=== PATIENT | female | born 1935 | race Caucasian/White ===

== ENCOUNTER 2016-05-25 13:56 | Emergency (ER) | payer OTHER, MEDICARE ==
[~2016-05-25 13:56] MED LIST: ALBUTEROL0.09 MG/A1 INH; ASPIRIN CHILDRE81 MG PO; ASPIRIN325 M2 PO; ATENOLOL25 M1 PO; AUGMENTIN 875 M1 TAB PO; CIPROFLOXACIN500 MG PO; CITALOPRAM20 MG PO; FERROUS SULFAT325 M3 PO; FLAG500 PO; HUMALOG100 U/ML; HUMALOG100 UNIT/2; HUMULIN N100 UNIT/2 SC; HUMULIN-N1000 U/10 SC; KEFLEX500 M1 PO; KEFLEX500 MG PO; LASIX40 MG PO; LEADER MELATONIN5 MG PO; LEVOTHYROXIN0.137 MG PO; LISINOPRIL10 MG PO; MACROBID100 MG PO; METFORMIN HYD1000 MG PO; METFORMIN1000 MG PO; MYRBETRIQ50 M1 PO; NOVOLIN-N1000 UNITS SC; NOVOLOG100 U/ML SC; ONDANSETRON ODT4 MG PO; PEPCID20 MG PO; PROTONIX 40MG T40 MG PO; REGLAN10 MG PO; TYLENOL PM EXTR1 TAB PO; VICODIN 5-3001 EACH PO; VITAMIN D250000 UNIT PO; ZETIA10 M1 PO
--- NOTE | 2016-05-25 16:12 | ED MVC/FALL/TRAUMA COMPLAINT ---
History of Present Illness General Chief Complaint: Low Back Pain/Injury Stated Complaint: S/P FALL, R SIDE LOWER BACK PAIN Source: patient, old records Exam Limitations: no limitations Allergies Coded Allergies: Sulfa (Sulfonamide Antibiotics) (HIVES 08/05/15) adhesive tape (UNKNOWN 08/05/15) morphine (UNKNOWN 08/05/15) Reconcile Medications ACETAMINOPHEN/DIPHENHYDRAMINE (Tylenol Pm Ex-Strength Caplet) 500 MG-25 MG TABLET 2 TAB PO QPM PRN SLEEP (Reported) Aspirin (Aspirin*) 325 MG TABLET 2 TAB PO DAILY HEART HEALTH (Reported) Atenolol 25 MG TABLET 1 TAB PO DAILY BP (Reported) Bimatoprost (Lumigan) 0.01 % DROPS 1 GTT OPH QPM BOTH EYES (Reported) Citalopram Hydrobromide (Citalopram HBr) 20 MG TABLET 1 TAB PO DAILY DEPRESSION (Reported) Ergocalciferol (Vitamin D2) (Vitamin D2) 50,000 UNIT CAPSULE 1 CAP PO Q10D SUPPLEMENT (Reported) Ezetimibe (Zetia) 10 MG TABLET 1 TAB PO DAILY CHOLESTEROL (Reported) Ferrous Sulfate 325 MG (65 MG IRON) TABLET 1 TAB PO TID SUPPLEMENT (Reported) Furosemide (Lasix) 40 MG TABLET 1 TAB PO BID FLUID (Reported) Hydromorphone HCl (Dilaudid) 2 MG TABLET 1 TAB PO Q6H PRN pain Insulin Lispro (Humalog) (Unknown Strength) VIAL (Unknown Dose) SEE SLIDING SCALE DIABETES (Reported) Insulin NPH Human Isophane (Humulin N Kwikpen) 100 UNIT/ML (3 ML) INSULN.PEN 30 U SC BID DIABETES (Reported) Levothyroxine Sodium 0.137 MG TAB 1 TAB PO DAILY AC THYROID (Reported) Melatonin 5 MG TABLET 2 TAB PO QPM SLEEP AID (Reported) METFORMIN HCL (Metformin) 1,000 MG TAB 1 TAB PO BID DM (Reported) Mirabegron (Myrbetriq) 50 MG TAB.ER.24H 1 TAB PO DAILY BLADDER (Reported) Pantoprazole Sodium (Protonix) 40 MG TAB 1 TAB PO DAILY GERD (Reported) Triage Note: C/O FALLING 2 DAYS AGO, SEEN AT THE [facility]ALKIN. C/O RIGHT FLANK/BACK PAIN WHERE SHE LANDED - GETTING WORSE . PT TOOK IBUPROPHEN PRIOR TO ARRIVAL. Triage Nurses Notes Reviewed? yes HPI: Patient is a 81 year old female presents complaining of severe right low back pain s/p fall 2 days ago. Patient slipped and fell 2 days ago onto her right low back. Pain is a sharp, burning, spasming sensation, worsens at times with movements. Took 400mg of ibuprofen today with no improvement. Went to an urgent care clinic yesterday, and had x-rays that were unremarkable. Denies head injury, loss of consciousness, neck pain, headache, incontinence, pain radiating down the legs, numbness. (KUSH MICHAUD) Vital Signs & Intake/Output Vital Signs & Intake/Output Vital Signs Date Time Temp Pulse Resp B/P Pulse O2 O2 Flow FiO2 Ox Delivery Rate 05/25 2010 97.4 74 18 134/60 94 Room Air Room Air 05/25 1506 97 Room Air 05/25 1407 97.2 63 18 145/54 97 Room Air ED Intake and Output 05/26 0000 05/25 1200 Intake Total Output Total Balance Patient 211 lb Weight Past History Travel History Traveled to [place] past 21 day No Medical History Any Pertinent Medical History? see below for history Neurological: CVA EENT: macular degeneration Cardiovascular: CAD, PACEMAKER Respiratory: NONE Gastrointestinal: diverticulitis, gastric ulcers colonoscopy in 2009 showed a small tubular adenoma and diverticulosis. She has had 2 upper endoscopies last in 2011 which showed mild gastritis and was negative for H. 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 Other Medical Hx: Peripheral vascular disease, hyperlipidemia, coronary artery disease, hypothyroidism, sick sinus syndrome, sleep apnea, CVA, GI bleed, hypertension, diabetic retinopathy, diabetic neuropathy, osteomyelitis, spherocytosis, chronic anemia, depression, History of MRSA: Yes Surgical History Surgical History: knee replacement (BILATERAL), PACEMAKER CARDIAC STENT SPLENECTOMY, CHOLECYSTECTOMY, LEFT CAROTID ENDARTERECTOMY, KNEE REPLACEMENT, PACEMAKER Psychosocial History Who do you live with Friend Services at Home None What is your primary language Citizen Of [place] Tobacco Use: Never used ETOH Use: denies use Illicit Drug Use: denies illicit drug use Family History Family History, If Any: FATHER FH: diabetes mellitus Relation not specified for: FH: pancreatic cancer Hx Contributory? No (KUSH MICHAUD) Review of Systems Review of Systems Constitutional: Reports: no symptoms. Eyes: Reports: no symptoms. Ears, Nose, Throat, Mouth: Reports: no symptoms. Respiratory: Denies: cough, short of breath. Cardiovascular: Denies: chest pain. Gastrointestinal/Abdominal: Denies: abdominal pain, nausea, vomiting. Genitourinary: Reports: no symptoms. Musculoskeletal: Reports: see HPI. Skin: Reports: no symptoms. Neurological/Psychological: Denies: headache, numbness, paresthesia. (KUSH MICHAUD) Physical Exam Physical Exam General Appearance: well developed/nourished, alert, awake Head: atraumatic, normal appearance Eyes: Bilateral: normal appearance, PERRL, EOMI. Ears, Nose, Throat, Mouth: hearing grossly normal, moist mucous membrane Neck: normal inspection, supple, full range of motion, no midline tenderness, NO PARASPINAL TENDERNESS Respiratory: normal breath sounds, chest non-tender, no respiratory distress, lungs clear Cardiovascular: regular rate/rhythm Peripheral Pulses: 2+ dorsalis pedis (R), 2+ dorsalis pedis (L) Gastrointestinal: normal bowel sounds, soft, non-tender Back: TENDERNESS RIGHT INFERIOR RIBS. hEMATOMA RIGHT LUMBAR PARASPINAL. 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 No Severe Sepsis Present: No Septic Shock Present: No (KUSH MICHAUD) Progress Differential Diagnosis: aoritic dissection, abd injury, C/T/L spine injury, ext injury, pelvis injury, pnemothorax, spinal cord injury Diagnostic Imaging: Viewed by Me: CT Scan. Discussed w/RAD: CT Scan. Radiology Impression: [facility] 81 PATIENT ACCOUNT NO: [id number] : 37 LOCATION: [facility] ORDERING PHYSICIAN: KUSH MOORE SERVICE DATE: 05/25/16 EXAM TYPE: CAT - CT 3D RECON REQ POST PROC; CT ABD & PELVIS W/O IV CONTRAS EXAMINATION: CT ABD PELVIS W/O IV CONTRAS, CT 3D RECON REQ POST PROC CLINICAL INFORMATION: Trauma. Severe back pain. Bruising right low back. Consider retroperitoneal bleed. COMPARISON: CT of the abdomen and pelvis done 02/11/[address] the lumbar sacral spine on 05/05/2016. TECHNIQUE: CT of the abdomen and pelvis with coronal and sagittal reformats obtained at the acquisition workstation. Targeted reformats of the lumbosacral spine also in the coronal, axial, and sagittal planes. FINDINGS: Director Loan view demonstrates cardiomegaly and portions of a dual- lead pacemaker. There is a focal area of scarring contained within the lingula of the left upper lobe. There is no hemothorax. Calcification of the mitral annulus is seen. The liver is normal in size showing no acute injury. Pneumobilia is due to a prior papillotomy. The gallbladder is not present. The pancreas is normal. The spleen has been surgically removed. The adrenal glands are normal. Abundant renal sinus fat is seen in both kidneys which are normal in shape. Neither kidney shows evidence of hydronephrosis or stone formation. The bladder is unremarkable. The small and large intestine are normal. The appendix is normal. There is no evidence of free fluid or free air. Numerous calcific plaques are seen throughout the thoracic and abdominal aorta. Calcifications are also present at the origins of the major vessels. There is no sign of intra- abdominal hematoma formation. Osseous structures: There are nondisplaced fractures involving the transverse processes on the right at L1 and L2. An old nondisplaced fracture involves the right transverse processes of L4. Progressive degenerative disc disease is seen at the levels of L2-S1. Vertebral height is preserved. Facet arthropathy is localized to the lumbosacral junction. The patient has been previously diagnosed with spinal stenosis in the lumbar region. Addition, there is slightly displaced fractures involving the posterolateral aspects of the right 9th, 10th, and 11th ribs. IMPRESSION: 1. Fractures of the right transverse processes at L1 and L2. 2. Minimally displaced fractures involving the posterolateral aspects of the 9th, 10th, and 11th ribs. 3. No pneumothorax or hemothorax. 4. No retroperitoneal hematoma formation. DICTATED BY: ANTONIO WILSON MD DATE/TIME DICTATED:05/25/161745 LINE SERVICE SUPERVISOR: ZEE DATE/TIME TRANSCRIBED:05/25/161745 CONFIDENTIAL, DO NOT COPY WITHOUT APPROPRIATE AUTHORIZATION. <Electronically signed in Other Vendor System> SIGNED BY: ANTONIO WILSON MD 05/25/16 134, PATIENT: [facility] PRESENT AGE: 81 PATIENT ACCOUNT NO: [id number] : 37 LOCATION: [facility] ORDERING PHYSICIAN: KUSH MOORE SERVICE DATE: 05/25/16 EXAM TYPE: CAT - CT CHEST WO IV CONTRAST EXAMINATION : CT CHEST WITHOUT CONTRAST CLINICAL INFORMATION: Rib fractures incurred today. COMPARISON: CT of the abdomen done earlier this evening. TECHNIQUE: Multidetector volumetric CT imaging of the chest was done. Axial MIP volume rendering provided. Sagittal and coronal reformatted images were obtained. DLP: 469 mGy-cm. FINDINGS: DYE CAN OPERATOR: Director Loan view demonstrates fibrotic opacities in both lower lobes. The heart is enlarged. The right pectoral pacemaker is in the appropriate position. LUNGS: The exam confirms peripheral fibrosis involving the lower lobes. The remainder of the lung arevalo is clear showing no evidence of lung contusion. MEDIASTINUM: The heart is enlarged. There is mitral valvular calcification. Benign mediastinal nodes are present. PLEURA: There is no pleural effusion. No pleural mass or thickening. AXILLA: No lymphadenopathy. UPPER ABDOMEN: Unremarkable. OSSEOUS STRUCTURES: Vertebral height is preserved. There is no subluxation. The upper rib cage on the right is intact. IMPRESSION: Early pulmonary fibrosis of the lower lobes. No evidence of lung contusion or atelectasis. No additional rib fractures. DICTATED BY: ANTONIO WILSON MD DATE /TIME DICTATED:05/25/161933 LINE SERVICE SUPERVISOR:ZEE DATE/TIME TRANSCRIBED: 05/25/161933 CONFIDENTIAL, DO NOT COPY WITHOUT APPROPRIATE AUTHORIZATION. < Electronically signed in Other Vendor System> SIGNED BY: ANTONIO WILSON MD 05/25/161944 (KUSH MICHAUD) Plan of Care: Orders Procedure Date/time Status FingerStick- Glucose 05/[address] abdomen and pelvis and lumbar spine discussed with the patient and her significant other. CT chest ordered to rule out further rib fractures or lung injury. Discussed with and seen by Dr. Felipe. 2010: Patient ambulated well with walker without respiratory distress. Post- ambulation patient's oxygen saturation 94%. Injuries occurred approximately 48 hours ago given patient's respiratory condition and time from injury patient does not appear to require transfer to a trauma center. Patient wants to go home, appears okay for discharge. Patient provided with an incentive spirometer. Instructed to return immediately if any difficulty breathing or worsening of symptoms. (KUSH MICHAUD) Departure Departure Time of Disposition: 2008 Disposition: HOME OR SELF CARE Condition: Stable Clinical Impression Primary Impression: Ribs, multiple fractures Qualifiers: Encounter type: initial encounter Fracture type: closed Laterality: right Qualified Code: S22.41XA - Multiple fractures of ribs, right side, initial encounter for closed fracture Secondary Impressions: Lumbar transverse process fracture Qualifiers: Encounter type: initial encounter Fracture type: closed Qualified Code: S32.008A - Other fracture of unspecified lumbar vertebra, initial encounter for closed fracture Referrals: SONALI TRUJILLO APRN (PCP/Family) Additional Instructions: Follow-up with your primary care provider tomorrow or early next week for further evaluation. Call Sunday for appointment. Use the incentive spirometer 10-15 times each hour. Return to the emergency department immediately if fevers, pain uncontrollable, difficulty breathing, numbness, weakness or worsening of symptoms. Departure Forms: Customer Survey General Discharge Information Prescriptions: Current Visit Scripts Hydromorphone HCl (Dilaudid) 1 TAB PO Q6H PRN pain #20 TAB (KUSH MICHAUD) PA/REFINING ENGINEER Co-Sign Statement Statement: ED Attending supervision documentation- [X] I saw and evaluated the patient. I have also reviewed all the pertinent lab results and diagnostic results. I agree with the findings and the plan of care as documented in the PA's/REFINING ENGINEER's documentation. [] I have reviewed the ED Record and agree with the PA's/REFINING ENGINEER's documentation. [] Additions or exceptions (if any) to the PAs/REFINING ENGINEER's note and plan are summarized below: [] (ALCIDES BOURGEOIS,AJN Saenz)
--- NOTE | 2016-05-25 18:14 | CT SCAN REPORT ---
EXAMINATION: CT ABD PELVIS W/O IV CONTRAS, CT 3D RECON REQ POST PROC CLINICAL INFORMATION: Trauma. Severe back pain. Bruising right low back. Consider retroperitoneal bleed. COMPARISON: CT of the abdomen and pelvis done 02/11/[address] the lumbar sacral spine on 05/05/2016. TECHNIQUE: CT of the abdomen and pelvis with coronal and sagittal reformats obtained at the acquisition workstation. Targeted reformats of the lumbosacral spine also in the coronal, axial, and sagittal planes. FINDINGS: Sales Ledger Administrator view demonstrates cardiomegaly and portions of a dual-lead pacemaker. There is a focal area of scarring contained within the lingula of the left upper lobe. There is no hemothorax. Calcification of the mitral annulus is seen. The liver is normal in size showing no acute injury. Pneumobilia is due to a prior papillotomy. The gallbladder is not present. The pancreas is normal. The spleen has been surgically removed. The adrenal glands are normal. Abundant renal sinus fat is seen in both kidneys which are normal in shape. Neither kidney shows evidence of hydronephrosis or stone formation. The bladder is unremarkable. The small and large intestine are normal. The appendix is normal. There is no evidence of free fluid or free air. Numerous calcific plaques are seen throughout the thoracic and abdominal aorta. Calcifications are also present at the origins of the major vessels. There is no sign of intra-abdominal hematoma formation. Osseous structures: There are nondisplaced fractures involving the transverse processes on the right at L1 and L2. An old nondisplaced fracture involves the right transverse processes of L4. Progressive degenerative disc disease is seen at the levels of L2-S1. Vertebral height is preserved. Facet arthropathy is localized to the lumbosacral junction. The patient has been previously diagnosed with spinal stenosis in the lumbar region. Addition, there is slightly displaced fractures involving the posterolateral aspects of the right 9th, 10th, and 11th ribs. IMPRESSION: 1. Fractures of the right transverse processes at L1 and L2. 2. Minimally displaced fractures involving the posterolateral aspects of the 9th, 10th, and 11th ribs. 3. No pneumothorax or hemothorax. 4. No retroperitoneal hematoma formation.
[2016-05-25] MEDS ORDERED: LUMIGAN2.5 ML OPH (19:18)
--- NOTE | 2016-05-25 19:45 | CT SCAN REPORT ---
EXAMINATION: CT CHEST WITHOUT CONTRAST CLINICAL INFORMATION: Rib fractures incurred today. COMPARISON: CT of the abdomen done earlier this evening. TECHNIQUE: Multidetector volumetric CT imaging of the chest was done. Axial MIP volume rendering provided. Sagittal and coronal reformatted images were obtained. DLP: 469 mGy-cm. FINDINGS: ICING AND GLAZE MAKER: Director Of Sales view demonstrates fibrotic opacities in both lower lobes. The heart is enlarged. The right pectoral pacemaker is in the appropriate position. LUNGS: The exam confirms peripheral fibrosis involving the lower lobes. The remainder of the lung arevalo is clear showing no evidence of lung contusion. MEDIASTINUM: The heart is enlarged. There is mitral valvular calcification. Benign mediastinal nodes are present. PLEURA: There is no pleural effusion. No pleural mass or thickening. AXILLA: No lymphadenopathy. UPPER ABDOMEN: Unremarkable. OSSEOUS STRUCTURES: Vertebral height is preserved. There is no subluxation. The upper rib cage on the right is intact. IMPRESSION: Early pulmonary fibrosis of the lower lobes. No evidence of lung contusion or atelectasis. No additional rib fractures.
[2016-05-25 20:11] VITALS: BP 134/60
[2016-05-25] MEDS ORDERED: DILAUDID2 M1 PO (20:11)
== END 2016-05-25 20:24 ==
LOC: ERH 13:56
DX: S22.41XA Multiple fractures of ribs, right side, initial encounter for closed fracture (principal); S32.019A Unspecified fracture of first lumbar vertebra, initial encounter for closed fracture; S32.029A Unspecified fracture of second lumbar vertebra, initial encounter for closed fracture; W19.XXXA Unspecified fall, initial encounter
CPT/HCPCS: 74176; 96372

== ENCOUNTER 2016-11-27 09:59 | Observation (INO) | payer OTHER, MEDICARE ==
[~2016-11-27] VITALS: Ht 160 cm; Wt 99.8 kg
[~2016-11-27 09:59] MED LIST changes: +CITALOPRAM HBR20 MG PO; -CITALOPRAM20 MG PO; +DILAUDID2 M1 PO; +LASIX40 M1 PO; -LASIX40 MG PO; -LEVOTHYROXIN0.137 MG PO; +LEVOTHYROXINE137 MCG PO; +LUMIGAN2.5 ML OPH; +METFORMIN HCL1000 M1 PO; -METFORMIN1000 MG PO; -PROTONIX 40MG T40 MG PO; +PROTONIX40 M3 PO; +TYLENOL PM EX-1 EACH PO; -TYLENOL PM EXTR1 TAB PO
--- NOTE | 2016-11-27 10:06 | NUR ---
PT TO ED WITH C/O "WOKE UP AROUND 3AM WITH CHILLS, HAD DIARRHEA LAST WEEK, THEN WOKE UP AROUND 4AM SOAKING WET, GOT UP AND CHECKED SUGAR 102, AND ATE PEANUT BUTTER" "SUGAR NOW 151".
--- NOTE | 2016-11-27 10:16 | NUR ---
PT ROOM # 22 VIA WHEELCHAIR, CHANGED TO HOSP GOWN FOR EVAL. AT BEDSIDE.
--- NOTE | 2016-11-27 10:31 | NUR ---
PT C/O OF ABDOMINAL PAIN AND NAUSEA, PT STATES PAIN STARTED IN THE MIDDLE OF THE NIGHT. PT ALSO C/O OF CHILLS OVERNIGHT.
--- NOTE | 2016-11-27 10:43 | NUR ---
EKG DONE AND SHOWN TO DR. MCGRATH
[2016-11-27 10:44] LABS: ABSOLUTE BASOPHIL COUNT 0.1 /CUMM (0.0-0.2); ABSOLUTE EOSINOPHIL COUNT 0.2 /CUMM (0.0-0.7); ABSOLUTE GRANULOCYTE CT 6.7 /CUMM (1.4-6.5); ABSOLUTE LYMPH COUNT 3.6 /CUMM (1.2-3.4); ABSOLUTE MONOCYTE COUNT 1.4 /CUMM (0.10-0.60); BASOPHIL % 0.5 % (0.0-2.0); EOSINOPHIL % 1.3 % (0-5); GRANULOCYTE % 56.1 % (42.2-75.2); HEMATOCRIT 34.5 % (37-47); MEAN CORPUSCULAR HGB 30.2 PG (27.0-31.0); MEAN CORPUSCULAR HGB CONC 34.4 G/DL (33.0-37.0); MEAN PLATELET VOLUME 7.9 FL (7.4-10.4); PLATELET COUNT 394 /CUMM (130-400); RBC DISTRIBUTION WIDTH 14.7 % (11.5-14.5); RED BLOOD CELL CT 3.92 /CUMM (4.20-5.40)
--- NOTE | 2016-11-27 10:49 | ED AMS/SEIZURE/WEAK/DIZZY ---
History of Present Illness General Chief Complaint: General Adult Stated Complaint: CHILLS AND FEVER Source: patient, old records Exam Limitations: no limitations Vital Signs & Intake/Output Vital Signs & Intake/Output Vital Signs Date Time Temp Pulse Resp B/P B/P Pulse O2 O2 Flow FiO2 Mean Ox Delivery Rate 11/27 1516 96.7 95 20 157/67 94 Room Air 11/27 1251 96.0 90 20 178/68 98 Room Air 11/27 1005 98.0 64 20 168/67 96 Room Air Room Air Allergies Coded Allergies: Sulfa (Sulfonamide Antibiotics) (HIVES 08/05/15) adhesive tape (UNKNOWN 08/05/15) morphine (UNKNOWN 08/05/15) Reconcile Medications Acetaminophen/Diphenhydramine (Tylenol Pm Ex-Strength Caplet) 500 MG-25 MG TABLET 2 TAB PO QPM PRN SLEEP (Reported) Aspirin (Aspirin*) 325 MG TABLET 2 TAB PO DAILY HEART HEALTH (Reported) Atenolol 25 MG TABLET 1 TAB PO DAILY BP (Reported) Bimatoprost (Lumigan) 0.01 % DROPS 1 GTT OPH QPM BOTH EYES (Reported) Citalopram Hydrobromide (Citalopram HBr) 20 MG TABLET 1 TAB PO DAILY DEPRESSION (Reported) Ergocalciferol (Vitamin D2) (Vitamin D2) 50,000 UNIT CAPSULE 1 CAP PO Q10D SUPPLEMENT (Reported) Ezetimibe (Zetia) 10 MG TABLET 1 TAB PO DAILY CHOLESTEROL (Reported) Ferrous Sulfate 325 MG (65 MG IRON) TABLET 1 TAB PO BID SUPPLEMENT (Reported) Gabapentin 100 MG CAPSULE 1 CAP PO TID NEUROPATHY (Reported) Insulin Lispro (Humalog) (Unknown Strength) VIAL (Unknown Dose) SEE SLIDING SCALE DIABETES (Reported) Insulin NPH Human Isophane (Humulin N Kwikpen) 100 UNIT/ML (3 ML) INSULN.PEN 30 U SC BID DIABETES (Reported) Levothyroxine Sodium 137 MCG TABLET 1 TAB PO DAILY AC THYROID (Reported) Metformin HCl 1,000 MG TABLET 1 TAB PO BID DM (Reported) Pantoprazole Sodium (Protonix) 40 MG TABLET.DR 1 TAB PO DAILY ACID REFLUX ( Reported) Torsemide 20 MG TABLET 1 TAB PO DAILY WATER RETENTION (Reported) Triage Note: PT TO ED WITH C/O "WOKE UP AROUND 3AM WITH CHILLS, HAD DIARRHEA LAST WEEK, THEN WOKE UP AROUND 4AM SOAKING WET, GOT UP AND CHECKED SUGAR 102, AND ATE PEANUT BUTTER" "SUGAR NOW 151". Triage Nurses Notes Reviewed? yes HPI: 81-year-old female with history of coronary artery disease diabetes presents for evaluation complaining of generalized malaise and weakness chills since last night. She states that she got up in the middle of the night in a cold sweat, she states that she thought her sugar was low so she had a glass of milk and peanut butter and checked her sugar afterwards and was 102. She states since then she's been nauseous. She denies chest pain palpitations dizziness lightheadedness. No sick contacts. She was in her normal state of health yesterday. She states last week she had 4 days of watery green diarrhea no black or bloody stools her bowel movements have been normal since. No recent antibiotic use. No modifying factors or associated symptoms otherwise (QUENTIN REA) Past History Travel History Traveled to [place] past 21 day No Medical History Any Pertinent Medical History? see below for history Neurological: CVA EENT: macular degeneration Cardiovascular: CAD, PACEMAKER Respiratory: NONE Gastrointestinal: diverticulitis, gastric ulcers colonoscopy in 2009 showed a small tubular adenoma and diverticulosis. She has had 2 upper endoscopies last in 2011 which showed mild gastritis and was negative for H. 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: NONE Other Medical Hx: Peripheral vascular disease, hyperlipidemia, coronary artery disease, hypothyroidism, sick sinus syndrome, sleep apnea, CVA, GI bleed, hypertension, diabetic retinopathy, diabetic neuropathy, osteomyelitis, spherocytosis, chronic anemia, depression, History of MRSA: Yes Surgical History Surgical History: knee replacement (BILATERAL), PACEMAKER CARDIAC STENT SPLENECTOMY, CHOLECYSTECTOMY, LEFT CAROTID ENDARTERECTOMY, KNEE REPLACEMENT, PACEMAKER Psychosocial History Who do you live with Friend Services at Home None What is your primary language Yakut Tobacco Use: Quit >30 days ago ETOH Use: denies use Illicit Drug Use: denies illicit drug use Family History Family History, If Any: FATHER FH: diabetes mellitus Relation not specified for: FH: pancreatic cancer Hx Contributory? No (QUENITN REA) Review of Systems Review of Systems Constitutional: Reports: see HPI. All Other Systems: Reviewed and Negative Comments Review of systems: See HPI, All other systems negative. Constitutional, no chills no fever, no malaise HEENT: No visual changes no sore throat no congestion, no ear pain Cardiovascular: No chest pain , no palpitation , no orthopnea Skin: no rashes, no change in skin Respiratory: No dyspnea no cough no sputum GI: nausea no vomiting, no diarrhea, : No dysuria No hematuria, no frequency, no discharge Muscle skeletal: No joint pain, no joint swelling, no back pain, no neck pain, Neurologic: No numbness no confusion, no headache Psych: No stress no depression,. Heme/endocrine: No bruising no bleeding Immunology: No lymphadenopathy (QUENTIN REA) Physical Exam Physical Exam General Appearance: well developed/nourished, alert Comments: Well-developed well-nourished person in no acute distress HEENT: Normal EENT exam; PERRL, EOMI,. HEAD is atraumatic. moist mucous membranes. Neck: Supple, no lymphadenopathy, normal range of motion Back: Nontender, no CVA tenderness. Full range of motion Cardiovascular: Regular rate and rhythms no murmurs rubs Respiratory: Chest nontender.There were no bony deformities, no asymmetry. No respiratory distress. Patient speaking in full complete sentences. Breath sounds clear to auscultation bilaterally: NO W/R/R Abdomen: Soft, periumbilical tenderness nondistended, no appreciable organomegaly. Normal bowel sounds. No rebound/guarding, No appreciable enlargement of the abdominal aorta, No ascites. Extremity: No edema, full range of motion of extremities, normal and equal pulses bilaterally, 5 out of 5 strength noted to bilateral upper and lower extremities Neuro: Alert oriented x3, motor sensory normal, cranial nerves II through XII grossly intact. There were no obvious focal neurologic abnormalities. Skin: No appreciable rash on exposed skin, skin is warm and dry. Psych: Mood and affect is normal, memory and judgment is normal. Core Measures ACS in differential dx? No CVA/TIA Diagnosis: No Severe Sepsis Present: No Septic Shock Present: No (QUENTIN REA) Progress Differential Diagnosis: dehydration, GI bleed, hypoglycemia, pneumonia, UTI/ pyelo, ischemic COLITIS DIVERTICULITIS, dehydration Diagnostic Imaging: Viewed by Me: CT Scan. Discussed w/RAD: CT Scan. Radiology Impression: [facility] PRES[facility] AGE: 81 PATIENT ACCOUNT NO: [id number] : 37 LOCATION: ER ORDERING PHYSICIAN: QUENTIN MOORE SERVICE DATE: 11/27/16 EXAM TYPE: CAT - CT ABD & PELVIS W IV CONTRAST EXAMINATION: CT ABDOMEN AND PELVIS WITH CONTRAST CLINICAL INFORMATION: Periumbilical pain. Diarrhea and chills. COMPARISON: 05/25 TECHNIQUE: Multidetector volumetric imaging was performed of the abdomen and pelvis before and after the IV administration of 93 mL of Optiray 320 intravenous contrast. Sagittal and coronal reformatted images were obtained on the technologist's workstation. DLP: 1075 mGy-cm FINDINGS: LUNG BASES: Bibasilar subsegmental atelectasis. Coronary artery calcifications. Partial visualization of pacer hardware. LIVER, GALLBLADDER, AND BILIARY TREE: The liver is normal in size, shape, and attenuation. No focal hepatic lesion or biliary ductal dilatation is present. There is pneumobilia, with gas extending into the left lobe of the liver. This is similar to previous. Gas is also seen in the common bile duct. The common bile duct is unchanged in caliber. Status post cholecystectomy. PANCREAS: Unremarkable. SPLEEN: Absent. ADRENAL GLANDS: Unremarkable. KIDNEYS AND URETERS: The kidneys are normal in size, shape, and attenuation. No hydronephrosis, hydroureter, or calculi seen. No perinephric stranding. BLADDER: Unremarkable. GASTROINTESTINAL TRACT: The stomach and small bowel are unremarkable. No dilated loops of bowel or evidence of obstruction. Normal appendix. There is no colonic wall thickening or inflammatory change. Mild colonic stool burden. No free air or free fluid. ABDOMINAL WALL: No significant hernia is appreciated. LYMPH NODES: Multiple mildly prominent retroperitoneal lymph nodes are unchanged. VASCULAR: Moderate atherosclerotic calcifications. PELVIC VISCERA: Multiple calcifications associated with the uterus suggestive of small fibroids. No adnexal mass. OSSEOUS STRUCTURES: No acute or suspicious osseous abnormality. Multilevel degenerative changes of the spine. Degenerative changes at the hips. Multiple nonunited transverse process fractures at the lumbar spine and right posterior lateral rib fractures. IMPRESSION: No acute finding of the abdomen or pelvis. No acute inflammatory changes. Chronic findings as above. DICTATED BY: MIKAYLA BOURGEOIS,NADIYA DATE/TIME DICTATED:11/27/161149 SENIOR ANALYST DEVELOPER:ZEE DATE/TIME TRANSCRIBED:0 CONFIDENTIAL, DO NOT COPY WITHOUT APPROPRIATE AUTHORIZATION. < Electronically signed in Other Vendor System> SIGNED BY: NADIYA DEGROOT MD 11/27/16 1202, PATIENT: SWAPNA BAKER PRESENT AGE: 81 PATIENT ACCOUNT NO: [id number] : 37 LOCATION: [facility] ORDERING PHYSICIAN: QUENTIN MOORE SERVICE DATE: 11/27/16-151 EXAM TYPE: RAD - XRY- PORTABLE CHEST XRAY EXAMINATION: CHEST 1 VIEW CLINICAL INFORMATION: Fever, pain. COMPARISON: 05/25/2016. TECHNIQUE: An AP view of the chest is provided. FINDINGS : The cardiac silhouette is enlarged, but stable. Pacer leads are in unchanged position. There is moderate vascular congestion. There are no consolidations. There are neither pleural effusions nor pneumothoraces. The osseous structures are stable. IMPRESSION: Stable cardiomegaly with moderate vascular congestion. DICTATED BY: MIRA BAKER MD DATE/TIME DICTATED:11/27/161525 SENIOR ANALYST DEVELOPER:ZEE DATE/TIME TRANSCRIBED:11/27/161525 CONFIDENTIAL, DO NOT COPY WITHOUT APPROPRIATE AUTHORIZATION. <Electronically signed in Other Vendor System> SIGNED BY: MIRA BAKER MD 11/27/16 1531 Initial ED EKG: PACED RHYTHM 60, NO ACUTE st SEGMENT CHANGES NORMAL AXIS Prior EKG: unchanged (06/29) (CARLOS MOORE,QUENTIN) Plan of Care: Orders Procedure Date/time Status Regular Diet 11/27 D Active Pathway - chart 11/27 1612 Active Pathway - chart 11/[address] in observation 11/27 1609 Active House Staff 11/27 1609 Active Patient Data 11/27 1609 Active Code Status 11/27 1609 Active Patient Data 11/27 1533 Active BLOOD CULTURE 11/27 1509 Active LACTIC ACID 11/27 1330 Complete CULTURE,URINE 11/27 1057 Active URINALYSIS 11/27 1057 Complete Add-on Test (ER Only) 11/27 1048 Active TROPONIN LEVEL 11/27 1036 Complete LIPASE 11/27 1036 Complete LACTIC ACID 11/27 1036 Complete AMYLASE 11/27 1036 Complete EKG 11/27 1031 Active Intake & Output 11/27 1027 Active COMPREHENSIVE METABOLIC PANEL 11/27 1027 Complete CBC WITHOUT DIFFERENTIAL 11/27 1027 Complete VTE Mechanical Prophylaxis 11/27 UNK Active Hemoccult 11/27 UNK Active Current Medications Sig/[place] Start time Last Medication Dose Stop Time Status Admin Aspirin 650 MG DAILY 11/28 1000 UNVr (Aspirin) Atenolol 25 MG DAILY 11/28 1000 UNVr (Tenormin) Citalopram 20 MG DAILY 11/28 1000 UNVr Hydrobromide (Celexa) Ezetimibe 10 MG DAILY 11/28 1000 UNVr (Zetia) Torsemide 20 MG DAILY 11/28 1000 UNVr (Demadex 20 MG) Insulin Aspart 0 TIDAC 11/28 08 UNVr (NovoLOG) Levothyroxine Sodium 0.137 MG DAILY AC 11/28 07 UNVr (Synthroid) Omeprazole 40 MG DAILY AC 11/28 07 UNVr (Prilosec) Insulin Detemir 20 UNITS BID 11/27 2200 UNVr (Levemir) Non-Formulary 0 SEE ADMIN CRITERIA 11/27 1700 UNVr Medication (NON FORMULARY) Gabapentin 100 MG TID 11/27 1655 UNVr (Neurontin) Acetaminophen 650 MG Q6P PRN 11/27 1615 AC (Tylenol) Acetaminophen 1,000 MG Q6P PRN 11/27 1615 AC (Ofirmev) Hydromorphone HCl 0.5 MG Q4P PRN 11/27 1615 AC (Dilaudid) Enoxaparin Sodium 40 MG DAILY 11/27 1609 AC (Lovenox) Laboratory Tests 11/27/16 1330: Urinalysis LIGHT H, Urine Color STRAW, Urine Clarity CLEAR, Urine pH 7.0, Ur Specific Bryce 1.010, Urine Protein NEG, Urine Ketones NEG, Urine Nitrite POS H, Urine Bilirubin NEG, Urine Urobilinogen 0.2, Ur Leukocyte Esterase NEG, Ur Microscopic SEDIMENT EXAMINED, Urine RBC RARE, Urine WBC RARE, Ur Epithelial Cells RARE, Urine Bacteria MANY H, Urine Hemoglobin NEG, Urine Glucose NEG 11/27/16 1322: Lactic Acid 2.7 H 11/27/16 1036: Anion Gap 13, Estimated GFR 48 L, BUN/Creatinine Ratio 18.2, Glucose 188 H, Lactic Acid 2.2 H, Calcium 8.9, Total Bilirubin 0.4, AST 21, ALT 30, Alkaline Phosphatase 68, Troponin I < 0.01, Total Protein 7.0, Albumin 3.9, Globulin 3.1, Albumin/Globulin Ratio 1.3, Amylase < 30 L, Lipase 45, CBC w Diff MAN DIFF ORDERED, RBC 3.92 L, MCV 88.0, MCH 30.2, RDW 14.7 H, MPV 7.9, Gran % 56.1, Lymphocytes % 30.2, Monocytes % 11.9 H, Eosinophils % 1.3, Basophils % 0.5, Absolute Granulocytes 6.7 H, Absolute Lymphocytes 3.6 H, Absolute Monocytes 1.4 H, Absolute Eosinophils 0.2, Absolute Basophils 0.1, Platelet Estimate VERIFIED BY SMEAR, Poikilocytosis 1+, Anisocytosis 1+, [place] Cells 1+, PUBS MCHC 34.4 Microbiology 11/27 1535 BLOOD: Blood Culture - RECD 11/27 1520 BLOOD: Blood Culture - RECD 11/27 1330 URINE ROUT: Urine Culture - RECD Labs ordered old records reviewed patient denies any pain at this time medically with IV fluids O for a CAT scan ordered. Case discussed Dr. Felipe agrees the plan. On repeat evaluation patient is resting in no apparent distress she's had no episodes of diarrhea here in the department. Discussed with her and her at length all of her results pending urine. Resting comfortably requesting something to eat patient seen and evaluated by Dr. Felipe agrees with plan on repeat evaluation pt reprots to persistent abd pain, given increasing lactic acid leveldespite fluids concern for developing process -infection,ischemia present. pain is not out of proportion to exam findings, dr felipe evaluate the pt and agrees with findings, pt did not take her metformin this am. call placed to hospitalists d/w dr webb agrees with plan Further fluids held at this time secondary to x-ray findings on her congestion (QUENTIN REA) Departure Departure Time of Disposition: 1530 Disposition: STILL A PATIENT Condition: Stable Clinical Impression Primary Impression: Lactic acidosis Secondary Impressions: Abdominal pain Referrals: GRACIE BOURGEOIS PhD,ZO Samaniego (PCP/Family) Departure Forms: Customer Survey General Discharge Information Observation Note Spoke With: RONA WEBB MD Physician Advisor Notified: DONTAE BOURGEOIS,ZO Huang Place Patient In: Non-ED OBS Care Area Rationale for Observation: My rational for observation is as follows trend labs and cultures IV fluids premature discharge would BE medically harmful (CARLOS MOORE,QUENTIN) PA/GOPHERMAN Co-Sign Statement Statement: ED Attending supervision documentation- [X] I saw and evaluated the patient. I have also reviewed all the pertinent lab results and diagnostic results. I agree with the findings and the plan of care as documented in the PA's/GOPHERMAN's documentation. [] I have reviewed the ED Record and agree with the PA's/GOPHERMAN's documentation. [] Additions or exceptions (if any) to the PAs/GOPHERMAN's note and plan are summarized below: [] (ALCIDES BOURGEOIS,JAN Saenz)
--- NOTE | 2016-11-27 10:51 | NUR ---
22G IV INSERTED TO RIGHT HAND
--- NOTE | 2016-11-27 10:51 | NUR ---
OSCAR GONZALEZ AT BEDSIDE. LABS DRAWN AND SENT.
--- NOTE | 2016-11-27 11:10 | NUR ---
CRITICAL TEST RESULTS [id number] SWAPNA BAKER 81 F TESTS AND RESULTS: LACTIC ACID 2.2 Results received and read back by: BRUNILDA VANG Results received date and time: 11/27/16 1111 The following provider was notified of the results, and read the results back: OSCAR GONZALEZ Notified date and time: 11/27/16 at 1111
--- NOTE | 2016-11-27 11:21 | NUR ---
ASSUMED CARE OF PT. PT LAYING ON STRETCHER. IV FLUIDS STARTED AND ZOFRAN IV GIVEN. PT REPOPRTS FEELING BETTER.
--- NOTE | 2016-11-27 11:24 | NUR ---
PT TO CT
--- NOTE | 2016-11-27 12:00 | NUR ---
PT RETURNED FROM CT
--- NOTE | 2016-11-27 12:02 | CT SCAN REPORT ---
EXAMINATION: CT ABDOMEN AND PELVIS WITH CONTRAST CLINICAL INFORMATION: Periumbilical pain. Diarrhea and chills. COMPARISON: 05/25/2016 TECHNIQUE: Multidetector volumetric imaging was performed of the abdomen and pelvis before and after the IV administration of 93 mL of Optiray 320 intravenous contrast. Sagittal and coronal reformatted images were obtained on the technologist's workstation. DLP: 1075 mGy-cm FINDINGS: LUNG BASES: Bibasilar subsegmental atelectasis. Coronary artery calcifications. Partial visualization of pacer hardware. LIVER, GALLBLADDER, AND BILIARY TREE: The liver is normal in size, shape, and attenuation. No focal hepatic lesion or biliary ductal dilatation is present. There is pneumobilia, with gas extending into the left lobe of the liver. This is similar to previous. Gas is also seen in the common bile duct. The common bile duct is unchanged in caliber. Status post cholecystectomy. PANCREAS: Unremarkable. SPLEEN: Absent. ADRENAL GLANDS: Unremarkable. KIDNEYS AND URETERS: The kidneys are normal in size, shape, and attenuation. No hydronephrosis, hydroureter, or calculi seen. No perinephric stranding. BLADDER: Unremarkable. GASTROINTESTINAL TRACT: The stomach and small bowel are unremarkable. No dilated loops of bowel or evidence of obstruction. Normal appendix. There is no colonic wall thickening or inflammatory change. Mild colonic stool burden. No free air or free fluid. ABDOMINAL WALL: No significant hernia is appreciated. LYMPH NODES: Multiple mildly prominent retroperitoneal lymph nodes are unchanged. VASCULAR: Moderate atherosclerotic calcifications. PELVIC VISCERA: Multiple calcifications associated with the uterus suggestive of small fibroids. No adnexal mass. OSSEOUS STRUCTURES: No acute or suspicious osseous abnormality. Multilevel degenerative changes of the spine. Degenerative changes at the hips. Multiple nonunited transverse process fractures at the lumbar spine and right posterior lateral rib fractures. IMPRESSION: No acute finding of the abdomen or pelvis. No acute inflammatory changes. Chronic findings as above.
--- NOTE | 2016-11-27 12:10 | NUR ---
TRAY ORDERED FOR PT
--- NOTE | 2016-11-27 12:21 | NUR ---
PT AND EATING LUNCH
[2016-11-27] MEDS ORDERED: GABAPENTIN100 M2 PO (12:57)
[2016-11-27] MEDS ORDERED: TORSEMIDE20 M1 PO (12:57)
--- NOTE | 2016-11-27 13:24 | NUR ---
MEZA TOP SENT
--- NOTE | 2016-11-27 14:20 | NUR ---
CRITICAL TEST RESULTS [id number] SWAPNA BAKER 81 F TESTS AND RESULTS: LACTIC ACID 2.7 Results received and read back by: JENNIFER BUITRAGO Results received date and time: 11/27/16 1420 The following provider was notified of the results, and read the results back: OSCAR GONZALEZ Notified date and time: 11/27/16 at 1410
--- NOTE | 2016-11-27 15:19 | NUR ---
BEDSIDE CHEST XRAY
--- NOTE | 2016-11-27 15:31 | RADIOLOGY REPORT ---
EXAMINATION: CHEST 1 VIEW CLINICAL INFORMATION: Fever, pain. COMPARISON: 05/25/2016. TECHNIQUE: An AP view of the chest is provided. FINDINGS: The cardiac silhouette is enlarged, but stable. Pacer leads are in unchanged position. There is moderate vascular congestion. There are no consolidations. There are neither pleural effusions nor pneumothoraces. The osseous structures are stable. IMPRESSION: Stable cardiomegaly with moderate vascular congestion.
--- NOTE | 2016-11-27 16:51 | History & Physical ---
KAREN MELENDEZ 11/27/16 6075: General Information and HPI MD Statement: I have seen and personally examined SWAPNA HICKMAN and documented this H&P. The patient is a 81 year old F who presented with a patient stated chief complaint of [abdominal pain and diarrhea]. Source of Information: patient, family, old records Exam Limitations: no limitations History of Present Illness: Mrs Hickman is a 81-year-old lady with a PMH of CAD, sick sinus syndrome s/p permanent pacemaker, pulmonary hypertension w/ RVSP 50 mmHg, LVH (echocardiogram October 2011 with LVEF 45-50%), diverticulosis (colonoscopy in 2014), diabetes, hypothyroidism, sideroblastic anemia, history of splenectomy, previous partial ray resection to the left presents with complaints of nonbloody diarrhea and abdominal pain. She reports feeling more lethargic over the past 1 week, decrease in appetite and generalized fatigue. A few days ago she started experiencing abdominal discomfort more than normal localized around her right upper quadrant/epigastric region, nonradiating with an increased frequency of diarrhea especially after meals, 5-7 episodes per day. Last night she woke up sweating prompting her to follow-up the ED. She reports a long-standing history of intermittent episodes of nausea with supportive management. 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 ROS: Patient endorses possible sick contacts at her living facility. The only change in her medication is discontinuation of Lasix and starting on torsemide. She denies any fevers, chills, dizziness, chest pain, palpitations, rashes, recent travel or changes in diet. Allergies/Medications Allergies: Coded Allergies: Sulfa (Sulfonamide Antibiotics) (HIVES 08/05/15) adhesive tape (UNKNOWN 08/05/15) morphine (UNKNOWN 08/05/15) Home Med list Acetaminophen/Diphenhydramine (Tylenol Pm Ex-Strength Caplet) 500 MG-25 MG TABLET 2 TAB PO QPM PRN SLEEP (Reported) Aspirin (Aspirin*) 325 MG TABLET 2 TAB PO DAILY HEART HEALTH (Reported) Atenolol 25 MG TABLET 1 TAB PO DAILY BP (Reported) Bimatoprost (Lumigan) 0.01 % DROPS 1 GTT OPH QPM BOTH EYES (Reported) Citalopram Hydrobromide (Citalopram HBr) 20 MG TABLET 1 TAB PO DAILY DEPRESSION (Reported) Ergocalciferol (Vitamin D2) (Vitamin D2) 50,000 UNIT CAPSULE 1 CAP PO Q10D SUPPLEMENT (Reported) Ezetimibe (Zetia) 10 MG TABLET 1 TAB PO DAILY CHOLESTEROL (Reported) Ferrous Sulfate 325 MG (65 MG IRON) TABLET 1 TAB PO BID SUPPLEMENT (Reported) Gabapentin 100 MG CAPSULE 1 CAP PO TID NEUROPATHY (Reported) Insulin Lispro (Humalog) (Unknown Strength) VIAL (Unknown Dose) SEE SLIDING SCALE DIABETES (Reported) Insulin NPH Human Isophane (Humulin N Kwikpen) 100 UNIT/ML (3 ML) INSULN.PEN 30 U SC BID DIABETES (Reported) Levothyroxine Sodium 137 MCG TABLET 1 TAB PO DAILY AC THYROID (Reported) Metformin HCl 1,000 MG TABLET 1 TAB PO BID DM (Reported) Pantoprazole Sodium (Protonix) 40 MG TABLET.DR 1 TAB PO DAILY ACID REFLUX ( Reported) Torsemide 20 MG TABLET 1 TAB PO DAILY WATER RETENTION (Reported) Past History Travel History Traveled to [place] past 21 day No Medical History Neurological: CVA EENT: macular degeneration Cardiovascular: CAD, PACEMAKER Respiratory: NONE Gastrointestinal: diverticulitis, gastric ulcers colonoscopy in 2009 showed a small tubular adenoma and diverticulosis. She has had 2 upper endoscopies last in 2011 which showed mild gastritis and was negative for H. 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 Other Medical Hx: Peripheral vascular disease, hyperlipidemia, coronary artery disease, hypothyroidism, sick sinus syndrome, sleep apnea, CVA, GI bleed, hypertension, diabetic retinopathy, diabetic neuropathy, osteomyelitis, spherocytosis, chronic anemia, depression, History of MRSA: Yes Surgical History Surgical History: knee replacement (BILATERAL), PACEMAKER CARDIAC STENT SPLENECTOMY, CHOLECYSTECTOMY, LEFT CAROTID ENDARTERECTOMY, KNEE REPLACEMENT, PACEMAKER Past Family/Social History Family History Relations & Conditions if any FATHER FH: diabetes mellitus Relation not specified for: FH: pancreatic cancer Psychosocial History Services at Home: None ETOH Use: denies use Illicit Drug Use: denies illicit drug use Functional Ability ADLs Independent: dressing, eating, toileting, bathing. Ambulation: independent IADLs Independent: shopping, housework, finances, food prep, telephone, transportation , medication admin. Review of Systems Review of Systems Constitutional: Reports: see HPI. EENTM: Reports: no symptoms. Cardiovascular: Reports: see HPI. Respiratory: Reports: no symptoms. GI: Reports: see HPI. Genitourinary: Reports: no symptoms. Musculoskeletal: Reports: see HPI. Skin: Reports: no symptoms. Exam & Diagnostic Data Last 24 Hrs of Vital Signs/I&O Vital Signs Date Time Temp Pulse Resp B/P B/P Pulse O2 O2 Flow FiO2 Mean Ox Delivery Rate 11/27 1516 96.7 95 20 157/67 94 Room Air 11/27 1251 96.0 90 20 178/68 98 Room Air 11/27 1005 98.0 64 20 168/67 96 Room Air Room Air Intake & Output 11/27 1600 11/27 0800 11/27 0000 Intake Total 2200 Output Total Balance 2200 Intake, IV 2000 Intake, Oral 200 Patient 220 lb Weight Weight Reported by Patient Measurement Method Physical Exam General Appearance Alert, Cooperative, No Acute Distress Skin No Breakdown Skin Temp/Moisture Exam: Warm/Dry Sepsis Skin Exam (color): Normal for Ethnicity HEENT Mucous Membr. moist/pink Cardiovascular Regular Rate, Normal S1, Normal S2 Lungs Normal Air Movement, diminished breath sounds in the basilar regions Abdomen Soft, hyperactive bowel sounds. Mild tenderness elicited on palpation of epigastric region and right upper quadrant. Neurological Normal Speech, Normal Tone Extremities Normal Pulses, 2+ pitting edema bilateral lower extremities tracing upwards towards the knees Vascular Pulses Symmetrical Last 24 Hrs of Labs/Erik: Laboratory Tests 11/27/16 1330: Urinalysis LIGHT H, Urine Color STRAW, Urine Clarity CLEAR, Urine pH 7.0, Ur Specific Valliant 1.010, Urine Protein NEG, Urine Ketones NEG, Urine Nitrite POS H, Urine Bilirubin NEG, Urine Urobilinogen 0.2, Ur Leukocyte Esterase NEG, Ur Microscopic SEDIMENT EXAMINED, Urine RBC RARE, Urine WBC RARE, Ur Epithelial Cells RARE, Urine Bacteria MANY H, Urine Hemoglobin NEG, Urine Glucose NEG 11/27/16 1322: Lactic Acid 2.7 H 11/27/16 1036: Anion Gap 13, Estimated GFR 48 L, BUN/Creatinine Ratio 18.2, Glucose 188 H, Lactic Acid 2.2 H, Calcium 8.9, Total Bilirubin 0.4, AST 21, ALT 30, Alkaline Phosphatase 68, Troponin I < 0.01, Total Protein 7.0, Albumin 3.9, Globulin 3.1, Albumin/Globulin Ratio 1.3, Amylase < 30 L, Lipase 45, CBC w Diff MAN DIFF ORDERED, RBC 3.92 L, MCV 88.0, MCH 30.2, RDW 14.7 H, MPV 7.9, Gran % 56.1, Lymphocytes % 30.2, Monocytes % 11.9 H, Eosinophils % 1.3, Basophils % 0.5, Absolute Granulocytes 6.7 H, Absolute Lymphocytes 3.6 H, Absolute Monocytes 1.4 H, Absolute Eosinophils 0.2, Absolute Basophils 0.1, Platelet Estimate VERIFIED BY SMEAR, Poikilocytosis 1+, Anisocytosis 1+, Twan Cells 1+, PUBS MCHC 34.4 Microbiology 11/27 1724 STOOL: Clostridium difficile Toxin A & B - ORD 11/27 1535 BLOOD: Blood Culture - RECD 11/27 1520 BLOOD: Blood Culture - RECD 11/27 1330 URINE ROUT: Urine Culture - RECD Diagnostic Data EKG Results Failure to sense and/or capture. Sinus or ectopic atrial rhythm and first- degree block and left bundle branch block. SD interval 244. QTC 504 CXR Results Stable cardiomegaly with moderate vascular congestion. Other Results The abdomen pelvis with IV contrast: LUNG BASES: Bibasilar subsegmental atelectasis. Coronary artery calcifications. Partial visualization of pacer hardware. LIVER, GALLBLADDER, AND BILIARY TREE: The liver is normal in size, shape, and attenuation. No focal hepatic lesion or biliary ductal dilatation is present. There is pneumobilia, with gas extending into the left lobe of the liver. This is similar to previous. Gas is also seen in the common bile duct. The common bile duct is unchanged in caliber. Status post cholecystectomy. GASTROINTESTINAL TRACT: The stomach and small bowel are unremarkable. No dilated loops of bowel or evidence of obstruction. Normal appendix. There is no colonic wall thickening or inflammatory change. Mild colonic stool burden. No free air or free fluid. ABDOMINAL WALL: No significant hernia is appreciated. LYMPH NODES: Multiple mildly prominent retroperitoneal lymph nodes are unchanged. VASCULAR: Moderate atherosclerotic calcifications. PELVIC VISCERA: Multiple calcifications associated with the uterus suggestive of small fibroids. No adnexal mass. OSSEOUS STRUCTURES: No acute or suspicious osseous abnormality. Multilevel degenerative changes of the spine. Degenerative changes at the hips. Multiple nonunited transverse process fractures at the lumbar spine and right posterior lateral rib fractures. Assessment/Plan Assessment: 81-year-old lady with a PMH of CAD, sick sinus syndrome s/p permanent pacemaker, pulmonary hypertension w/ RVSP 50 mmHg, LVH (echocardiogram October 2011 with LVEF 45-50%), diverticulosis (colonoscopy in 2014), diabetes, hypothyroidism, sideroblastic anemia, history of splenectomy, previous partial ray resection to the left presents with a one-week duration of generalized fatigue, decreased an NG which was followed by 5 episodes of nonbloody diarrhea every day, epigastric abdominal pain and one episode of night sweats the day prior to admission. VS of admission: BP 168/67, HR 64, RR 20, SPO2 96% on RA, T 98.0 Pertinent labs on admission: WBC 12.0, H&H 11.9/34.5, platelets 394K, sodium 139 , potassium 4.2, chloride 100, bicarbonate 27, BUN/CR 20/1.1, glucose 188 Lactic acid: 2.2, 2.7 Lipase: 45 Problem list: 1. Abdominal pain, nausea, diarrhea 2. Lactic acidosis 3. SIRS criteria: HR> 90 bpm, RR 20, WBC 12.0 4. Pneumobilia with gas extending into the liver lobe on CAT scan 5. Coronary disease 6. 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 Diabetes 8. Hypothyroidism Plan: * Admit to general medicine floor for management of dyspepsia: DDX includes viral gastroenteritis, * Pneumobilia on CAT scan: Etiology could include an incompetent sphincter of oddi, biliary enteric fistula due to gallstones/surgical anastomosis, emphysematous cholecystitis and acute cholangitis. Will obtain GI consult for further recommendations. LFTs and bilirubin are within normal limits and patient is afebrile at this time * Fluid hydration with NS @ 75 mL an hour, trend lactic acid * TFTs as of August 2016 WNL * Patient has a history of CAD/PVD and reports being on aspirin 325 mg 2 tabs daily. Will obtain stool guaiac to assess for upper GI bleed as a possibility that high-dose aspirin can be associated with ulcer formation. In addition, dyspepsia can be a side effect form high-dose aspirin. Will discuss utility of continued 325 mg 2 times daily versus decreasing to 1 tab daily * We'll follow up with radiology for second read on CAT scan in the setting of unremarkable report but continued elevation in lactic acid. We'll discuss utility of repeat CT with by mouth contrast as this may better delineate any fistulous tracts that may be present * Patient home dose of insulin is NPH human isophane 30 units SC BID. In the context of decreased oral intake, we'll start her on Levemir 20 units SC BID, a low-dose sliding scale and endocrinology consult for morning * Diabetic diet * Lovenox 40 mg subcutaneous DVT prophylaxis * DNR/DNI As Ranked By This Provider Problem List: 1. Abdominal pain 2. Lactic acidosis 3. SIRS (systemic inflammatory response syndrome) Core Measures/Miscellaneous Acute Coronary Syndrome ACS Diagnosis: No Cerebrovascular Accident CVA/TIA Diagnosis: No Congestive Heart Failure CHF Diagnosis: No VTE (View Protocol) VTE Risk Factors: Age > 40 [facility] d/t: No contraindications No VTE Pharm Prophylaxis d/t: No contraindications VTE Diagnosis: No VTE Type: NONE VTE Confirmed by (Test): NONE Sepsis (View Protocol) Severe Sepsis Present: No Septic Shock Septic Shock Present: No Miscellaneous Documentation Attending Case Discussed With: RONA JOSHUA MD Primary Care Physician: GRACIE BOURGEOIS PhD,ZO Samaniego Patient sees these Specialists Dr Nieto Level of Patient Care: General Medicine Resident Review Statement Resident Statement: examined this patient, discussed with consultant internship, agreed with consultant internship, discussed with family, reviewed EMR data (avail), discussed with nursing , reviewed images RONA JOSHUA MD 11/27/161950: Attending MD Review Statement Attending Statement Attending MD Statement: examined this patient, discuss w/resident/PA/ROOMING HOUSE KEEPER, agreed w/resident/PA/ROOMING HOUSE KEEPER, reviewed EMR data (avail) Attending Assessment/Plan: 81F PMH CAD, sick sinus syndrome s/p permanent pacemaker, pulmonary hypertension w/ RSVP 50 mmHg, LVH (echocardiogram October 2011 with LVEF 45-50%), diverticulosis (colonoscopy in 2014), diabetes, hypothyroidism, sideroblastic anemia, history of splenectomy with 1 week of lethargy, several days of profuse watery diarrhea with fatigue and generalized weakness. Lactate 2.0 on admission, increased to 2.7 following 1L NS. Labs otherwise unremarkable, vitals stable. Patient is in good spirits and appears well. Plan - Observation in general medicine to monitor lactate and diarrhea - IV hydration - Trend lactate - Off antibiotics for now - If lactate continues to increase obtain CTA abdomen/pelvis to evaluate for mesenteric ischemia - Continue home medications, hold anti-hypertensives - Consider surgery consult if no improvement - DVT PPx
--- NOTE | 2016-11-27 18:45 | NUR ---
PT ALERT, AMBULATES TO BR WITH STEADY GAIT. NO ACUTE DISTRESS NOTED, FAMILY AT BEDSIDE.
--- NOTE | 2016-11-27 19:01 | NUR ---
PT TO 187 BED 1
--- NOTE | 2016-11-27 20:08 | NUR ---
REPORT CALLED AND TRANSPORT BOOKED. PT INFORMED.
[2016-11-28 04:59] LABS: ABSOLUTE BASOPHIL COUNT 0.1 /CUMM (0.0-0.2); ABSOLUTE EOSINOPHIL COUNT 0.4 /CUMM (0.0-0.7); ABSOLUTE GRANULOCYTE CT 5.7 /CUMM (1.4-6.5); ABSOLUTE MONOCYTE COUNT 1.3 /CUMM (0.10-0.60); BASOPHIL % 0.5 % (0.0-2.0); EOSINOPHIL % 3.3 % (0-5); GRANULOCYTE % 49.9 % (42.2-75.2); HEMATOCRIT 33.7 % (37-47); MEAN CORPUSCULAR HGB 30.4 PG (27.0-31.0); MEAN CORPUSCULAR HGB CONC 34.5 G/DL (33.0-37.0); MEAN CORPUSCULAR VOLUME 88.2 FL (81.0-99.0); MEAN PLATELET VOLUME 8.6 FL (7.4-10.4); PLATELET COUNT 352 /CUMM (130-400); RBC DISTRIBUTION WIDTH 14.8 % (11.5-14.5); RED BLOOD CELL CT 3.83 /CUMM (4.20-5.40); WHITE BLOOD CELL COUNT 11.3 /CUMM (4.8-10.8)
--- NOTE | 2016-11-28 06:30 | PN- Student ---
Assessment/Plan Assessment: 81 yo female with a PMH of CAD, sick sinus syndrome s/p permanent pacemaker, pulmonary hypertension, LVH, diverticulosis, diabetes, hypothyroidism, sideroblastic anemia, history of splenectomy, presenting with one week of generalized fatigue and decreased and po intake. She then developed 5 episodes of nonbloody diarrhea every day for the past few days. Symptoms include epigastric abd. pain and one episode of night sweats the day prior to admission. VS of admission: BP 168/67, HR 64, RR 20, SPO2 96% on RA, T 98.0 Pertinent labs on admission: WBC 12.0, H&H 11.9/34.5, platelets 394K, sodium 139 , potassium 4.2, chloride 100, bicarbonate 27, BUN/CR 20/1.1, glucose 188 Lactic acid: 2.2, 2.7 Lipase: 45 Plan: Problem list: 1. Abdominal pain, nausea, diarrhea: DDx. include dyspepsia, viral or bacterial gastroenteritis 2. Lactic acidosis 3. SIRS criteria: HR> 90 bpm, RR 20, WBC 12.0 -Patient has a history of CAD/PVD and reports being on aspirin 325 mg 2 tabs daily. -stool guaiac to assess for upper GI bleed due to high-dose aspirin -We'll follow up with radiology for second read on CAT scan in the setting of unremarkable report but continued elevation in lactic acid. -Fluid hydration with NS @ 75 mL an hour, trend lactic acid 4. Pneumobilia with gas extending into the liver lobe on CAT scan -Pneumobilia on CAT scan: Etiology could include an incompetent sphincter of oddi, biliary enteric fistula due to gallstones/surgical anastomosis, emphysematous cholecystitis and acute cholangitis. Will obtain GI consult for further recommendations. LFTs and bilirubin are within normal limits and patient is afebrile at this time. 7. Chronic health conditions: Diabetes, CAD, transverse process fractures of the lumbar spine and right posterior lateral ribs, hypothyroidism. -Patient home dose of insulin is NPH human isophane 30 units SC BID. In the context of decreased oral intake, we'll start her on Levemir 20 units SC BID, a low-dose sliding scale and endocrinology consult for morning -Diabetic diet 8. DVT prophylaxis: Lovenox 40 mg subcutaneous DVT prophylaxis 9. DNR/DNI context of decreased oral intake, we'll start her on Levemir 20 units SC BID, a low-dose sliding scale and endocrinology consult for morning * Diabetic diet * Lovenox 40 mg subcutaneous DVT prophylaxis * DNR/DNI
[2016-11-28 07:17] VITALS: BP 158/68
--- NOTE | 2016-11-28 08:23 | Cons- Endocrinology ---
General Information and HPI Consulting Request Date of Consult: 11/28/16 Requested By: Medical team Reason for Consult: management of DM type 2 Source of Information: patient, old records Exam Limitations: no limitations History of Present Illness: 81 y/o female with a complicated past medical history significant for DM type 2, hypothyroidism, CAD s/p pacer placement, hypothyroidism, spherocytosis s/p splenectomy, was admitted for feeling weak and having diarrhea since Sunday night. Her po intake has been poor. She was on NPH 30 units twice a day, Humalog coverage before meals and Metformin 1000 mg twice a day at home. In ER , blood work showed that the peak of lactic acid level was 2.7. Patient is now in tele. Diarrhea has resolved and she would like to eat breakfast. She received Levemir 20 units last night. FSG this morning was 108. Allergies/Medications Allergies: Coded Allergies: Sulfa (Sulfonamide Antibiotics) (HIVES 08/05/15) adhesive tape (UNKNOWN 08/05/15) morphine (UNKNOWN 08/05/15) Home Med List: Acetaminophen/Diphenhydramine (Tylenol Pm Ex-Strength Caplet) 500 MG-25 MG TABLET 2 TAB PO QPM PRN SLEEP (Reported) Aspirin (Aspirin*) 325 MG TABLET 2 TAB PO DAILY HEART HEALTH (Reported) Atenolol 25 MG TABLET 1 TAB PO DAILY BP (Reported) Bimatoprost (Lumigan) 0.01 % DROPS 1 GTT OPH QPM BOTH EYES (Reported) Citalopram Hydrobromide (Citalopram HBr) 20 MG TABLET 1 TAB PO DAILY DEPRESSION (Reported) Ergocalciferol (Vitamin D2) (Vitamin D2) 50,000 UNIT CAPSULE 1 CAP PO Q10D SUPPLEMENT (Reported) Ezetimibe (Zetia) 10 MG TABLET 1 TAB PO DAILY CHOLESTEROL (Reported) Ferrous Sulfate 325 MG (65 MG IRON) TABLET 1 TAB PO BID SUPPLEMENT (Reported) Gabapentin 100 MG CAPSULE 1 CAP PO TID NEUROPATHY (Reported) Insulin Lispro (Humalog) (Unknown Strength) VIAL (Unknown Dose) SEE SLIDING SCALE DIABETES (Reported) Insulin NPH Human Isophane (Humulin N Kwikpen) 100 UNIT/ML (3 ML) INSULN.PEN 30 U SC BID DIABETES (Reported) Levothyroxine Sodium 137 MCG TABLET 1 TAB PO DAILY AC THYROID (Reported) Metformin HCl 1,000 MG TABLET 1 TAB PO BID DM (Reported) Pantoprazole Sodium (Protonix) 40 MG TABLET.DR 1 TAB PO DAILY ACID REFLUX ( Reported) Torsemide 20 MG TABLET 1 TAB PO DAILY WATER RETENTION (Reported) Review of Systems Review of Systems Constitutional: Reports: see HPI. Cardiovascular: Denies: chest pain. Respiratory: Denies: short of breath. GI: Reports: diarrhea, nausea. Genitourinary: Denies: dysuria. Hematologic/Endocrine: Denies: polyuria, polydipsia. Past History Travel History Traveled to [place] past 21 day No Medical History Neurological: CVA EENT: macular degeneration Cardiovascular: CAD, PACEMAKER Respiratory: NONE Gastrointestinal: diverticulitis, gastric ulcers colonoscopy in 2009 showed a small tubular adenoma and diverticulosis. She has had 2 upper endoscopies last in 2011 which showed mild gastritis and was negative for H. 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 Other Medical Hx: Peripheral vascular disease, hyperlipidemia, coronary artery disease, hypothyroidism, sick sinus syndrome, sleep apnea, CVA, GI bleed, hypertension, diabetic retinopathy, diabetic neuropathy, osteomyelitis, spherocytosis, chronic anemia, depression, Surgical History Surgical History: knee replacement (BILATERAL), PACEMAKER CARDIAC STENT SPLENECTOMY, CHOLECYSTECTOMY, LEFT CAROTID ENDARTERECTOMY, KNEE REPLACEMENT, PACEMAKER Family History Relations & Conditions If Any: FATHER FH: diabetes mellitus Relation not specified for: FH: pancreatic cancer Psychosocial History Services at Home: None Smoking Status: Unknown If Ever Smoked ETOH Use: denies use Illicit Drug Use: denies illicit drug use Functional Ability ADLs Independent: dressing, eating, toileting, bathing. Ambulation: independent IADLs Independent: shopping, housework, finances, food prep, telephone, transportation , medication admin. Exam & Diagnostic Data Last 24 Hrs of Vital Signs/I&O Vital Signs Date Time Temp Pulse Resp B/P B/P Pulse O2 O2 Flow FiO2 Mean Ox Delivery Rate 11/28 0717 98.2 73 20 158/68 92 Room Air 11/27 1516 96.7 95 20 157/67 94 Room Air 11/27 1251 96.0 90 20 178/68 98 Room Air 11/27 1005 98.0 64 20 168/67 96 Room Air Room Air Intake & Output 11/28 1600 11/28 0800 11/28 0000 Intake Total Output Total 350 Balance -350 Output, Urine 350 Patient 220 lb Weight Physical Exam General Appearance: no apparent distress Neck: normal inspection Respiratory: lungs clear Cardiovascular: regular rate/rhythm Extremities: swelling, chronic skin changes Labs/Erik Results: Laboratory Tests 11/28 11/28 11/28 0430 0430 0130 Chemistry Sodium (137 - 145 mmol/L) 140 Potassium (3.5 - 5.1 mmol/L) 4.1 Chloride (98 - 107 mmol/L) 105 Carbon Dioxide (22 - 30 mmol/L) 25 Anion Gap (5 - 16) 11 BUN (7 - 17 mg/dL) 14 Creatinine (0.5 - 1.0 mg/dL) 0.9 Estimated GFR (>60 ml/min) > 60 BUN/Creatinine Ratio (7 - 25 %) 15.6 Lactic Acid (0.7 - 2.1 mmol/L) 1.4 1.4 Hematology CBC w Diff NO MAN DIFF REQ WBC (4.8 - 10.8 /CUMM) 11.3 H RBC (4.20 - 5.40 /CUMM) 3.83 L Hgb (12.0 - 16.0 G/DL) 11.6 L Hct (37 - 47 %) 33.7 L MCV (81.0 - 99.0 FL) 88.2 MCH (27.0 - 31.0 PG) 30.4 RDW (11.5 - 14.5 %) 14.8 H Plt Count (130 - 400 /CUMM) 352 MPV (7.4 - 10.4 FL) 8.6 Gran % (42.2 - 75.2 %) 49.9 Lymphocytes % (20.5 - 51.1 %) 35.2 Monocytes % (1.7 - 9.3 %) 11.1 H Eosinophils % (0 - 5 %) 3.3 Basophils % (0.0 - 2.0 %) 0.5 Absolute Granulocytes (1.4 - 6.5 /CUMM) 5.7 Absolute Lymphocytes (1.2 - 3.4 /CUMM) 4.0 H Absolute Monocytes (0.10 - 0.60 /CUMM) 1.3 H Absolute Eosinophils (0.0 - 0.7 /CUMM) 0.4 Absolute Basophils (0.0 - 0.2 /CUMM) 0.1 PUBS MCHC (33.0 - 37.0 G/DL) 34.5 11/27 11/27 1330 1322 Chemistry Lactic Acid (0.7 - 2.1 mmol/L) 2.7 H Urines Urinalysis LIGHT H Urine Color (YEL,AMB,STR) STRAW Urine Clarity (CLEAR) CLEAR Urine pH (5.0 - 8.0) 7.0 Ur Specific [place] (1.001 - 1.035) 1.010 Urine Protein (NEG,<30 MG/DL) NEG Urine Ketones (NEG) NEG Urine Nitrite (NEG) POS H Urine Bilirubin (NEG) NEG Urine Urobilinogen (0.1 - 1.0 EU/dl) 0.2 Ur Leukocyte Esterase (NEG) NEG Ur Microscopic SEDIMENT EXAMINED Urine RBC (0 - 5 /HPF) RARE Urine WBC (0 - 2 /HPF) RARE Ur Epithelial Cells (NONE,FEW) RARE Urine Bacteria (NEG/NONE) MANY H Urine Hemoglobin (NEG) NEG Urine Glucose (N MG/DL) NEG 11/27 1036 Chemistry Sodium (137 - 145 mmol/L) 139 Potassium (3.5 - 5.1 mmol/L) 4.2 Chloride (98 - 107 mmol/L) 100 Carbon Dioxide (22 - 30 mmol/L) 27 Anion Gap (5 - 16) 13 BUN (7 - 17 mg/dL) 20 H Creatinine (0.5 - 1.0 mg/dL) 1.1 H Estimated GFR (>60 ml/min) 48 L BUN/Creatinine Ratio (7 - 25 %) 18.2 Glucose (65 - 99 mg/dL) 188 H Lactic Acid (0.7 - 2.1 mmol/L) 2.2 H Calcium (8.4 - 10.2 mg/dL) 8.9 Total Bilirubin (0.2 - 1.3 mg/dL) 0.4 AST (14 - 36 U/L) 21 ALT (9 - 52 U/L) 30 Alkaline Phosphatase (<127 U/L) 68 Troponin I (< 0.11 ng/ml) < 0.01 Total Protein (6.3 - 8.2 g/dL) 7.0 Albumin (3.5 - 5.0 g/dL) 3.9 Globulin (1.9 - 4.2 gm/dL) 3.1 Albumin/Globulin Ratio (1.1 - 2.2 %) 1.3 Amylase (30 - 110 U/L) < 30 L Lipase (23 - 300 U/L) 45 Hematology CBC w Diff MAN DIFF ORDERED WBC (4.8 - 10.8 /CUMM) 12.0 H RBC (4.20 - 5.40 /CUMM) 3.92 L Hgb (12.0 - 16.0 G/DL) 11.9 L Hct (37 - 47 %) 34.5 L MCV (81.0 - 99.0 FL) 88.0 MCH (27.0 - 31.0 PG) 30.2 RDW (11.5 - 14.5 %) 14.7 H Plt Count (130 - 400 /CUMM) 394 MPV (7.4 - 10.4 FL) 7.9 Gran % (42.2 - 75.2 %) 56.1 Lymphocytes % (20.5 - 51.1 %) 30.2 Monocytes % (1.7 - 9.3 %) 11.9 H Eosinophils % (0 - 5 %) 1.3 Basophils % (0.0 - 2.0 %) 0.5 Absolute Granulocytes (1.4 - 6.5 /CUMM) 6.7 H Absolute Lymphocytes (1.2 - 3.4 /CUMM) 3.6 H Absolute Monocytes (0.10 - 0.60 /CUMM) 1.4 H Absolute Eosinophils (0.0 - 0.7 /CUMM) 0.2 Absolute Basophils (0.0 - 0.2 /CUMM) 0.1 Platelet Estimate (ADEQUATE) VERIFIED BY SMEAR Poikilocytosis 1+ Anisocytosis 1+ Twan Cells 1+ PUBS MCHC (33.0 - 37.0 G/DL) 34.4 Assessment/Plan Assessment/Plan 81 y/o female with a complicated past medical history significant for DM type 2, hypothyroidism, CAD s/p pacer placement, hypothyroidism, spherocytosis s/p splenectomy, was admitted for feeling weak and having diarrhea since Sunday night. Her lactic acid level was 2.7 in ER which has improved since she has been in the hospital. Her diarrhea has resolved. 1. agree with discontiue of metformin; 2. adjust Levemir to 15 units twice a day; 3. adjust Novolog coverage before meals and add another Novolog coverage at bedtime-- detail see the inpatient DM orders; 4. monitor FSGs; 6. continue Levothyroxine 137 mcg daily; 7. monitor her TFT. will follow. Inpatient Diabetes Orders Before Each Meal: Bolus Insulin: Novolog < 80 mg/dl: no coverage 80-100 mg/dl: 4 units 101-120 mg/dl: 4 units 121-150 mg/dl: 4 units 151-200 mg/dl: 6 units 201-250 mg/dl: 8 units 251-300 mg/dl: 10 units 301-350 mg/dl: 12 units 351-400 mg/dl: 14 units > 400 mg/dl: 16 units Bedtime: Bolus Insulin: Novolog < 80 mg/dl: no coverage 80-100 mg/dl: no coverage 101-120 mg/dl: no coverage 121-150 mg/dl: no coverage 151-200 mg/dl: no coverage 201-250 mg/dl: 2 units 251-300 mg/dl: 3 units 301-350 mg/dl: 4 units 351-400 mg/dl: 6 units > 400 mg/dl: 8 units Consult Acknowledgment - Thank you for your consult request.
--- NOTE | 2016-11-28 14:03 | PN-Observation ---
KEVIN BOURGEOIS,[facility] 11/28/16 1324: Assessment/Plan Assessment: 81 yrs old female with history of coronary artery disease, sick sinus syndrome, extension S/P permanent pacemaker, pulmonary hypertension was RVSP 50 mmHg, LVH (echocardiogram October 2011 with LVEF 45-50%), diverticulosis (colonoscopy in 2014 ), diabetes, hypothyroidism, sideroblastic anemia, history of splenectomy, previous partial ray resection to the left presents with a one-week duration of generalized fatigue, decreased an NG which was followed by 5 episodes of nonbloody diarrhea every day, epigastric abdominal pain and one episode of night sweats the day prior to admission. VS of admission: BP 168/67, HR 64, RR 20, SPO2 96% on RA, T 98.0 Pertinent labs on admission: WBC 12.0, H&H 11.9/34.5, platelets 394K, sodium 139 , potassium 4.2, chloride 100, bicarbonate 27, BUN/CR 20/1.1, glucose 188 Lactic acid: 2.2, 2.7 Lipase: 45 #Abdominal pain, nausea, diarrhea: -SIRS criteria on admission heart rate more than 90, BMP, RR 20, WBC 12 -the patient today only report mild epigastric tenderness -Differential diagnosis includes viral gastroenteritis. -continue to monitor vitals, Is and Os # Pneumobilia: -CT scan showing pneumobilia etiology could include an incompetent sphincter OF Oddi, or billiary colic fistula due to gallstones/surgical anastomosis , emphysematous cholecystitis or acute cholangitis. -We'll follow up with radiology for second read on CAT scan in the setting of unremarkable report but continued elevation in lactic acid. We'll discuss utility of repeat CT with by mouth contrast as this may better delineate any fistulous tracts that may be present -GI consult -LFT and bilirubin are within normal limits, patient is a afibrile. #Lactic acidosis: Most likely due to diarrhea and dehydration Trending down Fluid hydration at NS 75 mg an hour and trend lactic acid DC metformin #Coronary disease: -Patient has a history of CAD/PVD -she has no evidence of myocardial ischemia or decompensated congestive heart failure at this time although, last stress test, and according to a prior evaluation by another costume mistress this patient should have a cardiac catheterization. will obtain old records from the patient's prior heart doctor. Obtain an echocardiogram. We will arrange for [employer] to interogate her pacemaker. reports being on aspirin 325 mg 2 tabs daily. Will obtain stool guaiac to assess for upper GI bleed as a possibility that high-dose aspirin can be associated with ulcer formation. In addition, dyspepsia can be a side effect form high-dose aspirin. Will discuss utility of continued 325 mg 2 times daily versus decreasing to 1 tab daily #Diabetes. Adjust levemir to 15 units twice a day as per Dr. mercado. Adjust novolog before meals and add another novolog coverage at bedtime Monitor FSGS. #Hypothyroidism Continue levothyroxine 137 g daily. #Multiple non united transverse process : fractures of the lumbar spine and right posterior lateral ribs Problem List: 1. Hypothyroidism 2. SIRS (systemic inflammatory response syndrome) 3. Abdominal pain 4. Lactic acidosis 5. Lumbar transverse process fracture 6. Pneumobilia 7. Diabetes DVT/Prophylaxis: pharmacological Subjective Follow-up For: abdomianl pain nausea lactic acidosis pneumobilia Complaints: abdominal pain and nausea Tele-Events Since Last Visit: GM Review of Systems Constitutional: Reports: malaise, weakness. Denies: see HPI. Objective Last 24 Hrs of Vital Signs/I&O Vital Signs Date Time Temp Pulse Resp B/P B/P Pulse O2 O2 Flow FiO2 Mean Ox Delivery Rate 11/28 0943 98.2 73 20 158/68 11/28 0717 98.2 73 20 158/68 92 Room Air 11/27 1516 96.7 95 20 157/67 94 Room Air Intake & Output 11/28 1600 11/28 0800 11/28 0000 Intake Total 100 Output Total 350 Balance 100 -350 Intake, Oral 100 Output, Urine 350 Patient 220 lb Weight Physical Exam General Appearance: Alert, Oriented X3, Cooperative, No Acute Distress, sad and tearful Skin: No Rashes, No Breakdown, No Significant Lesion Skin Temp/Moisture Exam: Warm/Dry HEENT: Atraumatic, PERRLA, EOMI, Mucous Membr. moist/pink Neck: Supple Cardiovascular: Regular Rate, Normal S1, Normal S2, No Murmurs Lungs: Normal Air Movement, diminished air sounds on both lower lung bases Abdomen: Normal Bowel Sounds, Soft, mild epigastric tenderness Neurological: Normal Speech, Strength at 5/5 X4 Ext, Normal Tone Extremities: bilateral 2+ pitting edema JOSIANE BOURGEOIS,[facility] 11/28/16 1847: Observation Note Observation Note _ I have personally examined SWAPNA BAKER. her disposition is uncertain at this time. Before a determination can be made, she requires continued observation for the following reasons, lactic acidosis resolved, diarrhea improved, metformin discontinued, started new insulin regimen with uncontrolled DM, will likely discharge tomorrow morning after monitoring for symptoms and glucose levels. Addendum Addendum 81F PMH CAD, sick sinus syndrome s/p permanent pacemaker, pulmonary hypertension w/ RSVP 50 mmHg, LVH (echocardiogram October 2011 with LVEF 45-50%), diverticulosis (colonoscopy in 2014), diabetes, hypothyroidism, sideroblastic anemia, history of splenectomy with 1 week of lethargy, several days of profuse watery diarrhea with fatigue and generalized weakness. Lactate 2.0 on admission, increased to 2.7 following 1L NS. Labs otherwise unremarkable, vitals stable. Lactate resolved. Diarrhea improving. Glucose levels remained uncontrolled. Plan -Continue observation - IV hydration - Off antibiotics for now - Continue home medications, hold anti-hypertensives - Consider surgery consult if no improvement - DVT PPx - Follow endocrine recommendations - Anticipated discharge tomorrow
--- NOTE | 2016-11-28 14:18 | Cons- Cardiology ---
General Information and HPI Consulting Request Date of Consult: 11/28/16 Requested By: RONA JOSHUA MD History of Present Illness: Latoya is a 81 year old female with a history of hypertension, diabetes mellitus, FABIAN, sick sinus syndrome and permanent pacemaker. She also carries a history of rheumatic fever and spherocytosis. Over the course of the past few days this patient has noted weakness, fatigue and multiple episodes of watery diarrhea associated with abdominal cramping and nausea. She also noted chills and diaphoresis which she felt had resulted in dehydration. She did check her blood glucose which was in the normal range. Otherwise this patient is normally active. She denies any chest pain, pressure, tightness, lightheadedness or palpitations. At baseline, the patient does have shortness of breath with mild exertion accompanied by equivocal orthopnea. It should be noted that this patient has had a prior stress test which showed some anterior wall ischemia versus breast tissue attenuation artifact. This patient has not followed up with me in years but has seen another public works commissioner who, according to the patient, had recommended a cardiac catheterization. To review the patient's past history: In October of 2007, in response to chest pressure radiating to her neck with nausea accompanied by an elevated troponin of 11.89, it was decided to pursue cardiac catheterization. This procedure showed a normal left main. The LAD harbored a 75% mid-stenosis, after the takeoff of a large second diagonal branch. There were luminal irregularities more distally in the LAD, which were non flow-limiting. The left circumflex was diminutive but patent. The right coronary artery was dominant and patent and supplied a large posterolateral marginal branch. Left ventriculography showed an overall EF of 30% with inferior wall hypokinesis. In consideration of the above, I placed a 3.5 x 12 mm stent to the LAD. Due to persistent chest pain a CT with contrast, showed a subcentimeter, non-pathologically, enlarged mediastinal lymph node with very small pericardial effusion, mildly thickened pericardium measuring 3 mm. There was no evidence of aneurysm or dissection. Subsequent echocardiogram showed normal left ventricular size and thickness with an EF of 50%, pulmonary hypertension, mild left atrial dilatation, aortic sclerosis without stenosis and no evidence of pericardial effusion. It should be recalled that this patient has spherocytosis, which was previously followed by Dr. Juan Piedra, who recommended cytometry with peripheral blood and rheumatologic workup.The patient has had some PVD with discomfort in her feet, which was previously followed by and Josh, and she has some issues with macular degeneration of the right eye for which she sees Dr. Benavides. It should be recalled that due to a worn-out feeling on an office visit from years back, we increased the patient's AV delay in the pacemaker to 300 milliseconds so that the patient would pace a bit more on her own. Due to this, mode switching needed to be turned off. Prior to that, she had been pacing 85% of the time. The patient has, in the past, had high rate events that were suggestive a nonsustained ventricular tachycardia. The patient has also had brief episodes of atrial fibrillation in the past, the longest being 59 beats in length. The patient now has her pacer checked by another public works commissioner and it is not clear what her device is set on or how it is operating. Finally, in response to a worn-out feeling and shortness of breath, as well as some equivocal exertional chest discomfort, this patient was risk stratified with a Adenosine stress test several years ago. I am not sure if [facility] had any more recent studies but this old study showed rare PVCs with no significant ST-T changes. She did have some nonspecific Adenosine-induced chest pressure. In terms of nuclear imaging, I found a large region of poor radiotracer uptake in the posterior and posterolateral wall as well as the inferior and inferolateral wall of the left ventricle. In addition, there were some minor areas of mildly decreased radiotracer uptake in the anterior wall of the left ventricle. This anterior region did improve on resting images, consistent with myocardial ischemia. Her overall EF was concerning, and that was very low at 25%, and there was inferior wall akinesis and apical dyskinesis. This low EF on nuclear imaging is somewhat discordant with that found on her echocardiogram, which showed an EF of 50%. The echo did show some hypokinesis of the distal septum and the apex, moderate left ventricular hypertrophy, and a mild to moderately dilated left atrium which puts her at some risk of atrial fibrillation. In terms of cardiac valves, there was evidence of mild mitral and moderate tricuspid regurgitation. There is a borderline aortic gradient of 9 mmHg and trace aortic insufficiency. Pulmonary pressures were mildly elevated at 45 mmHg. Allergies/Medications Allergies: Coded Allergies: Sulfa (Sulfonamide Antibiotics) (HIVES 08/05/15) adhesive tape (UNKNOWN 08/05/15) morphine (UNKNOWN 08/05/15) Home Med List: Acetaminophen/Diphenhydramine (Tylenol Pm Ex-Strength Caplet) 500 MG-25 MG TABLET 2 TAB PO QPM PRN SLEEP (Reported) Aspirin (Aspirin*) 325 MG TABLET 2 TAB PO DAILY HEART HEALTH (Reported) Atenolol 25 MG TABLET 1 TAB PO DAILY BP (Reported) Bimatoprost (Lumigan) 0.01 % DROPS 1 GTT OPH QPM BOTH EYES (Reported) Citalopram Hydrobromide (Citalopram HBr) 20 MG TABLET 1 TAB PO DAILY DEPRESSION (Reported) Ergocalciferol (Vitamin D2) (Vitamin D2) 50,000 UNIT CAPSULE 1 CAP PO Q10D SUPPLEMENT (Reported) Ezetimibe (Zetia) 10 MG TABLET 1 TAB PO DAILY CHOLESTEROL (Reported) Ferrous Sulfate 325 MG (65 MG IRON) TABLET 1 TAB PO BID SUPPLEMENT (Reported) Gabapentin 100 MG CAPSULE 1 CAP PO TID NEUROPATHY (Reported) Insulin Lispro (Humalog) (Unknown Strength) VIAL (Unknown Dose) SEE SLIDING SCALE DIABETES (Reported) Insulin NPH Human Isophane (Humulin N Kwikpen) 100 UNIT/ML (3 ML) INSULN.PEN 30 U SC BID DIABETES (Reported) Levothyroxine Sodium 137 MCG TABLET 1 TAB PO DAILY AC THYROID (Reported) Metformin HCl 1,000 MG TABLET 1 TAB PO BID DM (Reported) Pantoprazole Sodium (Protonix) 40 MG TABLET.DR 1 TAB PO DAILY ACID REFLUX ( Reported) Torsemide 20 MG TABLET 1 TAB PO DAILY WATER RETENTION (Reported) Review of Systems Review of Systems: A twelve point review of systems is unremarkable. Past History Travel History Traveled to [place] past 21 day No Medical History Neurological: CVA EENT: macular degeneration Cardiovascular: CAD, PACEMAKER Respiratory: NONE Gastrointestinal: diverticulitis, gastric ulcers colonoscopy in 2009 showed a small tubular adenoma and diverticulosis. She has had 2 upper endoscopies last in 2011 which showed mild gastritis and was negative for H. 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 Surgical History Surgical History: knee replacement (BILATERAL), PACEMAKER CARDIAC STENT SPLENECTOMY, CHOLECYSTECTOMY, LEFT CAROTID ENDARTERECTOMY, KNEE REPLACEMENT, PACEMAKER Family History Relations & Conditions If Any: FATHER FH: diabetes mellitus Relation not specified for: FH: pancreatic cancer Psychosocial History Services at Home: None Smoking Status: Unknown If Ever Smoked ETOH Use: denies use Illicit Drug Use: denies illicit drug use Functional Ability ADLs Independent: dressing, eating, toileting, bathing. Ambulation: independent IADLs Independent: shopping, housework, finances, food prep, telephone, transportation , medication admin. Exam & Diagnostic Data Vital Signs and I&O Vital Signs Date Time Temp Pulse Resp B/P B/P Pulse O2 O2 Flow FiO2 Mean Ox Delivery Rate 11/28 0943 98.2 73 20 158/68 11/28 0717 98.2 73 20 158/68 92 Room Air 11/27 1516 96.7 95 20 157/67 94 Room Air Intake & Output 11/28 1600 11/28 0800 11/28 0000 11/27 1600 11/27 0800 11/27 0000 Intake Total 100 3400 Output Total 350 Balance 100 -350 3400 Intake, IV 3000 Intake, Oral 100 400 Output, Urine 350 Patient 220 lb 220 lb Weight Weight Reported by Patient Measurement Method Physical Exam: General: WD/obese female in NAD; alert and oriented x 3 HEENT: NC/AT, PERRL, EOMI Neck: no JVD, no carotid bruit Heart: RRR Lungs: clear bilaterally Abdomen: soft, obese, NT, +ve bowel sounds Extremities: no edema Assessment/Plan Assessment/Plan * Latoya has no evidence of myocardial ischemia or decompensated congestive heart failure at this time although, by my last stress test, and according to a prior evaluation by another public works commissioner this patient should have a cardiac catheterization. Please obtain old records from the patient's prior heart doctor. * Obtain an echocardiogram. * We will arrange for [employer] to interogate her pacemaker. * I suspect that this patient was a bit dehydrated upon admission. Agree with stopping her Metformin. Consult Acknowledgment - Thank you for your consult request.
[2016-11-28 14:37] VITALS: BP 142/62
--- NOTE | 2016-11-28 19:23 | Cons- Gastroenterology ---
General Information and HPI Consulting Request Date of Consult: 11/28/16 Requested By: RONA JOSHUA MD Reason for Consult: Called by the hospitalist service to assess abdominal pain, mild nausea, & non- bloody diarrhea, all of which have essentailly resolved. Source of Information: patient, old records Exam Limitations: no limitations History of Present Illness: 81 y/o female, CAD, sick sinus syndrome, PPM, pulmonary hypertension, FABIAN, diverticulosis, diabetes (with neuropathy, retinopathy), history of osteomyelitis, depression, rheumatic fever, post spinal meningitis, post polio, macular degeneration, hypothyroid, sideroblastic anemia (mutiple transfusions), history of splenectomy/CCKY/papillotomy, B/L TKR, PVD post L CEA, TIA, Vit D deficiency, partial resection of left toes, lumbar steroid injections, past history of diverticulitis, past history of PUD by 12/19/07: [facility] (01/27/08: serum Ab H. pylori- negative; subsequent 02/11/08: EGD- healed gastric ulcer), who presented to the [place] ER 2016, arriving at 9:59 a.m., who awoke at 3 AM with chills, but no fever. She had intermittent diarrhea one week prior, which had mostly improved, non-bloody in nature, up to TID. Her sugars at home were relatively stable the a.m. of admission. She tried Imodium at home with partial relief. She had vague mild mid-abdominal pain. localized & unrelated to eating, although her loose stools seemed somewhat osmotic in nature. She had mild nausea, but no vomiting. There was no hematemesis, BRBPR, or melena. She denied any NSAIDs, rule out food, recent travel, or recent antibiotics. There was no obstipation, constipation, or tenesmus. There was no weight loss, change in appetite, or early satiety. She denied any dysuria, frequency, or symptoms of URI. The patient is on chronic Prilosec. 10/27/09: normal IgA 381, tTG Ab- negative. I had remotely seen the patient for GI. Some of her chronic symptoms of bloating were felt to be from diabetic autonomic neuropathy and perhaps bacterial overgrowth. She has a remote history of small tubular adenoma. Previous 12/06/09: random biopsies of terminal ileum, colon, & rectum- negative for microscopic and/or collagenous colitis. 12/06/09: Random duodenal biopsies unremarkable with normal villi. Gastric biopsies with mild gastritis, H. pylori negative. Minimal GERD on biopsies then, without Justin's esophagus. The patient has most recently been followed by Dr. Sunil Pollard for GI. 11/30/14: Colonoscopy/EGD per Dr. Sunil Pollard- pandiverticulosis coli, left side greater than right, small sessile right colon polyp resected (no tissue); submucosal prominence in the gastric body and antrum , without biopsies (apparently w/u as outpatient by him). There is no family history of colon cancer or IBD. She tolerated solids po on 11/28/16. Her lactate normalized with a persistently normal HCO3. She denied any CP or SOB. Upon arrival, BP 168/67, P 64, R 20, T 98, O2 sat RA 96%. She was given IV Zofran & IV NS in the ER, but refused Lovenox. Labs on admission 11/27/16: relatively stable with borderline leukocytosis 12K, stable mild anemia H/H 11.9/ 34.5, PLT 394, glu 188, mild renal insufficiency BUN/Cr 20/1.1, GFR 48 (which improved), normal HCO3, & elevated lactate 2.2-> 2.7-> 1.4-> 1.4 (Her Metformin was held by the medical housestaff for the latter ). Apparently, the ER was concerned about her lactate, and admitted her. *No colitis was seen on CT, just chronic pneumobilia. She had normal LFTs, normal lipase, & negative troponin. U/A- without pyuria, many bacteria, postitve nitirite. 11/28/16: *C. difficile- negative. 11/27/16: EKG- Failure to sense and/or capture. Sinus or ectopic atrial rhythm and first- degree block and left bundle branch block. SC interval 244. QTC 504 11/27/16: CT abd pelvis with IV contrast- No acute finding of the abdomen or pelvis. No acute inflammatory changes. Chronic findings as above, with bibasilar atelectasis, ASHD, PPM, chronic pneumobilia, no dilated ducts, post CCKY, post splenectomy, normal appendix, normal stomach, small bowel & colon, no bowel obstruction, no free air, no ascites, normal kidneys, small fibroids, multilevel DJD, old right posterior lateral rib fractures and lumbar fracture. 11/27/16: CXR- Stable cardiomegaly with moderate vascular congestion. PPM. No infiltrate or effusion. Allergies/Medications Allergies: Coded Allergies: Sulfa (Sulfonamide Antibiotics) (HIVES 08/05/15) adhesive tape (UNKNOWN 08/05/15) morphine (UNKNOWN 08/05/15) Home Med List: Acetaminophen/Diphenhydramine (Tylenol Pm Ex-Strength Caplet) 500 MG-25 MG TABLET 2 TAB PO QPM PRN SLEEP (Reported) Aspirin (Aspirin*) 325 MG TABLET 2 TAB PO DAILY HEART HEALTH (Reported) Atenolol 25 MG TABLET 1 TAB PO DAILY BP (Reported) Bimatoprost (Lumigan) 0.01 % DROPS 1 GTT OPH QPM BOTH EYES (Reported) Citalopram Hydrobromide (Citalopram HBr) 20 MG TABLET 1 TAB PO DAILY DEPRESSION (Reported) Ergocalciferol (Vitamin D2) (Vitamin D2) 50,000 UNIT CAPSULE 1 CAP PO Q10D SUPPLEMENT (Reported) Ezetimibe (Zetia) 10 MG TABLET 1 TAB PO DAILY CHOLESTEROL (Reported) Ferrous Sulfate 325 MG (65 MG IRON) TABLET 1 TAB PO BID SUPPLEMENT (Reported) Gabapentin 100 MG CAPSULE 1 CAP PO TID NEUROPATHY (Reported) Insulin Lispro (Humalog) (Unknown Strength) VIAL (Unknown Dose) SEE SLIDING SCALE DIABETES (Reported) Insulin NPH Human Isophane (Humulin N Kwikpen) 100 UNIT/ML (3 ML) INSULN.PEN 30 U SC BID DIABETES (Reported) Levothyroxine Sodium 137 MCG TABLET 1 TAB PO DAILY AC THYROID (Reported) Metformin HCl 1,000 MG TABLET 1 TAB PO BID DM (Reported) Pantoprazole Sodium (Protonix) 40 MG TABLET.DR 1 TAB PO DAILY ACID REFLUX ( Reported) Torsemide 20 MG TABLET 1 TAB PO DAILY WATER RETENTION (Reported) Current Medications: Current Medications Sig/[place] Start time Last Medication Dose Route Stop Time Status Admin Acetaminophen 650 MG Q6P PRN 11/27 1615 AC PO Acetaminophen 1,000 MG Q6P PRN 11/27 1615 AC IV Aspirin 650 MG DAILY 11/28 1000 AC 11/28 PO 0943 Atenolol 25 MG DAILY 11/28 1000 AC 11/28 PO 0943 Citalopram 20 MG DAILY 11/28 1000 AC 11/28 Hydrobromide PO 0943 Enoxaparin Sodium 40 MG DAILY 11/27 1609 AC SC Ezetimibe 10 MG DAILY 11/28 1000 AC 11/28 PO 0943 Gabapentin 100 MG TID 11/27 1655 AC 11/28 PO 1519 Hydromorphone HCl 0.5 MG Q4P PRN 11/27 1615 AC IV Insulin Aspart 0 TIDAC/HS 11/28 1200 AC 11/28 SC 1724 Insulin Aspart 0 TIDAC 11/28 0800 DC SC Insulin Detemir 15 UNITS BID 11/28 1000 AC 11/28 SC 0944 Insulin Detemir 20 UNITS BID 11/27 2200 DC 11/27 SC 2235 Latanoprost 1 GTT AT BEDTIME 11/27 2200 AC 11/27 OPH 2200 Levothyroxine Sodium 0.137 MG DAILY AC 11/28 0700 AC 11/28 PO 0612 Melatonin 5 MG AT BEDTIME 11/28 2200 DC PO Melatonin 5 MG AT BEDTIME 11/28 0145 AC 11/28 PO 0145 Omeprazole 40 MG DAILY AC 11/28 0700 AC 11/28 PO 0611 Sodium Chloride 1,000 ML Q10H 11/27 1800 DC 11/27 IV 11/28 0359 1844 Torsemide 20 MG DAILY 11/28 1000 AC 11/28 PO 0943 Past History Travel History Traveled to [place] past 21 day No Medical History Blood Transfusion Hx: Yes Neurological: TIA, neuropathy EENT: macular degeneration Cardiovascular: CAD, PVD (L CEA), PACEMAKER Respiratory: NONE Gastrointestinal: diverticulitis, peptic ulcer disease, gastric ulcers colonoscopy in 2009 showed a small tubular adenoma and diverticulosis. She has had 2 upper endoscopies last in 2011 which showed mild gastritis and was negative for H. 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 Surgical History Surgical History: cholecystectomy, knee replacement (BILATERAL), PACEMAKER CARDIAC STENT SPLENECTOMY, CHOLECYSTECTOMY, LEFT CAROTID ENDARTERECTOMY, B/L KNEE REPLACEMENT, PACEMAKER Family History Relations & Conditions If Any: FATHER FH: diabetes mellitus Relation not specified for: FH: pancreatic cancer Psychosocial History Where Do You Live? Home Who Do You Live With? self Services at Home: None Primary Language: Urdu Smoking Status: Former Smoker ETOH Use: denies use Illicit Drug Use: denies illicit drug use Living Will? no Power of Metallurgical Tester/HCP? no Other Social History: . 1 dtr- 62, lung Ca (smoker- 2016). 2 sons- [employer], in [place]. Lives alone. Has boyfriend. 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 Ex-20-pk-yr cigarette smoker, D/C 1976. No EtOH or illicit drugs. Functional Ability ADLs Independent: dressing, eating, toileting, bathing. Ambulation: cane IADLs Independent: shopping, housework, finances, food prep, telephone, transportation , medication admin. 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 Denies: diaphoresis, fever, weakness, unexplained weight loss. EENTM: Reports: blurred vision (mac degen). Denies: double vision, visual changes, eye pain, eye drainage, eye tearing, icterus, ear discharge, ear pain, ear redness, hearing changes, nasal congestion, epistaxis, nasal pain, throat pain, throat swelling, mouth pain, tooth pain. Cardiovascular: Denies: chest pain, edema, orthopena, palpitations, peripheral edema, syncope. Respiratory: Denies: cough, hemoptysis, orthopnea, short of breath, sputum production, stridor, wheezing. GI: Reports: abdominal pain (resolved), diarrhea (mostly gone), nausea (resolved). Denies: bloating, constipation, distention, bowel incontinence, melena, bloody stool, changes in stool, vomiting, steatorrhea. Genitourinary: Denies: discharge, dysuria, frequency, hematuria, hesitation, nocturia, pain, urgency. Musculoskeletal: Reports: back pain, joint pain (DJD). Denies: gout, joint swelling, muscle pain , muscle stiffness, neck pain. Skin: Denies: cysts, change in skin color, change in hair/nails, dryness, erythema, jaundice, lesions, lymphangitis, lumps, moles, rash. Neurological/Psychological: Reports: depressed, emotional problems, paresthesia (hx neuropathy). Denies: anxiety, ataxia, cognitive dysfunction, confusion, dementia, headache, numbness, pre-existing deficit, petit mal seizures, tingling, tremors, tonic-clonic seizures, unable to move lower ext, unable to move upper ext, weakness. Hematologic/Endocrine: Reports: other (sideroblastic anemia). Denies: bruising, bleeding, polyuria, polydipsia. Immunologic/Allergic: Denies: splenectomy, HIV/AIDS, lymphadenopathy. All Other Systems: Reviewed and Negative Exam & Diagnostic Data Vital Signs and I&O Vital Signs Date Time Temp Pulse Resp B/P B/P Pulse O2 O2 Flow FiO2 Mean Ox Delivery Rate 11/28 1437 97.3 72 18 142/62 94 Room Air 11/28 0943 98.2 73 20 158/68 11/28 0717 98.2 73 20 158/68 92 Room Air Intake & Output 11/28 1600 11/28 0400 11/27 1600 11/27 0400 11/26 1600 11/26 0400 Intake Total 600 3400 Output Total 200 350 Balance 400 -350 3400 Intake, IV 3000 Intake, Oral 600 400 Number 2 Bowel Movements Output, Urine 200 350 Patient 220 lb 220 lb Weight Weight Reported by Patient Measurement Method Physical Exam: Well-developed, well-nourished, elderly female, in no apparent distress. Sclera anicteric. Conjunctiva pink. Oropharynx clear. No oral thrush. No aphthous ulcers. Moist mucus membranes. There is no adenopathy, thyromegaly, JVD, or HJR. Carotids 1+ B/L, post L CEA, with faint left carotid bruit. No peripheral stigmata of inflammatory bowel disease or chronic liver disease on exam. No spiders on the anterior chest wall. Breats & pelvic: API. No CVA tenderness. Lungs: clear to A&P, except for a few scant bibasilar crackles. No wheezing, rales, or rhonchi. Heart exam: regular rate rhythm, S1 and S2, with I/ systolic murmur. PPM. Abdominal exam: normal bowel sounds, soft, obese, belly, nontender, without guarding or rebound. Old RUQ scar, post CCKY. Questionable small reducible ventral hernia (difficult to asses in view of body habitus, but none seen on CT), otherwise without mass. No organomegaly. No fluid shift. No pulsatile mass. No epigastric bruit. Digital rectal exam: refused by patient. Extremities: without cyanosis or clubbing. 1+ pitting edema LE B/L, with brawny induration & erythema, but no definite cellulitis. Partial resection of left toes. No palpable cords. DJD. B/L TKR. Distal pulses 1+ bilaterally. DTRs 1+ bilaterally. Alert and oriented x 3. No tremor or asterixis. Motor 4/5 B/L. A detailed exam for peripheral neuropathy was deferred, but is present by history. Results Pertinent Lab Results: Laboratory Tests 11/28 11/28 11/28 0430 0430 0130 Chemistry Sodium (137 - 145 mmol/L) 140 Potassium (3.5 - 5.1 mmol/L) 4.1 Chloride (98 - 107 mmol/L) 105 Carbon Dioxide (22 - 30 mmol/L) 25 Anion Gap (5 - 16) 11 BUN (7 - 17 mg/dL) 14 Creatinine (0.5 - 1.0 mg/dL) 0.9 Estimated GFR (>60 ml/min) > 60 BUN/Creatinine Ratio (7 - 25 %) 15.6 Lactic Acid (0.7 - 2.1 mmol/L) 1.4 1.4 Hematology CBC w Diff NO MAN DIFF REQ WBC (4.8 - 10.8 /CUMM) 11.3 H RBC (4.20 - 5.40 /CUMM) 3.83 L Hgb (12.0 - 16.0 G/DL) 11.6 L Hct (37 - 47 %) 33.7 L MCV (81.0 - 99.0 FL) 88.2 MCH (27.0 - 31.0 PG) 30.4 RDW (11.5 - 14.5 %) 14.8 H Plt Count (130 - 400 /CUMM) 352 MPV (7.4 - 10.4 FL) 8.6 Gran % (42.2 - 75.2 %) 49.9 Lymphocytes % (20.5 - 51.1 %) 35.2 Monocytes % (1.7 - 9.3 %) 11.1 H Eosinophils % (0 - 5 %) 3.3 Basophils % (0.0 - 2.0 %) 0.5 Absolute Granulocytes (1.4 - 6.5 /CUMM) 5.7 Absolute Lymphocytes (1.2 - 3.4 /CUMM) 4.0 H Absolute Monocytes (0.10 - 0.60 /CUMM) 1.3 H Absolute Eosinophils (0.0 - 0.7 /CUMM) 0.4 Absolute Basophils (0.0 - 0.2 /CUMM) 0.1 PUBS MCHC (33.0 - 37.0 G/DL) 34.5 11/27 11/27 1330 1322 Chemistry Lactic Acid (0.7 - 2.1 mmol/L) 2.7 H Urines Urinalysis LIGHT H Urine Color (YEL,AMB,STR) STRAW Urine Clarity (CLEAR) CLEAR Urine pH (5.0 - 8.0) 7.0 Ur Specific [place] (1.001 - 1.035) 1.010 Urine Protein (NEG,<30 MG/DL) NEG Urine Ketones (NEG) NEG Urine Nitrite (NEG) POS H Urine Bilirubin (NEG) NEG Urine Urobilinogen (0.1 - 1.0 EU/dl) 0.2 Ur Leukocyte Esterase (NEG) NEG Ur Microscopic SEDIMENT EXAMINED Urine RBC (0 - 5 /HPF) RARE Urine WBC (0 - 2 /HPF) RARE Ur Epithelial Cells (NONE,FEW) RARE Urine Bacteria (NEG/NONE) MANY H Urine Hemoglobin (NEG) NEG Urine Glucose (N MG/DL) NEG 11/27 1036 Chemistry Sodium (137 - 145 mmol/L) 139 Potassium (3.5 - 5.1 mmol/L) 4.2 Chloride (98 - 107 mmol/L) 100 Carbon Dioxide (22 - 30 mmol/L) 27 Anion Gap (5 - 16) 13 BUN (7 - 17 mg/dL) 20 H Creatinine (0.5 - 1.0 mg/dL) 1.1 H Estimated GFR (>60 ml/min) 48 L BUN/Creatinine Ratio (7 - 25 %) 18.2 Glucose (65 - 99 mg/dL) 188 H Lactic Acid (0.7 - 2.1 mmol/L) 2.2 H Calcium (8.4 - 10.2 mg/dL) 8.9 Total Bilirubin (0.2 - 1.3 mg/dL) 0.4 AST (14 - 36 U/L) 21 ALT (9 - 52 U/L) 30 Alkaline Phosphatase (<127 U/L) 68 Troponin I (< 0.11 ng/ml) < 0.01 Total Protein (6.3 - 8.2 g/dL) 7.0 Albumin (3.5 - 5.0 g/dL) 3.9 Globulin (1.9 - 4.2 gm/dL) 3.1 Albumin/Globulin Ratio (1.1 - 2.2 %) 1.3 Amylase (30 - 110 U/L) < 30 L Lipase (23 - 300 U/L) 45 Hematology CBC w Diff MAN DIFF ORDERED WBC (4.8 - 10.8 /CUMM) 12.0 H RBC (4.20 - 5.40 /CUMM) 3.92 L Hgb (12.0 - 16.0 G/DL) 11.9 L Hct (37 - 47 %) 34.5 L MCV (81.0 - 99.0 FL) 88.0 MCH (27.0 - 31.0 PG) 30.2 RDW (11.5 - 14.5 %) 14.7 H Plt Count (130 - 400 /CUMM) 394 MPV (7.4 - 10.4 FL) 7.9 Gran % (42.2 - 75.2 %) 56.1 Lymphocytes % (20.5 - 51.1 %) 30.2 Monocytes % (1.7 - 9.3 %) 11.9 H Eosinophils % (0 - 5 %) 1.3 Basophils % (0.0 - 2.0 %) 0.5 Absolute Granulocytes (1.4 - 6.5 /CUMM) 6.7 H Absolute Lymphocytes (1.2 - 3.4 /CUMM) 3.6 H Absolute Monocytes (0.10 - 0.60 /CUMM) 1.4 H Absolute Eosinophils (0.0 - 0.7 /CUMM) 0.2 Absolute Basophils (0.0 - 0.2 /CUMM) 0.1 Platelet Estimate (ADEQUATE) VERIFIED BY SMEAR Poikilocytosis 1+ Anisocytosis 1+ Twan Cells 1+ PUBS MCHC (33.0 - 37.0 G/DL) 34.4 Imaging/Other Studies: 11/27/16: EKG- Failure to sense and/or capture. Sinus or ectopic atrial rhythm and first- degree block and left bundle branch block. SC interval 244. QTC 504 11/27/16: CT abd pelvis with IV contrast- No acute finding of the abdomen or pelvis. No acute inflammatory changes. Chronic findings as above, with bibasilar atelectasis, ASHD, PPM, chronic pneumobilia, no dilated ducts, post CCKY, post splenectomy, normal appendix, normal stomach, small bowel & colon, no bowel obstruction, no free air, no ascites, normal kidneys, small fibroids, multilevel DJD, old right posterior lateral rib fractures and lumbar fracture. 11/27/16: CXR- Stable cardiomegaly with moderate vascular congestion. PPM. No infiltrate or effusion. Assessment/Plan Assessment/Recommendations: 81 y/o female, CAD, sick sinus syndrome, PPM, pulmonary hypertension, FABIAN, diverticulosis, diabetes (with neuropathy, retinopathy), history of osteomyelitis, depression, rheumatic fever, post spinal meningitis, post polio, macular degeneration, hypothyroid, sideroblastic anemia (mutiple transfusions), history of splenectomy/CCKY/papillotomy, B/L TKR, PVD post L CEA, TIA, Vit D deficiency, partial resection of left toes, lumbar steroid injections, past history of diverticulitis, past history of PUD by 12/19/07: [facility] (01/27/08: serum Ab H. pylori- negative; subsequent 02/11/08: EGD- healed gastric ulcer), who presented to the [place] ER 2016, arriving at 9:59 a.m., who awoke at 3 AM with chills, but no fever. She had intermittent diarrhea one week prior, which had mostly improved, non-bloody in nature, up to TID. Her sugars at home were relatively stable the a.m. of admission. She tried Imodium at home with partial relief. She had vague mild mid-abdominal pain. localized & unrelated to eating, although her loose stools seemed somewhat osmotic in nature. She had mild nausea, but no vomiting. There was no hematemesis, BRBPR, or melena. She denied any NSAIDs, rule out food, recent travel, or recent antibiotics. There was no obstipation, constipation, or tenesmus. There was no weight loss, change in appetite, or early satiety. She denied any dysuria, frequency, or symptoms of URI. The patient is on chronic Prilosec. 10/27/09: normal IgA 381, tTG Ab- negative. I had remotely seen the patient for GI. Some of her chronic symptoms of bloating were felt to be from diabetic autonomic neuropathy and perhaps bacterial overgrowth. She has a remote history of small tubular adenoma. Previous 12/06/09: random biopsies of terminal ileum, colon, & rectum- negative for microscopic and/or collagenous colitis. 12/06/09: Random duodenal biopsies unremarkable with normal villi. Gastric biopsies with mild gastritis, H. pylori negative. Minimal GERD on biopsies then, without Justin's esophagus. The patient has most recently been followed by Dr. Sunil Pollard for GI. 11/30/14: Colonoscopy/EGD per Dr. Sunil Pollard- pandiverticulosis coli, left side greater than right, small sessile right colon polyp resected (no tissue); submucosal prominence in the gastric body and antrum , without biopsies (apparently w/u as outpatient by him). There is no family history of colon cancer or IBD. She tolerated solids po on 11/28/16. Her lactate normalized with a persistently normal HCO3. She denied any CP or SOB. Upon arrival, BP 168/67, P 64, R 20, T 98, O2 sat RA 96%. She was given IV Zofran & IV NS in the ER, but refused Lovenox. Labs on admission 11/27/16: relatively stable with borderline leukocytosis 12K, stable mild anemia H/H 11.9/ 34.5, PLT 394, glu 188, mild renal insufficiency BUN/Cr 20/1.1, GFR 48 (which improved), normal HCO3, & elevated lactate 2.2-> 2.7-> 1.4-> 1.4 (Her Metformin was held by the medical housestaff for the latter ). Apparently, the ER was concerned about her lactate, and admitted her. *No colitis was seen on CT, just chronic pneumobilia. She had normal LFTs, normal lipase, & negative troponin. U/A- without pyuria, many bacteria, postitve nitirite. 11/28/16: *C. difficile- negative. 11/27/16: EKG- Failure to sense and/or capture. Sinus or ectopic atrial rhythm and first- degree block and left bundle branch block. SC interval 244. QTC 504 11/27/16: CT abd pelvis with IV contrast- No acute finding of the abdomen or pelvis. No acute inflammatory changes. Chronic findings as above, with bibasilar atelectasis, ASHD, PPM, chronic pneumobilia, no dilated ducts, post CCKY, post splenectomy, normal appendix, normal stomach, small bowel & colon, no bowel obstruction, no free air, no ascites, normal kidneys, small fibroids, multilevel DJD, old right posterior lateral rib fractures and lumbar fracture. 11/27/16: CXR- Stable cardiomegaly with moderate vascular congestion. PPM. No infiltrate or effusion. *Most likely, the patient had a self-limited gastroenteritis, superimposed on her chronic diabetic autonomic neuropathy, affecting her gut. Her elevated lactate had resolved. Her HCO3 remained normal. Her GFR normalized. She probably had pre-renal azotemia. Her Metformin was held by the medical team, in view of the above. Her diarrhea and vague abdominal pain have resolved.There was no acute process on CT & certainly no colitis. Her pneumobilia is chronic & related to previous sphincterotomy. Her LFTs & lipase are normal. 11/28/16: C. difficile - negative. She is afebrile, without antibiotics (with which I agree). She tolerated solids & is off IVF. She had a nontender abdomen. Her extensive past GI workup is as above. *SUGGEST: Continue to feed patient as tolerated. Will defer to the medical team regarding potential resumption of Metformin. May use Imodium as needed. If diarrhea recurs , would check stool C&S, Shiga toxin, & consider C. difficle PCR, lactoferrin, as well as fecal elastase (doubt pancreatic insufficiency). Would also consider Questran Light 4g po TID, 1/2 hour before meals, if diarrhea recurs, and/or Clonidine, for possible component of DM diarrhea. Based on current exam, can defer CTA abdomen for now (rule out mesenteric ischemia; GFR now normal). DVT prophylaxis. Consider outpatient triple H2 breath testing to exclude SIBO, fructose intolerance, and/or lactose intolerance. *Further inpatient GI follow- up as needed. I anticipate the patient being discharged tomorrow, 11/29/16. She can folow-up with Dr. Sunil Pollard for outpatient GI care. The above was discussed with Dr. Joshua earlier this p.m. on 11/28/16, & with the patient. Problem List: 1. Diarrhea 2. Dehydration 3. Gastroenteritis 4. Lactic acidosis 5. Abdominal pain 6. Diabetic autonomic neuropathy 7. History of adenomatous polyp of colon 8. Diverticulosis of colon 9. S/P SPLENECTOMY 10. Pneumobilia 11. PERIPHERAL VASCULAR DISEASE Copies To: JOSIANE BOURGEOIS,RONA; ADIS BOURGEOIS,GAUTAM Gaytan; CHELSEA BOURGEOIS,TATYANA; GRACIE BOURGEOIS PhD,ZO Samaniego Consult Acknowledgment - Thank you for your consult request.
[2016-11-28 22:00] VITALS: BP 124/78
[2016-11-29 07:05] VITALS: BP 140/58
--- NOTE | 2016-11-29 07:57 | Patient Discharge Instructions ---
Discharge Instructions General Discharge Information You were seen/treated for: Nausea vomiting diarrhea Lactic acidosis Special Instructions: 1.Please f/u with your PCP within 1 week of discharge. 2. Please complete the total dose of antibiotics. 3. Please f/u with carbonation equipment tender within 1 week ogf discharge. 4. Please f/u with electronic warfare linguist within 2 week s of discharge. Diet Recommended Diet: Diabetic Activity Full Activity/No Limits: Yes (as tolerated) Acute Coronary Syndrome Inclusion Criteria At DC or during hospital stay patient has or had the following: ACS DIAGNOSIS No Discharge Core Measures Meds if any: Prescribed or Continued at Discharge Meds if any: NOT Prescribed or Continued at Discharge Congestive Heart Failure Inclusion Criteria At DC or during hospital stay patient has or had the following: CHF DIAGNOSIS No Discharge Core Measures Meds if any: Prescribed or Continued at Discharge Meds if any: NOT Prescribed or Continued at Discharge Cerebrovascular accident Inclusion Criteria At DC or during hospital stay patient has or had the following: CVA/TIA Diagnosis No Discharge Core Measures Meds if any: Prescribed or Continued at Discharge Meds if any: NOT Prescribed or Continued at Discharge Venous thromboembolism Inclusion Criteria VTE Diagnosis No VTE Type NONE VTE Confirmed by (Test) NONE Discharge Core Measures - Per Current guidelines, there needs to be overlap - treatment for the first 5 days of Warfarin therapy. - If discharged on Warfarin prior to 5 days of - overlap therapy, the patient will need to be - assessed for post discharge needs including - *Post discharge parental anticoagulation - *Warfarin and/or parental anticoagulation education - *Follow up date to check INR post discharge At least 5 days overlap therapy as Inpatient No Meds if any: Prescribed or Continued at Discharge Note: Overlap Therapy is Warfarin and Anticoagulant Meds if any: NOT Prescribed or Continued at Discharge
[2016-11-29 08:10] LABS: ABSOLUTE BASOPHIL COUNT 0.1 /CUMM (0.0-0.2); ABSOLUTE EOSINOPHIL COUNT 0.3 /CUMM (0.0-0.7); ABSOLUTE GRANULOCYTE CT 9.4 /CUMM (1.4-6.5); ABSOLUTE LYMPH COUNT 4.1 /CUMM (1.2-3.4); ABSOLUTE MONOCYTE COUNT 1.5 /CUMM (0.10-0.60); BASOPHIL % 0.5 % (0.0-2.0); EOSINOPHIL % 2.1 % (0-5); HEMATOCRIT 34.2 % (37-47); MEAN CORPUSCULAR HGB 30.2 PG (27.0-31.0); MEAN CORPUSCULAR HGB CONC 34.2 G/DL (33.0-37.0); MEAN CORPUSCULAR VOLUME 88.4 FL (81.0-99.0); MEAN PLATELET VOLUME 9.2 FL (7.4-10.4); RBC DISTRIBUTION WIDTH 14.7 % (11.5-14.5); RED BLOOD CELL CT 3.87 /CUMM (4.20-5.40); WHITE BLOOD CELL COUNT 15.4 /CUMM (4.8-10.8)
--- NOTE | 2016-11-29 08:36 | PN- Diabetes ---
Assessment/Plan Assessment: 81 y/o female with a complicated past medical history significant for DM type 2, hypothyroidism, CAD s/p pacer placement, hypothyroidism, spherocytosis s/p splenectomy, was admitted for feeling weak and having diarrhea since Sunday night. Her lactic acid level was 2.7 in ER which has improved since she has been in the hospital. Her diarrhea has resolved. She was put on Levemir 15 units twice a day, Novolog coverage before meals and Novolog coverage at bedtime. Her FSGs were 156, 193 and 156. Urine culture is positive for Gram negative rods. She still feels slightly SOB this morning. Plan: 1. increase Levemir to 18 units twice a day; 2. continue the current Novolog coverage before meals and Novolog coverage at bedtime; 3. continue monitoring her FSGs. 4. if she is medically stable for discharge, the discharge plan for DM will be the previous insulin regimen prior to admission--- Humulin NPH and Humalog before meals. However, the dosage will be adjusted based on her meal intake. I have discussed it with patient. Metformin will be held at this point. 5. f/u in office after discharge. Subjective Subjective: She still feels SOB this morning. Objective Last 24 Hrs of Vital Signs/I&O Vital Signs Date Time Temp Pulse Resp B/P B/P Pulse O2 O2 Flow FiO2 Mean Ox Delivery Rate 11/29 0705 98.9 59 20 140/58 94 Room Air 11/29 0000 Room Air 11/28 2200 98.1 64 24 124/78 96 Room Air 11/28 1437 97.3 72 18 142/62 94 Room Air 11/28 0943 98.2 73 20 158/68 Intake & Output 11/29 1600 11/29 0800 11/29 0000 Intake Total 300 650 Output Total 550 Balance 300 100 Intake, IV 0 0 Intake, Oral 300 650 Number 0 2 Bowel Movements Output, Urine 550 Findings Pertinent Lab/Erik Results: Laboratory Tests 11/29 0615 Hematology CBC w Diff Pending WBC Pending RBC Pending Hgb Pending Hct Pending MCV Pending MCH Pending RDW Pending Plt Count Pending MPV Pending PUBS MCHC Pending
[2016-11-29 09:15] LABS: GRANULOCYTE % 61.1 % (42.2-75.2); PLATELET COUNT 320 /CUMM (130-400)
[2016-11-29] MEDS ORDERED: MYRBETRIQ50 M1 PO (11:06)
[2016-11-29] MEDS ORDERED: LASIX40 M1 PO (11:06)
[2016-11-29] MEDS ORDERED: DILAUDID2 M1 PO (11:06)
--- NOTE | 2016-11-29 11:10 | Discharge Summary ---
Visit Information Visit Dates Admission Date: 11/27/16 Discharge Date: 11/29/2016 Hospital Course Course Attending Physician: RONA JOSHUA MD Primary Care Physician: GRACIE BOURGEOIS PhD,ZO Samaniego Hospital Course: 81 yrs old female with history of coronary artery disease, sick sinus syndrome, extension S/P permanent pacemaker, pulmonary hypertension was RVSP 50 mmHg, LVH (echocardiogram October 2011 with LVEF 45-50%), diverticulosis (colonoscopy in 2014 ), diabetes, hypothyroidism, sideroblastic anemia, history of splenectomy, previous partial ray resection to the left presents with a one-week duration of generalized fatigue, decreased an NG which was followed by 5 episodes of nonbloody diarrhea every day, epigastric abdominal pain and one episode of night sweats the day prior to admission. VS of admission: BP 168/67, HR 64, RR 20, SPO2 96% on RA, T 98.0 Pertinent labs on admission: WBC 12.0, H&H 11.9/34.5, platelets 394K, sodium 139 , potassium 4.2, chloride 100, bicarbonate 27, BUN/CR 20/1.1, glucose 188 Lactic acid: 2.2, 2.7 Lipase: 45 Pertinent Imaging: -CT abdomen: There was pneumobilia, with gas extending into the left lobe of the liver. This was similar to previous. Gas was also seen in the common bile duct. The common bile duct was unchanged in caliber. Status post cholecystectomy(Chronic findings).No acute finding of the abdomen or pelvis. No acute inflammatory changes. -ECHO ON 11/29/16: Mild left ventricular dilatation.Moderate concentric left ventricular hypertrophy. Mildly reduced global left ventricular systolic function. Mildly abnormal left ventricular ejection fraction estimated at 45- 50%. False chordae in the left ventricle (normal variant). "pseudonormal" filling pattern of the left ventricle for age (stage 2 diastolic dysfunction). Mild right ventricular dilatation. #Abdominal pain, nausea, diarrhea: The patient had SIRS criteria on admission of increased heart rate, increased RR , increased WBC count. She also complained of mild epigastric tenderness.Differential diagnosis included viral gastroenteritis.vitals, Is and Os were monitored. The patient reported improvement of her abdominal pain nausea and diarrhea during her hospital stay. # UTI Her urine culture grew Ecoli, Blood culture was negative. The patient was started on ceftriaxone for 1 day, then the patient was discharged on Augmentin tabs PO and was advised to follow up with her PCP. # Pneumobilia: -CT scan showed pneumobilia possible etiology included an incompetent sphincter OF Oddi, or billiary colic fistula due to gallstones/surgical anastomosis , emphysematous cholecystitis or acute cholangitis.GIT were on board, they recommended follow-up in outpatient clinic. #Lactic acidosis: Most likely was due to diarrhea and dehydration. Improved on fluid hydration. Her metformin was discontinued. #Coronary disease -Patient had a history of CAD/PVD.During this admission she had no evidence of myocardial ischemia or decompensated congestive heart failure. According to her last stress test and according to a prior evaluation by another nursing care partner this patient should have a cardiac catheterization.Her pacemaker was working fine according to [employer] interogation. Echo showed #Diabetes The patient had a history of Diabetes. Metformin was stopped due to lactic acidosis . She was kept on diabtic diet, Levemir and Novolog scale. She was advised to follow up with Dr. Lloyd in outpatient clinic. #Hypothyroidism The patient had a history of hypothyroidism. She was kept on Levothyroxine 137 g daily #Multiple non united transverse process : The patient had a history of fractures of the lumbar spine and right posterior lateral ribs. Diet: consistent carbohydrate CODE STATUS: DNR/intubate+ DVT/Prophylaxis: pharmacological Allergies: Coded Allergies: Sulfa (Sulfonamide Antibiotics) (HIVES 08/05/15) adhesive tape (UNKNOWN 08/05/15) morphine (UNKNOWN 08/05/15) Disposition Summary Disposition Principal Diagnosis: -UTI - Lactic acidosis -Gastroentritis Additional Diagnosis: -pneumobilia -CAD -Diabetes - Hypothyroidism - Discharge Disposition: home or self care Discharge Instructions General Discharge Information Code Status: Do Not Resucitate/Intubat Patient's Diet: Diabetic diet Patient's Activity: As tolerated Follow-Up Instructions/Appts: 1.Please f/u with your PCP within 1 week of discharge. 2. Please complete the total dose of antibiotics. 3. Please f/u with tobacco conditioner within 1 week ogf discharge. 4. Please f/u with nursing care partner within 2 week s of discharge. Medications at Discharge Discharge Medications: Stop taking the following medications: Atenolol (Atenolol) 25 MG TABLET ORAL DAILY Metformin HCl (Metformin HCl) 1,000 MG TABLET ORAL TWICE DAILY Continue taking these medications: Levothyroxine Sodium (Levothyroxine Sodium) 137 MCG TABLET 1 Tablet ORAL DAILY BEFORE BREAKFAST Comments: Last Taken: 11/29/16 Time: 6:30 AM Citalopram Hydrobromide (Citalopram HBr) 20 MG TABLET 1 Tablet ORAL DAILY Comments: Last Taken: 11/29/16 Time: 9:20 AM Acetaminophen/Diphenhydramine (Tylenol Pm Ex-Strength Caplet) 500 MG-25 MG TABLET 2 Tablet ORAL Every night as needed for SLEEP Comments: NOT GIVEN IN HOSPITAL Aspirin (Aspirin*) 325 MG TABLET 2 Tablet ORAL DAILY Comments: Last Taken: 11/29/16 Time: 9:20 AM Ergocalciferol (Vitamin D2) (Vitamin D2) 50,000 UNIT CAPSULE 1 Capsule ORAL Q10D Comments: NOT GIVEN IN HOSPITAL Pantoprazole Sodium (Protonix) 40 MG TABLET.DR 1 Tablet ORAL DAILY Comments: PRILOSEC GIVEN Last Taken: 11/29/16 Time: 6:30 AM Ferrous Sulfate (Ferrous Sulfate) 325 MG (65 MG IRON) TABLET 1 Tablet ORAL TWICE DAILY Comments: NOT GIVEN IN HOSPITAL Ezetimibe (Zetia) 10 MG TABLET 1 Tablet ORAL DAILY Qty = 90 Comments: Last Taken: 11/29/16 Time: 9:20 AM Insulin Lispro (Humalog) (Unknown Strength) VIAL Unknown Dose SEE SLIDING SCALE Comments: NOVOLOG GIVEN SUBSTITUTE Insulin NPH Human Isophane (Humulin N Kwikpen) 100 UNIT/ML (3 ML) INSULN.PEN 30 Units Inject into fatty tissue TWICE DAILY Qty = 15 Comments: NOT GIVEN IN HOSPITAL Bimatoprost (Lumigan) 0.01 % DROPS 1 Drop In the eye Every night Qty = 75 Comments: NOT GIVEN IN HOSPITAL Torsemide (Torsemide) 20 MG TABLET 1 Tablet ORAL DAILY Qty = 60 Comments: Last Taken: 11/29/16 Time: 9:20 AM Gabapentin (Gabapentin) 100 MG CAPSULE 1 Capsule ORAL THREE TIMES DAILY Qty = 180 Comments: Last Taken: 11/29/16 Time: 3:30 PM Hydromorphone HCl (Dilaudid) 2 MG TABLET 1 Tablet ORAL Q6H as needed for pain Qty = 20 Comments: NOT GIVEN IN HOSPITAL This prescription has been renewed Furosemide (Lasix) 40 MG TABLET 1 Tablet ORAL TWICE DAILY Qty = 60 Comments: NOT GIVEN IN HOSPITAL This prescription has been renewed Mirabegron (Myrbetriq) 50 MG TAB.ER.24H 1 Tablet ORAL DAILY Qty = 30 Comments: NOT GIVEN IN HOSPITAL This prescription has been renewed Start taking the following new medications: Amoxicillin/Potassium Clav (Augmentin 875-125 Tablet) 875 MG-125 MG TABLET 1 Tablet ORAL TWICE DAILY Qty = 12 No Refills Instructions: please take one tab PO twice daily Comments: NOT GIVEN IN HOSPITAL IV MEDS GIVEN Atenolol (Atenolol) 25 MG TABLET 1.5 Tablet ORAL DAILY Qty = 30 No Refills Instructions: TAKE 1 AND 1/2 TABLETS DAILY Comments: Last Taken: 11/29/16 Time: 9:20 AM Copies To: GRACIE BOURGEOIS PhD,ZO Santos MD Review Statement Documenting Attending: RONA JOSHUA MD
[2016-11-29] MEDS ORDERED: AUGMENTIN 875-1 EACH PO (11:35)
--- NOTE | 2016-11-29 11:38 | PN-Observation ---
KEVIN BOURGEOIS,COLE 11/29/16 1110: Assessment/Plan Assessment: 81 yrs old female with history of coronary artery disease, sick sinus syndrome, extension S/P permanent pacemaker, pulmonary hypertension was RVSP 50 mmHg, LVH (echocardiogram October 2011 with LVEF 45-50%), diverticulosis (colonoscopy in 2014 ), diabetes, hypothyroidism, sideroblastic anemia, history of splenectomy, previous partial ray resection to the left presents with a one-week duration of generalized fatigue, decreased an NG which was followed by 5 episodes of nonbloody diarrhea every day, epigastric abdominal pain and one episode of night sweats the day prior to admission. VS of admission: BP 168/67, HR 64, RR 20, SPO2 96% on RA, T 98.0 Pertinent labs on admission: WBC 12.0, H&H 11.9/34.5, platelets 394K, sodium 139 , potassium 4.2, chloride 100, bicarbonate 27, BUN/CR 20/1.1, glucose 188 Lactic acid: 2.2, 2.7 Lipase: 45 #Abdominal pain, nausea, diarrhea: -SIRS criteria on admission heart rate more than 90, BMP, RR 20, WBC 12 -the patient today only report mild epigastric tenderness -Differential diagnosis includes viral gastroenteritis. -continue to monitor vitals, Is and Os # UTI: -Urine culture showed Ecoli > 100,000, Blood culture is pending -The patient was started on ceftriaxone -ID on board # Pneumobilia: -CT scan showing pneumobilia etiology could include an incompetent sphincter OF Oddi, or billiary colic fistula due to gallstones/surgical anastomosis , emphysematous cholecystitis or acute cholangitis. -We'll follow up with radiology for second read on CAT scan in the setting of unremarkable report but continued elevation in lactic acid. We'll discuss utility of repeat CT with by mouth contrast as this may better delineate any fistulous tracts that may be present -GI consult -LFT and bilirubin are within normal limits, patient is a afibrile. #Lactic acidosis: Most likely due to diarrhea and dehydration Trending down Fluid hydration at NS 75 mg an hour and trend lactic acid DC metformin #Coronary disease: -Patient has a history of CAD/PVD -she has no evidence of myocardial ischemia or decompensated congestive heart failure at this time although, last stress test, and according to a prior evaluation by another music engraver this patient should have a cardiac catheterization. will obtain old records from the patient's prior heart doctor. Obtain an echocardiogram. We will arrange for [employer] to interogate her pacemaker. reports being on aspirin 325 mg 2 tabs daily. Will obtain stool guaiac to assess for upper GI bleed as a possibility that high-dose aspirin can be associated with ulcer formation. In addition, dyspepsia can be a side effect form high-dose aspirin. Will discuss utility of continued 325 mg 2 times daily versus decreasing to 1 tab daily #Diabetes. Adjust levemir to 18 units twice a day as per Dr. mercado. continue novolog before meals and add another novolog coverage at bedtime Monitor FSGS. #Hypothyroidism Continue levothyroxine 137 g daily. #Multiple non united transverse process : fractures of the lumbar spine and right posterior lateral ribs patient is stable for discharge today, will be advised to follow up with her PCP and Gastroentrologist on outpatient basis. Problem List: 1. Pneumobilia 2. Diabetes 3. Diarrhea 4. Gastroenteritis 5. SIRS (systemic inflammatory response syndrome) 6. Lactic acidosis 7. Abdominal pain 8. UTI (urinary tract infection) DVT/Prophylaxis: pharmacological Subjective Follow-up For: abdomianl pain nausea lactic acidosis pneumobilia Complaints: abdominal pain , nausea Tele-Events Since Last Visit: GM Subjective: i have personally examined the patient at bedside, she was sitting in no acute distress, looked sad and depressed. Review of Systems Constitutional: Denies: see HPI. Cardiovascular: Denies: no symptoms. Respiratory: Denies: no symptoms. Gastrointestinal: Reports: abdominal pain, nausea. Objective Last 24 Hrs of Vital Signs/I&O Vital Signs Date Time Temp Pulse Resp B/P B/P Pulse O2 O2 Flow FiO2 Mean Ox Delivery Rate 11/29 0921 77 164/68 11/29 0705 98.9 59 20 140/58 94 Room Air 11/29 0000 Room Air 11/28 2200 98.1 64 24 124/78 96 Room Air 11/28 1437 97.3 72 18 142/62 94 Room Air Intake & Output 11/29 1600 11/29 0800 11/29 0000 Intake Total 300 650 Output Total 550 Balance 300 100 Intake, IV 0 0 Intake, Oral 300 650 Number 0 2 Bowel Movements Output, Urine 550 Physical Exam General Appearance: Alert, Oriented X3, Cooperative, No Acute Distress Skin: No Rashes, No Breakdown, No Significant Lesion Skin Temp/Moisture Exam: Warm/Dry HEENT: Atraumatic, PERRLA, EOMI, Mucous Membr. moist/pink Neck: Supple, No JVD Cardiovascular: Regular Rate, Normal S1, Normal S2, No Murmurs Lungs: Clear to Auscultation, Normal Air Movement Abdomen: Normal Bowel Sounds, Soft, mild epigastric tenderness Extremities: bilateral 2+ edema Current Medications: Current Medications Sig/[place] Start time Last Medication Dose Route Stop Time Status Admin Acetaminophen 650 MG Q6P PRN 11/27 161 AC PO Acetaminophen 1,000 MG Q6P PRN 11/27 1615 AC IV Aspirin 650 MG DAILY 11/28 1000 AC 11/29 PO 0918 Atenolol 25 MG DAILY 11/28 1000 AC 11/29 PO 0921 Ceftriaxone Sodium 1,000 MG DAILY 11/29 1047 AC IV Citalopram 20 MG DAILY 11/28 1000 AC 11/29 Hydrobromide PO 0918 Enoxaparin Sodium 40 MG DAILY 11/27 1609 AC SC Ezetimibe 10 MG DAILY 11/28 1000 AC 11/29 PO 0919 Gabapentin 100 MG TID 11/27 1655 AC 11/29 PO 0917 Hydromorphone HCl 0.5 MG Q4P PRN 11/27 1615 AC IV Insulin Aspart 0 TIDAC/HS 11/28 1200 AC 11/29 SC 0755 Insulin Detemir 18 UNITS BID 11/29 1000 AC 11/29 SC 0923 Insulin Detemir 15 UNITS BID 11/28 1000 DC 11/28 SC 2106 Latanoprost 1 GTT AT BEDTIME 11/27 2200 AC 11/28 OPH 2106 Levothyroxine Sodium 0.137 MG DAILY AC 11/28 0700 AC 11/29 PO 0621 Melatonin 5 MG AT BEDTIME 11/28 0145 AC 11/28 PO 2105 Omeprazole 40 MG DAILY AC 11/28 0700 AC 11/29 PO 0621 Torsemide 20 MG DAILY 11/28 1000 AC 11/29 PO 0922 Last 24 Hrs of Labs/Mics: Laboratory Tests 11/29/16614: CBC w Diff NO MAN DIFF REQ, RBC 3.87 L, MCV 88.4, MCH 30.2, RDW 14.7 H, MPV 9.2, Gran % 61.1, Lymphocytes % 26.6, Monocytes % 9.7 H, Eosinophils % 2.1, Basophils % 0.5, Absolute Granulocytes 9.4 H, Absolute Lymphocytes 4.1 H, Absolute Monocytes 1.5 H, Absolute Eosinophils 0.3, Absolute Basophils 0.1, PUBS MCHC 34.2 JOSIANE BOURGEOIS,CHUYITAANIYA 11/29/16 1327: Observation Note Observation Note _ I have personally examined SWAPNA BAKER. her disposition is uncertain at this time. Before a determination can be made, she requires continued observation for the following reasons, to be discharged today following pacemaker interrogation. Addendum Addendum 81F PMH CAD, sick sinus syndrome s/p permanent pacemaker, pulmonary hypertension w/ RSVP 50 mmHg, LVH (echocardiogram October 2011 with LVEF 45-50%), diverticulosis (colonoscopy in 2014), diabetes, hypothyroidism, sideroblastic anemia, history of splenectomy with 1 week of lethargy, several days of profuse watery diarrhea with fatigue and generalized weakness. Lactate 2.0 on admission, increased to 2.7 following 1L NS. Labs otherwise unremarkable, vitals stable. Lactate resolved. Diarrhea improving. Glucose levels remained uncontrolled. Plan - Discontinue IV fluids - Off antibiotics - Continue home medications - DVT PPx - Follow endocrine recommendations - Can be discharged following echocardiogram review. Will speak to cardiology regarding pacemaker interrogation prior to discharge.
[2016-11-29 14:22] VITALS: BP 164/80
--- NOTE | 2016-11-29 18:21 | ECHOCARDIOGRAM REPORT ---
OLIVIASWAPNA Age: 81 : 1935 Gender: F Exam Date: 11/28/2016 19:14 Exam Location: 1 [address] Ht (in): 63 Wt (lb): 220 BSA: 2.16 BP: 142 / 62 Ordering Physician: COLE BROWN MD Referring Physician: Gómez Ponce MD, PhD Technologist: Yahaira Osorio [facility] Room Number: 187 Indications: CHEST PAIN Rhythm: Other; pacemaker Technical Quality: Fair FINDINGS Left Ventricle Mild left ventricular dilatation. Moderate concentric left ventricular hypertrophy. Mildly reduced global left ventricular systolic function. Mildly abnormal left ventricular ejection fraction estimated at 45-50%. False chordae in the left ventricle (normal variant). "pseudonormal" filling pattern of the left ventricle for age (stage 2 diastolic dysfunction). Right Ventricle Mild right ventricular dilatation. Catheter/pacemaker wire in the right ventricular cavity. Right Atrium Normal right atrial size. Catheter/pacemaker wire in the right atrial cavity. Left Atrium Mild to moderate left atrial dilatation. Mitral Valve Moderate mitral annular calcification. Mitral valve mildly thickened. Mild mitral regurgitation. Aortic Valve Trileaflet aortic valve. Diffuse mild thickening of the aortic valve cusps with mildly reduced excursion. No hemodynamically significant aortic stenosis. No aortic regurgitation. Tricuspid Valve Structurally normal tricuspid valve. Trace to mild tricuspid regurgitation. Moderate pulmonary hypertension. Right ventricular systolic pressure estimated to be elevated at 53 mmHg. Pulmonic Valve Pulmonic valve not well visualized, grossly normal. No pulmonic regurgitation. Pericardium No pericardial effusion. Great Vessels Normal size aortic root. Mildly dilated inferior vena cava. CONCLUSIONS Mild left ventricular dilatation. Moderate concentric left ventricular hypertrophy. Mildly reduced global left ventricular systolic function. Mildly abnormal left ventricular ejection fraction estimated at 45- 50%. False chordae in the left ventricle (normal variant). "pseudonormal" filling pattern of the left ventricle for age (stage 2 diastolic dysfunction). Mild right ventricular dilatation. Normal right atrial size. Catheter/pacemaker wire in the right heart. Mild to moderate left atrial dilatation. Mild mitral regurgitation. Trace to mild tricuspid regurgitation. Moderate pulmonary hypertension. Mildly dilated inferior vena cava. Mich Rosario M.D. (Electronically Signed) Final Date: 29 November 2016 18:21 MEASUREMENTS (Male / Female) Normal Values 2D ECHO LV Diastolic Diameter PLAX 5.6 cm 4.2 - 5.9 / 3.9 - 5.3 cm LV Systolic Diameter PLAX 4.2 cm 2.1 - 4.0 cm LV Fractional Shortening PLAX 25.0 % 25 - 46 % LV Ejection Fraction 2D Teich 48.9 % IVS Diastolic Thickness 1.6 cm LVPW Diastolic Thickness 1.5 cm LV Relative Wall Thickness 0.6 RV Internal Dim ED PLAX 3.6 cm 1.9 - 3.8 cm LVOT Diameter 2.2 cm Aortic Root Diameter 2.6 cm LA Systolic Diameter LX 5.0 cm 3.0 - 4.0 / 2.7 - 3.8 cm LA Volume 65.0 cm 18 - 58 / 22 - 52 cm Ascending Aorta Diameter 3.2 cm DOPPLER AV Peak Velocity 182.0 cm/s AV Peak Gradient 13.2 mmHg AV Mean Velocity 126.0 cm/s AV Mean Gradient 7.0 mmHg AV Velocity Time Integral 47.2 cm LVOT Peak Velocity 94.0 cm/s LVOT Peak Gradient 3.5 mmHg LVOT Mean Velocity 68.5 cm/s LVOT Mean Gradient 2.0 mmHg LVOT Velocity Time Integral 27.2 cm LVOT Stroke Volume 103.4 cm AV Area Cont Eq vti 2.2 cm AV Area Cont Eq pk 2.0 cm MV Peak Velocity 150.0 cm/s MV Peak Gradient 9.0 mmHg MV Mean Velocity 81.1 cm/s MV Mean Gradient 3.0 mmHg Mitral E Point Velocity 134.0 cm/s Mitral A Point Velocity 109.0 cm/s Mitral E to A Ratio 1.2 MV PHT Velocity 152.0 cm/s MV Deceleration Bollinger 527.0 cm/s MV Pressure Half Time 86.5 ms MV Area PHT 2.5 cm MV Deceleration Time 145.0 ms TR Peak Velocity 326.0 cm/s TR Peak Gradient 42.5 mmHg Right Atrial Pressure 10.0 mmHg Pulmonary Artery Systolic Pressu 52.5 mmHg Right Ventricular Systolic Press 52.5 mmHg PV Peak Velocity 114.0 cm/s PV Peak Gradient 5.2 mmHg PV Mean Velocity 71.5 cm/s PV Mean Gradient 2.0 mmHg PV Velocity Time Integral 26.5 cm LV E' Lateral Velocity 5.3 cm/s Mitral E to LV E' Lateral Ratio 25.3 LV E' Septal Velocity 4.3 cm/s Mitral E to LV E' Septal Ratio 31.4
[2016-11-29] MEDS ORDERED: ATENOLOL25 M1 PO (19:11)
--- NOTE | 2016-11-29 19:13 | Patient Discharge Instructions ---
Discharge Instructions General Discharge Information You were seen/treated for: Nausea vomiting diarrhea Lactic acidosis Special Instructions: 1.Please f/u with your PCP within 1 week of discharge. 2. Please complete the total dose of antibiotics. 3. Please f/u with office runner within 1 week ogf discharge. 4. Please f/u with sports analyst within 2 week s of discharge. 5. Take 1.5 tablets of your Atenolol each day Diet Recommended Diet: Diabetic Activity Full Activity/No Limits: Yes (as tolerated) Acute Coronary Syndrome Inclusion Criteria At DC or during hospital stay patient has or had the following: ACS DIAGNOSIS No Discharge Core Measures Meds if any: Prescribed or Continued at Discharge Meds if any: NOT Prescribed or Continued at Discharge Congestive Heart Failure Inclusion Criteria At DC or during hospital stay patient has or had the following: CHF DIAGNOSIS No Discharge Core Measures Meds if any: Prescribed or Continued at Discharge Meds if any: NOT Prescribed or Continued at Discharge Cerebrovascular accident Inclusion Criteria At DC or during hospital stay patient has or had the following: CVA/TIA Diagnosis No Discharge Core Measures Meds if any: Prescribed or Continued at Discharge Meds if any: NOT Prescribed or Continued at Discharge Venous thromboembolism Inclusion Criteria VTE Diagnosis No VTE Type NONE VTE Confirmed by (Test) NONE Discharge Core Measures - Per Current guidelines, there needs to be overlap - treatment for the first 5 days of Warfarin therapy. - If discharged on Warfarin prior to 5 days of - overlap therapy, the patient will need to be - assessed for post discharge needs including - *Post discharge parental anticoagulation - *Warfarin and/or parental anticoagulation education - *Follow up date to check INR post discharge At least 5 days overlap therapy as Inpatient No Meds if any: Prescribed or Continued at Discharge Note: Overlap Therapy is Warfarin and Anticoagulant Meds if any: NOT Prescribed or Continued at Discharge
--- NOTE | 2016-11-29 19:28 | PN- Cardiology ---
Subjective Subjective: Feels improved overall. Systolic blood pressure running on the high side according to nursing. Objective Vital Signs and I&Os Vital Signs Date Time Temp Pulse Resp B/P B/P Pulse O2 O2 Flow FiO2 Mean Ox Delivery Rate 11/29 1422 98.5 64 22 164/80 95 Room Air 11/29 0921 77 164/68 11/29 0705 98.9 59 20 140/58 94 Room Air 11/29 0000 Room Air 11/28 2200 98.1 64 24 124/78 96 Room Air Intake & Output 11/29 1600 11/29 0800 11/29 0000 11/28 1600 11/28 0800 11/28 0000 Intake Total 600 300 650 500 100 Output Total 550 200 350 Balance 600 300 100 300 100 -350 Intake, IV 0 0 Intake, Oral 600 300 650 500 100 Number 0 2 2 Bowel Movements Output, Urine 550 200 350 Patient 220 lb Weight Physical Exam: Well-developed, overweight elderly female in no acute distress. Vital signs: See above. Lungs: Decreased breath sounds bilaterally. Heart: S1, S2 with grade 1-2/6 systolic ejection type murmur best heard near the base. No gallop or rub. PMI fifth ICS at [facility]. Abdomen: Soft, nontender, positive bowel sounds. Extremities: No edema. Current Medications: Current Medications Sig/[place] Start time Last Medication Dose Route Stop Time Status Admin Acetaminophen 650 MG Q6P PRN 11/27 1615 AC PO Acetaminophen 1,000 MG Q6P PRN 11/27 1615 AC IV Aspirin 650 MG DAILY 11/28 1000 AC 11/29 PO 0918 Atenolol 25 MG DAILY 11/28 1000 AC 11/29 PO 0921 Ceftriaxone Sodium 1,000 MG DAILY 11/29 1047 AC 11/29 IV 1229 Citalopram 20 MG DAILY 11/28 1000 AC 11/29 Hydrobromide PO 0918 Enoxaparin Sodium 40 MG DAILY 11/27 1609 AC SC Ezetimibe 10 MG DAILY 11/28 1000 AC 11/29 PO 0919 Gabapentin 100 MG TID 11/27 1655 AC 11/29 PO 1526 Hydromorphone HCl 0.5 MG Q4P PRN 11/27 1615 AC IV Insulin Aspart 0 TIDAC/HS 11/28 1200 AC 11/29 SC 1717 Insulin Detemir 18 UNITS BID 11/29 1000 AC 11/29 SC 0923 Insulin Detemir 15 UNITS BID 11/28 1000 DC 11/28 SC 210 Latanoprost 1 GTT AT BEDTIME 11/27 2200 AC 11/28 OPH 210 Levothyroxine Sodium 0.137 MG DAILY AC 11/28 07 AC 11/29 PO 0621 Melatonin 5 MG AT BEDTIME 11/28 0145 AC 11/28 PO 210 Omeprazole 40 MG DAILY AC 11/28 07 AC 11/29 PO 0621 Torsemide 20 MG DAILY 11/28 1000 AC 11/29 PO 0922 Results Last 48 Hrs of Labs/Mics: Laboratory Tests 11/29/16 0615: CBC w Diff NO MAN DIFF REQ, RBC 3.87 L, MCV 88.4, MCH 30.2, RDW 14.7 H, MPV 9.2, Gran % 61.1, Lymphocytes % 26.6, Monocytes % 9.7 H, Eosinophils % 2.1, Basophils % 0.5, Absolute Granulocytes 9.4 H, Absolute Lymphocytes 4.1 H, Absolute Monocytes 1.5 H, Absolute Eosinophils 0.3, Absolute Basophils 0.1, PUBS MCHC 34.2 11/28/16 0430: Lactic Acid 1.4 11/28/16 0430: Anion Gap 11, Estimated GFR > 60, BUN/Creatinine Ratio 15.6, CBC w Diff NO MAN DIFF REQ, RBC 3.83 L, MCV 88.2, MCH 30.4, RDW 14.8 H, MPV 8.6, Gran % 49.9, Lymphocytes % 35.2, Monocytes % 11.1 H, Eosinophils % 3.3, Basophils % 0.5, Absolute Granulocytes 5.7, Absolute Lymphocytes 4.0 H, Absolute Monocytes 1.3 H, Absolute Eosinophils 0.4, Absolute Basophils 0.1, PUBS MCHC 34.5 11/28/16 0130: Lactic Acid 1.4 Microbiology 11/28 1032 STOOL: Clostridium difficile Toxin A & B - COMP Recent Imaging Studies: Echocardiogram (11/28/2016): Mild left ventricular dilatation, moderate concentric LVH, mildly reduced global LV systolic function, mildly abnormal LVEF~45-50%, mild RV dilatation, normal RA size, pacemaker wire and right heart, [id number] LA dilatation, age- related valvular changes, no pericardial effusion, normal size aortic root, and a mildly dilated IVC. The Doppler portion of the study revealed mild mitral & trace to mild tricuspid regurgitation, no hemodynamically significant aortic stenosis, moderate pulmonary hypertension, & stage II diastolic dysfunction. Assessment/Plan Assessment/Plan [id number] w/ hx HTN, HLD, DM, FABIAN, hypothyroidism, spherocytosis s/p splenectomy, RHD, SSS, s/p ppm, & CAD (s/p NSTEMI 10/2007 w/ PCI/stenting of LAD ) who presented with a several day complaint of abdominal cramping, recurrent diarrhea, nausea, weakness, fatigue, chills, diaphoresis without any definite etiology found, although viral gastroenteritis suspected, who was also found to have an Escherichia coli UTI that was treated and who is now feeling improved. The echocardiogram, fortunately, revealed similar left ventricular systolic function to her prior study performed 10/31/2011. According to nursing, her systolic blood pressure has been running on the high side and as such would recommend increasing her atenolol from 25 mg daily to 37.5 mg daily and having close outpatient follow-up with her attending can doffer, Dr. Ponce. Continue telemetry? No (Ready for discharge.)
== END 2016-11-29 20:00 ==
LOC: ERH 09:59 → 1NO 16:09 → ERHI 16:09 → ENRESERV 18:53 → ENTRNSPT 20:08 → EDTRNSPTSTS 20:14 → 1NO 20:42 → CMPTRNSPT 20:50 → ENPENDDIS 11-29 12:18 → EDPENDDISTM 11-29 15:22 → 1NO 11-29 20:00
PROVIDERS: Emergency Medicine; Internal Medicine; Student in an Organized Health Care Education/Training Program; ADMIT Internal Medicine
DX: N39.0 Urinary tract infection, site not specified (principal); E87.2 Acidosis; K52.9 Noninfective gastroenteritis and colitis, unspecified; I25.10 Atherosclerotic heart disease of native coronary artery without angina pectoris; I49.5 Sick sinus syndrome; Z95.0 Presence of cardiac pacemaker; I27.2 Other secondary pulmonary hypertension; E11.319 Type 2 diabetes mellitus with unspecified diabetic retinopathy without macular edema; Z79.4 Long term (current) use of insulin; E11.40 Type 2 diabetes mellitus with diabetic neuropathy, unspecified; E03.9 Hypothyroidism, unspecified; D64.3 Other sideroblastic anemias; H35.30 Unspecified macular degeneration; E66.9 Obesity, unspecified; I73.9 Peripheral vascular disease, unspecified; I10 Essential (primary) hypertension; G47.33 Obstructive sleep apnea (adult) (pediatric)
CPT/HCPCS: 2000; 36415; 74177; 81001; 82436; 87040; 87086; 93005; 93010; 93306; 96374; 96375; 97116-GP; 97161-GP; G0378; G8978-GP; G8979-GP; G8980-GP; J0696; J1650; J1815; J2405; J3490

== ENCOUNTER 2017-05-23 04:16 | Observation (INO) | payer OTHER, MEDICARE ==
[~2017-05-23] VITALS: Ht 160 cm; Wt 97.5 kg
[~2017-05-23 04:16] MED LIST changes: +AUGMENTIN 875-1 EACH PO; +CIPRO500 M1 PO; +CITALOPRAM HBR40 MG PO; +GABAPENTIN100 M2 PO; -HUMALOG100 UNIT/2; +HUMALOG100 UNIT/2 SC; +METOPROLOL SUCC25 M1 PO; +TORSEMIDE20 M1 PO; +VANCO 1 GR1 GM/250 M IV
--- NOTE | 2017-05-23 04:27 | ED CARDIAC/CP/PALPITATIONS ---
History of Present Illness General Chief Complaint: Chest Pain Stated Complaint: PT C/O CP Source: patient Exam Limitations: no limitations Vital Signs & Intake/Output Vital Signs & Intake/Output Vital Signs Date Time Temp Pulse Resp B/P B/P Pulse O2 O2 Flow FiO2 Mean Ox Delivery Rate 05/23 0546 98.7 66 20 141/63 90 Room Air 05/23 0438 99.2 83 18 119/67 94 Room Air Allergies Coded Allergies: Sulfa (Sulfonamide Antibiotics) (HIVES 08/05/15) adhesive tape (RASH PER PT - PAPER TAPE ONLY 01/10/17) morphine (PER PT EYES ROLL BACK IN HEAD, TOTALLY OUT OF IT 01/10/17) Reconcile Medications Acetaminophen/Diphenhydramine (Tylenol Pm Ex-Strength Caplet) 500 MG-25 MG TABLET 2 TAB PO QPM PRN SLEEP (Reported) Aspirin (Aspirin*) 325 MG TABLET 2 TAB PO DAILY HEART HEALTH (Reported) Bimatoprost (Lumigan) 0.01 % DROPS 1 GTT OPH QPM BOTH EYES (Reported) Ciprofloxacin HCl (Cipro) 500 MG TABLET 500 MG PO BID INFECTION Citalopram Hydrobromide (Citalopram HBr) 40 MG TABLET 1 TAB PO DAILY MENTAL HEALTH (Reported) Ergocalciferol (Vitamin D2) (Vitamin D2) 50,000 UNIT CAPSULE 1 CAP PO Q10D SUPPLEMENT (Reported) Ezetimibe (Zetia) 10 MG TABLET 1 TAB PO DAILY CHOLESTEROL (Reported) Ferrous Sulfate 325 MG (65 MG IRON) TABLET 1 TAB PO BID SUPPLEMENT (Reported) Gabapentin 100 MG CAPSULE 1 CAP PO TID NEUROPATHY (Reported) Insulin Lispro (Humalog) 100 UNIT/ML VIAL 0 SC SEE SLIDING SCALE DIABETES ( Reported) Bolus Insulin: Novolog < 80 mg/dl: no coverage 80-100 mg/dl: 8 units 101-120 mg/dl: 8 units 121-150 mg/dl: 8 units 151-200 mg/dl: 10 units 201-250 mg/dl: 12 units 251-300 mg/dl: 14 units 301-350 mg/dl: 15 units 351-400 mg/dl: 16 units > 400 mg/dl: 18 units Insulin NPH Human Isophane (Humulin N Kwikpen) 100 UNIT/ML (3 ML) INSULN.PEN 30 U SC BID DIABETES (Reported) Levothyroxine Sodium 137 MCG TABLET 1 TAB PO DAILY AC THYROID (Reported) Metoprolol Succinate 25 MG TAB 1 TAB PO DAILY HEART/BP (Reported) Mirabegron (Myrbetriq) 50 MG TAB.ER.24H 1 TAB PO DAILY BLADDER Pantoprazole Sodium (Protonix) 40 MG TABLET.DR 1 TAB PO DAILY ACID REFLUX ( Reported) Vancomycin/0.9 % Sod Chloride (Vanco 1 Gram/250 Ml-0.9% NaCl) 1 GRAM/250 ML PLAST..BAG 1,000 MG IV DAILY INFECTION Triage Note: PER PT PAIN TO RT NECK, AND SHOULDER SINCE 010 UNABLE TO TURN OR LIFT SHOULDER PAIN 02/20 NO SOB NO DIAPHORESIS NO NAUSEA Triage Nurses Notes Reviewed? yes Onset: Abrupt Duration: hour(s): Timing: recent history Quality/Severity: moderate Location: right shoulder pain since 11pm yesterday Radiation: no radiation Activities at Onset: none Prior Chest Pain/Card Workup: cardiac cath Aspirin Today: no aspirin today HPI: 82 yo woman h/o cad, s/p stents many years ago, presents with right shoulder, right sided chest wall pain off and on since 11pm yesterday. She notes the pain is worse with movement, "but it is also real deep too." Not associated with diaphoresis or shortness of breath. She notes that the pain was likely a 7-8 / 10 Past History Travel History Traveled to [place] past 21 day Yes Medical History Any Pertinent Medical History? see below for history Neurological: CVA, meningitis, peripheral neuropathy, polio EENT: diabetic retinopathy, macular degeneration Cardiovascular: AFIB (paroxysmal), CAD, hypertension, hyperlipidemia, PVD (L CEA ), PACEMAKER rheumatic fever Respiratory: obstructive sleep apnea, pneumonia Gastrointestinal: diverticulitis, peptic ulcer disease, upper GI bleed, gastritis Renal: intermittent renal insuff Musculoskeletal: chronic back pain, degen joint disease, osteoarthritis, CHIPPED ELBOWS BILATERAL Psychiatric: anxiety, depression Endocrine: diabetes, hypothyroidism, obesity, vitamin D deficiency Blood Disorders: SPHEROCYTOSIS Cancer(s): NONE 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 History of MRSA: Yes History of VRE: No History of CDIFF: No Surgical History Surgical History: cholecystectomy, , hernia repair-inguinal, knee replacement (BILATERAL), PACEMAKER CARDIAC STENT SPLENECTOMY, CHOLECYSTECTOMY, LEFT CAROTID ENDARTERECTOMY, B/L KNEE REPLACEMENT, PACEMAKER left carotid endarterectomy status post right second and left third and fifth toe amputations Psychosocial History Who do you live with Patient/Self Services at Home None What is your primary language Angolan Tobacco Use: Never used Family History Family History, If Any: FATHER FH: diabetes mellitus Relation not specified for: FH: pancreatic cancer Hx Contributory? No Review of Systems Review of Systems Constitutional: Reports: no symptoms. EENTM: Reports: no symptoms. Respiratory: Reports: no symptoms. Cardiovascular: Reports: no symptoms. GI: Reports: no symptoms. Genitourinary: Reports: no symptoms. Musculoskeletal: Reports: no symptoms. Skin: Reports: no symptoms. Neurological/Psychological: Reports: no symptoms. Hematologic/Endocrine: Reports: no symptoms. Immunologic/Allergic: Reports: no symptoms. All Other Systems: Reviewed and Negative Physical Exam Physical Exam General Appearance: well developed/nourished, mild distress Head: atraumatic, normal appearance Eyes: Bilateral: normal appearance, PERRL, EOMI, pale conjunctivae. Ears, Nose, Throat: normal ENT inspection Neck: normal inspection, supple, right trapezius tenderness to palpation and muscle spasm Respiratory: normal breath sounds, no respiratory distress, quiet respiration, right lateral rib cage tenderness to palpation. Cardiovascular: regular rate/rhythm Gastrointestinal: normal bowel sounds, soft, non-tender Back: normal inspection, normal range of motion Extremities: normal inspection, normal capillary refill, normal range of motion, no edema Neurologic/Psych: no motor/sensory deficits, awake, alert, oriented x 3 Skin: intact, normal color, warm/dry Core Measures ACS in differential dx? No CVA/TIA Diagnosis No Sepsis Present: No Sepsis Focused Exam Completed? No Progress Differential Diagnosis: AMI, aortic dissection, pulmonary embolism, PVCs/PACs Plan of Care: Orders Procedure Date/time Status Nothing by Mouth 05/23 B Active Saline Lock 05/[address] in observation 05/23 625 Active Misc Message 05/23 625 Active ED Holding Orders 05/23 625 Active Vital Signs 05/23 625 Active Code Status 05/23 625 Active D-DIMER 05/23 434 Complete TROPONIN LEVEL 05/23 418 Complete PARTIAL THROMBOPLASTIN TIME 05/23 418 Complete PROTHROMBIN TIME 05/23 418 Complete LIPASE 05/23 418 Complete HEPATIC FUNCTION PANEL 05/23 418 Complete CBC WITHOUT DIFFERENTIAL 05/23 418 Complete BASIC METABOLIC PANEL 05/23 418 Complete AMYLASE 05/23 418 Complete EKG 05/23 416 Active Laboratory Tests 05/23/17 0435: Anion Gap 18 H, Estimated GFR 48 L, BUN/Creatinine Ratio 20.9, Glucose 196 H, Calcium 9.3, Total Bilirubin 0.5, Direct Bilirubin 0.3, AST 23, ALT 27, Alkaline Phosphatase 86, Troponin I 0.03, Total Protein 7.7, Albumin 3.9, Amylase 44, Lipase 79, PT 12.2, INR 1.16, APTT 30, D-Dimer High Sensitivty 680 H, CBC w Diff MAN DIFF ORDERED, RBC 4.21, MCV 84.7, MCH 28.9, RDW 15.9 H, MPV 8.8, Gran % 64.0, Lymphocytes % 22.5, Monocytes % 11.8 H, Eosinophils % 1.2, Basophils % 0.5, Absolute Granulocytes 11.9 H, Segmented Neutrophils 56, Absolute Lymphocytes 4.2 H, Lymphocytes 27, Monocytes 11 H, Absolute Monocytes 2.2 H, Eosinophils 4, Absolute Eosinophils 0.2, Basophils 1, Absolute Basophils 0.1, Metamyelocytes 1, Platelet Estimate ADEQUATE, Poikilocytosis 1+, Anisocytosis 1+ , Stomatocytes FEW, Malone Cells 1+, PUBS MCHC 34.1 05/23/17 0426: D-Dimer High Sensitivty Cancelled Diagnostic Imaging: Viewed by Me: Radiology Read, CT Scan. Discussed w/RAD: Radiology Read, CT Scan. Radiology Impression: ct angio... no PE PATIENT: OLIVIASWAPNA PRESENT AGE: 82 PATIENT ACCOUNT NO: [id number] : 37 LOCATION: [facility] ORDERING PHYSICIAN: Mark Healy MD SERVICE DATE: 05/23/17 EXAM TYPE: CAT - CTA CHEST-PULMONARY EMBOLISM EXAMINATION: CT ANGIOGRAM OF THE CHEST WITH AND WITHOUT CONTRAST (CT PULMONARY ANGIOGRAM FOR PE) CLINICAL INFORMATION: Chest pain and positive d-dimer. COMPARISON: Radiograph from earlier today. Chest CT 05/25/2016. TECHNIQUE: Prior to contrast administration, noncontrast localization images were obtained. Subsequently, multidetector volumetric imaging was performed from the thoracic inlet to below the diaphragms following the administration of 78 mL Optiray 350 intravenous contrast. No contrast reaction reported. Sagittal, coronal, and MIP oblique sagittal reformatted images were obtained on the CT workstation, uploaded to PACS, and reviewed. Total exam dose-length product 515 mGy-cm. FINDINGS: QUALITY OF STUDY/ CONTRAST BOLUS: Satisfactory PULMONARY ARTERIES: No central or segmental pulmonary emboli. THORACIC AORTA: No aneurysm or dissection. Atherosclerotic calcifications present. LUNG: The central airways are patent. Subsegmental atelectasis at the lung bases. Mild peripheral reticulation of the lower lobes with no honeycombing. This is similar to prior. No dense consolidation. PLEURA: No pleural effusion or pneumothorax. MEDIASTINUM: Mildly enlarged heart size. Coronary artery calcifications present. No pericardial effusion. No hilar or mediastinal lymphadenopathy. Right chest wall pacer in place. No evidence of septal bowing or right heart strain. CHEST WALL/AXILLA: No axillary or internal mammary lymphadenopathy. OSSEOUS STRUCTURES: No acute or suspicious osseous abnormality. Multilevel degenerative changes of the spine. UPPER ABDOMEN: Pneumobilia noted. This is unchanged. No reflux of contrast into the hepatic veins to suggest elevated right heart pressures. IMPRESSION: No pulmonary embolism or other acute intrathoracic abnormality. Minimal fibrotic changes of the lower lobes. VTE: negative DICTATED BY: Dorys BOURGEOIS,Jarrell DATE/TIME DICTATED:05/23/17630 STRONG NITRIC OPERATOR:ZEE DATE/TIME TRANSCRIBED:630 CONFIDENTIAL, DO NOT COPY WITHOUT APPROPRIATE AUTHORIZATION. < Electronically signed in Other Vendor System> SIGNED BY: Dorys BOURGEOIS, Jarrell 05/23/17 0638 CXR Impression: no acute abnormality, no infiltrates, normal size heart, normal mediastinum, [facility] PRES[facility] AGE: 82 PATIENT ACCOUNT NO: [id number] : 37 LOCATION: [facility] ORDERING PHYSICIAN: Mark Healy MD SERVICE DATE: 05/23/179 EXAM TYPE: RAD - XRY- PORTABLE CHEST XRAY EXAMINATION: XR PORTABLE CHEST CLINICAL INFORMATION: Chest pain COMPARISON: 01/19/2017 TECHNIQUE: Portable frontal view of the chest was obtained. FINDINGS: Right chest wall dual-lead pacer is unchanged. Cardiac leads overlie the chest. The lungs are well expanded. There is no focal consolidation, edema, or effusion. No pneumothorax. The cardiomediastinal silhouette is within normal limits. No acute osseous abnormality. IMPRESSION: No acute pulmonary findings. DICTATED BY: Jarrell Saul MD DATE/TIME DICTATED:05/23/17514 STRONG NITRIC OPERATOR:ZEE DATE/TIME TRANSCRIBED:05/23/17514 CONFIDENTIAL, DO NOT COPY WITHOUT APPROPRIATE AUTHORIZATION. <Electronically signed in Other Vendor System> SIGNED BY: Dorys BOURGEOIS,Jarrell 05/23/1719 Initial ED EKG: paced, no acute changes Departure Departure Disposition: STILL A PATIENT Condition: Stable Clinical Impression Primary Impression: Chest pain as manifestation of blood transfusion reaction Referrals: Pearl Horan APRN (PCP/Family) Departure Forms: Customer Survey General Discharge Information Comments 05/23/17, 6:30am... discussed with dr. matias... pt with cad, s/p stent years ago, merits rule out, serial trops/ekgs... pt feels better after supportive medications. Observation Note Spoke With: Augustine BOURGEOIS,Carito Iqbal Physician Advisor Notified: JAN MCCLURE DO Place Patient In: Non-ED OBS Care Area Rationale for Observation: My rational for observation is as follows . pt with chest pain, reproducible, but with known CAD, s/p stents in distant past... pt merits serial trops/ekg. discussed with dr. matias as well. Pt feeling better after supportive medications. Critical Care Note Critical Care Note Critical Care Time: non-applicable
[2017-05-23 04:47] LABS: ABSOLUTE BASOPHIL COUNT 0.1 /CUMM (0.0-0.2); ABSOLUTE EOSINOPHIL COUNT 0.2 /CUMM (0.0-0.7); ABSOLUTE GRANULOCYTE CT 11.9 /CUMM (1.4-6.5); ABSOLUTE LYMPH COUNT 4.2 /CUMM (1.2-3.4); ABSOLUTE MONOCYTE COUNT 2.2 /CUMM (0.10-0.60); BASOPHIL % 0.5 % (0.0-2.0); EOSINOPHIL % 1.2 % (0-5); HEMATOCRIT 35.7 % (37-47); MEAN CORPUSCULAR HGB 28.9 PG (27.0-31.0); MEAN CORPUSCULAR HGB CONC 34.1 G/DL (33.0-37.0); MEAN CORPUSCULAR VOLUME 84.7 FL (81.0-99.0); MEAN PLATELET VOLUME 8.8 FL (7.4-10.4); PLATELET COUNT 386 /CUMM (130-400); RBC DISTRIBUTION WIDTH 15.9 % (11.5-14.5); RED BLOOD CELL CT 4.21 /CUMM (4.20-5.40); WHITE BLOOD CELL COUNT 18.6 /CUMM (4.8-10.8)
[2017-05-23 04:56] LABS: PT 12.2 SEC (9.4-12.5); PTT 30 SEC (25-37)
--- NOTE | 2017-05-23 05:19 | RADIOLOGY REPORT ---
EXAMINATION: XR PORTABLE CHEST CLINICAL INFORMATION: Chest pain COMPARISON: 01/19/2017 TECHNIQUE: Portable frontal view of the chest was obtained. FINDINGS: Right chest wall dual-lead pacer is unchanged. Cardiac leads overlie the chest. The lungs are well expanded. There is no focal consolidation, edema, or effusion. No pneumothorax. The cardiomediastinal silhouette is within normal limits. No acute osseous abnormality. IMPRESSION: No acute pulmonary findings.
--- NOTE | 2017-05-23 06:38 | CT SCAN REPORT ---
EXAMINATION: CT ANGIOGRAM OF THE CHEST WITH AND WITHOUT CONTRAST (CT PULMONARY ANGIOGRAM FOR PE) CLINICAL INFORMATION: Chest pain and positive d-dimer. COMPARISON: Radiograph from earlier today. Chest CT 05/25/2016. TECHNIQUE: Prior to contrast administration, noncontrast localization images were obtained. Subsequently, multidetector volumetric imaging was performed from the thoracic inlet to below the diaphragms following the administration of 78 mL Optiray 350 intravenous contrast. No contrast reaction reported. Sagittal, coronal, and MIP oblique sagittal reformatted images were obtained on the CT workstation, uploaded to PACS, and reviewed. Total exam dose-length product 515 mGy-cm. FINDINGS: QUALITY OF STUDY/CONTRAST BOLUS: Satisfactory PULMONARY ARTERIES: No central or segmental pulmonary emboli. THORACIC AORTA: No aneurysm or dissection. Atherosclerotic calcifications present. LUNG: The central airways are patent. Subsegmental atelectasis at the lung bases. Mild peripheral reticulation of the lower lobes with no honeycombing. This is similar to prior. No dense consolidation. PLEURA: No pleural effusion or pneumothorax. MEDIASTINUM: Mildly enlarged heart size. Coronary artery calcifications present. No pericardial effusion. No hilar or mediastinal lymphadenopathy. Right chest wall pacer in place. No evidence of septal bowing or right heart strain. CHEST WALL/AXILLA: No axillary or internal mammary lymphadenopathy. OSSEOUS STRUCTURES: No acute or suspicious osseous abnormality. Multilevel degenerative changes of the spine. UPPER ABDOMEN: Pneumobilia noted. This is unchanged. No reflux of contrast into the hepatic veins to suggest elevated right heart pressures. IMPRESSION: No pulmonary embolism or other acute intrathoracic abnormality. Minimal fibrotic changes of the lower lobes. VTE: negative
--- NOTE | 2017-05-23 09:56 | History & Physical ---
See Addendum Raffy BOURGEOIS,Rashel 05/23/17 0956: General Information and HPI MD Statement: I have seen and personally examined SWAPNA BAKER and documented this H&P. The patient is a 82 year old F who presented with a patient stated chief complaint of [atypical chest pain]. Source of Information: patient, family, old records Exam Limitations: no limitations History of Present Illness: This is an 82-year-old female past medical history significant for CVA, diabetes , atrial fibrillation, CAD status post stent, hypertension, hyperlipidemia, PVD, OA, sick sinus syndrome that is post pacemaker, hypothyroidism, splenectomy, left CEA, multiple toe amputations who comes in for chief complaint of right shoulder and left neck pain. Patient states that around 1 AM in the morning, before she went to sleep she felt some generalized malaise, "just didn't feel good." She then experienced 10 out of 10 pain in her right arm and the left side of her neck. As time passed pain continued to worsen and spread to her shoulder. About 2 days ago she had a similar episode where she experienced bilateral jaw pain along with headache. She was concerned that the pain was not remitting last night and came to ED. in ED, she received Tylenol and she states that majority of her pain is resolved. About 5 years ago patient had an episode of chest pain and jaw pressure and noted to have troponin up to 11. She denies any headache, change in vision, dizziness, syncope, shortness of breath, chest pain other than described above, abdominal pain, nausea, vomiting, hematuria, or hematochezia. Denies current drinking, smoking or IVDA. Is a previous smoker. Allergies/Medications Allergies: Coded Allergies: Sulfa (Sulfonamide Antibiotics) (HIVES 08/05/15) adhesive tape (RASH PER PT - PAPER TAPE ONLY 01/10/17) morphine (PER PT EYES ROLL BACK IN HEAD, TOTALLY OUT OF IT 01/10/17) Home Med list Acetaminophen/Diphenhydramine (Tylenol Pm Ex-Strength Caplet) 500 MG-25 MG TABLET 2 TAB PO QPM PRN SLEEP (Reported) Aspirin (Aspirin*) 325 MG TABLET 2 TAB PO DAILY HEART HEALTH (Reported) Bimatoprost (Lumigan) 0.01 % DROPS 1 GTT OPH QPM BOTH EYES (Reported) Citalopram Hydrobromide (Citalopram HBr) 40 MG TABLET 1 TAB PO DAILY MENTAL HEALTH (Reported) Ergocalciferol (Vitamin D2) (Vitamin D2) 50,000 UNIT CAPSULE 1 CAP PO Q10D SUPPLEMENT (Reported) Ezetimibe (Zetia) 10 MG TABLET 1 TAB PO DAILY CHOLESTEROL (Reported) Ferrous Sulfate 325 MG (65 MG IRON) TABLET 1 TAB PO BID SUPPLEMENT (Reported) Gabapentin 100 MG CAPSULE 1 CAP PO TID NEUROPATHY (Reported) Insulin Lispro (Humalog) 100 UNIT/ML VIAL 0 SC SEE SLIDING SCALE DIABETES ( Reported) Bolus Insulin: Novolog < 80 mg/dl: no coverage 80-100 mg/dl: 8 units 101-120 mg/dl: 8 units 121-150 mg/dl: 8 units 151-200 mg/dl: 10 units 201-250 mg/dl: 12 units 251-300 mg/dl: 14 units 301-350 mg/dl: 15 units 351-400 mg/dl: 16 units > 400 mg/dl: 18 units Insulin NPH Human Isophane (Humulin N Kwikpen) 100 UNIT/ML (3 ML) INSULN.PEN 30 U SC BID DIABETES (Reported) Levothyroxine Sodium 137 MCG TABLET 1 TAB PO DAILY AC THYROID (Reported) Metoprolol Succinate 25 MG TAB 1 TAB PO DAILY HEART/BP (Reported) Oxybutynin Chloride 5 MG TABLET 1 TAB PO BID BLADDER HYPERACTIVITY (Reported) Pantoprazole Sodium (Protonix) 40 MG TABLET.DR 1 TAB PO DAILY ACID REFLUX ( Reported) Compliance With Home Meds: GOOD Past History Travel History Traveled to [place] past 21 day Yes Medical History Neurological: CVA, meningitis, peripheral neuropathy, polio EENT: diabetic retinopathy, macular degeneration Cardiovascular: AFIB (paroxysmal), CAD, hypertension, hyperlipidemia, PVD (L CEA ), PACEMAKER rheumatic fever Respiratory: obstructive sleep apnea, pneumonia Gastrointestinal: diverticulitis, peptic ulcer disease, upper GI bleed, gastritis Renal: intermittent renal insuff Musculoskeletal: chronic back pain, degen joint disease, osteoarthritis, CHIPPED ELBOWS BILATERAL Psychiatric: anxiety, depression Endocrine: diabetes, hypothyroidism, obesity, vitamin D deficiency Blood Disorders: SPHEROCYTOSIS Cancer(s): NONE 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 self Services at Home: None Primary Language: [place] Living Will? no Power of Occupational Safety And Health Manager/HCP? no Functional Ability ADLs Independent: dressing, eating, toileting, bathing. Ambulation: cane IADLs Independent: shopping, housework, finances, food prep, telephone, transportation , medication admin. Review of Systems Review of Systems Constitutional: Reports: see HPI. Exam & Diagnostic Data Last 24 Hrs of Vital Signs/I&O Vital Signs Date Time Temp Pulse Resp B/P B/P Pulse O2 O2 Flow FiO2 Mean Ox Delivery Rate 05/23 1420 Nasal 2.0L Cannula 05/23 1206 98.0 60 20 131/62 98 Nasal 2.0L Cannula 05/23 1035 98.5 62 18 160/68 97 Nasal 2.0L Cannula 05/23 0700 97.1 82 18 126/58 93 Nasal 2.0L Cannula 05/23 0546 98.7 66 20 141/63 90 Room Air 05/23 0438 99.2 83 18 119/67 94 Room Air Intake & Output 05/23 1600 05/23 0800 05/23 0000 Intake Total 0 Output Total 200 Balance -200 Intake, Oral 0 Output, Urine 200 Patient 97.522 kg 97.522 kg Weight Weight Reported by Patient Measurement Method Physical Exam General Appearance Alert, Oriented X3, Cooperative, No Acute Distress Skin Bilat LE is erythematous and both equally warm to touch. HEENT Atraumatic, PERRLA, EOMI, Mucous Membr. moist/pink Neck Supple Cardiovascular Regular Rate, Normal S1, Normal S2, No Murmurs Lungs Clear to Auscultation, Normal Air Movement Abdomen Soft, No Tenderness Extremities bilat LE with erythem and warmth in quan and below. Pt states it is at baseline. both legs equally warm to touch. no tenderness. no open sores. RLE had 3 toes, others amputated. site clean without drainage. LLE w/ amputated great toe. second toe with some eschar and skin changes. no weeping, erythema, flucutance or drainage. Last 24 Hrs of Labs/Erik: Laboratory Tests 05/23/17 1050: Troponin I 0.02 05/23/17 0435: Anion Gap 18 H, Estimated GFR 48 L, BUN/Creatinine Ratio 20.9, Glucose 196 H, Calcium 9.3, Total Bilirubin 0.5, Direct Bilirubin 0.3, AST 23, ALT 27, Alkaline Phosphatase 86, Troponin I 0.03, Total Protein 7.7, Albumin 3.9, Amylase 44, Lipase 79, PT 12.2, INR 1.16, APTT 30, D-Dimer High Sensitivty 680 H, CBC w Diff MAN DIFF ORDERED, RBC 4.21, MCV 84.7, MCH 28.9, RDW 15.9 H, MPV 8.8, Gran % 64.0, Lymphocytes % 22.5, Monocytes % 11.8 H, Eosinophils % 1.2, Basophils % 0.5, Absolute Granulocytes 11.9 H, Segmented Neutrophils 56, Absolute Lymphocytes 4.2 H, Lymphocytes 27, Monocytes 11 H, Absolute Monocytes 2.2 H, Eosinophils 4, Absolute Eosinophils 0.2, Basophils 1, Absolute Basophils 0.1, Metamyelocytes 1, Platelet Estimate ADEQUATE, Poikilocytosis 1+, Anisocytosis 1+ , Stomatocytes FEW, Twan Cells 1+, PUBS MCHC 34.1 05/23/17 0426: D-Dimer High Sensitivty Cancelled Microbiology 05/23 1018 URINE ROUT: Urine Culture - COLB 05/23 1018 LOWER RESP: Respiratory Culture - COLB 05/23 1018 LOWER RESP: Gram Stain - COLB 05/23 1018 BLOOD: Blood Culture - COLB 05/23 1018 BLOOD: Blood Culture - COLB Assessment/Plan Assessment: This is an 82-year-old female past medical history significant for CVA, diabetes , atrial fibrillation, CAD status post stent, hypertension, hyperlipidemia, PVD, OA, sick sinus syndrome that is post pacemaker, hypothyroidism, splenectomy, left CEA, multiple toe amputations who comes in for chief complaint of atypical chest pain. NELI score 4 with 19.9% 14 day risk of recurrent OR or urgent revascualrization. Atypical chest pain: * EKG/trop now and at 1600 * Appreciate cardiology consult * ASA given Anion gap: Pt has no evidence of acidosis, but elevated gap of 18. ddx of AG: DKA, starvation, renal failure. Will check for ketones. But given that rest of BEP WNL suspect that will self-resolve after hydration. BUN elevated at 23 and Cr 1.1, which seems to be around her baseline suggesting against renal failure. * repeat bep tomorrow * IVF * UA Leukocytosis: WBC 18.6. She has hx of persistent leukocytosis but not as high as 18.6. She is afebrile, no obivous source of infection. She has known osteo but her LE seems to be healing well. She has bilat quan erythema but it seems like its her baseline. * monitor off abx * esr lab add on * monitor CBC * Brito culture DM: * RISS * FS * heart healthy diet HTN/HLD * Cont home metoprolol * Con't home ezetimibe Hypothyroid: * Cont' synthroid As Ranked By This Provider Problem List: 1. Osteomyelitis 2. 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 She reports being recently diagnosed with degenerative joint disease of the lumbar spine. She received epidural injections with no improvement. She presented to the emergency room with complaints of right shoulder and left neck pain. Symptoms began suddenly this morning. She denies having similar symptoms in the past. Denies any chest pain. Denies palpitations. She arrived to the emergency room afebrile hemodynamically stable. EKG showed no ischemic changes on first set of cardiac enzymes were negative. Due to her extensive medical history it was decided more prudent to monitor the patient on the telemetry service for the next 24-48 hours. On examination she has reproducible pain in the right shoulder and the left neck. Pain is aggravated by motion. She has surgical scar from left carotid endarterectomy. Heart sounds are regular. Lungs are clear to auscultation bilaterally. Abdomen soft and nontender. She has 1+ pedal edema bilaterally. Recommendations: -Her pain is very atypical for cardiac etiology. Second set of troponin is already negative. Monitor overnight on the telemetry service and discuss further with the cardiology team. -Recommend CT scan of the neck to evaluate for spinal stenosis. It is noted that she has extensive multilevel degenerative disc disease and lumbar spinal stenosis on prior imaging. -Pain control with Tylenol. May utilize tramadol for breakthrough pain. -She has a pacemaker in place for sick sinus syndrome. She is reported to have had a very brief episode of atrial fibrillation in the past and is not on anticoagulation. -The significance of her elevated anion gap is unknown at present particularly with the lack of an acidosis on her labs. Hydrate gently and repeat serum chemistry in a.m. -She appears to have a chronically elevated white cell count. No clinical evidence of infection at present. We will continue to monitor.
[2017-05-23] MEDS ORDERED: OXYBUTYNIN CHLOR5 M2 PO (10:09)
--- NOTE | 2017-05-23 16:54 | PN- Student ---
Jj Charles 05/23/17 1644: Subjective Subjective: CC: Chest Pain HPI: 82yo F with past medical history of uncontrolled diabetes, CVA, AFib, hyperlipidemia, osteoarthritis, spherocytosis, multiple toe amputations and macular degeneration presents with acute chest, neck and shoulder pain. Pt was sitting at home at 2300 on 05/22/17 when she started feeling sharp, stabbing pain over her entire back, neck, chest and shoulders. She took aspirin and Tylenol at home to no effect. Moving made the pain worse and she spent 5 hours sitting in a chair until she was able to wake a friend to bring her to the hospital. The pain was 9/10 in severity but was not getting worse. On arrival to the ED she was given more aspirin and Tylenol and says that the pain abated except for her left posterior neck and R back inferior to the R scapula. Earlier in the day on 05/22 she had an episode of abdominal cramping and diarrhea one time. She denied fatigue, sweating, shortness of breath at rest, palpitations, nausea, vomiting, dysuria or pain on urination, dark or bloody bowel movements. Social History: past smoker, denies alcohol or illicit drug use, not sexually active. Lives alone and performs ADLs independently. Objective Objective: Vital Signs Date Time Temp Pulse Resp B/P B/P Pulse O2 O2 Flow FiO2 Mean Ox Delivery Rate 05/23 1420 Nasal 2.0L Cannula 05/23 1206 98.0 60 20 131/62 98 Nasal 2.0L Cannula 05/23 1035 98.5 62 18 160/68 97 Nasal 2.0L Cannula 05/23 0700 97.1 82 18 126/58 93 Nasal 2.0L Cannula 05/23 0546 98.7 66 20 141/63 90 Room Air 05/23 0438 99.2 83 18 119/67 94 Room Air Intake & Output 05/23 1600 05/23 0800 05/23 0000 Intake Total 0 Output Total 200 Balance -200 Intake, Oral 0 Output, Urine 200 Patient 215 lb 215 lb Weight Weight Reported by Patient Measurement Method Physical Exam: General: Alert and Oriented x3, conversant, well appearing female HEENT: Normocephalic, atraumatic. Pupils equal and round. Posterior neck stiff and slightly tender to palpation on the L side. Pain with active ROM, especially when leaning down. Cannot turn head fully to the left. Pulmonary: lung arevalo clear to auscultation Cardiovascular: irregular rate, no murmur Abdomen: soft, nontender Extremities: RLE healed amputation site. R shoulder pain, especially inferior to the scapula, with ROM. Full ROM for both shoulders. Results Results: Laboratory Tests 05/23/17 1645: Troponin I Pending 05/23/17 1050: Troponin I 0.02 05/23/17 0435: Anion Gap 18 H, Estimated GFR 48 L, BUN/Creatinine Ratio 20.9, Glucose 196 H, Calcium 9.3, Total Bilirubin 0.5, Direct Bilirubin 0.3, AST 23, ALT 27, Alkaline Phosphatase 86, Troponin I 0.03, Total Protein 7.7, Albumin 3.9, Amylase 44, Lipase 79, PT 12.2, INR 1.16, APTT 30, D-Dimer High Sensitivty 680 H, CBC w Diff MAN DIFF ORDERED, RBC 4.21, MCV 84.7, MCH 28.9, RDW 15.9 H, MPV 8.8, Gran % 64.0, Lymphocytes % 22.5, Monocytes % 11.8 H, Eosinophils % 1.2, Basophils % 0.5, Absolute Granulocytes 11.9 H, Segmented Neutrophils 56, Absolute Lymphocytes 4.2 H, Lymphocytes 27, Monocytes 11 H, Absolute Monocytes 2.2 H, Eosinophils 4, Absolute Eosinophils 0.2, Basophils 1, Absolute Basophils 0.1, Metamyelocytes 1, Platelet Estimate ADEQUATE, Poikilocytosis 1+, Anisocytosis 1+ , Stomatocytes FEW, Laurel Cells 1+, PUBS MCHC 34.1 05/23/17 0426: D-Dimer High Sensitivty Cancelled Microbiology 05/23 1700 BLOOD: Blood Culture - RECD 05/23 1645 BLOOD: Blood Culture - RECD 05/23 1018 URINE ROUT: Urine Culture - COLB 05/23 1018 LOWER RESP: Respiratory Culture - COLB 05/23 1018 LOWER RESP: Gram Stain - COLB Imaging CXR:No acute pulmonary findings. CTA Chest:No pulmonary embolism or other acute intrathoracic abnormality. Minimal fibrotic changes of the lower lobes. Assessment/Plan Assessment: 82 yo F with extensive past medical history including DM, Afib and CVA presents with acute onset back, shoulder and neck pain that has resolved except for the L posterior neck and R shoulder. Troponin I: .02 WBC: 18.6 Imaging showed no acute pathology on CTA chest or CXR. Neck and Shoulder Pain Pain most likely musculoskeletal given location, reproducibility on exam and tenderness to palpation along with negative troponin I. * Pain control with aspirin and Tylenol * Ambulate when possible * Monitor overnight on telemetry and discuss with cardiology * CT neck for osteoarthritic/other pathology Leukocytosis Persistent leukocytosis on past visits but not usually as high as 18.6 * Monitor for symptoms of infection * Monitor temperatures DM * Sliding scale insulin * Diabetic diet Other chronic conditions * Continue home medications
--- NOTE | 2017-05-23 19:34 | CT SCAN REPORT ---
EXAMINATION: CT CERVICAL SPINE WITHOUT CONTRAST CLINICAL INFORMATION: Spinal stenosis. COMPARISON: None TECHNIQUE: CT of the cervical spine was performed without intravenous contrast. Multiplanar reformats were rendered and reviewed DLP: 350 mGy-cm FINDINGS: The cervical vertebral bodies maintain normal heights and alignment. No fracture is seen. The craniovertebral junction is intact. There are degenerative changes at the atlantodental articulation. No gross abnormality is seen within the spinal canal within the limits of CT. Multilevel degenerative changes are present with endplate spurring, uncovertebral hypertrophy, facet arthropathy, and ligamentum flavum thickening/calcification. No significant disc height loss is seen. There is no moderate or severe osseous encroachment on the spinal canal. There is multilevel neural foraminal stenosis which appears moderate on the left at C4-C5 and milder at additional levels. There are chronic changes within the posterior aspect of the right sphenoid sinus with dehiscence of the right carotid impression and demineralization of the right posterior sphenoid sinus wall but this appears similar compared to head CT from 06/29/2015. There are atheromatous changes in the bilateral carotid arteries. There are atheromatous changes in the aortic arch and great vessel origins. Nonenlarged mediastinal lymph nodes are seen. No mass or consolidation is present at the lung apices. There is a partially visualized right chest wall pacemaker. IMPRESSION: 1. No cervical spine fracture or malalignment. 2. Multilevel degenerative spondylotic changes throughout the cervical spine without significant osseous encroachment on the spinal canal. Multilevel neural foraminal stenosis is present but is predominantly mild except on the left at C4-C5 were approximately moderate neural foraminal stenosis is present.
--- NOTE | 2017-05-23 21:10 | Cons- Cardiology ---
General Information and HPI Consulting Request Date of Consult: 05/23/17 Requested By: Symone Marte MD History of Present Illness: Latoya is an 82 year old female with a history of hypertension, diabetes mellitus , FABIAN, sick sinus syndrome and permanent pacemaker. She also carries a history of rheumatic fever and spherocytosis. Latoya presented to the ER for evaluation of a severe deep discomfort in the location of her right shoulder and due to discomfort in her left neck. She denies any precordial chest discomfort, shortness of breath beyond her baseline, lightheadedness or palpitations. She also has noted bilateral leg swelling that for which she was placed on antibiotic therapy. Her WBC count remains elevated. The patient has a known foot ulcer which is only slowly healing. At baseline, the patient does have shortness of breath with mild exertion accompanied by equivocal orthopnea. It should be noted that this patient has had a prior stress test which showed some anterior wall ischemia versus breast tissue attenuation artifact. To review the patient's past history: In October of 2007, in response to chest pressure radiating to her neck with nausea accompanied by an elevated troponin of 11.89, it was decided to pursue cardiac catheterization. This procedure showed a normal left main. The LAD harbored a 75% mid-stenosis, after the takeoff of a large second diagonal branch. There were luminal irregularities more distally in the LAD, which were non flow-limiting. The left circumflex was diminutive but patent. The right coronary artery was dominant and patent and supplied a large posterolateral marginal branch. Left ventriculography showed an overall EF of 30% with inferior wall hypokinesis. In consideration of the above, I placed a 3.5 x 12 mm stent to the LAD. Due to persistent chest pain a CT with contrast, showed a subcentimeter, non-pathologically, enlarged mediastinal lymph node with very small pericardial effusion, mildly thickened pericardium measuring 3 mm. There was no evidence of aneurysm or dissection. Subsequent echocardiogram showed normal left ventricular size and thickness with an EF of 50%, pulmonary hypertension, mild left atrial dilatation, aortic sclerosis without stenosis and no evidence of pericardial effusion. It should be recalled that this patient has spherocytosis, which was previously followed by Dr. Juan Piedra, who recommended cytometry with peripheral blood and rheumatologic workup.The patient has had some PVD with discomfort in her feet, which was previously followed by and Josh, and she has some issues with macular degeneration of the right eye for which she sees Dr. Benavides. It should be recalled that due to a worn-out feeling on an office visit from years back, we increased the patient's AV delay in the pacemaker to 300 milliseconds so that the patient would pace a bit more on her own. Due to this, mode switching needed to be turned off. Prior to that, she had been pacing 85% of the time. The patient has, in the past, had high rate events that were suggestive a nonsustained ventricular tachycardia. The patient has also had brief episodes of atrial fibrillation in the past, the longest being 59 beats in length. The patient now has her pacer checked by another campground attendant and it is not clear what her device is set on or how it is operating. Finally, in response to a worn-out feeling and shortness of breath, as well as some equivocal exertional chest discomfort, this patient was risk stratified with a Adenosine stress test several years ago. I am not sure if [facility] had any more recent studies but this old study showed rare PVCs with no significant ST-T changes. She did have some nonspecific Adenosine-induced chest pressure. In terms of nuclear imaging, I found a large region of poor radiotracer uptake in the posterior and posterolateral wall as well as the inferior and inferolateral wall of the left ventricle. In addition, there were some minor areas of mildly decreased radiotracer uptake in the anterior wall of the left ventricle. This anterior region did improve on resting images, consistent with myocardial ischemia. Her overall EF was concerning, and that was very low at 25%, and there was inferior wall akinesis and apical dyskinesis. This low EF on nuclear imaging is somewhat discordant with that found on her echocardiogram, which showed an EF of 50%. The echo did show some hypokinesis of the distal septum and the apex, moderate left ventricular hypertrophy, and a mild to moderately dilated left atrium which puts her at some risk of atrial fibrillation. In terms of cardiac valves, there was evidence of mild mitral and moderate tricuspid regurgitation. There is a borderline aortic gradient of 9 mmHg and trace aortic insufficiency. Pulmonary pressures were mildly elevated at 45 mmHg. Allergies/Medications Allergies: Coded Allergies: Sulfa (Sulfonamide Antibiotics) (HIVES 08/05/15) adhesive tape (RASH PER PT - PAPER TAPE ONLY 01/10/17) morphine (PER PT EYES ROLL BACK IN HEAD, TOTALLY OUT OF IT 01/10/17) Home Med List: Acetaminophen/Diphenhydramine (Tylenol Pm Ex-Strength Caplet) 500 MG-25 MG TABLET 2 TAB PO QPM PRN SLEEP (Reported) Aspirin (Aspirin*) 325 MG TABLET 2 TAB PO DAILY HEART HEALTH (Reported) Bimatoprost (Lumigan) 0.01 % DROPS 1 GTT OPH QPM BOTH EYES (Reported) Citalopram Hydrobromide (Citalopram HBr) 40 MG TABLET 1 TAB PO DAILY MENTAL HEALTH (Reported) Ergocalciferol (Vitamin D2) (Vitamin D2) 50,000 UNIT CAPSULE 1 CAP PO Q10D SUPPLEMENT (Reported) Ezetimibe (Zetia) 10 MG TABLET 1 TAB PO DAILY CHOLESTEROL (Reported) Ferrous Sulfate 325 MG (65 MG IRON) TABLET 1 TAB PO BID SUPPLEMENT (Reported) Gabapentin 100 MG CAPSULE 1 CAP PO TID NEUROPATHY (Reported) Insulin Lispro (Humalog) 100 UNIT/ML VIAL 0 SC SEE SLIDING SCALE DIABETES ( Reported) Bolus Insulin: Novolog < 80 mg/dl: no coverage 80-100 mg/dl: 8 units 101-120 mg/dl: 8 units 121-150 mg/dl: 8 units 151-200 mg/dl: 10 units 201-250 mg/dl: 12 units 251-300 mg/dl: 14 units 301-350 mg/dl: 15 units 351-400 mg/dl: 16 units > 400 mg/dl: 18 units Insulin NPH Human Isophane (Humulin N Kwikpen) 100 UNIT/ML (3 ML) INSULN.PEN 30 U SC BID DIABETES (Reported) Levothyroxine Sodium 137 MCG TABLET 1 TAB PO DAILY AC THYROID (Reported) Metoprolol Succinate 25 MG TAB 1 TAB PO DAILY HEART/BP (Reported) Oxybutynin Chloride 5 MG TABLET 1 TAB PO BID BLADDER HYPERACTIVITY (Reported) Pantoprazole Sodium (Protonix) 40 MG TABLET.DR 1 TAB PO DAILY ACID REFLUX ( Reported) Past History Travel History Traveled to [place] past 21 day Yes Medical History Blood Transfusion Hx: Yes Type of Reaction: SPHEROCYTOSIS Neurological: CVA, meningitis, peripheral neuropathy, polio EENT: diabetic retinopathy, macular degeneration Cardiovascular: AFIB (paroxysmal), CAD, hypertension, hyperlipidemia, PVD (L CEA ), PACEMAKER rheumatic fever Respiratory: obstructive sleep apnea, pneumonia Gastrointestinal: diverticulitis, peptic ulcer disease, upper GI bleed, gastritis Renal: intermittent renal insuff Musculoskeletal: chronic back pain, degen joint disease, osteoarthritis, CHIPPED ELBOWS BILATERAL Psychiatric: anxiety, depression Endocrine: diabetes, hypothyroidism, obesity, vitamin D deficiency Blood Disorders: SPHEROCYTOSIS Cancer(s): NONE STACKER/Reproductive: C-SECTIONS Surgical History Surgical History: cholecystectomy, , hernia repair-inguinal, knee replacement (BILATERAL), PACEMAKER CARDIAC STENT SPLENECTOMY, CHOLECYSTECTOMY, LEFT CAROTID ENDARTERECTOMY, B/L KNEE REPLACEMENT, PACEMAKER left carotid endarterectomy status post right second and left third and fifth toe amputations Family History Relations & Conditions If Any: FATHER FH: diabetes mellitus Relation not specified for: FH: pancreatic cancer Psychosocial History Who Do You Live With? self Services at Home: None Primary Language: Sami Smoking Status: Former Smoker Living Will? 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 no Functional Ability ADLs Independent: dressing, eating, toileting, bathing. Ambulation: cane IADLs Independent: shopping, housework, finances, food prep, telephone, transportation , medication admin. Exam & Diagnostic Data Vital Signs and I&O Vital Signs Date Time Temp Pulse Resp B/P B/P Pulse O2 O2 Flow FiO2 Mean Ox Delivery Rate 05/23 1420 Nasal 2.0L Cannula 05/23 1206 98.0 60 20 131/62 98 Nasal 2.0L Cannula 05/23 1035 98.5 62 18 160/68 97 Nasal 2.0L Cannula 05/23 0700 97.1 82 18 126/58 93 Nasal 2.0L Cannula 05/23 0546 98.7 66 20 141/63 90 Room Air 05/23 0438 99.2 83 18 119/67 94 Room Air Intake & Output 05/23 1600 05/23 0800 05/23 0000 05/22 1600 05/22 0800 05/22 0000 Intake Total 0 Output Total 200 Balance -200 Intake, Oral 0 Output, Urine 200 Patient 215 lb 215 lb Weight Weight Reported by Patient Measurement Method Physical Exam: General: WD/obese female in NAD; alert and oriented x 3 HEENT: NC/AT, PERRL, EOMI Neck: no JVD, no carotid bruit Heart: RRR Lungs: clear bilaterally Abdomen: soft, obese, NT, +ve bowel sounds Extremities: 2+ leg edema right greater than left Assessment/Plan Assessment/Plan * This patient does not have symptoms suggestive of myocardial ischemia and does not have evidence of decompensated congestive heart failure. In addition, her cardiac enzymes are normal. He symptoms are most consistent with a musculoskeletal pain. * This patient does have an increased WBC count. Consider a LE cellulitis. Consult Acknowledgment - Thank you for your consult request.
[2017-05-23 23:43] VITALS: BP 148/70
[2017-05-24 07:00] VITALS: BP 136/64
--- NOTE | 2017-05-24 07:49 | PN- Housestaff ---
Padmini BOURGEOIS,Sandra 05/24/17 0748: Subjective Follow-up For: Follow-up neck pain Complaints: neck pain Tele-Events Since Last Visit: Sinus bradycardia, heart rate between 60-74, 4 beats of V. tach, Couple of PVCs Subjective: Patient seen and examined at the bedside. She was still complaining of neck pain but milder in nature. Review of Systems Constitutional: Reports: no symptoms. Musculoskeletal: Reports: neck pain. Objective Last 24 Hrs of Vital Signs/I&O Vital Signs Date Time Temp Pulse Resp B/P B/P Pulse O2 O2 Flow FiO2 Mean Ox Delivery Rate 05/24 0855 61 136/64 05/24 0700 98.1 61 20 136/64 95 05/23 2343 97.9 62 18 148/70 98 Room Air 05/23 2329 Room Air Intake & Output 05/24 1600 05/24 0800 05/24 0000 Intake Total 450 480 240 Output Total 350 Balance 100 480 240 Intake, IV 0 Intake, Oral 450 480 240 Number 0 Bowel Movements Output, Urine 350 Physical Exam General Appearance: Alert, Oriented X3, Cooperative, No Acute Distress Cardiovascular: Normal S1, Normal S2 Lungs: Clear to Auscultation, Normal Air Movement Abdomen: Soft, No Tenderness Extremities: mild pedal edema Vascular: Normal Pulses, Pulses Symmetrical Current Medications: Current Medications Sig/[place] Start time Last Medication Dose Route Stop Time Status Admin Acetaminophen 650 MG Q6P PRN 05/23 1000 DCD PO Citalopram 40 MG DAILY 05/23 1007 DCD 05/24 Hydrobromide PO 0855 Enoxaparin Sodium 40 MG DAILY 05/23 1000 DCD 05/24 SC 0855 Ezetimibe 10 MG DAILY 05/23 1007 DCD 05/24 PO 0855 Gabapentin 100 MG TID 05/23 1008 DCD 05/24 PO 0855 Ibuprofen 600 MG Q6P PRN 05/23 1000 DCD 05/24 PO 0855 Insulin Aspart 6 UNITS ONCE ONE 05/235 DC 05/23 SC 05/23 221 2305 Insulin Aspart 0 TIDAC 05/23 1200 DCD 05/24 SC 1231 Levothyroxine Sodium 0.137 MG DAILY AC 05/23 1008 DCD 05/24 PO 0503 Metoprolol Succinate 25 MG DAILY 05/23 1008 DCD 05/24 PO 0855 Omeprazole 40 MG DAILY AC 05/23 1009 DCD 05/24 PO 0503 Ondansetron HCl 4 MG Q6P PRN 05/23 1000 DCD IV Oxybutynin Chloride 5 MG BID 05/23 1009 DCD 05/24 PO 0855 Sodium Chloride 1,000 ML Q13H 05/23 1030 DC 05/23 IV 05/23 2329 1114 Last 24 Hrs of Lab/Erik Results Last 24 Hrs of Labs/Mics: Laboratory Tests 05/24/17 1230: Urine Color YEL, Urine Clarity CLEAR, Urine pH 6.0, Ur Specific Bonneau 1.020, Urine Protein TRACE H, Urine Ketones NEG, Urine Nitrite NEG, Urine Bilirubin NEG, Urine Urobilinogen 0.2, Ur Leukocyte Esterase NEG, Ur Microscopic SEDIMENT EXAMINED, Urine RBC RARE, Ur Epithelial Cells RARE, Urine Hemoglobin NEG, Urine Glucose 100 H 05/24/17 0710: Anion Gap 12, Estimated GFR 53 L, BUN/Creatinine Ratio 22.0, CBC w Diff NO MAN DIFF REQ, RBC 4.31, MCV 84.3, MCH 28.6, RDW 16.3 H, MPV 8.9, Gran % 56.6, Lymphocytes % 27.1, Monocytes % 13.5 H, Eosinophils % 2.3, Basophils % 0.5, Absolute Granulocytes 7.6 H, Absolute Lymphocytes 3.6 H, Absolute Monocytes 1.8 H, Absolute Eosinophils 0.3, Absolute Basophils 0.1, PUBS MCHC 33.9 05/23/17 1645: Troponin I 0.02 Microbiology 05/24 0955 NASOPHARYN: Influenza Virus A & B Rapid Smear - COMP 05/23 1700 BLOOD: Blood Culture - RES 05/23 1645 BLOOD: Blood Culture - RES Assessment/Plan Assessment: Patient is 82-year-old female with significant past medical history of CVA, diabetes, identification, coronary artery disease status post stent, hypertension, hyperlipidemia, peripheral vascular disease, osteoarthritis, sick sinus syndrome status post pacemaker, hypothyroidism, splenectomy, left CVA, multiple amputation consult with the chief complaints of right shoulder and neck pain. On evaluation -temperature 97.9, pulse 62, respiratory rate 18, blood pressure 148/70, SPO2 98% on room air. Blood workup showed Slight leukocytosis 18.6, hemoglobin 12.1, chest x-ray did not show any acute cardiopulmonary abnormality. CT angiogram did not show any evidence of pulmonary embolism or other acute intrathoracic abnormality. Minimal fibrotic changes in the lower lobe. CT scan of the cervical spine did not show any evidence of spine fracture but there was moderate spinal stenosis at C4 to C5. All blood cultures and urine cultures were negative. Flu test was negative. Repeated blood workup showing improvement in the leukocytosis. She was also feeling much better after pain medication. We discharge her with addition of pain medication including ibuprofen and muscle relaxant, cyclobenzaprine to her home medication. We advised her to avoid driving while on muscle relaxant. We advised her to follow-up with her PCP for further management of neck pain. Problem List: 1. Neck pain Pain Ratin Pain Location: right side of neck Pain Goal: Remain pain free Pain Plan: avoid opioids Tomorrow's Labs & Rationales: n/a DVT/Prophylaxis: mechanical, pharmacological Estuardo BOURGEOIS,Symone 05/24/17 1221: Attending MD Review Statement Attending Statement Attending MD Statement: examined this patient, discuss w/resident/PA/CONVENTIONS RESERVATIONIST, agreed w/resident/PA/CONVENTIONS RESERVATIONIST, reviewed EMR data (avail), discussed with nursing, discussed with case mgmt, amended to note Attending Assessment/Plan: Patient seen and examined. Remains extremely pleasant not in any acute distress. No issues overnight. Denies chest pain. Denies palpitations. No events on telemetry monitoring. Continues to report neck discomfort. Cervical CT shows no cervical spine fracture or malalignment. Multilevel degenerative spondylotic changes throughout the cervical spine without significant osseous encroachment on the spinal canal. Multilevel neural foraminal stenosis is present but is predominantly mild except on the left at C4-C5 were approximately moderate neural foraminal stenosis is present. Recommendations: -Pain appears to be musculoskeletal in etiology. Provide pain control with ibuprofen as needed as well as short course of muscle relaxant therapy. She has been advised to follow-up with her orthopedic service as an outpatient. -Leukocytosis has improved overnight without antibiotic therapy. Does not appear to be of infectious etiology. -She is medically stable to be discharged today.
[2017-05-24 08:09] LABS: ABSOLUTE BASOPHIL COUNT 0.1 /CUMM (0.0-0.2); ABSOLUTE EOSINOPHIL COUNT 0.3 /CUMM (0.0-0.7); ABSOLUTE GRANULOCYTE CT 7.6 /CUMM (1.4-6.5); ABSOLUTE LYMPH COUNT 3.6 /CUMM (1.2-3.4); ABSOLUTE MONOCYTE COUNT 1.8 /CUMM (0.10-0.60); BASOPHIL % 0.5 % (0.0-2.0); EOSINOPHIL % 2.3 % (0-5); HEMATOCRIT 36.3 % (37-47); MEAN CORPUSCULAR HGB 28.6 PG (27.0-31.0); MEAN CORPUSCULAR HGB CONC 33.9 G/DL (33.0-37.0); MEAN CORPUSCULAR VOLUME 84.3 FL (81.0-99.0); MEAN PLATELET VOLUME 8.9 FL (7.4-10.4); RBC DISTRIBUTION WIDTH 16.3 % (11.5-14.5); RED BLOOD CELL CT 4.31 /CUMM (4.20-5.40); WHITE BLOOD CELL COUNT 13.4 /CUMM (4.8-10.8)
[2017-05-24 08:55] VITALS: BP 136/64
[2017-05-24 09:07] LABS: GRANULOCYTE % 56.6 % (42.2-75.2); PLATELET COUNT 395 /CUMM (130-400)
--- NOTE | 2017-05-24 09:41 | Patient Discharge Instructions ---
Discharge Instructions General Discharge Information You were seen/treated for: Neck pain,On the left side of the neck and we found to have cervical spine stenosis. We advised to take pain medication as needed. Special Instructions: Please take an appointment from the PCP for further management of neck pain. We are prescribing you pain medication including muscle relaxant. Advise you to not to drive for next couple of days till you are on muscle relaxant. Diet Recommended Diet: Heart Healthy Activity Full Activity/No Limits: No (as tolerated) Acute Coronary Syndrome Inclusion Criteria At DC or during hospital stay patient has or had the following: ACS DIAGNOSIS No Discharge Core Measures Meds if any: Prescribed or Continued at Discharge Meds if any: NOT Prescribed or Continued at Discharge Congestive Heart Failure Inclusion Criteria At DC or during hospital stay patient has or had the following: CHF DIAGNOSIS No Discharge Core Measures Meds if any: Prescribed or Continued at Discharge Meds if any: NOT Prescribed or Continued at Discharge Cerebrovascular accident Inclusion Criteria At DC or during hospital stay patient has or had the following: CVA/TIA Diagnosis No Discharge Core Measures Meds if any: Prescribed or Continued at Discharge Meds if any: NOT Prescribed or Continued at Discharge Venous thromboembolism Inclusion Criteria VTE Diagnosis No VTE Type NONE VTE Confirmed by (Test) NONE Discharge Core Measures - Per Current guidelines, there needs to be overlap - treatment for the first 5 days of Warfarin therapy. - If discharged on Warfarin prior to 5 days of - overlap therapy, the patient will need to be - assessed for post discharge needs including - *Post discharge parental anticoagulation - *Warfarin and/or parental anticoagulation education - *Follow up date to check INR post discharge At least 5 days overlap therapy as Inpatient No Meds if any: Prescribed or Continued at Discharge Note: Overlap Therapy is Warfarin and Anticoagulant Meds if any: NOT Prescribed or Continued at Discharge
[2017-05-24] MEDS ORDERED: CYCLOBENZAPRINE10 M1 PO (09:48)
[2017-05-24] MEDS ORDERED: IBUPROFEN800 M1 PO (09:48)
== END 2017-05-24 14:06 ==
LOC: ERH 04:16 → ERHI 06:26 → 1NO 06:26 → ENRESERV 13:13 → ENTRNSPT 13:44 → EDTRNSPTSTS 13:47 → EDTRNSPT 13:47 → 1NO 14:00 → CMPTRNSPT 14:27 → 1NO 14:30 → ENPENDDIS 05-24 09:41 → ENTRNSPT 05-24 13:47 → EDTRNSPTSTS 05-24 14:01 → 1NO 05-24 14:06 → CMPTRNSPT 05-24 14:15
PROVIDERS: Pediatrics; Student in an Organized Health Care Education/Training Program
DX: R07.89 Other chest pain (principal); Z86.73 Personal history of transient ischemic attack (TIA), and cerebral infarction without residual deficits; E11.42 Type 2 diabetes mellitus with diabetic polyneuropathy; Z79.4 Long term (current) use of insulin; Z86.12 Personal history of poliomyelitis; F41.9 Anxiety disorder, unspecified; F32.9 Major depressive disorder, single episode, unspecified; I48.0 Paroxysmal atrial fibrillation; I25.10 Atherosclerotic heart disease of native coronary artery without angina pectoris; Z95.5 Presence of coronary angioplasty implant and graft; D72.829 Elevated white blood cell count, unspecified; I10 Essential (primary) hypertension; E78.5 Hyperlipidemia, unspecified; E11.51 Type 2 diabetes mellitus with diabetic peripheral angiopathy without gangrene; M19.90 Unspecified osteoarthritis, unspecified site; E55.9 Vitamin D deficiency, unspecified; E66.9 Obesity, unspecified; D58.0 Hereditary spherocytosis; G47.33 Obstructive sleep apnea (adult) (pediatric); Z95.0 Presence of cardiac pacemaker; E03.9 Hypothyroidism, unspecified; Z79.82 Long term (current) use of aspirin; E11.319 Type 2 diabetes mellitus with unspecified diabetic retinopathy without macular edema
CPT/HCPCS: 6020; 36415; 71045; 81001; 82436; 87040; 87070; 87086; 87804; 87804-59; 93005; 93010; 96372; G0378; J1650; J2405

== ENCOUNTER 2017-07-02 09:51 | Inpatient (IN) | payer OTHER, MEDICARE ==
[~2017-07-02] VITALS: Ht 160 cm; Wt 99.8 kg
[~2017-07-02 09:51] MED LIST changes: +CYCLOBENZAPRINE10 M1 PO; +IBUPROFEN800 M1 PO; +OXYBUTYNIN CHLOR5 M2 PO
[2017-07-02 13:45] VITALS: BP 130/65
--- NOTE | 2017-07-02 17:01 | History & Physical Pre-Op ---
General Information and HPI History of Present Illness: Marysol an 82-year-old female with an extensive past medical history now admitted for a new onset osteomyelitis of her left foot. The patient has been followed as an outpatient for. Debridements of chronic ulcerations and calluses , which in this case progressed to an underlying osteomyelitis. The patient has a history of multiple foot debridements including those requiring amputations for underlying ostium myelitis. The patient denies any systemic signs of infection. The patient denies nausea vomiting fever chills. Allergies/Medications Allergies: Coded Allergies: Sulfa (Sulfonamide Antibiotics) (HIVES 08/05/15) adhesive tape (RASH PER PT - PAPER TAPE ONLY 01/10/17) morphine (PER PT EYES ROLL BACK IN HEAD, TOTALLY OUT OF IT 01/10/17) Home Med list Acetaminophen/Diphenhydramine (Tylenol Pm Ex-Strength Caplet) 500 MG-25 MG TABLET 2 TAB PO QPM PRN SLEEP (Reported) Aspirin (Aspirin*) 325 MG TABLET 2 TAB PO DAILY HEART HEALTH (Reported) Bimatoprost (Lumigan) 0.01 % DROPS 1 GTT OPH QPM BOTH EYES (Reported) Citalopram Hydrobromide (Citalopram HBr) 40 MG TABLET 1 TAB PO DAILY MENTAL HEALTH (Reported) Cyclobenzaprine HCl 10 MG TABLET 1 TAB PO QPM neck pain Ergocalciferol (Vitamin D2) (Vitamin D2) 50,000 UNIT CAPSULE 1 CAP PO Q10D SUPPLEMENT (Reported) Ezetimibe (Zetia) 10 MG TABLET 1 TAB PO DAILY CHOLESTEROL (Reported) Ferrous Sulfate 325 MG (65 MG IRON) TABLET 1 TAB PO BID SUPPLEMENT (Reported) Gabapentin 100 MG CAPSULE 1 CAP PO TID NEUROPATHY (Reported) Ibuprofen 800 MG TABLET 1 TAB PO TIDPRN PRN Neck pain Insulin Lispro (Humalog) 100 UNIT/ML VIAL 0 SC SEE SLIDING SCALE DIABETES ( Reported) Bolus Insulin: Novolog < 80 mg/dl: no coverage 80-100 mg/dl: 8 units 101-120 mg/dl: 8 units 121-150 mg/dl: 8 units 151-200 mg/dl: 10 units 201-250 mg/dl: 12 units 251-300 mg/dl: 14 units 301-350 mg/dl: 15 units 351-400 mg/dl: 16 units > 400 mg/dl: 18 units Insulin NPH Human Isophane (Humulin N Kwikpen) 100 UNIT/ML (3 ML) INSULN.PEN 30 U SC BID DIABETES (Reported) Levothyroxine Sodium 137 MCG TABLET 1 TAB PO DAILY AC THYROID (Reported) Metoprolol Succinate 25 MG TAB 1 TAB PO DAILY HEART/BP (Reported) Oxybutynin Chloride 5 MG TABLET 1 TAB PO BID BLADDER HYPERACTIVITY (Reported) Pantoprazole Sodium (Protonix) 40 MG TABLET.DR 1 TAB PO DAILY ACID REFLUX ( Reported) Past History Medical History Blood Transfusion Hx: Yes Type of Reaction: Other (see notes), SPHEROCYTOSIS Neurological: CVA, meningitis, peripheral neuropathy, polio EENT: diabetic retinopathy, macular degeneration Cardiovascular: AFIB (paroxysmal), CAD, hypertension, hyperlipidemia, PVD (L CEA ), PACEMAKER rheumatic fever MURMUR Respiratory: pneumonia Gastrointestinal: diverticulitis, peptic ulcer disease, upper GI bleed, gastritis Hepatic: NONE Renal: intermittent renal insuff Musculoskeletal: chronic back pain, degen joint disease, osteoarthritis, CHIPPED ELBOWS BILATERAL Psychiatric: anxiety, depression Endocrine: diabetes, hypothyroidism, obesity, vitamin D deficiency Blood Disorders: SPHEROCYTOSIS Cancer(s): NONE 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-SECTIONS History of MRSA: Yes History of VRE: No History of CDIFF: No Isolation History: Contact Influenza Vaccine: 03/14/17 Surgical History Pertinent Surgical History: cholecystectomy, , hernia repair-inguinal, knee replacement (BILATERAL), PACEMAKER CARDIAC STENT SPLENECTOMY, CHOLECYSTECTOMY, LEFT CAROTID ENDARTERECTOMY, B/L KNEE REPLACEMENT, PACEMAKER left carotid endarterectomy status post right second and left third and fifth toe amputations Past Family/Social History Family History Relations & Conditions if any FATHER FH: diabetes mellitus Relation not specified for: FH: pancreatic cancer Psychosocial History Where Do You Live? Home Who Do You Live With? self Services at Home None Primary Language: Thai Smoking Status: Former Smoker Living Will? 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 no Functional Ability ADLs Independent: dressing, eating, toileting, bathing. Ambulation: cane IADLs Independent: shopping, housework, finances, food prep, telephone, transportation , medication admin. Review of Systems Review of Systems: Unremarkable except for that noted to present illness. Exam & Diagnostic Data Last 24 Hrs of Vital Signs/I&O Vital Signs Date Time Temp Pulse Resp B/P B/P Pulse O2 O2 Flow FiO2 Mean Ox Delivery Rate 07/02 1345 99.1 70 18 130/65 97 Room Air 07/02 1329 Room Air Intake & Output 07/02 1600 07/02 0800 07/02 0000 Intake Total 50 Output Total 200 Balance -150 Intake, Oral 50 Number 0 Bowel Movements Output, Urine 200 Patient 220 lb Weight Weight Reported by Patient Measurement Method Physical Exam: A 2 cm x 2 cm Henley grade 3 ulceration to the distal tip of the left great toe. There is slough overlying a mixed granular fibrotic wound bed. Partially 3-4 cm of erythema is noted to be extending from about the periphery of the lesion. Moderate amount of serous drainage identified. No crepitus or fluctuance identified. X-ray findings demonstrate erosive changes at the distal tip of the great toe consistent with an underlying osteomyelitis. Assessment/Plan Assessment/Plan: Left foot osteomyelitis. A lengthy discussion reviewing both surgical and conservative options with the patient at bedside and the patient elected forward surgery and admission for IV antibiotics despite the risks. As Ranked By This Provider Problem List: 1. Other acute osteomyelitis, left ankle and foot Attending MD Review Statement Attending Statement Attending MD Statement: examined this patient
--- NOTE | 2017-07-02 17:30 | Cons- Medical ---
Wilda BOURGEOIS,Sebastian 07/02/17 1730: General Information and HPI Consulting Request Date of Consult: 07/02/17 Requested By: Reza Rocha DPM Reason for Consult: MEDICAL MANAGEMENT Source of Information: patient Exam Limitations: no limitations History of Present Illness: 82-year-old female with past medical history of type 2 diabetes, hypertension, heart failure with preserved ejection fraction 45-50%, CAD status post PCI in October 2007 of LAD, sick sinus syndrome status post pacemaker placement, pulmonary hypertension with RVSP of 53 mmHg, PAD, hypothyroidism, hereditory spherocytosis status post splenectomy, multiple toe amputations, macular degeneration, history of MRSA osteomyelitis in 2011, and the last admission in [place] from 01/10/2017 to 01/22/2017 for right foot osteomyelitis, was following up with Reza Rocha DPM as an outpatient basis, when she underwent podiatry procedure/nail clipping, and in the next follow-up, was found to have an abscess, after which she was referred to [facility] for further evaluation, possible debridement. IV antibiotics on hold currently pending OR cultures. Of note, she denied any fever, chills, redness or swelling of the foot. Allergies/Medications Allergies: Coded Allergies: Sulfa (Sulfonamide Antibiotics) (HIVES 08/05/15) adhesive tape (RASH PER PT - PAPER TAPE ONLY 01/10/17) morphine (PER PT EYES ROLL BACK IN HEAD, TOTALLY OUT OF IT 01/10/17) Current Medications: Current Medications Sig/Wayne Start time Last Medication Dose Route Stop Time Status Admin Citalopram 40 MG DAILY 07/03 1000 AC Hydrobromide PO Cyclobenzaprine HCl 10 MG AT BEDTIME 07/02 2200 AC PO Dextrose/Sodium 1,000 ML Q13H 07/03 0800 DC Chloride IV Dextrose/Sodium 1,000 ML Q13H 07/03 0000 AC Chloride IV Ezetimibe 10 MG DAILY 07/03 1000 AC PO Gabapentin 100 MG TID 07/02 1600 AC 07/02 PO 1601 Heparin Sodium 5,000 UNIT Q8 07/02 2200 AC (Porcine) SC Insulin Aspart See Dose TIDAC 07/02 1700 AC 07/02 Insts (1) SC 07/02 2355 1728 Insulin Detemir 20 UNITS BID 07/02 2200 AC SC Insulin Human NPH 30 UNITS Q12 02/19 2200 CAN SC 07/02 2354 Insulin Human Regular 0 Q6 07/02 2359 AC SC Levothyroxine Sodium 0.137 MG DAILY AC 07/03 0700 AC PO Melatonin 5 MG AT BEDTIME 07/02 2199 AC PO Metoprolol Succinate 25 MG DAILY 07/03 1000 AC PO Omeprazole 40 MG DAILY AC 07/03 0700 AC PO Oxybutynin Chloride 5 MG BID 07/02 2199 AC PO Dose Instructions: (1)Insulin Aspart: sliding scale Review of Systems Review of Systems Constitutional: Denies: chills, diaphoresis, fever, malaise, weakness, unexplained weight loss. EENTM: Reports: no symptoms. Cardiovascular: Reports: no symptoms. Respiratory: Reports: no symptoms. GI: Reports: no symptoms. Genitourinary: Reports: no symptoms. Musculoskeletal: Reports: no symptoms. Skin: Reports: see HPI. Neurological/Psychological: Reports: no symptoms. Hematologic/Endocrine: Reports: no symptoms. All Other Systems: Reviewed and Negative Past History Travel History Traveled to [place] past 21 day No Medical History Blood Transfusion Hx: Yes Type of Reaction: Other (see notes), SPHEROCYTOSIS Neurological: CVA, meningitis, peripheral neuropathy, polio EENT: diabetic retinopathy, macular degeneration Cardiovascular: AFIB (paroxysmal), CAD, hypertension, hyperlipidemia, PVD (L CEA ), PACEMAKER rheumatic fever MURMUR Respiratory: pneumonia Gastrointestinal: diverticulitis, peptic ulcer disease, upper GI bleed, gastritis Hepatic: NONE Renal: intermittent renal insuff Musculoskeletal: chronic back pain, degen joint disease, osteoarthritis, CHIPPED ELBOWS BILATERAL Psychiatric: anxiety, depression Endocrine: diabetes, hypothyroidism, obesity, vitamin D deficiency Blood Disorders: SPHEROCYTOSIS Cancer(s): NONE VIDEO GAME TESTER/Reproductive: C-SECTIONS Surgical History Surgical History: cholecystectomy, , hernia repair-inguinal, knee replacement (BILATERAL), PACEMAKER CARDIAC STENT SPLENECTOMY, CHOLECYSTECTOMY, LEFT CAROTID ENDARTERECTOMY, B/L KNEE REPLACEMENT, PACEMAKER left carotid endarterectomy status post right second and left third and fifth toe amputations , multiple podiatry procedures Family History Relations & Conditions If Any: FATHER FH: diabetes mellitus Relation not specified for: FH: pancreatic cancer Psychosocial History Where Do You Live? Home Who Do You Live With? self Services at Home: None Primary Language: Comoran Smoking Status: Former Smoker Living Will? no Power of Stripper Cutter Machine/HCP? no Functional Ability ADLs Independent: dressing, eating, toileting, bathing. Ambulation: cane IADLs Independent: shopping, housework, finances, food prep, telephone, transportation , medication admin. Employment History Employment: Retired Exam & Diagnostic Data Last 24 Hrs of Vital Signs/I&O Vital Signs Date Time Temp Pulse Resp B/P B/P Pulse O2 O2 Flow FiO2 Mean Ox Delivery Rate 07/02 1345 99.1 70 18 130/65 97 Room Air 07/02 1329 Room Air Intake & Output 07/02 1600 07/02 0800 07/02 0000 Intake Total 50 Output Total 200 Balance -150 Intake, Oral 50 Number 0 Bowel Movements Output, Urine 200 Patient 99.79 kg Weight Weight Reported by Patient Measurement Method Physical Exam General Appearance: no apparent distress, alert, awake, comfortable, obese Head: atraumatic, normal appearance Eyes: Bilateral: normal appearance, PERRL, EOMI. Ears, Nose, Throat: normal pharynx, normal ENT inspection, hearing grossly normal Neck: normal inspection, supple, full range of motion, JVD Respiratory: normal breath sounds, chest non-tender, no respiratory distress Cardiovascular: regular rate/rhythm Peripheral Pulses: 4+ radial (R), 4+ radial (L), 3+ tibialis posterior (R), 3+ tibialis posterior ( L) Gastrointestinal: normal bowel sounds, soft, non-tender Back: normal inspection, normal range of motion Extremities: b/l toe amputation, 2 cm x 2 cm grade 3 ulcer of the distal tip of left great toe, serous discharge present. No crepitus or fluctuance. Neurologic/Psych: no motor/sensory deficits, awake, alert, oriented x 3, normal mood/affect Cranial Nerves: normal hearing, normal speech, PERRL Skin: as noted in extremities exam Lymphatic: no anterior cervical marques Last 24 Hrs of Labs/Erik: Laboratory Tests 07/02/172039: Sodium Pending, Potassium Pending, Chloride Pending, Carbon Dioxide Pending, Anion Gap Pending, BUN Pending, Creatinine Pending, BUN/Creatinine Ratio Pending , Magnesium Pending, Troponin I Pending, PT Pending, INR Pending, APTT Pending, CBC w Diff Pending, WBC Pending, RBC Pending, Hgb Pending, Hct Pending, MCV Pending, MCH Pending, MCHC Pending, RDW Pending, Plt Count Pending, MPV Pending Diagnostic Data EKG Results Sinus rhythm, no change from last time. Assessment/Plan Assessment/Plan 82-year-old female with past medical history of type 2 diabetes, hypertension, heart failure with preserved ejection fraction 45-50%, CAD status post PCI in October 2007 of LAD, sick sinus syndrome status post pacemaker placement, pulmonary hypertension with RVSP of 53 mmHg, PAD, hypothyroidism, hereditory spherocytosis status post splenectomy, multiple toe amputations, macular degeneration, history of MRSA osteomyelitis in 2011, and the last admission in [place] from 01/10/2017 to 01/22/2017 for right foot osteomyelitis, is here for a nonhealing wound over her left foot. After speaking to the patient and Dr. Rocha, I understand that the plan is to have surgical debridement of the wound tomorrow in the OR and keep her off antibiotics until then. #Important: Patient does not have recent blood work, troponin, and thus would order 1 set right now. I checked the EKG by the bedside which did not show any new changes compared to the old one and also patient does not appear to have any active cardiac issues or in any respiratory failure. #Osteomyelitis of left foot: To my understanding, she is off antibiotics right now, and undergoing procedure tomorrow with podiatry service, and aspirin has been on hold since past 2 weeks, and she is being kept nothing by mouth from midnight for the procedure tomorrow. Would recommend calling ID consultation in the morning to guide proper antibiotics postprocedure. #Holding aspirin prior to the procedure. Of note the patient reported not taking aspirin since past 2 weeks, without any apparent reason. # Diabetes mellitus Since she is diabetic, she needs to be on IV fluids with D5 half-normal saline until she goes for the procedure, covered with 20 units of Levemir twice a day and Novolin R insulin on a nothing by mouth scale. Would recommend endocrinology consultation as well as her HbA1c has increased from 6.9-9.1. #Hypertension Would continue metoprolol succinate 25 mg daily. #Hypothyroidism Would continue 137 g of levothyroxine daily. #GERD Would continue pantoprazole sodium 40 mg daily or omeprazole as a substitute. #Bladder hyperactivity Would continue oxybutynin 5 mg oral twice a day. #Diabetic neuropathy Would continue gabapentin 300 mg 3 times a day, per her revised dosage. #Vitamin D deficiency Would continue 2000 units of vitamin D orally daily. #Mental health Would continue citalopram 40 mg by mouth daily. Diet: NPO from [place] for procedure tomorrow DVT ppx: ALPS only Code status: Full code Consult Acknowledgment - Thank you for your consult request. Mustapha BOURGEOIS, [facility] 07/02/172023: General Information and HPI Allergies/Medications Home Med List: Acetaminophen/Diphenhydramine (Tylenol Pm Ex-Strength Caplet) 500 MG-25 MG TABLET 2 TAB PO QPM PRN SLEEP (Reported) Aspirin (Aspirin*) 325 MG TABLET 2 TAB PO DAILY HEART HEALTH (Reported) Bimatoprost (Lumigan) 0.01 % DROPS 1 GTT OPH QPM BOTH EYES (Reported) Cholecalciferol (Vitamin D3) (Vitamin D) 2,000 UNIT TABLET 1 TAB PO DAILY SUPPLEMENT (Reported) Citalopram Hydrobromide (Citalopram HBr) 40 MG TABLET 1 TAB PO DAILY MENTAL HEALTH (Reported) Ezetimibe (Zetia) 10 MG TABLET 1 TAB PO DAILY CHOLESTEROL (Reported) Ferrous Sulfate 325 MG (65 MG IRON) TABLET 1 TAB PO BID SUPPLEMENT (Reported) Gabapentin 100 MG CAPSULE 3 CAP PO TID NEUROPATHY (Reported) Insulin Lispro (Humalog) 100 UNIT/ML VIAL 0 SC SEE SLIDING SCALE DIABETES ( Reported) Bolus Insulin: Novolog < 80 mg/dl: no coverage 80-100 mg/dl: 8 units 101-120 mg/dl: 8 units 121-150 mg/dl: 8 units 151-200 mg/dl: 10 units 201-250 mg/dl: 12 units 251-300 mg/dl: 14 units 301-350 mg/dl: 15 units 351-400 mg/dl: 16 units > 400 mg/dl: 18 units Insulin NPH Human Isophane (Humulin N Kwikpen) 100 UNIT/ML (3 ML) INSULN.PEN 30 U SC BID DIABETES (Reported) Levothyroxine Sodium 137 MCG TABLET 1 TAB PO DAILY AC THYROID (Reported) Metoprolol Succinate 25 MG TAB 1 TAB PO DAILY HEART/BP (Reported) Oxybutynin Chloride 5 MG TABLET 1 TAB PO BID BLADDER HYPERACTIVITY (Reported) Pantoprazole Sodium (Protonix) 40 MG TABLET. 1 TAB PO DAILY ACID REFLUX ( Reported) Assessment/Plan Consult Acknowledgment - Thank you for your consult request. Attending MD Review Statement Attending Statement Attending MD Statement: examined this patient, discuss w/resident/PA/DUMPCART DRIVER, agreed w/resident/PA/DUMPCART DRIVER, discussed with nursing, reviewed images, amended to note Attending Assessment/Plan: 82 yo F with h/o T2DM on insulin with neuropathy and retinopathy, HTN, HfpEF, CAD s/p PCI, SSS s/p PPM, CVA, CKD, pulmonary hypertension, spherocytosis s/p splenectomy, PVD and osteomyelitis s/p multiple toe amputations on b/l feet, was last admitted for right foot osteo requiring revisional partial first ray resection of right foot and prolonged antbiotics, is sent in by Dr. Rocha for left great toe chronic nonhealing ulcer evaluation. Patient follows Dr. Rocha for debridement of calluses and this has probably progressed to the chronic ulcer to the left great toe with underlying osteomyelitis. Patient denies any fever/ chills, chest pain, dyspnea, palpitations or lightheadedness. Patient was on aspirin which she reports was for pain and has not taken it for over 2 weeks. Vitals stable. Exam: AAO, dry mucous membranes, Chest clear, Heart S1S2 regular, Left foot: round about 2 cm ulcer to the plantar aspect of left great toe with slough and serous discharge, and surrounding erythema. Peripheral pulse feeble on right foot, well felt on left foot. Labs: WBC 11, INR 1.13, Na 135, BUN 20, creat 1.3 (baseline 1.1-1.2), Mag 1.3, trop 0.03. Foot Xray (done outpatient): erosive changes at the distal tip of the great toe consistent with an underlying osteomyelitis (as documented by Dr. Rocha). EKG: atrial paced, first degree AV bloack, LBBB, Qtc 500. Echo (2017): EF 45-50%, stage 2 diastolic dysfunction. Assessment and plan: 1. Left great toe osteomyelitis 2. Type 2 diabetes (A1c 9.1 in May 2017) with neuropathy and PVD 3. H/o CAD, CHF, SSS s/p PPM 4. Previous h/o MRSA osteomyelitis - Panculture - Check ESR and CRP - Monitor off antibiotics. - NPO after midnight for OR in AM for debridement/ bone cultures - Accucheks, insulin NPO SS, hold NPH insulin. Place on levemir 20 units BID. - Endo consult - Gentle IV hydration - Pain management - ID consult for antibiotic choice - Resume metoprolol, synthroid, zetia, gabapentin and omeprazole. - Repeat EKG and troponin in AM, follow electrolytes. DVT ppx Alps. Full code (I personally discussed this with patient, however previous admission documentation was DNR/I). - We will continue to follow. Thank you for the consult.
[2017-07-02] MEDS ORDERED: VITAMIN D2000 UNI1 PO (21:04)
[2017-07-02 21:06] LABS: ABSOLUTE BASOPHIL COUNT 0.1 /CUMM (0.0-0.2); ABSOLUTE EOSINOPHIL COUNT 0.3 /CUMM (0.0-0.7); ABSOLUTE GRANULOCYTE CT 5.1 /CUMM (1.4-6.5); ABSOLUTE LYMPH COUNT 3.6 /CUMM (1.2-3.4); ABSOLUTE MONOCYTE COUNT 1.9 /CUMM (0.10-0.60); EOSINOPHIL % 3.2 % (0-5); GRANULOCYTE % 46.2 % (42.2-75.2); HEMATOCRIT 35.4 % (37-47); MEAN CORPUSCULAR HGB 29.6 PG (27.0-31.0); MEAN CORPUSCULAR HGB CONC 34.4 G/DL (33.0-37.0); MEAN PLATELET VOLUME 8.2 FL (7.4-10.4); PLATELET COUNT 406 /CUMM (130-400); RBC DISTRIBUTION WIDTH 15.4 % (11.5-14.5); RED BLOOD CELL CT 4.12 /CUMM (4.20-5.40)
[2017-07-02 21:16] LABS: PT 11.8 SEC (9.4-12.5); PTT 30 SEC (25-37)
[2017-07-02 22:45] VITALS: BP 130/70
[2017-07-03 06:20] VITALS: BP 120/64
--- NOTE | 2017-07-03 08:33 | PN- Medicine Consult ---
Kartik Mora 07/03/17 0833: Assessment/PlanMedical Consult Assessment/Plan Assessment: 82-year-old female with past medical history of type 2 diabetes, hypertension, heart failure with preserved ejection fraction 45-50%, CAD status post PCI in October 2007 of LAD, sick sinus syndrome status post pacemaker placement, pulmonary hypertension with RVSP of 53 mmHg, PAD, hypothyroidism, hereditory spherocytosis status post splenectomy, multiple toe amputations, macular degeneration, history of MRSA osteomyelitis in 2011, and the last admission in [place] from 01/10/2017 to 01/22/2017 for right foot osteomyelitis, is here for a nonhealing wound over her left great toe. Patient follows Dr. Rocha for debridement of calluses and this has probably progressed to the chronic ulcer to the left great toe with underlying osteomyelitis. Vitals stable. Labs: WBC 11, INR 1.13, Na 135, BUN 20, creat 1.3 (baseline 1.1-1.2), Mag 1.3, trop 0.03. Foot Xray (done outpatient): erosive changes at the distal tip of the great toe consistent with an underlying osteomyelitis (as documented by Dr. Rocha). EKG: atrial paced, first degree AV block, LBBB, Qtc 500. Echo (2017): EF 45-50%, stage 2 diastolic dysfunction. ------- #Osteomyelitis of left great toe: she is off antibiotics right now, and undergoing procedure today with podiatry service, and aspirin has been on hold since past 2 weeks, and she is being kept nothing by mouth from midnight for the procedure. * Would recommend calling ID consultation to guide proper antibiotics postprocedure. * Pancultures * Please check ESR and CRP * Follow-up procedure note * Adequate pain management #Holding aspirin prior to the procedure. Of note the patient reported not taking aspirin since past 2 weeks, without any apparent reason. # Diabetes mellitus type II with neuropathy and peripheral vascular disease Since she is diabetic, she needs to be on IV fluids with D5 half-normal saline until she goes for the procedure, covered with 20 units of Levemir twice a day and Novolin R insulin on a nothing by mouth scale. * Would recommend endocrinology consultation as well as her HbA1c has increased from 6.9-9.1. * Continue Levemir 20 units twice daily. * Continue nothing by mouth Novolin sliding scale for now * Follow-up Accu-Cheks #Hypertension Would continue metoprolol succinate 25 mg daily. #Hypothyroidism Would continue 137 g of levothyroxine daily. #GERD Would continue omeprazole #Bladder hyperactivity Would continue oxybutynin 5 mg oral twice a day. #Diabetic neuropathy Would continue gabapentin 300 mg 3 times a day, per her revised dosage. #Vitamin D deficiency Would continue 2000 units of vitamin D orally daily. #Mental health Would continue citalopram 40 mg by mouth daily. Diet: NPO DVT ppx: ALPS only Code status: Full code Thank you for consulting us. Please follow attending recommendations below. Plan: . Problem List: 1. Other acute osteomyelitis, left ankle and foot Subjective Subjective: Patient was seen and examined. She is alert awake and oriented to time place and person. No acute events overnight. She offers no complaints this morning. Patient reports ulcer to the plantar aspect of left great toe with discharge and erythema. She will be going to the operating room this afternoon for debridement by Dr. Ng. Blood sugars under control ranging between 160-180. Review of Systems Constitutional: Reports: see HPI. Objective Last 24 Hrs of Vital Signs/I&O Vital Signs Date Time Temp Pulse Resp B/P B/P Pulse O2 O2 Flow FiO2 Mean Ox Delivery Rate 07/03 0935 79 120/64 07/03 0620 98.5 79 18 120/64 97 Room Air 07/02 2245 98.9 64 19 130/70 98 Room Air 07/02 1345 99.1 70 18 130/65 97 Room Air 07/02 1329 Room Air Intake & Output 07/03 1600 07/03 0800 07/03 0000 Intake Total 500 Output Total 300 1201 Balance -300 -701 Intake, Oral 500 Number 0 Bowel Movements Output, Stool 1 Output, Urine 300 1200 Physical Exam Other Physical Findings: AAO, dry mucous membranes, Chest clear Heart S1S2 regular Left foot: round about 2 cm ulcer to the plantar aspect of left great toe with slough and serous discharge, and surrounding erythema. Peripheral pulse feeble on right foot, well felt on left foot. Current Medications: Current Medications Sig/Wayne Start time Last Medication Dose Route Stop Time Status Admin Cholecalciferol 2,000 IU DAILY 07/03 1000 AC 07/03 PO 0932 Citalopram 40 MG DAILY 07/03 1000 AC 07/03 Hydrobromide PO 0932 Cyclobenzaprine HCl 10 MG AT BEDTIME 07/02 2200 CAN PO Dextrose/Sodium 1,000 ML Q13H 07/03 0800 DC Chloride IV Dextrose/Sodium 1,000 ML Q13H 07/03 0000 AC 07/03 Chloride IV 0030 Ezetimibe 10 MG DAILY 07/03 1000 AC 07/03 PO 0932 Gabapentin 300 MG TID 07/02 2199 AC 07/03 PO 0932 Gabapentin 100 MG TID 07/02 1600 DC 07/02 PO 1601 Heparin Sodium 5,000 UNIT Q8 07/02 2199 AC (Porcine) SC Insulin Aspart See Dose TIDAC 07/02 1700 DC 07/02 Insts (1) SC 07/02 2355 1728 Insulin Detemir 20 UNITS BID 07/02 2199 AC 07/03 SC 0931 Insulin Human NPH 30 UNITS Q12 07/02 2200 CAN SC 07/02 2355 Insulin Human Regular 0 Q6 07/02 2359 AC 07/03 SC 0641 Latanoprost 1 GTT AT BEDTIME 07/02 2199 AC 07/02 OPH 2249 Levothyroxine Sodium 0.137 MG DAILY AC 07/03 0700 AC 07/03 PO 0644 Magnesium Sulfate 1 GM Q2H 07/03 0400 DC 07/03 Dextrose/Water 100 ML IV 07/03 0759 0642 Melatonin 5 MG AT BEDTIME 07/02 2199 AC 07/02 PO 2220 Metoprolol Succinate 25 MG DAILY 07/03 1000 AC 07/03 PO 0935 Omeprazole 40 MG DAILY AC 07/03 0700 AC 07/03 PO 0644 Oxybutynin Chloride 5 MG BID 07/02 2199 AC 07/03 PO 0932 Dose Instructions: (1)Insulin Aspart: sliding scale Results Last 24 Hrs Lab/Erik Results: Laboratory Tests 07/02/170: Anion Gap 11, Estimated GFR 39 L, BUN/Creatinine Ratio 15.4, Magnesium 1.3 L, Troponin I 0.03, PT 11.8, INR 1.13, APTT 30, CBC w Diff NO MAN DIFF REQ, RBC 4.12 L, MCV 86.0, MCH 29.6, MCHC 34.4, RDW 15.4 H, MPV 8.2, Gran % 46.2, Lymphocytes % 32.6, Monocytes % 17.0 H, Eosinophils % 3.2, Basophils % 1.0, Absolute Granulocytes 5.1, Absolute Lymphocytes 3.6 H, Absolute Monocytes 1.9 H, Absolute Eosinophils 0.3, Absolute Basophils 0.1 Vivek BOURGEOIS,[facility] 07/03/17 1237: Attending MD Review Statement Attending Sign Off Attending Cosign Statement: I have: examined this patient, reviewed aval EMR data, personally reviewd images, discussd w/resident/PA/HOSPICE OFFICE COORDINATOR, discussed mgmt plan w/earnestine, discussed mgmt plan w/pt, agreed w/resident/PA/HOSPICE OFFICE COORDINATOR, amended to note. Other Findings: Patient seen and examined, overall doing well. Denies any complaints. Patient is scheduled to go to go to OR today with Dr. Rocha. Vital Signs Date Time Temp Pulse Resp B/P B/P Pulse O2 O2 Flow FiO2 Mean Ox Delivery Rate 07/03 0935 79 120/64 07/03 0620 98.5 79 18 120/64 97 Room Air 07/03 0000 100 Room Air 07/02 2245 98.9 64 19 130/70 98 Room Air 07/02 1345 99.1 70 18 130/65 97 Room Air 07/02 1329 Room Air on exam: aox3, nad. cv; s1,s2, rrr resp; clear abd; soft, nt, bs+ ext; no edema. skin; left foot big toe open wound. Laboratory Tests 07/02 2039 Chemistry Sodium (137 - 145 mmol/L) 135 L Potassium (3.5 - 5.1 mmol/L) 3.8 Chloride (98 - 107 mmol/L) 96 L Carbon Dioxide (22 - 30 mmol/L) 28 Anion Gap (5 - 16) 11 BUN (7 - 17 mg/dL) 20 H Creatinine (0.5 - 1.0 mg/dL) 1.3 H Estimated GFR (>60 ml/min) 39 L BUN/Creatinine Ratio (7 - 25 %) 15.4 Magnesium (1.6 - 2.3 mg/dL) 1.3 L Troponin I (< 0.11 ng/ml) 0.03 Coagulation PT (9.4 - 12.5 SEC) 11.8 INR (0.90 - 1.19) 1.13 APTT (25 - 37 SEC) 30 Hematology CBC w Diff NO MAN DIFF REQ WBC (4.8 - 10.8 /CUMM) 11.0 H RBC (4.20 - 5.40 /CUMM) 4.12 L Hgb (12.0 - 16.0 G/DL) 12.2 Hct (37 - 47 %) 35.4 L MCV (81.0 - 99.0 FL) 86.0 MCH (27.0 - 31.0 PG) 29.6 MCHC (33.0 - 37.0 G/DL) 34.4 RDW (11.5 - 14.5 %) 15.4 H Plt Count (130 - 400 /CUMM) 406 H MPV (7.4 - 10.4 FL) 8.2 Gran % (42.2 - 75.2 %) 46.2 Lymphocytes % (20.5 - 51.1 %) 32.6 Monocytes % (1.7 - 9.3 %) 17.0 H Eosinophils % (0 - 5 %) 3.2 Basophils % (0.0 - 2.0 %) 1.0 Absolute Granulocytes (1.4 - 6.5 /CUMM) 5.1 Absolute Lymphocytes (1.2 - 3.4 /CUMM) 3.6 H Absolute Monocytes (0.10 - 0.60 /CUMM) 1.9 H Absolute Eosinophils (0.0 - 0.7 /CUMM) 0.3 Absolute Basophils (0.0 - 0.2 /CUMM) 0.1 Assessment and recommendations: 82 yo F with h/o T2DM on insulin with neuropathy and retinopathy, HTN, HfpEF, CAD s/p PCI, SSS s/p PPM, CVA, CKD, pulmonary hypertension, spherocytosis s/p splenectomy, PVD and osteomyelitis s/p multiple toe amputations on b/l feet is admitted to podiatry service at the left great toe nonhealing wound ulcer. Patient scheduled to go to operating room with Dr. Rocha today. Medicine consult is obtained to manage her diabetes and other medical issues. Patient currently on Levemir and sliding scale insulin. Would recommend endocrinology consult. Patient currently is not on any antibiotics and I would leave this to Dr. Rocha. Continue the rest of the medications. DVT prophylaxis: Patient on heparin subcutaneous.
--- NOTE | 2017-07-03 13:01 | Cons- Endocrinology ---
General Information and HPI Consulting Request Date of Consult: 07/03/17 Requested By: medical team Reason for Consult: management of uncontrolled diabetes type 2 Source of Information: patient, old records Exam Limitations: no limitations History of Present Illness: 82-year-old female with past medical history of type 2 diabetes, hypertension, heart failure with preserved ejection fraction 45-50%, CAD status post PCI in October 2007 of LAD, sick sinus syndrome status post pacemaker placement, pulmonary hypertension , PAD, hypothyroidism, hereditory spherocytosis status post splenectomy, multiple toe amputations, macular degeneration, history of MRSA osteomyelitis in 2011, and right foot osteomyelitis, was admitted for left great toe infection. She is going to have the procedure done this afternoon. In hospital, she was placed on Levemir 20 units twice a day, RISS every 6 hours and D51/2 NS at 75 ml/hour. Her FSGs were 184 and 170. Allergies/Medications Allergies: Coded Allergies: Sulfa (Sulfonamide Antibiotics) (HIVES 08/05/15) adhesive tape (RASH PER PT - PAPER TAPE ONLY 01/10/17) morphine (PER PT EYES ROLL BACK IN HEAD, TOTALLY OUT OF IT 01/10/17) Home Med List: Acetaminophen/Diphenhydramine (Tylenol Pm Ex-Strength Caplet) 500 MG-25 MG TABLET 2 TAB PO QPM PRN SLEEP (Reported) Aspirin (Aspirin*) 325 MG TABLET 2 TAB PO DAILY HEART HEALTH (Reported) Bimatoprost (Lumigan) 0.01 % DROPS 1 GTT OPH QPM BOTH EYES (Reported) Cholecalciferol (Vitamin D3) (Vitamin D) 2,000 UNIT TABLET 1 TAB PO DAILY SUPPLEMENT (Reported) Citalopram Hydrobromide (Citalopram HBr) 40 MG TABLET 1 TAB PO DAILY MENTAL HEALTH (Reported) Ezetimibe (Zetia) 10 MG TABLET 1 TAB PO DAILY CHOLESTEROL (Reported) Ferrous Sulfate 325 MG (65 MG IRON) TABLET 1 TAB PO BID SUPPLEMENT (Reported) Gabapentin 100 MG CAPSULE 3 CAP PO TID NEUROPATHY (Reported) Insulin Lispro (Humalog) 100 UNIT/ML VIAL 0 SC SEE SLIDING SCALE DIABETES ( Reported) Bolus Insulin: Novolog < 80 mg/dl: no coverage 80-100 mg/dl: 8 units 101-120 mg/dl: 8 units 121-150 mg/dl: 8 units 151-200 mg/dl: 10 units 201-250 mg/dl: 12 units 251-300 mg/dl: 14 units 301-350 mg/dl: 15 units 351-400 mg/dl: 16 units > 400 mg/dl: 18 units Insulin NPH Human Isophane (Humulin N Kwikpen) 100 UNIT/ML (3 ML) INSULN.PEN 30 U SC BID DIABETES (Reported) Levothyroxine Sodium 137 MCG TABLET 1 TAB PO DAILY AC THYROID (Reported) Metoprolol Succinate 25 MG TAB 1 TAB PO DAILY HEART/BP (Reported) Oxybutynin Chloride 5 MG TABLET 1 TAB PO BID BLADDER HYPERACTIVITY (Reported) Pantoprazole Sodium (Protonix) 40 MG TABLET.DR 1 TAB PO DAILY ACID REFLUX ( Reported) Review of Systems Review of Systems Constitutional: Reports: see HPI. Cardiovascular: Denies: chest pain. Respiratory: Denies: short of breath. GI: Denies: abdominal pain. Musculoskeletal: Reports: see HPI. Skin: Reports: see HPI. Past History Travel History Traveled to [place] past 21 day No Medical History Blood Transfusion Hx: Yes Type of Reaction: Other (see notes), SPHEROCYTOSIS Neurological: CVA, meningitis, peripheral neuropathy, polio EENT: diabetic retinopathy, macular degeneration Cardiovascular: AFIB (paroxysmal), CAD, hypertension, hyperlipidemia, PVD (L CEA ), PACEMAKER rheumatic fever MURMUR Respiratory: pneumonia Gastrointestinal: diverticulitis, peptic ulcer disease, upper GI bleed, gastritis Hepatic: NONE Renal: intermittent renal insuff Musculoskeletal: chronic back pain, degen joint disease, osteoarthritis, CHIPPED ELBOWS BILATERAL Psychiatric: anxiety, depression Endocrine: diabetes, hypothyroidism, obesity, vitamin D deficiency Blood Disorders: SPHEROCYTOSIS Cancer(s): NONE 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 Home Who Do You Live With? self Services at Home: None Primary Language: Singaporean Smoking Status: Former Smoker Living Will? no Power of Dust Sampler/HCP? no Functional Ability ADLs Independent: dressing, eating, toileting, bathing. Ambulation: cane IADLs Independent: shopping, housework, finances, food prep, telephone, transportation , medication admin. Employment History Employment: Retired Exam & Diagnostic Data Last 24 Hrs of Vital Signs/I&O Vital Signs Date Time Temp Pulse Resp B/P B/P Pulse O2 O2 Flow FiO2 Mean Ox Delivery Rate 07/03 0935 79 120/64 07/03 0620 98.5 79 18 120/64 97 Room Air 07/03 0000 100 Room Air 07/02 2245 98.9 64 19 130/70 98 Room Air 07/02 1345 99.1 70 18 130/65 97 Room Air 07/02 1329 Room Air Intake & Output 07/03 1600 07/03 0800 07/03 0000 Intake Total 450 500 Output Total 829 442 0839 Balance -400 150 -701 Intake, IV 400 Intake, Oral 50 500 Number 0 Bowel Movements Output, Stool 1 Output, Urine 148 930 9024 Physical Exam General Appearance: no apparent distress Neck: normal inspection Respiratory: decreased breath sounds Cardiovascular: regular rate/rhythm Gastrointestinal: soft, non-tender Extremities: swelling, edema Labs/Erik Results: Laboratory Tests 07/02 2039 Chemistry Sodium (137 - 145 mmol/L) 135 L Potassium (3.5 - 5.1 mmol/L) 3.8 Chloride (98 - 107 mmol/L) 96 L Carbon Dioxide (22 - 30 mmol/L) 28 Anion Gap (5 - 16) 11 BUN (7 - 17 mg/dL) 20 H Creatinine (0.5 - 1.0 mg/dL) 1.3 H Estimated GFR (>60 ml/min) 39 L BUN/Creatinine Ratio (7 - 25 %) 15.4 Magnesium (1.6 - 2.3 mg/dL) 1.3 L Troponin I (< 0.11 ng/ml) 0.03 Coagulation PT (9.4 - 12.5 SEC) 11.8 INR (0.90 - 1.19) 1.13 APTT (25 - 37 SEC) 30 Hematology CBC w Diff NO MAN DIFF REQ WBC (4.8 - 10.8 /CUMM) 11.0 H RBC (4.20 - 5.40 /CUMM) 4.12 L Hgb (12.0 - 16.0 G/DL) 12.2 Hct (37 - 47 %) 35.4 L MCV (81.0 - 99.0 FL) 86.0 MCH (27.0 - 31.0 PG) 29.6 MCHC (33.0 - 37.0 G/DL) 34.4 RDW (11.5 - 14.5 %) 15.4 H Plt Count (130 - 400 /CUMM) 406 H MPV (7.4 - 10.4 FL) 8.2 Gran % (42.2 - 75.2 %) 46.2 Lymphocytes % (20.5 - 51.1 %) 32.6 Monocytes % (1.7 - 9.3 %) 17.0 H Eosinophils % (0 - 5 %) 3.2 Basophils % (0.0 - 2.0 %) 1.0 Absolute Granulocytes (1.4 - 6.5 /CUMM) 5.1 Absolute Lymphocytes (1.2 - 3.4 /CUMM) 3.6 H Absolute Monocytes (0.10 - 0.60 /CUMM) 1.9 H Absolute Eosinophils (0.0 - 0.7 /CUMM) 0.3 Absolute Basophils (0.0 - 0.2 /CUMM) 0.1 Assessment/Plan Assessment/Plan 82-year-old female with past medical history of type 2 diabetes, hypertension, heart failure with preserved ejection fraction 45-50%, CAD status post PCI in October 2007 of LAD, sick sinus syndrome status post pacemaker placement, pulmonary hypertension , PAD, hypothyroidism, hereditory spherocytosis status post splenectomy, multiple toe amputations, macular degeneration, history of MRSA osteomyelitis in 2011, and right foot osteomyelitis, was admitted for left great toe infection. She is going to have the procedure done this afternoon. DM management in hospital: 1. continue Levemir 20 units twice a day; 2. stop RISS every 6 hours; 3. start Novolog coverage every 4 hours while she is NPO: -- FSG 100-150, 2 units -- FSG 151-200, 4 units -- FSG 201-250, 6 units -- FSG 251-300, 8 units -- FSG 301-350, 10 units -- FSG 351-400, 12 units --FSG > 400, 14 units 4. after she is back from OR and ready to eat meals --stop IVF -- continue Levemir 20 units twice a day; -- stop Novolog coverage every 4 hours; -- start Novolog coverage before meals and Novolog coverage at bedtime-- detail see the inpatient DM orders; -- monitor FSGs. will follow. please call if there are any questions related to her DM management. Inpatient Diabetes Orders Before Each Meal: Bolus Insulin: Novolog < 80 mg/dl: no coverage 80-100 mg/dl: 8 units 101-120 mg/dl: 8 units 121-150 mg/dl: 8 units 151-200 mg/dl: 10 units 201-250 mg/dl: 12 units 251-300 mg/dl: 14 units 301-350 mg/dl: 16 units 351-400 mg/dl: 18 units > 400 mg/dl: 20 units Bedtime: Bolus Insulin: Novolog < 80 mg/dl: no coverage 80-100 mg/dl: no coverage 101-120 mg/dl: no coverage 121-150 mg/dl: no coverage 151-200 mg/dl: no coverage 201-250 mg/dl: 2 units 251-300 mg/dl: 3 units 301-350 mg/dl: 4 units 351-400 mg/dl: 5 units > 400 mg/dl: 6 units Consult Acknowledgment - Thank you for your consult request.
[2017-07-03 14:15] VITALS: BP 132/74
--- NOTE | 2017-07-03 19:29 | Operative Report ---
Operative/Inv Procedure Report Surgery Date: 07/03/17 Name of Procedure: 1 open incision and drainage deep to the fascia with exposure of the extensor flexor tendons and tendon sheath multiple sites left foot 2 bone biopsy distal phalanx of great toe 3 intraoperative administration medical block anesthesia 4 excisional debridement Pre-Operative Diagnosis: 1 open necrotic wound left foot 2 osteomyelitis left foot 3 diabetic peripheral neuropathy 4 peripheral arterial disease Post-Operative Diagnosis: The same Estimated Blood Loss: less than 50ml Surgeon/Patient Care Manager: Reza Rocha DPM Anesthesia: moderate sedation, block Operative/Procedure Note Note: After obtaining informed consent the patient was brought to the operating room and placed on the operating table in the supine position. The patient isn't securely fastened to the operating table utilizing safety belt. After administration of IV sedation, 10 mL of 0.5% Marcaine plain was infiltrated about the patient's left ankle. Left foot and ankle within scrubbed prepped and draped in usual aseptic manner. An injection of the left foot distally where a large full-thickness chronic was identified. A 15 blade visualized sharply revised skin margins. Dissection was then carried down deep to the D fashion with exposure of the extensor and flexor tendon and tendon sheath multiple sites left foot. All necrotic, nonviable infected tissue sharply evacuated from the wound bed. The dissection was then carried down to the capture structures at the interphalangeal joint where the digit was disarticulated. Specimen was sent for both microbiologic and pathologic inspection. Nipple was then irrigated with 3 L of normal sterile saline fissure 50,000 units of bacitracin. Following this, the foot was redraped and the surgeon's top was changed clean gloves. Any bleeding vessels identified were cauterized a lace encountered. Nipple was then packed with iodoform and 3 and an nylon sutures were placed. Foot was then dressed with 4 x 4's Kerlix and Kota wrap. The patient noted tolerate both procedure and anesthesia well and the patient was transported to the operating room to recovery with vital signs stable.
[2017-07-03 22:30] VITALS: BP 144/60
[2017-07-04 06:30] VITALS: BP 130/68
--- NOTE | 2017-07-04 08:17 | PN- Medicine Consult ---
Kartik Mora 07/04/17 0817: Assessment/PlanMedical Consult Assessment/Plan Assessment: 82-year-old female with past medical history of type 2 diabetes, hypertension, heart failure with preserved ejection fraction 45-50%, CAD status post PCI in October 2007 of LAD, sick sinus syndrome status post pacemaker placement, pulmonary hypertension with RVSP of 53 mmHg, PAD, hypothyroidism, hereditory spherocytosis status post splenectomy, multiple toe amputations, macular degeneration, history of MRSA osteomyelitis in 2011, and the last admission in [place] from 01/10/2017 to 01/22/2017 for right foot osteomyelitis, is here for a nonhealing wound over her left great toe. Patient follows Dr. Rocha for debridement of calluses and this has probably progressed to the chronic ulcer to the left great toe with underlying osteomyelitis. Vitals stable. Labs: WBC 11, INR 1.13, Na 135, BUN 20, creat 1.3 (baseline 1.1-1.2), Mag 1.3, trop 0.03. Foot Xray (done outpatient): erosive changes at the distal tip of the great toe consistent with an underlying osteomyelitis (as documented by Dr. Rocha). EKG: atrial paced, first degree AV block, LBBB, Qtc 500. Echo (2017): EF 45-50%, stage 2 diastolic dysfunction. ------- #Osteomyelitis of left great toe: Patient underwent excisional debridement of left great toe by Dr. Ng on 07/03/2017. She tolerated the procedure well. She is off from antibiotics now, waiting for cultures. * Follow-up Dr. Ng for further care * Monitor off from antibiotics as per Dr. Ng * Adequate pain management * Closely follow-up cultures * Follow for any fever, leukocytosis #Holding aspirin prior to the procedure. Of note the patient reported not taking aspirin since past 2 weeks, without any apparent reason. # Diabetes mellitus type II with neuropathy and peripheral vascular disease * Continue Levemir 20 units twice daily. * Continue Novolog sliding scale * Follow-up Accu-Cheks * [place] Setting Machine Operator Dr. mercado on board #Hypertension Would continue metoprolol succinate 25 mg daily. #Hypothyroidism Would continue 137 g of levothyroxine daily. #GERD Would continue omeprazole #Bladder hyperactivity Would continue oxybutynin 5 mg oral twice a day. #Diabetic neuropathy Would continue gabapentin 300 mg 3 times a day, per her revised dosage. #Vitamin D deficiency Would continue 2000 units of vitamin D orally daily. #Mental health Would continue citalopram 40 mg by mouth daily. Diet: ccs diet DVT ppx: ALPS only Code status: Full code Thank you for consulting us. Please follow attending recommendations below. Plan: . Problem List: 1. Other acute osteomyelitis, left ankle and foot Subjective Subjective: Patient was seen and examined. She is alert awake and oriented to time place and person. No acute events overnight. She offers no complaints this morning. No pain left foot. Underwent excisional debridement yesterday. Tolerated procedure well. No complaints after the procedure. Blood sugars under control ranging between 140-180. Review of Systems Constitutional: Reports: see HPI. Objective Last 24 Hrs of Vital Signs/I&O Vital Signs Date Time Temp Pulse Resp B/P B/P Pulse O2 O2 Flow FiO2 Mean Ox Delivery Rate 07/04 0819 61 130/68 07/04 0630 98.4 61 18 130/68 92 Room Air 07/04 0000 97 Room Air 07/03 2230 97.8 64 20 144/60 97 07/03 1415 97.9 79 20 132/74 95 Room Air 07/03 1344 Room Air Intake & Output 07/04 1600 07/04 0800 07/04 0000 Intake Total 50 270 Output Total 300 1 Balance -250 269 Intake, IV 0 150 Intake, Oral 50 120 Number 0 Bowel Movements Output, Stool 1 Output, Urine 300 Physical Exam General Appearance: well developed/nourished Other Physical Findings: AAO Chest clear Heart S1S2 regular Left foot:dressing intact Peripheral pulse feeble on right foot, well felt on left foot. Current Medications: Current Medications Sig/[place] Start time Last Medication Dose Route Stop Time Status Admin Cholecalciferol 2,000 IU DAILY 07/03 1000 AC 07/04 PO 0818 Citalopram 40 MG DAILY 07/03 1000 AC 07/04 Hydrobromide PO 0818 Dextrose/Sodium 1,000 ML Q13H 07/03 0000 DC 07/03 Chloride IV 0030 Ezetimibe 10 MG DAILY 07/03 1000 AC 07/04 PO 0819 Fentanyl Citrate 100 MCG .STK-MED ONE 07/03 1832 DC IM 07/03 183 Gabapentin 300 MG TID 07/02 220 AC 07/04 PO 0819 Heparin Sodium 5,000 UNIT Q8 07/02 2199 AC (Porcine) SC Hydromorphone HCl 2 MG .STK-MED ONE 07/03 1932 DC IM 07/03 193 Insulin Aspart 0 TIDAC/HS 07/04 0815 AC 07/04 SC 0818 Insulin Aspart See Dose TIDAC 07/04 0800 DC Insts (1) SC Insulin Aspart 0 Q4 07/03 1245 DC 07/04 SC 0703 Insulin Detemir 20 UNITS BID 07/02 220 AC 07/04 SC 0817 Insulin Human Regular 0 Q6 07/02 2359 DC 07/03 SC 0641 Latanoprost 1 GTT AT BEDTIME 07/02 2199 AC 07/03 OPH 2056 Levothyroxine Sodium 0.137 MG DAILY AC 07/03 0700 AC 07/04 PO 0703 Melatonin 5 MG AT BEDTIME 07/02 220 AC 07/03 PO 205 Meperidine HCl 50 MG .STK-MED ONE 07/03 1932 DC IM 07/03 1933 Metoprolol Succinate 25 MG DAILY 07/03 1000 AC 07/04 PO 0819 Midazolam HCl 2 MG .STK-MED ONE 07/03 1833 DC IM 07/03 183 Omeprazole 40 MG DAILY AC 07/03 0700 AC 07/04 PO 0702 Oxybutynin Chloride 5 MG BID 07/02 220 AC 07/04 PO 0818 Dose Instructions: (1)Insulin Aspart: sliding scale Results Last 24 Hrs Lab/Erik Results: Microbiology 07/03 1899 EXTREMITIE: Gross Specimen Examination - RECD 07/03 1899 EXTREMITIE: Gram Stain - RECD Vivek BOURGEOIS,[place] 07/04/17 1112: Attending MD Review Statement Attending Sign Off Attending Cosign Statement: I have: examined this patient, reviewed avalbl EMR data, personally reviewd images, discussd w/resident/PA/ENGINEER TECHNICAL STAFF, discussed mgmt plan w/earnestine, discussed mgmt plan w/pt, agreed w/resident/PA/ENGINEER TECHNICAL STAFF, amended to note. Other Findings: Patient seen and examined, feels well. Offers no complaints. Denies any pain. Vital Signs Date Time Temp Pulse Resp B/P B/P Pulse O2 O2 Flow FiO2 Mean Ox Delivery Rate 07/04 0819 61 130/68 07/04 0630 98.4 61 18 130/68 92 Room Air 07/04 0000 97 Room Air 07/03 2230 97.8 64 20 144/60 97 07/03 1415 97.9 79 20 132/74 95 Room Air 07/03 1344 Room Air on exam: aox3, nad. cv; s1,s2, rrr resp; clear abd; soft, nt, bs+ ext; no edema. left foot is warpped in dressing. no labs. Assessment and recommendations. 82 yo F with h/o T2DM on insulin with neuropathy and retinopathy, HTN, HfpEF, CAD s/p PCI, SSS s/p PPM, CVA, CKD, pulmonary hypertension, spherocytosis s/p splenectomy, PVD and osteomyelitis s/p multiple toe amputations on b/l feet is admitted to podiatry service at the left great toe nonhealing wound ulcer. S/P bone biopsy distal phalanx of left great toe. POD #1. Patient has been watched off of antibiotics. We'll follow-up on the wound cultures. Will defer abx to Dr. Ng. Blood sugars are in acceptable range. Patient seen by Dr. Mercado. Currently denies any pain. Continue the rest of the management. DVT prophylaxis: Heparin subcutaneous. Thank you will follow with you.
--- NOTE | 2017-07-04 11:36 | PN- Diabetes ---
Assessment/Plan Diabetes Assessment: 82-year-old female with past medical history of type 2 diabetes, hypertension, heart failure with preserved ejection fraction 45-50%, CAD status post PCI in October 2007 of LAD, sick sinus syndrome status post pacemaker placement, pulmonary hypertension , PAD, hypothyroidism, hereditory spherocytosis status post splenectomy, multiple toe amputations, macular degeneration, history of MRSA osteomyelitis in 2011, and right foot osteomyelitis, was admitted for left great toe infection. She had the procedure done on 07/03/2017. In hospital, she was put on Levemir 20 units twice a day, Novolog coverage before meals and Novolog coverage at bedtime. Before meals Bolus Insulin: Novolog < 80 mg/dl: no coverage 80-100 mg/dl: 8 units 101-120 mg/dl: 8 units 121-150 mg/dl: 8 units 151-200 mg/dl: 10 units 201-250 mg/dl: 12 units 251-300 mg/dl: 14 units 301-350 mg/dl: 16 units 351-400 mg/dl: 18 units > 400 mg/dl: 20 units Bedtime: Bolus Insulin: Novolog < 80 mg/dl: no coverage 80-100 mg/dl: no coverage 101-120 mg/dl: no coverage 121-150 mg/dl: no coverage 151-200 mg/dl: no coverage 201-250 mg/dl: 2 units 251-300 mg/dl: 3 units 301-350 mg/dl: 4 units 351-400 mg/dl: 5 units > 400 mg/dl: 6 units Her FSGs were 144, 122, 186 and 178. Plan: continue the current insuli regimen for now; monitor FSGs. will follow. Subjective Subjective: She has no special complaints. Objective Last 24 Hrs of Vital Signs/I&O Vital Signs Date Time Temp Pulse Resp B/P B/P Pulse O2 O2 Flow FiO2 Mean Ox Delivery Rate 07/04 0819 61 130/68 07/04 0630 98.4 61 18 130/68 92 Room Air 07/04 0000 97 Room Air 07/03 2230 97.8 64 20 144/60 97 07/03 1415 97.9 79 20 132/74 95 Room Air 07/03 1344 Room Air Intake & Output 07/04 1600 07/04 0800 07/04 0000 Intake Total 50 270 Output Total 300 1 Balance -250 269 Intake, IV 0 150 Intake, Oral 50 120 Number 0 Bowel Movements Output, Stool 1 Output, Urine 300
[2017-07-04 14:47] VITALS: BP 136/66
--- NOTE | 2017-07-04 17:57 | PN- Podiatry ---
Subjective Subjective: Patient seen at bedside with no new acute complaints. Patient denies nausea, vomiting, fever or chills. Afebrile overnight. Objective Vital Signs and I&Os Vital Signs Date Time Temp Pulse Resp B/P B/P Pulse O2 O2 Flow FiO2 Mean Ox Delivery Rate 07/04 1447 98.3 62 20 136/66 94 07/04 0819 61 130/68 07/04 0630 98.4 61 18 130/68 92 Room Air 07/04 0000 97 Room Air 07/03 2230 97.8 64 20 144/60 97 Intake & Output 07/04 1600 07/04 0800 07/04 0000 07/03 1600 07/03 0800 07/03 0000 Intake Total 360 50 270 650 450 500 Output Total 100 300 0 119 466 1577 Balance 260 -250 269 250 150 -701 Intake, IV 0 150 600 400 Intake, Oral 360 50 120 50 50 500 Number 0 0 0 Bowel Movements Output, Stool 1 1 Output, Urine 100 300 318 079 2360 Physical Exam: Reinforced dressing to foot clean, dry and intact. No strikethrough identified. No pain with deep palpation bilateral lower extremities. Assessment/Plan Assessment/Plan Left foot osteomyelitis. Follow-up cultures. For now, start Unasyn to treat persistent soft tissue infection. Patient to the OR Sunday for revision and closure. Core Measures Venous Thromboembolism VTE Risk Factors Surgery No Mechanical VTE Prophylaxis d/t LowRisk-No Interven Req'd No VTE Pharm Prophylaxis d/t LowRisk-No Interven Req'd Attending MD Review Statement Attending Statement Attending MD Statement: examined this patient
[2017-07-04 22:24] VITALS: BP 132/60
[2017-07-05 07:10] VITALS: BP 140/72
--- NOTE | 2017-07-05 07:38 | PN- Medicine Consult ---
Kartik Mora 07/05/17 0737: Assessment/PlanMedical Consult Assessment/Plan Assessment: 82-year-old female with past medical history of type 2 diabetes, hypertension, heart failure with preserved ejection fraction 45-50%, CAD status post PCI in October 2007 of LAD, sick sinus syndrome status post pacemaker placement, pulmonary hypertension with RVSP of 53 mmHg, PAD, hypothyroidism, hereditory spherocytosis status post splenectomy, multiple toe amputations, macular degeneration, history of MRSA osteomyelitis in 2011, and the last admission in [place] from 01/10/2017 to 01/22/2017 for right foot osteomyelitis, is here for a nonhealing wound over her left great toe. Patient follows Dr. Rocha for debridement of calluses and this has probably progressed to the chronic ulcer to the left great toe with underlying osteomyelitis. Vitals stable. Labs: WBC 11, INR 1.13, Na 135, BUN 20, creat 1.3 (baseline 1.1-1.2), Mag 1.3, trop 0.03. Foot Xray (done outpatient): erosive changes at the distal tip of the great toe consistent with an underlying osteomyelitis (as documented by Dr. Rocha). EKG: atrial paced, first degree AV block, LBBB, Qtc 500. Echo (2017): EF 45-50%, stage 2 diastolic dysfunction. ------- #Osteomyelitis of left great toe: Patient underwent excisional debridement of left great toe by Dr. Ng on 07/03/2017. She tolerated the procedure well. * Follow-up Dr. Ng for further care * Started IV antibiotics Unasyn 1500 mg every 6 hours on 07/04/2017. * Adequate pain management * Closely follow-up cultures * Follow for any fever, leukocytosis * Planning for wound closure on 07/06/2017 #Holding aspirin prior to the procedure. Of note the patient reported not taking aspirin since past 2 weeks, without any apparent reason. # Diabetes mellitus type II with neuropathy and peripheral vascular disease * Continue Levemir 24 units twice daily. * Continue Novolog sliding scale * Follow-up Accu-Cheks * [employer] Dr. mercado on board #Hypertension Would continue metoprolol succinate 25 mg daily. #Hypothyroidism Would continue 137 g of levothyroxine daily. #GERD Would continue omeprazole #Bladder hyperactivity Would continue oxybutynin 5 mg oral twice a day. #Diabetic neuropathy Would continue gabapentin 300 mg 3 times a day, per her revised dosage. #Vitamin D deficiency Would continue 2000 units of vitamin D orally daily. #Mental health Would continue citalopram 40 mg by mouth daily. Diet: ccs diet DVT ppx: ALPS, sc heparin Code status: Full code Thank you for consulting us. Please follow attending recommendations below. Plan: . Subjective Subjective: Patient was seen and examined. She is alert awake and oriented to time place and person. No acute events overnight. She offers no complaints this morning. No pain left foot. Underwent excisional debridement 07/03. Tolerated procedure well. No complaints after the procedure. Blood sugars under control ranging between 170-190. Vitals stables except for MAXIMUM TEMPERATURE 100.6 this morning. Review of Systems Constitutional: Reports: see HPI. Objective Last 24 Hrs of Vital Signs/I&O Vital Signs Date Time Temp Pulse Resp B/P B/P Pulse O2 O2 Flow FiO2 Mean Ox Delivery Rate 07/05 0757 99.2 07/05 0710 100.6 66 20 140/72 91 Room Air 07/04 2224 99.6 61 19 132/60 93 Room Air 07/04 1447 98.3 62 20 136/66 94 Intake & Output 07/05 1600 07/05 0800 07/05 0000 Intake Total 560 400 Output Total 1100 Balance -540 400 Intake, IV 200 Intake, Oral 360 400 Output, Urine 1100 Physical Exam General Appearance: well developed/nourished, no apparent distress Other Physical Findings: AAO Chest clear Heart S1S2 regular Left foot:dressing intact Peripheral pulse feeble on right foot, well felt on left foot. Current Medications: Current Medications Sig/Wayne Start time Last Medication Dose Route Stop Time Status Admin Ampicillin Sodium/ 1,500 MG Q6 07/04 1800 AC 07/05 Sulbactam Sodium IV 0605 Sodium Chloride 100 ML Cholecalciferol 2,000 IU DAILY 07/03 1000 AC 07/04 PO 0818 Citalopram 40 MG DAILY 07/03 1000 AC 07/04 Hydrobromide PO 0818 Ezetimibe 10 MG DAILY 07/03 1000 AC 07/04 PO 0819 Gabapentin 300 MG TID 07/02 2199 AC 07/04 PO 215 Heparin Sodium 5,000 UNIT Q8 07/02 2199 AC 07/04 (Porcine) SC 2150 Insulin Aspart 0 TIDAC/HS 07/04 0815 AC 07/04 SC 1718 Insulin Detemir 24 UNITS BID 07/05 1000 AC SC Insulin Detemir 20 UNITS BID 07/02 2200 DC 07/04 SC 2158 Latanoprost 1 GTT AT BEDTIME 07/02 2199 AC 07/04 OPH 2149 Levothyroxine Sodium 0.137 MG DAILY AC 07/03 0700 AC 07/05 PO 0605 Melatonin 5 MG AT BEDTIME 07/02 2199 AC 07/04 PO 215 Metoprolol Succinate 25 MG DAILY 07/03 1000 AC 07/04 PO 0819 Omeprazole 40 MG DAILY AC 07/03 0700 AC 07/05 PO 0605 Oxybutynin Chloride 5 MG BID 07/02 2199 AC 07/04 PO 2150 Results Last 24 Hrs Lab/Erik Results: Laboratory Tests 07/05/17 1416: Anion Gap 12, Estimated GFR 48 L, BUN/Creatinine Ratio 14.5, CBC w Diff NO MAN DIFF REQ, RBC 4.12 L, MCV 86.5, MCH 29.2, MCHC 33.7, RDW 14.9 H, MPV 8.6, Gran % 50.5, Lymphocytes % 34.4, Monocytes % 11.7 H, Eosinophils % 2.9, Basophils % 0.5, Absolute Granulocytes 6.0, Absolute Lymphocytes 4.1 H, Absolute Monocytes 1.4 H, Absolute Eosinophils 0.3, Absolute Basophils 0.1 Vivek BOURGEOIS,[place] 07/05/17 1250: Attending MD Review Statement Attending Sign Off Attending Cosign Statement: I have: examined this patient, reviewed aval EMR data, personally reviewd images, discussd w/resident/PA/BILLBOARD ERECTOR, discussed mgmt plan w/earnestine, discussed mgmt plan w/pt, agreed w/resident/PA/BILLBOARD ERECTOR, amended to note. Other Findings: Patient seen and examined, feels well. Offers no complaints. Left foot is wrapped in dressing. Vital signs are stable. Blood sugars are running in acceptable range. Patient has been started on IV antibiotics per podiatry. We' ll continue the current management. Patient might need to go back again to operating room tomorrow per Dr. Rocha. DVT px; hep sq.
--- NOTE | 2017-07-05 08:32 | PN- Diabetes ---
Assessment/Plan Diabetes Assessment: 82-year-old female with past medical history of type 2 diabetes, hypertension, heart failure with preserved ejection fraction 45-50%, CAD status post PCI in October 2007 of LAD, sick sinus syndrome status post pacemaker placement, pulmonary hypertension , PAD, hypothyroidism, hereditory spherocytosis status post splenectomy, multiple toe amputations, macular degeneration, history of MRSA osteomyelitis in 2011, and right foot osteomyelitis, was admitted for left great toe infection. She had the procedure done on 07/03/2017. In hospital, she was put on Levemir 20 units twice a day, Novolog coverage before meals and Novolog coverage at bedtime. Her FSGs were 178, 295, 190, 177 and 170. Plan: 1. increase Levemir to 24 units twice a day; 2. continue the current Novolog coverage before medals and Novolog coverage at bedtime; 3. monitor FSGs. will follow. Subjective Subjective: She has no special complaints this morning. Objective Last 24 Hrs of Vital Signs/I&O Vital Signs Date Time Temp Pulse Resp B/P B/P Pulse O2 O2 Flow FiO2 Mean Ox Delivery Rate 07/05 0757 99.2 07/05 0710 100.6 66 20 140/72 91 Room Air 07/04 2224 99.6 61 19 132/60 93 Room Air 07/04 1447 98.3 62 20 136/66 94 Intake & Output 07/05 1600 07/05 0800 07/05 0000 Intake Total 560 400 Output Total 1100 Balance -540 400 Intake, IV 200 Intake, Oral 360 400 Output, Urine 1100
[2017-07-05 13:51] VITALS: BP 130/68
[2017-07-05 14:33] LABS: ABSOLUTE BASOPHIL COUNT 0.1 /CUMM (0.0-0.2); ABSOLUTE EOSINOPHIL COUNT 0.3 /CUMM (0.0-0.7); ABSOLUTE LYMPH COUNT 4.1 /CUMM (1.2-3.4); ABSOLUTE MONOCYTE COUNT 1.4 /CUMM (0.10-0.60); BASOPHIL % 0.5 % (0.0-2.0); EOSINOPHIL % 2.9 % (0-5); GRANULOCYTE % 50.5 % (42.2-75.2); HEMATOCRIT 35.6 % (37-47); MEAN CORPUSCULAR HGB 29.2 PG (27.0-31.0); MEAN CORPUSCULAR HGB CONC 33.7 G/DL (33.0-37.0); MEAN CORPUSCULAR VOLUME 86.5 FL (81.0-99.0); MEAN PLATELET VOLUME 8.6 FL (7.4-10.4); PLATELET COUNT 364 /CUMM (130-400); RBC DISTRIBUTION WIDTH 14.9 % (11.5-14.5); RED BLOOD CELL CT 4.12 /CUMM (4.20-5.40); WHITE BLOOD CELL COUNT 11.9 /CUMM (4.8-10.8)
--- NOTE | 2017-07-05 19:29 | PN- Podiatry ---
Subjective Subjective: Patient seen at bedside with no new complaints. Denies foot pain. No nausea, vomiting, fever or chills. Afebrile overnight. Objective Vital Signs and I&Os Vital Signs Date Time Temp Pulse Resp B/P B/P Pulse O2 O2 Flow FiO2 Mean Ox Delivery Rate 07/05 1351 97.7 74 20 130/68 97 Room Air 07/05 0915 62 16 136/62 07/05 0757 99.2 07/05 0710 100.6 66 20 140/72 91 Room Air 07/04 2224 99.6 61 19 132/60 93 Room Air Intake & Output 07/05 1600 07/05 0800 07/05 0000 07/04 1600 07/04 0800 07/04 0000 Intake Total 460 560 400 360 50 270 Output Total 600 1100 100 300 1 Balance -140 -540 400 260 -250 269 Intake, IV 100 200 0 150 Intake, Oral 360 360 400 360 50 120 Number 0 0 0 Bowel Movements Output, Stool 1 Output, Urine 600 1100 100 300 Physical Exam: Reinforced dresing clean, dry and intact. No strikethrough noted. No pain with deep palpation to bilateral lower extremities. Assessment/Plan Assessment/Plan Left foot osteomyelitis. NPO past midnight for OR tommorow. Core Measures Venous Thromboembolism VTE Risk Factors Age>40 No Mechanical VTE Prophylaxis d/t LowRisk-No Interven Req'd No VTE Pharm Prophylaxis d/t LowRisk-No Interven Req'd Attending MD Review Statement Attending Statement Attending MD Statement: examined this patient
[2017-07-05 22:21] VITALS: BP 152/80
[2017-07-06 06:49] VITALS: BP 140/64
--- NOTE | 2017-07-06 07:51 | PN- Medicine Consult ---
Kartik Mora 07/06/17 0751: Assessment/PlanMedical Consult Assessment/Plan Assessment: 82-year-old female with past medical history of type 2 diabetes, hypertension, heart failure with preserved ejection fraction 45-50%, CAD status post PCI in October 2007 of LAD, sick sinus syndrome status post pacemaker placement, pulmonary hypertension with RVSP of 53 mmHg, PAD, hypothyroidism, hereditory spherocytosis status post splenectomy, multiple toe amputations, macular degeneration, history of MRSA osteomyelitis in 2011, and the last admission in [place] from 01/10/2017 to 01/22/2017 for right foot osteomyelitis, is here for a nonhealing wound over her left great toe. Vitals stable. Labs: WBC 11, INR 1.13, Na 135, BUN 20, creat 1.3 (baseline 1.1-1.2), Mag 1.3, trop 0.03. Foot Xray (done outpatient): erosive changes at the distal tip of the great toe consistent with an underlying osteomyelitis (as documented by Dr. Rocha). EKG: atrial paced, first degree AV block, LBBB, Qtc 500. Echo (2017): EF 45-50%, stage 2 diastolic dysfunction. ------- #Osteomyelitis of left great toe: Patient underwent excisional debridement of left great toe by Dr. Ng on 07/03/2017. She tolerated the procedure well. * Follow-up Dr. Ng for further care * Started IV antibiotics Unasyn 1500 mg every 6 hours on 07/04/2017. * Adequate pain management * Cultures positive for staph aureus. Further sensitivities were pending * Follow for any fever, leukocytosis * Planning for wound closure on 07/06/2017 #Holding aspirin prior to the procedure. Of note the patient reported not taking aspirin since past 2 weeks, without any apparent reason. # Diabetes mellitus type II with neuropathy and peripheral vascular disease * Follow-up Accu-Cheks * Chairman And Chief Executive Officer Dr. mercado on board * she is nothing by mouth now, on IV fluids D5 half normal saline, getting Novolin sliding scale insulin. #Hypertension Would continue metoprolol succinate 25 mg daily. #Hypothyroidism Would continue 137 g of levothyroxine daily. #GERD Would continue omeprazole #Bladder hyperactivity Would continue oxybutynin 5 mg oral twice a day. #Diabetic neuropathy Would continue gabapentin 300 mg 3 times a day, per her revised dosage. #Vitamin D deficiency Would continue 2000 units of vitamin D orally daily. #Mental health Would continue citalopram 40 mg by mouth daily. Diet: npo DVT ppx: ALPS, sc heparin Code status: Full code Thank you for consulting us. Please follow attending recommendations below. Plan: . Subjective Subjective: Patient was seen and examined. She is alert awake and oriented to time place and person. No acute events overnight. She offers no complaints this morning. No pain left foot. Underwent excisional debridement 07/03. Tolerated procedure well. No complaints after the procedure. Going for wound closure today Blood sugars under control ranging between 160-170. Review of Systems Constitutional: Reports: see HPI. Objective Last 24 Hrs of Vital Signs/I&O Vital Signs Date Time Temp Pulse Resp B/P B/P Pulse O2 O2 Flow FiO2 Mean Ox Delivery Rate 07/06 0927 62 124/52 07/06 0730 98.9 07/06 0730 98.6 07/06 0649 100.6 65 20 140/64 91 Room Air 07/06 0553 100.6 07/05 2221 99.8 61 20 152/80 95 Room Air 07/05 1351 97.7 74 20 130/68 97 Room Air Intake & Output 07/06 1600 07/06 0800 07/06 0000 Intake Total 100 420 Output Total 100 250 850 Balance -100 -150 -430 Intake, IV 100 140 Intake, Oral 0 280 Output, Urine 100 250 850 Patient 99.79 kg Weight Physical Exam General Appearance: well developed/nourished, no apparent distress, alert, awake , comfortable Other Physical Findings: AAO Chest clear Heart S1S2 regular Left foot:dressing intact Peripheral pulse feeble on right foot, well felt on left foot. Current Medications: Current Medications Sig/Wayne Start time Last Medication Dose Route Stop Time Status Admin Acetaminophen 650 MG ONCE ONE 07/06 0445 DC 07/06 PO 07/06 0546 0553 Ampicillin Sodium/ 1,500 MG Q6 07/04 1800 AC 07/06 Sulbactam Sodium IV 0544 Sodium Chloride 100 ML Cholecalciferol 2,000 IU DAILY 07/03 1000 AC 07/06 PO 0928 Citalopram 40 MG DAILY 07/03 1000 AC 07/06 Hydrobromide PO 0928 Dextrose/Sodium 1,000 ML Q13H 07/06 0800 AC 07/06 Chloride IV 0930 Ezetimibe 10 MG DAILY 07/03 1000 AC 07/06 PO 0928 Gabapentin 300 MG TID 07/02 220 AC 07/06 PO 0928 Heparin Sodium 5,000 UNIT Q8 07/02 2200 AC 07/04 (Porcine) SC 2150 Insulin Aspart 0 TIDAC/HS 07/04 0815 DC 07/05 SC 1750 Insulin Detemir 12 UNITS ONCE ONE 07/05 2199 WA 07/05 SC 07/05 220 2149 Insulin Detemir 24 UNITS BID 07/05 1000 DC 07/05 SC 0911 Insulin Human Regular 4 UNITS .STK-MED ONE 07/06 0028 DC IV 07/06 0029 Insulin Human Regular 0 Q6 07/05 2359 AC 07/06 SC 0551 Latanoprost 1 GTT AT BEDTIME 07/02 2199 AC 07/05 OPH 2150 Levothyroxine Sodium 0.137 MG DAILY AC 07/03 0700 AC 07/06 PO 0545 Melatonin 5 MG AT BEDTIME 07/02 2199 AC 07/05 PO 2149 Metoprolol Succinate 25 MG DAILY 07/03 1000 AC 07/06 PO 0927 Omeprazole 40 MG DAILY AC 07/03 0700 AC 07/06 PO 0545 Oxybutynin Chloride 5 MG BID 07/02 2199 07/06 PO 0928 Results Last 24 Hrs Lab/Erik Results: Laboratory Tests 07/05/17 1416: Anion Gap 12, Estimated GFR 48 L, BUN/Creatinine Ratio 14.5, CBC w Diff NO MAN DIFF REQ, RBC 4.12 L, MCV 86.5, MCH 29.2, MCHC 33.7, RDW 14.9 H, MPV 8.6, Gran % 50.5, Lymphocytes % 34.4, Monocytes % 11.7 H, Eosinophils % 2.9, Basophils % 0.5, Absolute Granulocytes 6.0, Absolute Lymphocytes 4.1 H, Absolute Monocytes 1.4 H, Absolute Eosinophils 0.3, Absolute Basophils 0.1 Microbiology 07/06 1029 NASOPHARYN: Influenza Virus A & B Rapid Smear - ORD Vivek BOURGEOIS,[place] 07/06/17 1239: Attending MD Review Statement Attending Sign Off Attending Cosign Statement: I have: examined this patient, reviewed al EMR data, personally reviewd images, discussd w/resident/PA/CUT IN WORKER, discussed mgmt plan w/earnestine, discussed mgmt plan w/pt, agreed w/resident/PA/CUT IN WORKER, amended to note. Other Findings: Patient seen and examined, denies any complaints. Overall feels pretty well. Vital signs are stable she did have a low-grade temp this morning. on exam: Left foot is wrapped in dressing. Laboratory Tests 07/05 1416 Chemistry Sodium (137 - 145 mmol/L) 137 Potassium (3.5 - 5.1 mmol/L) 4.0 Chloride (98 - 107 mmol/L) 98 Carbon Dioxide (22 - 30 mmol/L) 26 Anion Gap (5 - 16) 12 BUN (7 - 17 mg/dL) 16 Creatinine (0.5 - 1.0 mg/dL) 1.1 H Estimated GFR (>60 ml/min) 48 L BUN/Creatinine Ratio (7 - 25 %) 14.5 Hematology CBC w Diff NO MAN DIFF REQ WBC (4.8 - 10.8 /CUMM) 11.9 H RBC (4.20 - 5.40 /CUMM) 4.12 L Hgb (12.0 - 16.0 G/DL) 12.0 Hct (37 - 47 %) 35.6 L MCV (81.0 - 99.0 FL) 86.5 MCH (27.0 - 31.0 PG) 29.2 MCHC (33.0 - 37.0 G/DL) 33.7 RDW (11.5 - 14.5 %) 14.9 H Plt Count (130 - 400 /CUMM) 364 MPV (7.4 - 10.4 FL) 8.6 Gran % (42.2 - 75.2 %) 50.5 Lymphocytes % (20.5 - 51.1 %) 34.4 Monocytes % (1.7 - 9.3 %) 11.7 H Eosinophils % (0 - 5 %) 2.9 Basophils % (0.0 - 2.0 %) 0.5 Absolute Granulocytes (1.4 - 6.5 /CUMM) 6.0 Absolute Lymphocytes (1.2 - 3.4 /CUMM) 4.1 H Absolute Monocytes (0.10 - 0.60 /CUMM) 1.4 H Absolute Eosinophils (0.0 - 0.7 /CUMM) 0.3 Absolute Basophils (0.0 - 0.2 /CUMM) 0.1 Assessment and recommendations: 82 yo F with h/o T2DM on insulin with neuropathy and retinopathy, HTN, HfpEF, CAD s/p PCI, SSS s/p PPM, CVA, CKD, pulmonary hypertension, spherocytosis s/p splenectomy, PVD and osteomyelitis s/p multiple toe amputations on b/l feet is admitted to podiatry service at the left great toe nonhealing wound ulcer. S/P bone biopsy distal phalanx of left great toe. Going to or again today for the closure of the wound. Wound culture grew staph aureus. Sensitivities are pending. Currently patient was started on Unasyn per Dr. Rocha. Will defer antibiotics Dr. Rocha. We have ordered flu swab because of her fever spikes. We'll follow-up on that. Blood sugars are stable and she is seen by endocrinology. Pain management adequate. Continue the rest of the management. DVT prophylaxis: Heparin subcutaneous.
--- NOTE | 2017-07-06 10:47 | PN- Diabetes ---
Assessment/Plan Diabetes Assessment: 82-year-old female with past medical history of type 2 diabetes, hypertension, heart failure with preserved ejection fraction 45-50%, CAD status post PCI in October 2007 of LAD, sick sinus syndrome status post pacemaker placement, pulmonary hypertension , PAD, hypothyroidism, hereditory spherocytosis status post splenectomy, multiple toe amputations, macular degeneration, history of MRSA osteomyelitis in 2011, and right foot osteomyelitis, was admitted for left great toe infection. She had the procedure done on 07/03/2017. In hospital, she was put on Levemir 24 units twice a day, Novolog coverage before meals and Novolog coverage at bedtime. Her FSGs were 170, 241, 232, 176 and 169. She has been kept NPO for another foot procedure this morning. Plan: After she is back from OR and ready to eat, she will be on previous insulin regimen. monitor FSGs. will follow. Subjective Subjective: She has had sore throat and would like to check whether she has flu as her significant other has flu at home. Objective Last 24 Hrs of Vital Signs/I&O Vital Signs Date Time Temp Pulse Resp B/P B/P Pulse O2 O2 Flow FiO2 Mean Ox Delivery Rate 07/06 0927 62 124/52 07/06 0730 98.9 07/06 0730 98.6 07/06 0649 100.6 65 20 140/64 91 Room Air 07/06 0553 100.6 07/05 2221 99.8 61 20 152/80 95 Room Air 07/05 1351 97.7 74 20 130/68 97 Room Air Intake & Output 07/06 1600 07/06 0800 07/06 0000 Intake Total 100 420 Output Total 100 250 850 Balance -100 -150 -430 Intake, IV 100 140 Intake, Oral 0 280 Output, Urine 100 250 850 Patient 220 lb Weight Findings Pertinent Lab/Erik Results: Laboratory Tests 07/05 1416 Chemistry Sodium (137 - 145 mmol/L) 137 Potassium (3.5 - 5.1 mmol/L) 4.0 Chloride (98 - 107 mmol/L) 98 Carbon Dioxide (22 - 30 mmol/L) 26 Anion Gap (5 - 16) 12 BUN (7 - 17 mg/dL) 16 Creatinine (0.5 - 1.0 mg/dL) 1.1 H Estimated GFR (>60 ml/min) 48 L BUN/Creatinine Ratio (7 - 25 %) 14.5 Hematology CBC w Diff NO MAN DIFF REQ WBC (4.8 - 10.8 /CUMM) 11.9 H RBC (4.20 - 5.40 /CUMM) 4.12 L Hgb (12.0 - 16.0 G/DL) 12.0 Hct (37 - 47 %) 35.6 L MCV (81.0 - 99.0 FL) 86.5 MCH (27.0 - 31.0 PG) 29.2 MCHC (33.0 - 37.0 G/DL) 33.7 RDW (11.5 - 14.5 %) 14.9 H Plt Count (130 - 400 /CUMM) 364 MPV (7.4 - 10.4 FL) 8.6 Gran % (42.2 - 75.2 %) 50.5 Lymphocytes % (20.5 - 51.1 %) 34.4 Monocytes % (1.7 - 9.3 %) 11.7 H Eosinophils % (0 - 5 %) 2.9 Basophils % (0.0 - 2.0 %) 0.5 Absolute Granulocytes (1.4 - 6.5 /CUMM) 6.0 Absolute Lymphocytes (1.2 - 3.4 /CUMM) 4.1 H Absolute Monocytes (0.10 - 0.60 /CUMM) 1.4 H Absolute Eosinophils (0.0 - 0.7 /CUMM) 0.3 Absolute Basophils (0.0 - 0.2 /CUMM) 0.1
--- NOTE | 2017-07-06 12:59 | Operative Report ---
Operative/Inv Procedure Report Surgery Date: 07/06/17 Name of Procedure: 1 open incision and drainage deep to the deep fascia with exposure of the extensor and flexor tendon and tendon sheath multiple sites left foot 2 delayed primary closure of open surgical wound local random advancement flap 3 debridement of necrotic bone left foot 4 intraoperative administration of ankle block anesthesia 5 excisional debridement Pre-Operative Diagnosis: 1 open necrotic wound left foot 2 osteomyelitis left foot 3 diabetic peripheral neuropathy Post-Operative Diagnosis: The same Estimated Blood Loss: less than 50ml Surgeon/Heel Breaster: Reza Rocha DPM Anesthesia: moderate sedation, block Operative/Procedure Note Note: After obtaining informed consent the patient was brought to the operating room and placed on the operating table in the supine position. The patient isn't securely fastened to the operating table utilizing safety belt. After administration of IV sedation, 10 mL of 0.5% Marcaine plain was infiltrated about the patient's left ankle. Left foot and ankle within scrubbed prepped and draped in usual aseptic manner. Attention directed left foot, where a large full-thickness necrotic was identified. A 15 blade visualized sharply revised skin margins. The dissection was then carried down deep to the D fashion with exposure of the extensor and flexor tendon and tendon sheath multiple sites, both proximally and distally. All necrotic nonviable infected tissue sharply evacuated from the wound bed. Necrotic bone identified centrally was then debrided and passed from the operative field specimen was sent for pathologic inspection. Nipple was then irrigated with 3 L normal sterile saline fissure 50 ,000 units of bacitracin. Following this, the foot was redraped and the surgeon 's top was changed clean gloves. Any bleeding vessels identified were cauterized or ligated as encountered. A dorsal plantar flap was then developed with undermining, mobilization and advancement of the adjacent tissues centrally. The deep side of the flexor was held together with 3-0 Vicryl. Subtenons tissues reports a 4-0 Vicryl and skin edges reapproximated 3-0 nylon. Incision was dressed with Xeroform 4 x 4's Kerlix and an Kota wrap. The patient is noted tolerate both procedure and anesthesia well and the patient was transported from the operating room to recovery by sent stable best assess intact to both the dorsal and plantar flaps.
[2017-07-06 18:05] VITALS: BP 130/75
[2017-07-06 20:14] VITALS: BP 140/64
[2017-07-06 23:54] VITALS: BP 136/64
[2017-07-07 06:57] VITALS: BP 138/68
[2017-07-07 10:44] VITALS: BP 125/70
[2017-07-07] MEDS ORDERED: DOXYCYCLINE MO100 M2 PO (11:23)
--- NOTE | 2017-07-07 13:03 | PN- Diabetes ---
Assessment/Plan Diabetes Assessment: 82-year-old female with past medical history of type 2 diabetes, hypertension, heart failure with preserved ejection fraction 45-50%, CAD status post PCI in October 2007 of LAD, sick sinus syndrome status post pacemaker placement, pulmonary hypertension , PAD, hypothyroidism, hereditory spherocytosis status post splenectomy, multiple toe amputations, macular degeneration, history of MRSA osteomyelitis in 2011, and right foot osteomyelitis, was admitted for left great toe infection. She had the procedure done on 07/03/2017. In hospital, she was put on Levemir 24 units twice a day, Novolog coverage before meals and Novolog coverage at bedtime. Her FSGs were 156, 245, 265 and 119. She was put on low fat diet which she was upset about this morning. Plan: 1. change the diet to consistent cabohydrates diet 1; 2. continue the current insulin regimen for now; 3. monitor FSGs. 4. If she is medically stable for discharge, she will go back on her previous insulin regimen prior to admission. Subjective Subjective: She was upset about the order of her diet. Objective Last 24 Hrs of Vital Signs/I&O Vital Signs Date Time Temp Pulse Resp B/P B/P Pulse O2 O2 Flow FiO2 Mean Ox Delivery Rate 07/07 1044 65 125/70 07/07 0657 97.8 74 18 138/68 95 Room Air 07/06 2354 97.9 62 18 136/64 95 Room Air 07/06 2013 98.0 62 18 140/64 94 Room Air 07/06 1805 98.1 65 18 130/75 96 07/06 1306 Room Air Intake & Output 07/07 1600 07/07 0800 07/07 0000 Intake Total 420 280 Output Total 300 Balance 120 280 Intake, IV 120 100 Intake, Oral 300 180 Number 0 0 Bowel Movements Output, Urine 300
== END 2017-07-07 12:59 | DRG 256 ==
LOC: 2NA 13:05 → ENTRNSPT 07-03 20:12 → EDTRNSPTSTS 07-03 20:23 → EDTRNSPT 07-03 20:23 → CMPTRNSPT 07-03 20:41 → ENTRNSPT 07-06 13:49 → EDTRNSPT 07-06 14:24 → EDTRNSPTSTS 07-06 14:24 → CMPTRNSPT 07-06 14:27 → ENTRNSPT 07-07 12:39 → 2NA 07-07 12:59 → CMPTRNSPT 07-07 13:29
PROVIDERS: Hospitalist; Student in an Organized Health Care Education/Training Program
PROC: 0JBR0ZZ Excision of Left Foot Subcutaneous Tissue and Fascia, Open Approach (ICD-10-PCS; principal; 2017-07-03)
PROC: 0Y6Q0Z3 Detachment at Left 1st Toe, Low, Open Approach (ICD-10-PCS; 2017-07-03)
PROC: 0QBR0ZZ Excision of Left Toe Phalanx, Open Approach (ICD-10-PCS; 2017-07-06)
PROC: 0JXR0ZC Transfer Left Foot Subcutaneous Tissue and Fascia with Skin, Subcutaneous Tissue and Fascia, Open Approach (ICD-10-PCS; 2017-07-06)
PROC: 0HXNXZZ Transfer Left Foot Skin, External Approach (ICD-10-PCS; 2017-07-06)
PROC: 0JQR0ZZ Repair Left Foot Subcutaneous Tissue and Fascia, Open Approach (ICD-10-PCS; 2017-07-06)
DX: E11.51 Type 2 diabetes mellitus with diabetic peripheral angiopathy without gangrene (principal); I50.32 Chronic diastolic (congestive) heart failure; E11.621 Type 2 diabetes mellitus with foot ulcer; I49.5 Sick sinus syndrome; E11.69 Type 2 diabetes mellitus with other specified complication; I13.0 Hypertensive heart and chronic kidney disease with heart failure and stage 1 through stage 4 chronic kidney disease, or unspecified chronic kidney disease; I48.0 Paroxysmal atrial fibrillation; K57.92 Diverticulitis of intestine, part unspecified, without perforation or abscess without bleeding; L97.529 Non-pressure chronic ulcer of other part of left foot with unspecified severity; E11.319 Type 2 diabetes mellitus with unspecified diabetic retinopathy without macular edema; D58.0 Hereditary spherocytosis; E66.9 Obesity, unspecified; Z79.4 Long term (current) use of insulin; Z79.84 Long term (current) use of oral hypoglycemic drugs; Z68.38 Body mass index [BMI] 38.0-38.9, adult; Z88.5 Allergy status to narcotic agent; Z88.2 Allergy status to sulfonamides; Z91.048 Other nonmedicinal substance allergy status; Z79.82 Long term (current) use of aspirin; Z86.73 Personal history of transient ischemic attack (TIA), and cerebral infarction without residual deficits; M54.9 Dorsalgia, unspecified; F32.9 Major depressive disorder, single episode, unspecified; F41.9 Anxiety disorder, unspecified; I25.10 Atherosclerotic heart disease of native coronary artery without angina pectoris; H35.30 Unspecified macular degeneration; K27.7 Chronic peptic ulcer, site unspecified, without hemorrhage or perforation; E03.9 Hypothyroidism, unspecified; E55.9 Vitamin D deficiency, unspecified; Z83.3 Family history of diabetes mellitus; Z80.8 Family history of malignant neoplasm of other organs or systems; Z90.49 Acquired absence of other specified parts of digestive tract; Z96.653 Presence of artificial knee joint, bilateral; Z95.0 Presence of cardiac pacemaker; Z95.5 Presence of coronary angioplasty implant and graft; Z89.422 Acquired absence of other left toe(s); Z87.891 Personal history of nicotine dependence; K21.9 Gastro-esophageal reflux disease without esophagitis; N32.81 Overactive bladder; E66.3 Overweight; B95.62 Methicillin resistant Staphylococcus aureus infection as the cause of diseases classified elsewhere; N18.9 Chronic kidney disease, unspecified
CPT/HCPCS: 2NAP; 87070; 87075; 87184; 36415; 36592; 82436; 87147; 87804; 87804-59; 88304; 88305; 93005; 93010; J1644; J1815; J7042

== ENCOUNTER 2017-08-26 12:15 | Inpatient (IN) | payer OTHER, MEDICARE ==
[~2017-08-26] VITALS: Ht 160 cm; Wt 95.3 kg
[~2017-08-26 12:15] MED LIST changes: +DOXYCYCLINE MO100 M2 PO; +VITAMIN D2000 UNI1 PO
--- NOTE | 2017-08-26 13:06 | ED UPPER/LOWER EXTREMITY COMPL ---
History of Present Illness General Chief Complaint: Lower Extremity Problems Stated Complaint: "PULSATING PAIN IN MY LEG",?CELLULITIS Source: patient, family Exam Limitations: no limitations Vital Signs & Intake/Output Vital Signs & Intake/Output Vital Signs Date Time Temp Pulse Resp B/P B/P Pulse O2 O2 Flow FiO2 Mean Ox Delivery Rate 08/26 1634 97.7 66 18 136/62 97 Room Air 08/26 1259 95 08/26 1232 98.2 64 20 140/54 96 Room Air Allergies Coded Allergies: Sulfa (Sulfonamide Antibiotics) (HIVES 08/05/15) adhesive tape (RASH PER PT - PAPER TAPE ONLY 01/10/17) morphine (PER PT EYES ROLL BACK IN HEAD, TOTALLY OUT OF IT 01/10/17) Reconcile Medications Acetaminophen/Diphenhydramine (Tylenol Pm Ex-Strength Caplet) 500 MG-25 MG TABLET 2 TAB PO QPM PRN SLEEP (Reported) Aspirin (Aspirin*) 325 MG TABLET 2 TAB PO DAILY HEART HEALTH (Reported) Bimatoprost (Lumigan) 0.01 % DROPS 1 GTT OPH QPM BOTH EYES (Reported) Cholecalciferol (Vitamin D3) (Vitamin D) 2,000 UNIT TABLET 1 TAB PO DAILY SUPPLEMENT (Reported) Citalopram Hydrobromide (Citalopram HBr) 40 MG TABLET 1 TAB PO DAILY MENTAL HEALTH (Reported) Doxycycline Monohydrate 100 MG CAPSULE 1 CAP PO BID ANTIBIOTIC, INFECTION Ezetimibe (Zetia) 10 MG TABLET 1 TAB PO DAILY CHOLESTEROL (Reported) Ferrous Sulfate 325 MG (65 MG IRON) TABLET 1 TAB PO BID SUPPLEMENT (Reported) Gabapentin 100 MG CAPSULE 3 CAP PO TID NEUROPATHY (Reported) Insulin Lispro (Humalog) 100 UNIT/ML VIAL 0 SC SEE SLIDING SCALE DIABETES ( Reported) Bolus Insulin: Novolog < 80 mg/dl: no coverage 80-100 mg/dl: 8 units 101-120 mg/dl: 8 units 121-150 mg/dl: 8 units 151-200 mg/dl: 10 units 201-250 mg/dl: 12 units 251-300 mg/dl: 14 units 301-350 mg/dl: 15 units 351-400 mg/dl: 16 units > 400 mg/dl: 18 units Insulin NPH Human Isophane (Humulin N Kwikpen) 100 UNIT/ML (3 ML) INSULN.PEN 30 U SC BID DIABETES (Reported) Levothyroxine Sodium 137 MCG TABLET 1 TAB PO DAILY AC THYROID (Reported) Metoprolol Succinate 25 MG TAB 1 TAB PO DAILY HEART/BP (Reported) Oxybutynin Chloride 5 MG TABLET 1 TAB PO BID BLADDER HYPERACTIVITY (Reported) Pantoprazole Sodium (Protonix) 40 MG TABLET.DR 1 TAB PO DAILY ACID REFLUX ( Reported) Triage Note: REPORTS LEFT LEG PAIN, PULSATING AND VERY TENDER TO THE TOUCH. + EDEMA NOTED TO BILATERAL LOWER EXTREMITIES. Triage Nurses Notes Reviewed? yes HPI: 82 yo F PMH HTN, HLD, HFrEF, CAD, SSS (s/p pacemaker), DM, pHTN, PAD (s/p muiltiple BL toe amputations), Hypothyroidism, Spherocytosis (s/p splenectomy), MRSA osteomyelitis presenting with LLE pain. Left calf pain starting yesterday evening around 21:30, gradual onset, constant since that time with fluctuating intensity, moderate severity, "throbbing" quality, worse with movement or ambulation. Notes chronic BLE swelling at baseline, BLE neuropathy at baseline, no new erythema or draining ulcerations. Patient has extensive history of LE complications of DM, PAD, and osteomyeltitis s/p multiple toe amputations, denies foot pain or skin color change. Denies associated fevers, chills, chest pain, SOB, palpitations, AP, N/V/D/C, urinary Sx, headache, neck pain or focal neurologic Sx. Past History Travel History Traveled to [place] past 21 day No Medical History Any Pertinent Medical History? see below for history Neurological: CVA, meningitis, peripheral neuropathy, polio EENT: diabetic retinopathy, macular degeneration Cardiovascular: AFIB (paroxysmal), CAD, hypertension, hyperlipidemia, PVD (L CEA ), PACEMAKER rheumatic fever MURMUR Respiratory: pneumonia Gastrointestinal: diverticulitis, peptic ulcer disease, upper GI bleed, gastritis Hepatic: NONE Renal: intermittent renal insuff Musculoskeletal: chronic back pain, degen joint disease, osteoarthritis, CHIPPED ELBOWS BILATERAL Psychiatric: anxiety, depression Endocrine: diabetes, hypothyroidism, obesity, vitamin D deficiency Blood Disorders: SPHEROCYTOSIS Cancer(s): NONE 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: C-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 History of MRSA: Yes History of VRE: No History of CDIFF: No Influenza Vaccine: 03/14/17 Surgical History Surgical History: cholecystectomy, , hernia repair-inguinal, knee replacement (BILATERAL), PACEMAKER CARDIAC STENT SPLENECTOMY, CHOLECYSTECTOMY, LEFT CAROTID ENDARTERECTOMY, B/L KNEE REPLACEMENT, PACEMAKER left carotid endarterectomy status post right second and left third and fifth toe amputations multiple podiatry procedures Psychosocial History Who do you live with Patient/Self Services at Home None What is your primary language Prydeinig Tobacco Use: Quit >30 days ago Family History Family History, If Any: FATHER FH: diabetes mellitus Relation not specified for: FH: pancreatic cancer Hx Contributory? Yes Review of Systems Review of Systems Constitutional: Reports: no symptoms. EENTM: Reports: no symptoms. Respiratory: Reports: no symptoms. Cardiovascular: Reports: no symptoms. Gastrointestinal/Abdominal: Reports: no symptoms. Genitourinary: Reports: no symptoms. Musculoskeletal: Reports: see HPI. Skin: Reports: see HPI. Neurological/Psychological: Reports: no symptoms. Hematologic/Endocrine: Reports: no symptoms. Immunological: Reports: no symptoms. All Other Systems: Reviewed and Negative Physical Exam Physical Exam General Appearance: well developed/nourished, mild distress Head: atraumatic Eyes: Bilateral: PERRL, EOMI. Ears, Nose, Throat: normal pharynx, normal ENT inspection, hearing grossly normal Neck: normal inspection, supple Cardiovascular/Respiratory: regular rate/rhythm Back: normal inspection Skin: intact, normal color, warm/dry Lymphatic: no anterior cervical marques Comments: Right Lower Extremitity: S/p amputation of great toe, warm and well perfused with symmetric temperature to LLE, trace non-pitting edema Left Lower Extremity: S/p partial amputation of great toe, 5th toe amputation, TTP over left posterior lower leg without appreciable erythema, crepitus, purulent drainage, warm and well perfused with symmetric temperature to RLE, trace non-pitting edema Progress Differential Diagnosis: arterial insufficiency, cellulitis, CHF, compartment syndrome, contusion, dislocation, DVT, fracture, gout, septic arthritis, sprain, tendon injury Plan of Care: Orders Procedure Date/time Status Consistent Carbohydrate 1 08/27 B Active ED Holding Orders 08/26 1701 Active Patient Data 08/26 1648 Active Admit to inpatient 08/26 1619 Active B-TYPE NATRIURETIC PEP (BNP) 08/26 1325 Complete TROPONIN LEVEL 08/26 1319 Complete LACTIC ACID 08/26 1319 Complete CREATINE PHOSPHOKINASE 08/26 1319 Complete CBC WITHOUT DIFFERENTIAL 08/26 1319 Complete BASIC METABOLIC PANEL 08/26 1319 Complete EKG 08/26 1319 Active Current Medications Sig/[place] Start time Last Medication Dose Stop Time Status Admin Vancomycin HCl 1,000 MG ONCE ONE 08/26 1645 AC 08/26 Dextrose/Water 250 ML 08/26 1744 1703 ([id number]) Laboratory Tests 08/26/17 1412: [id number] Pept 1240 H 08/26/17 1412: Anion Gap 12, Estimated GFR 48 L, BUN/Creatinine Ratio 32.7 H, Glucose 424 H, Lactic Acid 3.0 H, Calcium 8.9, Creatine Kinase 104, Troponin I < 0.01, CBC w Diff NO MAN DIFF REQ, RBC 4.26, MCV 86.7, MCH 29.2, MCHC 33.7, RDW 14.9 H, MPV 8.7, Gran % 52.7, Lymphocytes % 29.9, Monocytes % 13.7 H, Eosinophils % 3.2, Basophils % 0.5, Absolute Granulocytes 5.4, Absolute Lymphocytes 3.1, Absolute Monocytes 1.4 H, Absolute Eosinophils 0.3, Absolute Basophils 0.1 Physician MDM: 82 yo F PMH HTN, HLD, HFrEF, CAD, SSS (s/p pacemaker), DM, pHTN, PAD (s/p muiltiple BL toe amputations), Hypothyroidism, Spherocytosis (s/p splenectomy), MRSA osteomyelitis presenting with LLE pain. VSS, afebrile, LE exam as above. DDx: DVT, Cellulitis, osteomyelitis, PAD, MSK strain, less likely acute arterial emboli/limb ischemia or necrotiizing fasciitis. ED vascular doppler non-functional despite replacing battery, bedside ultrasound used to locate bilateral posterior tibial arteries, good pulsatile color flow and biphasic doppler signal, the patients feet are warm to touch and her toes have good capillary refill, I have a low concern for acute embolic limb ischemia at this time, but I will check a CK and Lactic acid. CBC unremarkable. BMP with hyperglycemia to 424, elevated Cr around baseline. Lactic acid 3.0. 500 ccs NS for hyperglycemia and lactic acidosis. BLE XR without evidence of osteomyelitis or free air. DVT U/S negative. On re-examination patient resting comfortably, pain slightly improved with tylenol. Vancomycin and Ceftaz for empiric coverage given lactic acidosis, ?cellulitis. Admit for further evaluation of leg pain, ongoing IVF ressuscitation, serial lactic acid measurements, possible vascular surgery consult. Departure Departure Disposition: STILL A PATIENT Condition: Stable Clinical Impression Primary Impression: Leg pain Secondary Impressions: Hyperglycemia, Lactic acidosis Referrals: Pearl Horan APRN (PCP/Family) Departure Forms: Customer Survey General Discharge Information Admission Note Spoke With: Nkiita Ponce MD Documentation of Exam: Documentation of any treatments & extenuating circumstances including Concerns Regarding Discharge (functional status, medication knowledge or non-compliance, living conditions, etc.) that warrant an admission rather than observation: [ Patient presents with persistent left lower cavity pain in the setting of known history of peripheral vascular disease, in the ED was found to have hyperglycemia and a lactic acid, there is concern for left leg ischemia without acute arterial embolic occlusion, patient requires admission for ongoing IV fluids for hyperglycemia and lactic acidosis, serial left lower extremity exams, monitoring, serial lactic acid measurements, possible vascular surgery consult, if discharged patient has the possibility of progression of her left lower extremity symptoms, with worsening ischemia, progressive ischemia, infection and hyperglycemia leading to cardiovascular collapse and ]
[2017-08-26 14:25] LABS: ABSOLUTE BASOPHIL COUNT 0.1 /CUMM (0.0-0.2); ABSOLUTE EOSINOPHIL COUNT 0.3 /CUMM (0.0-0.7); ABSOLUTE GRANULOCYTE CT 5.4 /CUMM (1.4-6.5); ABSOLUTE LYMPH COUNT 3.1 /CUMM (1.2-3.4); ABSOLUTE MONOCYTE COUNT 1.4 /CUMM (0.10-0.60); BASOPHIL % 0.5 % (0.0-2.0); EOSINOPHIL % 3.2 % (0-5); GRANULOCYTE % 52.7 % (42.2-75.2); MEAN CORPUSCULAR HGB 29.2 PG (27.0-31.0); MEAN CORPUSCULAR HGB CONC 33.7 G/DL (33.0-37.0); MEAN CORPUSCULAR VOLUME 86.7 FL (81.0-99.0); MEAN PLATELET VOLUME 8.7 FL (7.4-10.4); PLATELET COUNT 365 /CUMM (130-400); RBC DISTRIBUTION WIDTH 14.9 % (11.5-14.5); RED BLOOD CELL CT 4.26 /CUMM (4.20-5.40); WHITE BLOOD CELL COUNT 10.3 /CUMM (4.8-10.8)
--- NOTE | 2017-08-26 15:11 | RADIOLOGY REPORT ---
EXAMINATION: XR TIBIA AND FIBULA, LEFT XR FOOT, LEFT CLINICAL INFORMATION: Pain. COMPARISON: Left knee and foot radiograph report dated 05/09/2012. The prior images are not available for review. TECHNIQUE: 2 views of the left tibia and fibula, 4 images and 2 views of the left foot submitted. FINDINGS: Left tibia and fibula: The total knee arthroplasty is partially visualized on the AP view and completely visualized on the lateral view demonstrating normal alignment without acute osseous abnormality/loosening. The left tibia and fibula are normal in appearance without acute bone or joint abnormality seen. Soft tissue swelling and vascular/dermal calcification is identified. Left foot: There has been prior transmetatarsal amputation at the third and fifth metatarsal bones as well as amputation at the distal aspect of the first proximal phalanx. Deformity is seen with joint space narrowing at the second MTP and PIP joints with medial deviation of the distal phalanx.. No acute fractures are seen. No acute osseous abnormalities are seen to suggest osteomyelitis. There are degenerative changes in the midfoot and a discontinuous plantar calcaneal spur is seen. Moderate soft tissue swelling is appreciated along the dorsum of the is distal tibia and proximal foot. IMPRESSION: 1. Left total knee arthroplasty in alignment. 2. Moderate degenerative changes in the left midfoot and evidence of prior surgery to the left foot. No acute osseous abnormalities are demonstrated.
--- NOTE | 2017-08-26 16:10 | ULTRASOUND REPORT ---
EXAMINATION: US TRIPLEX OF LOWER EXTREMITIES, BILATERAL CLINICAL INFORMATION: Left calf pain. Redness and swelling. Edema. COMPARISON: Right lower extremity Doppler study 01/10/2017 TECHNIQUE: Color-flow triplex imaging with spectral analysis and compression Doppler were performed on the lower extremities. FINDINGS: Respiratory variation, normal compression and augmented flow are noted throughout the lower extremities. The visualized common femoral vein, superficial femoral vein, profunda femoral vein, popliteal vein and midcalf peroneal and posterior tibial venous segments show no evidence of deep venous thrombosis. There is no Lee's cyst. IMPRESSION: Normal triplex scan without evidence of deep venous thrombosis involving the lower extremities.
--- NOTE | 2017-08-26 16:43 | History & Physical ---
James BOURGEOIS,[facility] 08/26/17 5663: General Information and HPI MD Statement: I have seen and personally examined SWAPNA BAKER S and documented this H&P. The patient is a 82 year old F who presented with a patient stated chief complaint of [left leg pain]. Source of Information: patient Exam Limitations: no limitations History of Present Illness: The patient is a 32-year-old female with past medical history of type 2 diabetes , hypertension, hyperlipidemia, heart failure with preserved ejection fraction 45-50%,CAD status post PCI in October 2007 of LAD, sick sinus syndrome status post pacemaker placement, pulmonary hypertension with RVSP of 53 mmHg, PAD, hypothyroidism, hereditory spherocytosis status post splenectomy, multiple toe amputations, macular degeneration, history of MRSA osteomyelitis. Patient's last admission to [facility] was in 08/16/[address] Talavera for debridement on left great toe for osteomyelitis. The previous admission was in June 2017 when she was treated for left foot osteomyelitis. The patient was admitted to [place] [facility] ED on 08/26 with a complaint of left calf pain. Patient states that she experienced a sudden onset throbbing pain in left calf 10 out of 10 in the morning. Ever since that patient states that her pain has been fluctuating in intensity. And becomes worse with movement and ambulation. She denies any fever or chills. She denies any trauma, foot pain. She has baseline bilateral lower extremity swelling along with chronic venous stasis changes. She denies any change in skin color from the baseline. She denies any bleeding site or draining ulcerations. The patient reports getting bilateral lower extremity Dopplers and carotid Doppler at her vascular surgeon's office on last .The results were adequate as per patient Allergies/Medications Allergies: Coded Allergies: Sulfa (Sulfonamide Antibiotics) (HIVES 08/05/15) adhesive tape (RASH PER PT - PAPER TAPE ONLY 01/10/17) morphine (PER PT EYES ROLL BACK IN HEAD, TOTALLY OUT OF IT 01/10/17) Home Med list Acetaminophen/Diphenhydramine (Tylenol Pm Ex-Strength Caplet) 500 MG-25 MG TABLET 2 TAB PO QPM PRN SLEEP (Reported) Aspirin (Aspirin*) 325 MG TABLET 2 TAB PO DAILY HEART HEALTH (Reported) Bimatoprost (Lumigan) 0.01 % DROPS 1 GTT OPH QPM BOTH EYES (Reported) Cholecalciferol (Vitamin D3) (Vitamin D) 2,000 UNIT TABLET 1 TAB PO DAILY SUPPLEMENT (Reported) Citalopram Hydrobromide (Citalopram HBr) 40 MG TABLET 1 TAB PO DAILY MENTAL HEALTH (Reported) Ezetimibe (Zetia) 10 MG TABLET 1 TAB PO DAILY CHOLESTEROL (Reported) Ferrous Sulfate 325 MG (65 MG IRON) TABLET 1 TAB PO BID SUPPLEMENT (Reported) Fesoterodine Fumarate (Toviaz) 8 MG TAB.ER.24H 1 TAB PO DAILY BLADDER ( Reported) Gabapentin 100 MG CAPSULE 3 CAP PO TID NEUROPATHY (Reported) Insulin Lispro (Humalog) 100 UNIT/ML VIAL 0 SC SEE SLIDING SCALE DIABETES ( Reported) Bolus Insulin: Novolog < 80 mg/dl: no coverage 80-100 mg/dl: 8 units 101-120 mg/dl: 8 units 121-150 mg/dl: 8 units 151-200 mg/dl: 10 units 201-250 mg/dl: 12 units 251-300 mg/dl: 14 units 301-350 mg/dl: 15 units 351-400 mg/dl: 16 units > 400 mg/dl: 18 units Insulin NPH Human Isophane (Humulin N Kwikpen) 100 UNIT/ML (3 ML) INSULN.PEN 40 U SC BID DIABETES (Reported) Levothyroxine Sodium 137 MCG TABLET 1 TAB PO DAILY AC THYROID (Reported) Melatonin 3 MG TABLET 1 TAB PO QPM SUPPLEMENT (Reported) Metformin HCl 1,000 MG TABLET 1 TAB PO DAILY DM (Reported) Metoprolol Succinate 25 MG TAB 1 TAB PO DAILY HEART/BP (Reported) Nitroglycerin (Nitrostat) 0.4 MG TAB.SUBL 1 TAB SL Q 5 MINUTES X 3 DOSE PRN CHEST PAIN Oxybutynin Chloride (Oxybutynin Chloride ER) (Unknown Strength) TAB.ER.24 ( Unknown Dose) UNKNOWN (Reported) Pantoprazole Sodium (Protonix) 40 MG TABLET.DR 1 TAB PO DAILY ACID REFLUX ( Reported) Torsemide 20 MG TABLET 1 TAB PO DAILY DIURETIC (Reported) Past History Travel History Traveled to [place] past 21 day No Medical History Neurological: CVA, peripheral neuropathy, polio EENT: diabetic retinopathy, macular degeneration Cardiovascular: AFIB (paroxysmal), CAD, hypertension, hyperlipidemia, PVD (L CEA ), PACEMAKER rheumatic fever MURMUR Respiratory: pneumonia Gastrointestinal: diverticulitis, peptic ulcer disease, upper GI bleed, gastritis Hepatic: NONE Renal: intermittent renal insuff Musculoskeletal: chronic back pain, degen joint disease, osteoarthritis, CHIPPED ELBOWS BILATERAL Psychiatric: anxiety, depression Endocrine: diabetes, hypothyroidism, obesity, vitamin D deficiency Blood Disorders: SPHEROCYTOSIS Cancer(s): NONE 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: C-SECTIONS History of MRSA: Yes History of VRE: No History of CDIFF: No Influenza Vaccine: 03/14/17 Surgical History Surgical History: cholecystectomy, , hernia repair-inguinal, knee replacement (BILATERAL), PACEMAKER CARDIAC STENT SPLENECTOMY, CHOLECYSTECTOMY, LEFT CAROTID ENDARTERECTOMY, B/L KNEE REPLACEMENT, PACEMAKER left carotid endarterectomy status post right second and left third and fifth toe amputations multiple podiatry procedures Past Family/Social History Family History Relations & Conditions if any FATHER FH: diabetes mellitus Relation not specified for: FH: pancreatic cancer Psychosocial History Where do you live? Home Who Do You Live With? self Services at Home: None Primary Language: Cook Islander Smoking Status: Former Smoker ETOH Use: denies use Illicit Drug Use: denies illicit drug use Living Will? 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 Ambulation: cane IADLs Independent: shopping, housework, finances, food prep, telephone, transportation , medication admin. Review of Systems Review of Systems Constitutional: Reports: see HPI. Denies: chills, malaise. Cardiovascular: Reports: no symptoms. Respiratory: Reports: no symptoms. GI: Reports: no symptoms. Genitourinary: Reports: no symptoms. Exam & Diagnostic Data Last 24 Hrs of Vital Signs/I&O Vital Signs Date Time Temp Pulse Resp B/P B/P Pulse O2 O2 Flow FiO2 Mean Ox Delivery Rate 08/26 1851 97.9 62 18 166/72 97 Room Air 08/26 1634 97.7 66 18 136/62 97 Room Air 08/26 1259 95 08/26 1232 98.2 64 20 140/54 96 Room Air Intake & Output 08/26 1600 08/26 0800 08/26 0000 Intake Total 0 Output Total Balance 0 Intake, Oral 0 Patient 218 lb Weight Weight Reported by Patient Measurement Method Physical Exam General Appearance Alert, Oriented X3, Cooperative Skin No Rashes HEENT Atraumatic Neck Supple Cardiovascular Normal S1, Normal S2, No Murmurs Lungs Clear to Auscultation Abdomen Normal Bowel Sounds, Soft, No Tenderness Neurological Normal Speech Extremities LLE: s/p partial amputation of great toe, 5th toe amputatiion, trace edema, No crepitis, no discharge, no erythema, RLE s/p amputation of great toe, trace edema, venous statis changes Last 24 Hrs of Labs/Erik: Laboratory Tests 08/26/17 1830: Lactic Acid 2.2 H 08/26/17 1412: Wyi-H-Betmumuqozi Pept 1240 H 08/26/17 1412: Anion Gap 12, Estimated GFR 48 L, BUN/Creatinine Ratio 32.7 H, Glucose 424 H, Lactic Acid 3.0 H, Calcium 8.9, Creatine Kinase 104, Troponin I < 0.01, CBC w Diff NO MAN DIFF REQ, RBC 4.26, MCV 86.7, MCH 29.2, MCHC 33.7, RDW 14.9 H, MPV 8.7, Gran % 52.7, Lymphocytes % 29.9, Monocytes % 13.7 H, Eosinophils % 3.2, Basophils % 0.5, Absolute Granulocytes 5.4, Absolute Lymphocytes 3.1, Absolute Monocytes 1.4 H, Absolute Eosinophils 0.3, Absolute Basophils 0.1 Diagnostic Data Other Results XR TIBIA AND FIBULA, LEFT, XR FOOT, LEFT IMPRESSION: 1. Left total knee arthroplasty in alignment. 2. Moderate degenerative changes in the left midfoot and evidence of prior surgery to the left foot. No acute osseous abnormalities are demonstrated. US-EXT BILAT VENOUS DOPPLER IMPRESSION: Normal triplex scan without evidence of deep venous thrombosis involving the lower extremities. Assessment/Plan Assessment: The patient is a 32-year-old female with past medical history of type 2 diabetes , hypertension, hyperlipidemia, heart failure with preserved ejection fraction 45-50%,CAD status post PCI in October 2007 of LAD, sick sinus syndrome status post pacemaker placement, pulmonary hypertension with RVSP of 53 mmHg, PAD, hypothyroidism, hereditory spherocytosis status post splenectomy, multiple toe amputations, macular degeneration, history of MRSA osteomyelitis. Patient's last admission to [facility] was in 08/16/[address] Talavera for debridement on left great toe for osteomyelitis. The previous admission was in June 2017 when she was treated for left foot osteomyelitis. The patient was admitted to [place] ED on 08/26 with a complaint of left calf pain. Vital signs at presentation [facility] Admission labs are significant for BUN 36 creatinine 1.1 baseline 1.0-1.3, lactic acidosis, glucose 424, proBNP 1240 Imaging findings dictated above In ED patient received vancomycin and ceftazidime for empirical coverage. The patient is being admitted to general medicine floor and is being treated and evaluated for following conditions #Left lower extremity pain Differentials include DVT ruled out by ultrasound, cellulitis patient is afebrile without white count with chronic venous stasis changes and no edema noticed, however received vancomycin and ceftazidime for empirical coverage with history of MRSA, embolic limb ischemia however on examination patient's feet are warm to touch and appears to have good capillary refill pulses are palpable. Most likely worsening of PVD -Monitor fever and WBC curve -Monitor off antibiotics for now -Bilateral lower extremity arterial Doppler -Vascular surgery consult -If there is any change in clinical status or patient complains of worsening of pain we will obtain CT angiogram of leg #Lactic acidosis patient presented with lactic acid of 3 probably secondary to tissue hypoperfusion versus infection -IV hydration -Repeat lactate #Hyperglycemia Patient has history of diabetes mellitus and presented with glucose reading of greater than 400 on admission labs. 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 Cellulitis of right leg Core Measures/Misc (01/28) Acute Coronary Syndrome ACS Diagnosis: No Congestive Heart Failure Congestive Heart Failure Diagnosis No Cerebrovascular Accident CVA/TIA Diagnosis: No VTE (View Protocol) VTE Risk Factors Age>40 No Mechanical VTE Prophylaxis d/t N/A MechProphylax Ordered No VTE Pharm Prophylaxis d/t NA PharmProphylax ordered Sepsis (View protocol) Sepsis Present: No Nikita Ponce MD 08/26/17 1647: Attending MD Review Statement Attending Statement Attending MD Statement: examined this patient, discuss w/resident/PA/SALESPERSON FLOWERS, agreed w/resident/PA/SALESPERSON FLOWERS, reviewed EMR data (avail) Attending Assessment/Plan: 82F PMH chronic nonhealing ulcer on medial aspect of right foot, DM, HTN, HFpEF, CAD S/P PCI, sick sinus s/p pacemaker, pulmonary hypertension, PAD, spherocytosis s/p splenectomy, multiple toe amputations secondary to infections, 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 Rocha, reports significant overnight left calf throbbing pain. Started abruptly, no alleviating or worsening factors, no trauma. Calf is tender on exam, symmetric to right. Pulses are weak in that leg but present, doppler negative. Labs show lactate 3.0, fingersticks >400. Plan: Admit to general medicine, hydrate, vascular and podiatry consults, LE arterial doppler, continue home meds, DVT PPx, hold antibiotics for now. If pain worsens or any change in clinical status, obtain CT angio of the leg Clyde BOURGEOIS,Juan Luis 08/26/17 1654: Resident Review Statement Resident Statement: examined this patient, discussed with operations intern Other Findings: This is a 82-year-old lady with a significant past medical history of hyperlipidemia, hypertension, type 2 diabetes, hypertension heart failure with preserved ejection fraction, CAD status post PCI, sick sinus syndrome status post pacemaker, pulmonary hypertension, spherocytosis status post splenectomy, extensive peripheral to disease, multiple palpitation, osteomyelitis with a recent left great toe resection in August, resented with acute overnight onset of left throbbing cough pain. No reported alleviating factors such as trauma, or insect bite. At the ED Doppler ultrasound ruled out any possible PE. Her lactate level was however elevated 3.0 and those initial concern of deep ischemia. However upon physical examination and assessment of peripheral pulses the suspicion for limb ischemia became very low. Impression * Acute onset of left extremity pain. Differentials included DVT which was ruled out by ultrasound, cellulitis even though this had a low probability given the patient was afebrile with no white count. Chronic venous status was also part of the differential. Limb ischemia was initially considered however given the presence of pulses and warm lower extremity the suspicion became low. * Lactic acidosis. Most likely secondary to hypoperfusion. Infectious etiology is always a possibility. * Prerenal azotemia. Most likely secondary to dehydration * Hyper glycemia with no acid base derangement as evident by a normal bicarbonate. * History of chronic diseases; hypertension hypothyroidism diabetic neuropathy, hyperlipidemia, CAD, sick sinus syndrome, PVD. Plan Admit to GEN med Status post vancomycin/ ceftaz per ED staff, will watch off antibiotics Adequate hydration If lower extremity pain worsens will consider CT angiogram the leg Vascular and podiatry consult tomorrow morning Accu-Chek every hour for now until blood glucose are within normal limits, then 3 times a day and bedtime NovoLog sliding scale and Levemir Diabetic diet DVT: Enoxaparin
[2017-08-26] MEDS ORDERED: TORSEMIDE20 M1 PO (17:13)
[2017-08-26] MEDS ORDERED: METFORMIN HCL1000 M1 PO (17:14)
[2017-08-26] MEDS ORDERED: OXYBUTYNIN CHLO15 M1 (17:14)
[2017-08-26] MEDS ORDERED: MELATONIN3 M4 PO (17:15)
[2017-08-26] MEDS ORDERED: TOVIAZ8 M1 PO (19:09)
[2017-08-26 21:00] VITALS: BP 130/76
--- NOTE | 2017-08-26 22:54 | Cons- Vascular Surgery ---
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 Patient's last admission to [facility] was in 08/16/[address] Talavera for debridement on left great toe for osteomyelitis. This is well healed. The previous admission was in June 2017 when she was treated for left foot osteomyelitis. She presented to [facility] on 08/26 with a complaint of left calf pain. Patient states that she experienced a sudden onset throbbing pain in left calf 02/20. It started suddenly without precipitating events. She was unable to even touch her calf due to pain. It worsened with movement and ambulation. She denies any fever or chills. She has baseline bilateral lower extremity swelling along with chronic venous stasis changes. She denies any change in skin color from the baseline. The patient reports getting bilateral lower extremity Dopplers and carotid Doppler at her vascular surgeon's office on last .- Dr Mckeon. The results were adequate per patient Upon admission, it was noted she had a lactic acid of 3.0 which has already improved with IV hydration to 2.2, her glucose on admission was 424, WBC normal Venous duplex BLE negative for DVT An arterial ultrasound has been ordered. Currently she is in bed and states that her pain has greatly improved. In fact she is almost at baseline currently which is decreased to no sensation below mid calf. Of note, she claims that she has been having intermittent chest pain bilaterally which radiates to her neck. Not occuring presently. No associated sob, diaphoresis or palpitations. It is self limiting. Allergies/Medications Allergies: Coded Allergies: Sulfa (Sulfonamide Antibiotics) (HIVES 08/05/15) adhesive tape (RASH PER PT - PAPER TAPE ONLY 01/10/17) morphine (PER PT EYES ROLL BACK IN HEAD, TOTALLY OUT OF IT 01/10/17) Home Med List: Acetaminophen/Diphenhydramine (Tylenol Pm Ex-Strength Caplet) 500 MG-25 MG TABLET 2 TAB PO QPM PRN SLEEP (Reported) Aspirin (Aspirin*) 325 MG TABLET 2 TAB PO DAILY HEART HEALTH (Reported) Bimatoprost (Lumigan) 0.01 % DROPS 1 GTT OPH QPM BOTH EYES (Reported) Cholecalciferol (Vitamin D3) (Vitamin D) 2,000 UNIT TABLET 1 TAB PO DAILY SUPPLEMENT (Reported) Citalopram Hydrobromide (Citalopram HBr) 40 MG TABLET 1 TAB PO DAILY MENTAL HEALTH (Reported) Ezetimibe (Zetia) 10 MG TABLET 1 TAB PO DAILY CHOLESTEROL (Reported) Ferrous Sulfate 325 MG (65 MG IRON) TABLET 1 TAB PO BID SUPPLEMENT (Reported) Fesoterodine Fumarate (Toviaz) 8 MG TAB.ER.24H 1 TAB PO DAILY BLADDER ( Reported) Gabapentin 100 MG CAPSULE 3 CAP PO TID NEUROPATHY (Reported) Insulin Lispro (Humalog) 100 UNIT/ML VIAL 0 SC SEE SLIDING SCALE DIABETES ( Reported) Bolus Insulin: Novolog < 80 mg/dl: no coverage 80-100 mg/dl: 8 units 101-120 mg/dl: 8 units 121-150 mg/dl: 8 units 151-200 mg/dl: 10 units 201-250 mg/dl: 12 units 251-300 mg/dl: 14 units 301-350 mg/dl: 15 units 351-400 mg/dl: 16 units > 400 mg/dl: 18 units Insulin NPH Human Isophane (Humulin N Kwikpen) 100 UNIT/ML (3 ML) INSULN.PEN 40 U SC BID DIABETES (Reported) Levothyroxine Sodium 137 MCG TABLET 1 TAB PO DAILY AC THYROID (Reported) Melatonin (Unknown Strength) TABLET (Unknown Dose) PO QPM SUPPLEMENT ( Reported) Metformin HCl 1,000 MG TABLET 1 TAB PO DAILY DM (Reported) Metoprolol Succinate 25 MG TAB 1 TAB PO DAILY HEART/BP (Reported) Oxybutynin Chloride (Oxybutynin Chloride ER) (Unknown Strength) TAB.ER.24 ( Unknown Dose) UNKNOWN (Reported) Pantoprazole Sodium (Protonix) 40 MG TABLET.DR 1 TAB PO DAILY ACID REFLUX ( Reported) Torsemide 20 MG TABLET 1 TAB PO DAILY DIURETIC (Reported) Past History Medical History Blood Transfusion Hx: No Neurological: CVA, peripheral neuropathy, polio EENT: diabetic retinopathy, macular degeneration Cardiovascular: AFIB (paroxysmal), CAD, hypertension, hyperlipidemia, PVD (L CEA ), PACEMAKER rheumatic fever MURMUR Respiratory: pneumonia Gastrointestinal: diverticulitis, peptic ulcer disease, upper GI bleed, gastritis Hepatic: NONE Renal: intermittent renal insuff Musculoskeletal: chronic back pain, degen joint disease, osteoarthritis, CHIPPED ELBOWS BILATERAL Psychiatric: anxiety, depression Endocrine: diabetes, hypothyroidism, obesity, vitamin D deficiency Blood Disorders: SPHEROCYTOSIS Cancer(s): NONE 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 Home Who Do You Live With? self Services at Home: None Primary Language: Austrian Smoking Status: Former Smoker ETOH Use: denies use Illicit Drug Use: denies illicit drug use Living Will? 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 no Functional Ability ADLs Independent: dressing, eating, toileting, bathing. Ambulation: cane IADLs Independent: shopping, housework, finances, food prep, telephone, transportation , medication admin. Review of Systems Review of Systems: See HPI Exam & Diagnostic Data Vital Signs and I&O Vital Signs Date Time Temp Pulse Resp B/P B/P Pulse O2 O2 Flow FiO2 Mean Ox Delivery Rate 08/26 2100 97.9 65 20 130/76 97 Room Air 08/26 1851 97.9 62 18 166/72 97 Room Air 08/26 1634 97.7 66 18 136/62 97 Room Air 08/26 1259 95 08/26 1232 98.2 64 20 140/54 96 Room Air Intake & Output 08/26 1600 08/26 0800 08/26 0000 08/25 1600 08/25 0800 08/25 0000 Intake Total 0 Output Total Balance 0 Intake, Oral 0 Patient 218 lb Weight Weight Reported by Patient Measurement Method Physical Exam: afebrile, vss General: alert and oriented times three Ext: 2+ edema - chronic, chronic venous stasis discoloration from mid calf bilaterally. No erythema, no open ulcers. Well healed left great toe from recent amp. Well healed right first metatarsal from previous amp. LLE: 2+ palpable DP, strong dopplerable PT - unable to palpate PT due to edema RLE: strong dopplerable PT and DP - unable to palpate due to edema No calf tenderness Assessment/Plan Assessment/Plan 82 yo female with history of vascular disease and numerous comorbidities presents with left leg pain. Pt has palpable/dopplerable pulses to both feet, pain almost completely resolved at this time. Duplex - negative for DVT Arterial ultrasound ordered Continue aspirin for dvt ppx as at home No acute vascular intervention is needed Discussed with Dr Quintero - a vascular surgeon will be by tomorrow to see patient Recomomend consult Dr Ponce while she is in house as she has complaints of some recent chest pain. Consult Acknowledgment - Thank you for your consult request.
[2017-08-27 06:25] VITALS: BP 120/62
--- NOTE | 2017-08-27 07:31 | PN- Housestaff ---
Katalina BOURGEOIS,Johanna 08/27/17 0730: Subjective Follow-up For: Left calf pain Lactic acidosis- resolved DM Subjective: Patient was seen and examined today. Patient reports continued left leg pain. Denies fever, chills, shortness of breath, chest pain, nausea/vomiting. Patient today reports intermittent chest pain for the past week relieved by aspirin. Patient is not currently having any active chest pain at this time. No acute events overnight. Review of Systems Constitutional: Reports: see HPI. Objective Last 24 Hrs of Vital Signs/I&O Vital Signs Date Time Temp Pulse Resp B/P B/P Pulse O2 O2 Flow FiO2 Mean Ox Delivery Rate 08/27 1509 97.7 62 20 120/70 96 08/27 0818 76 132/80 08/27 0625 97.6 81 20 120/62 94 Room Air 08/26 2100 97.9 65 20 130/76 97 Room Air 08/26 1851 97.9 62 18 166/72 97 Room Air 08/26 1634 97.7 66 18 136/62 97 Room Air Intake & Output 08/27 1600 08/27 0800 08/27 0000 Intake Total 300 500 Output Total Balance 300 500 Intake, IV 250 400 Intake, Oral 50 100 Patient 221 lb 218 lb Weight Physical Exam General Appearance: Alert, Oriented X3, Cooperative, No Acute Distress Skin: No Rashes Skin Temp/Moisture Exam: Warm/Dry HEENT: Atraumatic, Mucous Membr. moist/pink Cardiovascular: Regular Rate, Normal S1, Normal S2 Lungs: Clear to Auscultation, Normal Air Movement Abdomen: Normal Bowel Sounds, Soft, No Tenderness Neurological: Normal Speech, Sensation Intact, Cranial Nerves 3-12 NL Extremities: No Clubbing, No Cyanosis, No Edema, Normal Pulses, mild tenderness to palpation of left calf, bilateral healed great toe amputations Vascular: Pulses Symmetrical, palpable pulses, warm skin, good caprefill Current Medications: Current Medications Sig/[place] Start time Last Medication Dose Route Stop Time Status Admin Acetaminophen 650 MG Q4P PRN 08/26 2030 AC PO Acetaminophen 0 .STK-MED ONE 08/26 1603 DC PO Aspirin 650 MG DAILY 08/27 0900 AC 08/27 PO 0818 Ceftazidime 0 .STK-MED ONE 08/26 1701 DC .ROUTE Ceftazidime 1,000 MG ONCE ONE 08/26 1645 DC 08/26 IV 08/26 1646 1658 Citalopram 40 MG DAILY 08/27 0900 AC 08/27 Hydrobromide PO 0818 Enoxaparin Sodium 40 MG DAILY 08/27 09 SC Ezetimibe 10 MG DAILY 08/27 0900 AC 08/27 PO 0820 Ferrous Sulfate 325 MG BID 08/26 2100 AC 08/27 PO 0818 Gabapentin 0 .STK-MED ONE 08/26 1818 DC PO Gabapentin 300 MG TID 08/26 1741 AC 08/27 PO 1306 Insulin Aspart 0 TIDAC 08/27 0800 AC 08/27 SC 1304 Insulin Detemir 20 UNITS BID 08/26 2100 DC SC Insulin Detemir 10 UNITS BID 08/26 2100 AC 08/27 SC 0834 Latanoprost 1 GTT QPM 08/26 2100 08/26 OPH 2210 Levothyroxine Sodium 0.137 MG DAILY AC 08/27 0700 AC 08/27 PO 0629 Melatonin 3 MG AT BEDTIME 08/27 2100 DC PO Melatonin 3 MG AT BEDTIME 08/27 0200 08/27 PO 0125 Metoprolol Succinate 25 MG DAILY 08/27 0900 08/27 PO 0818 Omeprazole 40 MG DAILY AC 08/27 0700 AC 08/27 PO 0629 Sodium Chloride 500 ML BOLUS ONE 08/26 1930 DC 08/26 IV 08/26 2029 2053 Sodium Chloride 1,000 ML ONCE ONE 08/26 1745 DC 08/26 IV 08/27 0344 1851 Sodium Chloride 500 ML BOLUS ONE 08/26 1500 DC 08/26 IV 08/26 1559 1607 Vancomycin HCl 0 .STK-MED ONE 08/26 1701 DC .ROUTE Vancomycin HCl 1,000 MG ONCE ONE 08/26 1645 WV 08/26 Dextrose/Water 250 ML IV 08/26 1744 1703 Last 24 Hrs of Lab/Erik Results Last 24 Hrs of Labs/Mics: Laboratory Tests 08/27/17 0837: Anion Gap 14, Estimated GFR > 60, BUN/Creatinine Ratio 30.0 H, CBC w Diff NO MAN DIFF REQ, RBC 4.38, MCV 85.9, MCH 29.7, MCHC 34.6, RDW 15.1 H, MPV 9.2, Gran % 51.7, Lymphocytes % 32.1, Monocytes % 11.4 H, Eosinophils % 4.1, Basophils % 0.7, Absolute Granulocytes 4.9, Absolute Lymphocytes 3.1, Absolute Monocytes 1.1 H, Absolute Eosinophils 0.4, Absolute Basophils 0.1 08/26/17 2304: Lactic Acid 1.9 08/26/17 1830: Lactic Acid 2.2 H Assessment/Plan Assessment: Patient is an 82-year-old female with past medical history of type 2 diabetes, hypertension, hyperlipidemia, heart failure with preserved ejection fraction 45- 50%,CAD status post PCI in October 2007 of LAD, sick sinus syndrome status post pacemaker placement, pulmonary hypertension with RVSP of 53 mmHg, PAD, hypothyroidism, hereditory spherocytosis status post splenectomy, multiple toe amputations, macular degeneration, history of MRSA osteomyelitis. Patient's last admission to [facility] was in 08/16/[address] Talavera for debridement on left great toe for osteomyelitis. The previous admission was in June 2017 when she was treated for left foot osteomyelitis. The patient was admitted to [facility] ED on 08/26 with a complaint of left calf pain. Vital signs at presentation [facility] Admission labs are significant for BUN 36 creatinine 1.1 baseline 1.0-1.3, lactic acidosis, glucose 424, proBNP 1240 Imaging findings dictated above In ED patient received vancomycin and ceftazidime for empirical coverage. The patient is being admitted to general medicine floor and is being treated and evaluated for following conditions #Intermittent chest pain Patient complains of intermittent chest pain over the past 1 week. Reports pain that radiates to neck. Relief with aspirin. Patient has not experienced chest pain today. Patient's EKG shows no changes from previous. Patient's troponin on admission was <0.01. However due to patient's extensive cardiac history, will consult cardiology today. - cardiology consulted #Left lower extremity pain Differentials include DVT ruled out by ultrasound, cellulitis patient is afebrile without white count with chronic venous stasis changes and no edema noticed, however received vancomycin and ceftazidime for empirical coverage with history of MRSA, embolic limb ischemia/worsening of PVD however on examination patient's feet are warm to touch and appears to have good capillary refill pulses are palpable. -Monitor fever and WBC curve -Monitor off antibiotics for now -Lower Extremity Arterial Doppler performed today. Results pending. -Vascular surgery consulted -If there is any change in clinical status or patient complains of worsening of pain we will obtain CT angiogram of leg #Lactic acidosis - resolved Patient presented with lactic acid of 3 probably secondary totissue hypoperfusion versus infection. Patient received IV hydration with resolution of lactic acidosis. #Hyperglycemia Patient has history of diabetes mellitus and presented with glucose reading of greater than 400 on admission labs. 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 Leg pain Pain Ratin Pain Location: left leg Pain Goal: Pain 4 or less Pain Plan: tylenol Tomorrow's Labs & Rationales: none Symone Marte MD 08/27/17 1207: Attending MD Review Statement Attending Statement Attending MD Statement: examined this patient, discuss w/resident/PA/STEEL UNLOADER, agreed w/resident/PA/STEEL UNLOADER, reviewed EMR data (avail), discussed with nursing, discussed with case mgmt, amended to note Attending Assessment/Plan: Patient seen and examined. She is an extremely pleasant elderly lady. She was very jovial today joking around with the entire medical team. She did not appear to be in any distress whatsoever. She reports presenting to the emergency room with complaints of left lower extremity pain. She reports that this pain is new for her and significant enough to need her to the emergency room. It is noted she received Tylenol for pain control in the emergency room. Since hospitalization she has not required further analgesic therapy. She is not on any medication chronically for pain control other than low-dose gabapentin which she takes for neuropathy. Apparently in the emergency room lactic acid level was drawn. A level was elevated at three-point evaluation provider Ai to begin the patient on vancomycin and ceftazidime for possible infection. It is noted that documentation on patient's presentation shows no evidence of erythema or crepitus. Patient was afebrile and had no leukocytosis on presentation. There was also concern at that time for possible limb ischemia. Patient is resting comfortably. She was observed ambulating with the aid of a cane around the room. On examination bilateral lower extremity shows no evidence of erythema. She does have trace to 1+ pedal edema bilaterally. She has no open areas. Well-healed scars are present over previous surgical wounds. There is no fluctuant area. There is no area of discharge. Extremities are not cool to touch although distal pulses not easily palpable. There is no discoloration of the lower extremities. Patient today admits to having chest pain on and off going on at home prior to admission. She reports the pain radiates up her neck bilaterally. At the cause at rest and with activity. Currently denies any pain. Troponin was checked on presentation and this was negative. EKG shows no ischemic changes. Problems: 1. Acute lower extremity pain; query secondary to peripheral vascular disease. 2. Chest pain; atypical in nature however patient does have history of coronary artery disease 3. Cro-jlkpjth-jcmuyhfyi diabetes mellitus. 4. Hypertension 5. Hypothyroidism 6. Spherocytosis. Plan: -Follow-up arterial Doppler. Discussed results with the vascular surgery service for further recommendations. -Continue to monitor patient off antibiotic therapy. No clinical indication of an infection at present. -Currently she denies any chest pain. However given her history she will need to be evaluated by a vm[employer] consultant for decision-making regarding need for further ischemic workup. -continue to mobilize patient as tolerated. -We have no further intervention recommended by the cardiovascular or cardiology service anticipate discharge in the next 24hrs.
[2017-08-27 09:32] LABS: ABSOLUTE BASOPHIL COUNT 0.1 /CUMM (0.0-0.2); ABSOLUTE EOSINOPHIL COUNT 0.4 /CUMM (0.0-0.7); ABSOLUTE GRANULOCYTE CT 4.9 /CUMM (1.4-6.5); ABSOLUTE LYMPH COUNT 3.1 /CUMM (1.2-3.4); ABSOLUTE MONOCYTE COUNT 1.1 /CUMM (0.10-0.60); BASOPHIL % 0.7 % (0.0-2.0); EOSINOPHIL % 4.1 % (0-5); GRANULOCYTE % 51.7 % (42.2-75.2); HEMATOCRIT 37.6 % (37-47); MEAN CORPUSCULAR HGB 29.7 PG (27.0-31.0); MEAN CORPUSCULAR HGB CONC 34.6 G/DL (33.0-37.0); MEAN CORPUSCULAR VOLUME 85.9 FL (81.0-99.0); MEAN PLATELET VOLUME 9.2 FL (7.4-10.4); PLATELET COUNT 338 /CUMM (130-400); RBC DISTRIBUTION WIDTH 15.1 % (11.5-14.5); RED BLOOD CELL CT 4.38 /CUMM (4.20-5.40); WHITE BLOOD CELL COUNT 9.5 /CUMM (4.8-10.8)
[2017-08-27 15:09] VITALS: BP 120/70
--- NOTE | 2017-08-27 20:07 | Cons- Cardiology ---
General Information and HPI Consulting Request Date of Consult: 08/27/17 Requested By: Symone Marte MD History of Present Illness: Latoya is an 82 year old female with a history of hypertension, diabetes mellitus , FABIAN, sick sinus syndrome and permanent pacemaker. She also carries a history of rheumatic fever and spherocytosis. Latoya presented to the ER for evaluation of a severe left lower extremity throbbing pain which has improved. She was evaluated to arterial and venous thrombosis and cellulitis. This workup has been negative. In addition to the above, this patient reports a severe bilateral chest discomfort describes as a pressure that radiates toward her neck. The pain is not exacerbated by physical activity or stress. There are times when she is active without any symptoms. There is no associated nausea, vomiting or diaphoresis. She otherwise denies shortness of breath, lightheadedness or palpitaitons. It should be noted that this patient has had a prior stress test which showed some anterior wall ischemia versus breast tissue attenuation artifact. To review the patient's past history: In October of 2007, in response to chest pressure radiating to her neck with nausea accompanied by an elevated troponin of 11.89, it was decided to pursue cardiac catheterization. This procedure showed a normal left main. The LAD harbored a 75% mid-stenosis, after the takeoff of a large second diagonal branch. There were luminal irregularities more distally in the LAD, which were non flow-limiting. The left circumflex was diminutive but patent. The right coronary artery was dominant and patent and supplied a large posterolateral marginal branch. Left ventriculography showed an overall EF of 30% with inferior wall hypokinesis. In consideration of the above, I placed a 3.5 x 12 mm stent to the LAD. Due to persistent chest pain a CT with contrast, showed a subcentimeter, non-pathologically, enlarged mediastinal lymph node with very small pericardial effusion, mildly thickened pericardium measuring 3 mm. There was no evidence of aneurysm or dissection. Subsequent echocardiogram showed normal left ventricular size and thickness with an EF of 50%, pulmonary hypertension, mild left atrial dilatation, aortic sclerosis without stenosis and no evidence of pericardial effusion. It should be recalled that this patient has spherocytosis, which was previously followed by Dr. Juan Piedra, who recommended cytometry with peripheral blood and rheumatologic workup.The patient has had some PVD with discomfort in her feet, which was previously followed by and Josh, and she has some issues with macular degeneration of the right eye for which she sees Dr. Benavides. It should be recalled that due to a worn-out feeling on an office visit from years back, we increased the patient's AV delay in the pacemaker to 300 milliseconds so that the patient would pace a bit more on her own. Due to this, mode switching needed to be turned off. Prior to that, she had been pacing 85% of the time. The patient has, in the past, had high rate events that were suggestive a nonsustained ventricular tachycardia. The patient has also had brief episodes of atrial fibrillation in the past, the longest being 59 beats in length. The patient now has her pacer checked by another advanced solutions architect and it is not clear what her device is set on or how it is operating. Finally, in response to a worn-out feeling and shortness of breath, as well as some equivocal exertional chest discomfort, this patient was risk stratified with a Adenosine stress test several years ago. I am not sure if [facility] had any more recent studies but this old study showed rare PVCs with no significant ST-T changes. She did have some nonspecific Adenosine-induced chest pressure. In terms of nuclear imaging, I found a large region of poor radiotracer uptake in the posterior and posterolateral wall as well as the inferior and inferolateral wall of the left ventricle. In addition, there were some minor areas of mildly decreased radiotracer uptake in the anterior wall of the left ventricle. This anterior region did improve on resting images, consistent with myocardial ischemia. Her overall EF was concerning, and that was very low at 25%, and there was inferior wall akinesis and apical dyskinesis. This low EF on nuclear imaging is somewhat discordant with that found on her echocardiogram, which showed an EF of 50%. The echo did show some hypokinesis of the distal septum and the apex, moderate left ventricular hypertrophy, and a mild to moderately dilated left atrium which puts her at some risk of atrial fibrillation. In terms of cardiac valves, there was evidence of mild mitral and moderate tricuspid regurgitation. There is a borderline aortic gradient of 9 mmHg and trace aortic insufficiency. Pulmonary pressures were mildly elevated at 45 mmHg. Allergies/Medications Allergies: Coded Allergies: Sulfa (Sulfonamide Antibiotics) (HIVES 08/05/15) adhesive tape (RASH PER PT - PAPER TAPE ONLY 01/10/17) morphine (PER PT EYES ROLL BACK IN HEAD, TOTALLY OUT OF IT 01/10/17) Home Med List: Acetaminophen/Diphenhydramine (Tylenol Pm Ex-Strength Caplet) 500 MG-25 MG TABLET 2 TAB PO QPM PRN SLEEP (Reported) Aspirin (Aspirin*) 325 MG TABLET 2 TAB PO DAILY HEART HEALTH (Reported) Bimatoprost (Lumigan) 0.01 % DROPS 1 GTT OPH QPM BOTH EYES (Reported) Cholecalciferol (Vitamin D3) (Vitamin D) 2,000 UNIT TABLET 1 TAB PO DAILY SUPPLEMENT (Reported) Citalopram Hydrobromide (Citalopram HBr) 40 MG TABLET 1 TAB PO DAILY MENTAL HEALTH (Reported) Ezetimibe (Zetia) 10 MG TABLET 1 TAB PO DAILY CHOLESTEROL (Reported) Ferrous Sulfate 325 MG (65 MG IRON) TABLET 1 TAB PO BID SUPPLEMENT (Reported) Fesoterodine Fumarate (Toviaz) 8 MG TAB.ER.24H 1 TAB PO DAILY BLADDER ( Reported) Gabapentin 100 MG CAPSULE 3 CAP PO TID NEUROPATHY (Reported) Insulin Lispro (Humalog) 100 UNIT/ML VIAL 0 SC SEE SLIDING SCALE DIABETES ( Reported) Bolus Insulin: Novolog < 80 mg/dl: no coverage 80-100 mg/dl: 8 units 101-120 mg/dl: 8 units 121-150 mg/dl: 8 units 151-200 mg/dl: 10 units 201-250 mg/dl: 12 units 251-300 mg/dl: 14 units 301-350 mg/dl: 15 units 351-400 mg/dl: 16 units > 400 mg/dl: 18 units Insulin NPH Human Isophane (Humulin N Kwikpen) 100 UNIT/ML (3 ML) INSULN.PEN 40 U SC BID DIABETES (Reported) Levothyroxine Sodium 137 MCG TABLET 1 TAB PO DAILY AC THYROID (Reported) Melatonin (Unknown Strength) TABLET (Unknown Dose) PO QPM SUPPLEMENT ( Reported) Metformin HCl 1,000 MG TABLET 1 TAB PO DAILY DM (Reported) Metoprolol Succinate 25 MG TAB 1 TAB PO DAILY HEART/BP (Reported) Oxybutynin Chloride (Oxybutynin Chloride ER) (Unknown Strength) TAB.ER.24 ( Unknown Dose) UNKNOWN (Reported) Pantoprazole Sodium (Protonix) 40 MG TABLET.DR 1 TAB PO DAILY ACID REFLUX ( Reported) Torsemide 20 MG TABLET 1 TAB PO DAILY DIURETIC (Reported) Review of Systems Review of Systems: A review of systems was unremarkable other than the above. Past History Travel History Traveled to [place] past 21 day No Medical History Blood Transfusion Hx: No Neurological: CVA, peripheral neuropathy, polio EENT: diabetic retinopathy, macular degeneration Cardiovascular: AFIB (paroxysmal), CAD, hypertension, hyperlipidemia, PVD (L CEA ), PACEMAKER rheumatic fever MURMUR Respiratory: pneumonia Gastrointestinal: diverticulitis, peptic ulcer disease, upper GI bleed, gastritis Hepatic: NONE Renal: intermittent renal insuff Musculoskeletal: chronic back pain, degen joint disease, osteoarthritis, CHIPPED ELBOWS BILATERAL Psychiatric: anxiety, depression Endocrine: diabetes, hypothyroidism, obesity, vitamin D deficiency Blood Disorders: SPHEROCYTOSIS Cancer(s): NONE TOBACCO CLOTH RECLAIMER/Reproductive: C-SECTIONS Surgical History Surgical History: cholecystectomy, , hernia repair-inguinal, knee replacement (BILATERAL), PACEMAKER CARDIAC STENT SPLENECTOMY, CHOLECYSTECTOMY, LEFT CAROTID ENDARTERECTOMY, B/L KNEE REPLACEMENT, PACEMAKER left carotid endarterectomy status post right second and left third and fifth toe amputations multiple podiatry procedures Numerous debridements of feet bilaterally and toe amps Family History Relations & Conditions If Any: FATHER FH: diabetes mellitus Relation not specified for: FH: pancreatic cancer Psychosocial History Where Do You Live? Home Who Do You Live With? self Services at Home: None Primary Language: Ghanaian Smoking Status: Former Smoker ETOH Use: denies use Illicit Drug Use: denies illicit drug use Living Will? no Power of Community Health Counselor/HCP? no Functional Ability ADLs Independent: dressing, eating, toileting, bathing. Ambulation: cane IADLs Independent: shopping, housework, finances, food prep, telephone, transportation , medication admin. Exam & Diagnostic Data Vital Signs and I&O Vital Signs Date Time Temp Pulse Resp B/P B/P Pulse O2 O2 Flow FiO2 Mean Ox Delivery Rate 08/27 1509 97.7 62 20 120/70 96 08/27 0818 76 132/80 08/27 0625 97.6 81 20 120/62 94 Room Air 08/26 2100 97.9 65 20 130/76 97 Room Air Intake & Output 08/27 1600 08/27 0800 / 0000 08/26 1600 08/26 0800 08/26 0000 Intake Total 600 300 500 0 Output Total Balance 600 300 500 0 Intake, IV 250 400 Intake, Oral 600 50 100 0 Number 1 Bowel Movements Patient 221 lb 218 lb 218 lb Weight Weight Reported by Patient Measurement Method Physical Exam: General: WD/obese female in NAD; alert and oriented x 3 HEENT: NC/AT, PERRL, EOMI Neck: no JVD, no carotid bruit Heart: RRR Lungs: clear bilaterally Abdomen: soft, obese, NT, +ve bowel sounds Extremities: no edema Assessment/Plan Assessment/Plan * This patient has chest discomfort that is suggestive of myocardial ischemia although there are some atypical features to it. I recommend risk stratification with a pharmacologic stress test. Continue aspirin and her beta orestes. We will consider adding nitroglycerine if she does have ischemia. Continue Zetia. Consult Acknowledgment - Thank you for your consult request.
[2017-08-27 23:04] VITALS: BP 138/64
[2017-08-28 06:58] VITALS: BP 120/66
[2017-08-28] MEDS ORDERED: NITROSTAT0.4 M1 SL (07:27)
--- NOTE | 2017-08-28 07:31 | PN- Housestaff ---
James BOURGEOIS,Yael 08/28/17 0731: Subjective Follow-up For: Left calf pain Lactic acidosis- resolved DM Subjective: Patient was seen and examined today. Reports continued left leg pain. Patient has been having intermittent chest pain past week, was evaluated by cardiology. She will undergo a stress test today. Denies chest pain today Otherwise review of systems negative no fever chills nausea vomiting. No overnight acute events. Review of Systems Constitutional: Reports: see HPI. Objective Last 24 Hrs of Vital Signs/I&O Vital Signs Date Time Temp Pulse Resp B/P B/P Pulse O2 O2 Flow FiO2 Mean Ox Delivery Rate 08/28 0658 97.3 68 20 120/66 92 Room Air 08/27 2304 97.9 60 18 138/64 94 Room Air 08/27 1509 97.7 62 20 120/70 96 08/27 0818 76 132/80 Intake & Output 08/28 1600 08/28 0800 08/28 0000 Intake Total 50 480 Output Total Balance 50 480 Intake, Oral 50 480 Patient 161 lb Weight Weight Bed scale Measurement Method Physical Exam General Appearance: Alert, Oriented X3, Cooperative Cardiovascular: Normal S1, Normal S2 Lungs: Clear to Auscultation, Normal Air Movement Abdomen: Normal Bowel Sounds, Soft Neurological: Normal Speech Other Physical Findings: Extremities mild tenderness to palpation of left calf, bilateral healed great toe amputations Current Medications: Current Medications Sig/Wayne Start time Last Medication Dose Route Stop Time Status Admin Acetaminophen 650 MG Q4P PRN 08/26 2030 AC PO Aspirin 650 MG DAILY 08/27 0900 AC 08/27 PO 0818 Citalopram 40 MG DAILY 08/27 0900 AC 08/27 Hydrobromide PO 0818 Enoxaparin Sodium 40 MG DAILY 08/27 0900 AC SC Ezetimibe 10 MG DAILY 08/27 0900 AC 08/27 PO 0820 Ferrous Sulfate 325 MG BID 08/26 2100 AC 08/27 PO 2129 Gabapentin 300 MG TID 08/26 1741 AC 08/27 PO 2129 Insulin Aspart 0 TIDAC 08/27 0800 DC 08/27 SC 1710 Insulin Detemir 10 UNITS BID 08/26 2100 AC 08/27 SC 212 Insulin Human Regular 0 Q6 08/28 0744 AC SC Latanoprost 1 GTT QPM 08/26 2100 AC 08/27 OPH 2129 Levothyroxine Sodium 0.137 MG DAILY AC 08/27 0700 AC 08/28 PO 0608 Melatonin 3 MG AT BEDTIME 08/27 2100 DC PO Melatonin 3 MG AT BEDTIME 08/27 0200 AC 08/27 PO 2129 Metoprolol Succinate 25 MG DAILY 08/27 0900 AC 08/27 PO 0818 Nitroglycerin 0.4 MG Q 5 MINUTES X 3 DO.. 08/28 0045 AC SL Omeprazole 40 MG DAILY AC 08/27 07 AC 08/28 PO 0608 Last 24 Hrs of Lab/Erik Results Last 24 Hrs of Labs/Mics: Laboratory Tests 08/27/17 0837: Anion Gap 14, Estimated GFR > 60, BUN/Creatinine Ratio 30.0 H, CBC w Diff NO MAN DIFF REQ, RBC 4.38, MCV 85.9, MCH 29.7, MCHC 34.6, RDW 15.1 H, MPV 9.2, Gran % 51.7, Lymphocytes % 32.1, Monocytes % 11.4 H, Eosinophils % 4.1, Basophils % 0.7, Absolute Granulocytes 4.9, Absolute Lymphocytes 3.1, Absolute Monocytes 1.1 H, Absolute Eosinophils 0.4, Absolute Basophils 0.1 Assessment/Plan Assessment: Patient is an 82-year-old female with past medical history of type 2 diabetes, hypertension, hyperlipidemia, heart failure with preserved ejection fraction 45- 50%,CAD status post PCI in October 2007 of LAD, sick sinus syndrome status post pacemaker placement, pulmonary hypertension with RVSP of 53 mmHg, PAD, hypothyroidism, hereditory spherocytosis status post splenectomy, multiple toe amputations, macular degeneration, history of MRSA osteomyelitis. Patient's last admission to [facility] was in 08/16/[address] Talavera for debridement on left great toe for osteomyelitis. The previous admission was in June 2017 when she was treated for left foot osteomyelitis. The patient is admitted to general medicine floor and is being treated and evaluated for following conditions #Intermittent chest pain Patient complains of intermittent chest pain over the past 1 week. Reports pain that radiates to neck. Relief with aspirin. Patient's EKG shows no changes from previous. Patient's troponin on admission was <0.01. -Cardiology Dr. Ponce consulted -Stress test planned for today -Patient is nothing by mouth for stress test -Nitroglycerin as needed patient; has not required since last night. #Left lower extremity pain Most likely secondary to worsening of peripheral vascular disease. No evidence of cellulitis or DVT has been ruled out -Monitor fever and WBC curve -Monitor off antibiotics for now -Lower Extremity Arterial Doppler showed elevated velocity in the left popliteal artery which is suspicious for a hemodynamically significant stenosis.There is poor visualization of the peroneal artery suggesting hemodynamically significant stenosis and/or areas of occlusion. -Vascular surgery consulted, awaiting recommendations -If there is any change in clinical status or patient complains of worsening of pain we will obtain CT angiogram of leg #Lactic acidosis - resolved Patient presented with lactic acid of 3 probably secondary to tissue hypoperfusion versus infection. Patient received IV hydration with resolution of lactic acidosis. #Hyperglycemia, Hx oF DM Patient has history of diabetes mellitus and presented with glucose reading of greater than 400 on admission labs. 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 Leg pain Pain Ratin Pain Location: left leg Pain Goal: Pain 4 or less Pain Plan: prn Tomorrow's Labs & Rationales: Symone Kc MD 08/28/172024: Attending MD Review Statement Attending Statement Attending MD Statement: examined this patient, discuss w/resident/PA/SUBWAY CAR REPAIRER, agreed w/resident/PA/SUBWAY CAR REPAIRER, reviewed EMR data (avail), discussed with nursing, discussed with case mgmt, amended to note Attending Assessment/Plan: Patient seen and examined. Resting comfortably and not in any acute distress. She presented with complaints of acute left lower extremity pain. Symptoms have since abated during hospitalization. Although she states that the pain proximal hospitalization or even at rest, it is noted that she and the hospital she has been less ambulatory compared to her baseline at home. Arterial Doppler shows evidence of hemodynamically significant peripheral arterial disease in the left lower extremity involving the popliteal and peroneal artery. Fortunately of present at examination she shows no evidence of threatened limb. Her lower extremities are cool to touch. There is no area of tenderness. There is no discoloration. She denies any further chest pain while she has been in the hospital. Nuclear stress test done earlier today shows evidence of fixed defect with no evidence of reversible defects.. She is also noted to have reduced ejection fraction. Recommendations: -Lower extremity pain is most likely due to peripheral arterial disease noted in the left lower extremity. She has a vascular surgeon that she follows with in the outpatient setting. According to the patient prior to hospitalization she had arterial studies with her vascular surgeon who according to the patient's report stated she had no significant disease. We'll follow recommendations of the vascular surgery service here at [place] regarding long-term management. -Cardiac cath report. Patient is currently asymptomatic. Will follow-up with heading and priming tool setter regarding further management.
--- NOTE | 2017-08-28 10:24 | ULTRASOUND REPORT ---
EXAMINATION: COLOR-FLOW DUPLEX IMAGING OF THE LEFT LOWER EXTREMITY ARTERIAL SYSTEM. VELOCITY MEASUREMENTS THROUGHOUT THE FEMORAL ARTERIES WITH PERIPHERAL ARTERIAL TESTING. CLINICAL INFORMATION: This is an 82-year-old female with diabetes, multiple toe amputations, previous stent, left leg claudication, peripheral arterial disease. Interventional Radiologist: Vijay Romo M.D., F.S.I.R., F.A.C.R. LEFT FEMORAL RUNOFF VELOCITIES: The left common femoral artery measures 160 cm/s and triphasic. The left profunda femoral artery is 96 cm/s and is biphasic. Left proximal superficial femoral artery measures 148 cm/s and biphasic. Mid superficial femoral artery is 122 cm/s and biphasic. Distal left superficial femoral artery measures 106 cm/s and is biphasic. Left popliteal velocity measures 227 cm/s and is biphasic. The posterior tibial artery velocity measures 75 cm/s and was monophasic. The anterior tibial artery velocity measures 64 cm/s and is biphasic. The peroneal artery velocity measures 25 cm/s and is monophasic. The dorsalis pedis artery velocity measures 83 cm/s and is monophasic. IMPRESSION: 1. There is elevated velocity in the left popliteal artery which is suspicious for a hemodynamically significant stenosis. 2. There is poor visualization of the peroneal artery suggesting hemodynamically significant stenosis and/or areas of occlusion. EXAMINATION: US TRIPLEX OF LOWER EXTREMITIES, BILATERAL CLINICAL INFORMATION: This is an 82-year-old female with bilateral lower extremity edema and pain. Possible deep vein thrombosis. COMPARISON: None. TECHNIQUE: Color-flow triplex imaging with spectral analysis and compression Doppler were performed on the lower extremities. FINDINGS: Respiratory variation, normal compression and augmented flow are noted throughout the lower extremities. The visualized common femoral vein, superficial femoral vein, profunda femoral vein, popliteal vein and mid calf peroneal and posterior tibial venous segments show no evidence of deep venous thrombosis. There is no Lee's cyst. IMPRESSION: Normal triplex scan without evidence of deep venous thrombosis involving the lower extremities.
[2017-08-28 14:02] VITALS: BP 130/70
--- NOTE | 2017-08-28 14:56 | IV DIPYRIDAMOLE NUCLEAR STRESS ---
Clinical Diagnosis: chest pain Fish Dressing Machine Feeder: Shelly Servin Date of Service: 08/28/17 IV DIPYRIDAMOLE INFUSED: 40 mg IV AMINOPHYLLINE INFUSED: 0 mg PATIENT WEIGHT: 161 lbs INTERPRETATION: The patient's baseline EKG showed atrial paced with 1 degree AV block and left bundle branch block at 65 BPM. Baseline B/P 138/82. The patient received 40 mg of dipyridamole infused intravenously over a 4 minute period. TC99M Myoview was injected after dipyridamole infusion. The patient tolerated the infusion well. There were no EKG changes seen following pharmacologic infusion. Arrhythmias: rare premature ventricular contraction IMPRESSION: The test was supervised by the interpreting Engineering Librarian, who was in attendance during the entire test. No EKG evidence of stress induced myocardial ischemia. See separately dictated Nuclear Report.
--- NOTE | 2017-08-28 18:01 | NUCLEAR MEDICINE REPORT ---
PERSANTINE STRESS AND RESTING SPECT MYOCARDIAL PERFUSION IMAGING STUDY WITH GATED SPECT IMAGES: CLINICAL INDICATION: Ischemia. PROCEDURE: Regional myocardial perfusion was assessed using a 1 day protocol. Stress images were obtained on 08/28/2017 following the intravenous administration of 17.9 mCi Tc 99m Myoview. Stress consisted of 46 mg Persantine given intravenously. Following the sestamibi injection, no aminophylline was given intravenously. Rest images were obtained 08/28/2017 following the intravenous administration of 28.8 mCi Technetium 99m Myoview. Single photon emission tomographic (SPECT) images were obtained. SPECT images were acquired in a 64 x 64 matrix of 64 projections over 180 degrees. These were reconstructed into standard short axis, horizontal and vertical long axis cardiac projections. FINDINGS: The post stress images show the left ventricular chamber to be moderately dilated. There is a large region of markedly diminished and almost absent activity involving the mid and basal segments of the inferolateral and anterolateral pulido and portions of the adjacent mid and basilar segments of the inferior wall. There is an additional small region of moderately decreased activity present in the apical septal wall, but this may be in part due to attenuation by overlying breast soft tissues which is evident on review of the raw acquired projections. The rest images are not significantly changed from the post stress images. The images were obtained using a gated SPECT technique, which permits visualization of wall motion and calculation of the left ventricular ejection fraction. The left ventricular chamber is moderately dilated. There is moderately severe diffuse hypokinesis without a discrete focal component. The calculated left ventricular ejection fraction is 35% on the stress study. No previous study is available for comparison. IMPRESSION: Abnormal study. A large fixed perfusion abnormality is present involving the anterolateral, inferolateral and inferior pulido, as described above. No definite regions of reversible ischemia are visualized. Moderate left ventricular dilatation is present and there is moderately severe diffuse left ventricular hypokinesis. The left ventricular ejection fraction is moderately depressed.
--- NOTE | 2017-08-28 21:04 | PN- Cardiology ---
Subjective Subjective: * No complaints of chest discomfort this morning. * sinus rhythm Objective Vital Signs and I&Os Vital Signs Date Time Temp Pulse Resp B/P B/P Pulse O2 O2 Flow FiO2 Mean Ox Delivery Rate 08/28 1402 97.9 71 18 130/70 97 Room Air 08/28 0822 72 146/66 08/28 0658 97.3 68 20 120/66 92 Room Air 08/27 2304 97.9 60 18 138/64 94 Room Air Intake & Output 08/28 1600 08/28 0800 08/28 0000 08/27 1600 08/27 0800 08/27 0000 Intake Total 240 50 480 600 300 500 Output Total Balance 240 50 480 600 300 500 Intake, IV 250 400 Intake, Oral 240 50 480 600 50 100 Number 1 Bowel Movements Patient 161 lb 221 lb 218 lb Weight Weight Bed scale Measurement Method Physical Exam: General: WD/obese female in NAD; alert and oriented x 3 HEENT: NC/AT, PERRL, EOMI Neck: no JVD, no carotid bruit Heart: RRR Lungs: clear bilaterally Abdomen: soft, obese, NT, +ve bowel sounds Extremities: no edema Assessment/Plan Assessment/Plan * Chest discomfort has improved. There are fixed defects without any definite evidence of ischemia. We will treat her angina medically. Begin a NTG patch at 0.4mg/hr for 12 hours daily. Continue aspirin, Metoprolol and Zetia. * Due to decreased EF on stress testing obtain an echocardiogram to reassess her EF. Continue telemetry? Yes
[2017-08-28 22:22] VITALS: BP 138/62
[2017-08-29 06:46] VITALS: BP 122/66
[2017-08-29] MEDS ORDERED: NITROGLYCERIN1 EACH TOP (07:18)
--- NOTE | 2017-08-29 07:20 | Patient Discharge Instructions ---
Discharge Instructions General Discharge Information You were seen/treated for: Intermittent chest pain Left calf pain You had these procedures: Stress test Watch for these problems: Fever, chills, chest pain, palpitations, shortness of breath and Special Instructions: -Please follow-up with your primary care doctor after discharge -Please follow-up with Vascular surgeon after 1 week of discharge -Please follow-up with Dr. Ponce in 2 weeks. -Please wear Nitropatch for only 12 hours everyday -Please use compression stockings. -Please evaluate your left leg and apply warm compresses for symptomatic relief Diet Recommended Diet: Heart Healthy Activity Full Activity/No Limits: Yes Acute Coronary Syndrome Inclusion Criteria At DC or during hospital stay patient has or had the following: ACS DIAGNOSIS No Discharge Core Measures Meds if any: Prescribed or Continued at Discharge Meds if any: NOT Prescribed or Continued at Discharge Congestive Heart Failure Inclusion Criteria At DC or during hospital stay patient has or had the following: CHF DIAGNOSIS No Discharge Core Measures Meds if any: Prescribed or Continued at Discharge Meds if any: NOT Prescribed or Continued at Discharge Cerebrovascular accident Inclusion Criteria At DC or during hospital stay patient has or had the following: CVA/TIA Diagnosis No Discharge Core Measures Meds if any: Prescribed or Continued at Discharge Meds if any: NOT Prescribed or Continued at Discharge Venous thromboembolism Inclusion Criteria VTE Diagnosis No VTE Type NONE VTE Confirmed by (Test) NONE Discharge Core Measures - Per Current guidelines, there needs to be overlap - treatment for the first 5 days of Warfarin therapy. - If discharged on Warfarin prior to 5 days of - overlap therapy, the patient will need to be - assessed for post discharge needs including - *Post discharge parental anticoagulation - *Warfarin and/or parental anticoagulation education - *Follow up date to check INR post discharge At least 5 days overlap therapy as Inpatient No Meds if any: Prescribed or Continued at Discharge Note: Overlap Therapy is Warfarin and Anticoagulant Meds if any: NOT Prescribed or Continued at Discharge
--- NOTE | 2017-08-29 08:13 | PN- Housestaff ---
See Addendum Subjective Follow-up For: PVD Subjective: Seen and examined. Sitting comfortably. Offers no complaints other than continued left leg pain. No overnight acute events. Review of Systems Constitutional: Reports: see HPI. Objective Last 24 Hrs of Vital Signs/I&O Vital Signs Date Time Temp Pulse Resp B/P B/P Pulse O2 O2 Flow FiO2 Mean Ox Delivery Rate 08/29 0923 60 122/68 08/29 0646 99.3 61 18 122/66 94 Room Air 08/28 2222 97.7 68 18 138/62 95 Room Air 08/28 1402 97.9 71 18 130/70 97 Room Air Intake & Output 08/29 1600 08/29 0800 08/29 0000 Intake Total 460 800 Output Total Balance 460 800 Intake, Oral 460 800 Patient 210 lb Weight Physical Exam General Appearance: Alert, Oriented X3, Cooperative Lungs: Clear to Auscultation, Normal Air Movement Abdomen: Soft, No Tenderness Neurological: Normal Speech Extremities: chronic venous stasis changes Current Medications: Current Medications Sig/Way[place] Start time Last Medication Dose Route Stop Time Status Admin Acetaminophen 650 MG Q4P PRN 08/26 2030 AC PO Aspirin 650 MG DAILY 08/27 09 AC 08/29 PO 0924 Citalopram 40 MG DAILY 08/27 09 AC 08/29 Hydrobromide PO 0923 Enoxaparin Sodium 40 MG DAILY 08/27 09 AC SC Ezetimibe 10 MG DAILY 08/27 0900 AC 08/29 PO 0924 Ferrous Sulfate 325 MG BID 08/26 2100 AC 08/29 PO 0923 Gabapentin 300 MG TID 08/26 1741 AC 08/29 PO 0923 Insulin Aspart 0 TIDAC 08/29 0800 AC 08/29 SC 0922 Insulin Detemir 10 UNITS BID 08/26 2100 AC 08/29 SC 0923 Insulin Human Regular 0 Q6 08/28 0744 DC 08/28 SC 1354 Latanoprost 1 GTT QPM 08/26 2100 AC 08/28 OPH 2106 Levothyroxine Sodium 0.137 MG DAILY AC 08/27 0700 AC 08/29 PO 0623 Melatonin 3 MG AT BEDTIME 08/27 0200 AC 08/28 PO 2107 Metoprolol Succinate 25 MG DAILY 08/27 0900 AC 08/29 PO 0923 Nitroglycerin 0.4 MG DAILY 08/29 0900 AC 08/29 TOP 0924 Nitroglycerin 0.4 MG Q 5 MINUTES X 3 DO.. 08/28 0045 DC SL Omeprazole 40 MG DAILY AC 08/27 0700 AC 08/29 PO 0623 Last 24 Hrs of Lab/Erik Results Last 24 Hrs of Labs/Mics: Laboratory Tests 08/29/17 0750: Anion Gap 9, Estimated GFR > 60, BUN/Creatinine Ratio 21.1 Assessment/Plan Assessment: Patient is an 82-year-old female with past medical history of type 2 diabetes, hypertension, hyperlipidemia, heart failure with preserved ejection fraction 45- 50%,CAD status post PCI in October 2007 of LAD, sick sinus syndrome status post pacemaker placement, pulmonary hypertension with RVSP of 53 mmHg, PAD, hypothyroidism, hereditory spherocytosis status post splenectomy, multiple toe amputations, macular degeneration, history of MRSA osteomyelitis. Patient's last admission to [facility] was in 08/16/[address] Talavera for debridement on left great toe for osteomyelitis. The previous admission was in June 2017 when she was treated for left foot osteomyelitis. The patient is admitted to general medicine floor and is being treated and evaluated for following conditions #Intermittent chest pain Patient complains of intermittent chest pain over the past 1 week. Reports pain that radiates to neck. Relief with aspirin. Patient's EKG shows no changes from previous. Patient's troponin on admission was <0.01. - Nuclear stress test done earlier today shows evidence of fixed defect with no evidence of reversible defects.She is also noted to have reduced ejection fraction and there is moderately severe diffuse left ventricular hypokinesis. A large fixed perfusion abnormality is present involving the anterolateral, inferolateral and inferior pulido -Patient will benefit from an echocardiogram. Which we will like to be done inpatient she can follow up with the results with Dr. Ponce outpatient -Continue nitroglycerin patch as per cardiology recommendations #Left lower extremity pain Most likely secondary to worsening of peripheral vascular disease. No evidence of cellulitis or DVT has been ruled out -Monitor fever and WBC curve -Monitor off antibiotics for now -Lower Extremity Arterial Doppler showed elevated velocity in the left popliteal artery which is suspicious for a hemodynamically significant stenosis.There is poor visualization of the peroneal artery suggesting hemodynamically significant stenosis and/or areas of occlusion. -I have called the Vascular service and placed an official consult again regarding recommendation if there is any acute intervention for now, which is less likely. Awaiting recommendation. We'll follow recommendations of the vascular surgery service here at [place] regarding long-term management -If there is any change in clinical status or patient complains of worsening of pain we will obtain CT angiogram of leg #Lactic acidosis - resolved Patient presented with lactic acid of 3 probably secondary to tissue hypoperfusion versus infection. Patient received IV hydration with resolution of lactic acidosis. #Hyperglycemia, Hx oF DM Patient has history of diabetes mellitus and presented with glucose reading of greater than 400 on admission labs. 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 Quintero 08/29/2017 around 1:30pm, Pt has been evaluated by one of his group physicians Dr. Moreno who will leave the recommendations. At this point there is no acute surgical intervention patient has palpable pulses Problem List: 1. Leg pain Pain Ratin Pain Location: left leg Pain Goal: Pain 4 or less Pain Plan: prn Tomorrow's Labs & Rationales: none
--- NOTE | 2017-08-29 13:50 | Cons- Endocrinology ---
General Information and HPI Consulting Request Date of Consult: 08/29/17 Requested By: medical team Reason for Consult: uncobtrolled diabetes Source of Information: patient, old records Exam Limitations: no limitations History of Present Illness: This 82-year-old woman with a known history of diabetes and coronary artery disease came to the emergency room because of pain in her leg. The patient states the pain in the lower leg started suddenly and kept her up all night. She finally came to the emergency room. Studies have revealed no evidence of DVT. However apparently there is arterial disease and she is waiting for Dr. Crook to come by for vascular consultation. . The patient also complains of pressure in her jaw and neck area when she gets upset about things. It does not necessarily come on when she walks. She had a stress test done which shows a large defect in the ventricle which is not reversible. Dr. Ponce is to evaluate. She is going to have a cardiac echo later on today. The patient was n.p.o. for the stress test yesterday and her mealtime insulin is just being restarted. Allergies/Medications Allergies: Coded Allergies: Sulfa (Sulfonamide Antibiotics) (HIVES 08/05/15) adhesive tape (RASH PER PT - PAPER TAPE ONLY 01/10/17) morphine (PER PT EYES ROLL BACK IN HEAD, TOTALLY OUT OF IT 01/10/17) Home Med List: Acetaminophen/Diphenhydramine (Tylenol Pm Ex-Strength Caplet) 500 MG-25 MG TABLET 2 TAB PO QPM PRN SLEEP (Reported) Aspirin (Aspirin*) 325 MG TABLET 2 TAB PO DAILY HEART HEALTH (Reported) Bimatoprost (Lumigan) 0.01 % DROPS 1 GTT OPH QPM BOTH EYES (Reported) Cholecalciferol (Vitamin D3) (Vitamin D) 2,000 UNIT TABLET 1 TAB PO DAILY SUPPLEMENT (Reported) Citalopram Hydrobromide (Citalopram HBr) 40 MG TABLET 1 TAB PO DAILY MENTAL HEALTH (Reported) Ezetimibe (Zetia) 10 MG TABLET 1 TAB PO DAILY CHOLESTEROL (Reported) Ferrous Sulfate 325 MG (65 MG IRON) TABLET 1 TAB PO BID SUPPLEMENT (Reported) Fesoterodine Fumarate (Toviaz) 8 MG TAB.ER.24H 1 TAB PO DAILY BLADDER ( Reported) Gabapentin 100 MG CAPSULE 3 CAP PO TID NEUROPATHY (Reported) Insulin Lispro (Humalog) 100 UNIT/ML VIAL 0 SC SEE SLIDING SCALE DIABETES ( Reported) Bolus Insulin: Novolog < 80 mg/dl: no coverage 80-100 mg/dl: 8 units 101-120 mg/dl: 8 units 121-150 mg/dl: 8 units 151-200 mg/dl: 10 units 201-250 mg/dl: 12 units 251-300 mg/dl: 14 units 301-350 mg/dl: 15 units 351-400 mg/dl: 16 units > 400 mg/dl: 18 units Insulin NPH Human Isophane (Humulin N Kwikpen) 100 UNIT/ML (3 ML) INSULN.PEN 40 U SC BID DIABETES (Reported) Levothyroxine Sodium 137 MCG TABLET 1 TAB PO DAILY AC THYROID (Reported) Lisinopril 5 MG TABLET 1 TAB PO DAILY Heart . Melatonin 3 MG TABLET 1 TAB PO QPM SUPPLEMENT (Reported) Metformin HCl 1,000 MG TABLET 1 TAB PO DAILY DM (Reported) Metoprolol Succinate 25 MG TAB 1 TAB PO DAILY HEART/BP (Reported) Nitroglycerin (Nitroglycerin Patch) 0.4 MG/HOUR PATCH.TD24 1 PATCH TOP DAILY Chest pain APPLY for 12 hours every day. Pantoprazole Sodium (Protonix) 40 MG TABLET.DR 1 TAB PO DAILY ACID REFLUX ( Reported) Torsemide 20 MG TABLET 1 TAB PO DAILY DIURETIC (Reported) Review of Systems Review of Systems Constitutional: Denies: chills, fever. Cardiovascular: Reports: chest pain (radiating to jaw). Respiratory: Denies: cough, short of breath. GI: Denies: abdominal pain, nausea, vomiting. Musculoskeletal: Reports: muscle pain (leg). Skin: Denies: rash. Past History Travel History Traveled to [place] past 21 day No Medical History Blood Transfusion Hx: No Neurological: CVA, peripheral neuropathy, polio EENT: diabetic retinopathy, macular degeneration Cardiovascular: AFIB (paroxysmal), CAD, hypertension, hyperlipidemia, PVD (L CEA ), PACEMAKER rheumatic fever MURMUR Respiratory: pneumonia Gastrointestinal: diverticulitis, peptic ulcer disease, upper GI bleed, gastritis Hepatic: NONE Renal: intermittent renal insuff Musculoskeletal: chronic back pain, degen joint disease, osteoarthritis, CHIPPED ELBOWS BILATERAL Psychiatric: anxiety, depression Endocrine: diabetes, hypothyroidism, obesity, vitamin D deficiency Blood Disorders: SPHEROCYTOSIS Cancer(s): NONE 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 Home Who Do You Live With? self Services at Home: None Primary Language: Spanish Smoking Status: Former Smoker ETOH Use: denies use Illicit Drug Use: denies illicit drug use Living Will? no Power of Hair Baler/HCP? no Functional Ability ADLs Independent: dressing, eating, toileting, bathing. Ambulation: cane IADLs Independent: shopping, housework, finances, food prep, telephone, transportation , medication admin. Exam & Diagnostic Data Last 24 Hrs of Vital Signs/I&O Vital Signs Date Time Temp Pulse Resp B/P B/P Pulse O2 O2 Flow FiO2 Mean Ox Delivery Rate 08/30 0816 68 132/68 08/30 0646 97.9 67 20 136/62 93 Room Air 08/29 2223 98.0 74 20 114/58 96 Intake & Output 08/30 1600 08/30 0800 08/30 0000 Intake Total 200 150 Output Total Balance 200 150 Intake, IV 10 Intake, Oral 200 140 Physical Exam General Appearance: alert, awake, comfortable Head: normal appearance Neck: normal inspection Respiratory: normal breath sounds Cardiovascular: regular rate/rhythm Gastrointestinal: normal bowel sounds, soft Extremities: swelling Skin: intact (stasis derm lower leg) Assessment/Plan Assessment/Plan This patient has uncontrolled diabetes mellitus type 2 associated with obesity. She has evidence of peripheral vascular disease. She has also developed pain and her neck and jaw area associated with emotional stress which seems to be an anginal equivalent. With regard to the diabetes, the patient likes to take NPH insulin. I would begin her on 16 units of NPH twice a day given before breakfast and at 10 PM daily. In addition I would adjust her sliding scale NovoLog. Sliding scale NovoLog before meals should be 80-150 give 6 units NovoLog, 151-200 give 8 units NovoLog, 201-250 give 10 units NovoLog, 251-300 give 12 units NovoLog, 301-350 give 14 units NovoLog, 3 5104 100 give 16 units of NovoLog. I would not give any bedtime NovoLog at present. We should do Accu-Cheks 4 times a day before each meal and at bedtime. Consult Acknowledgment - Thank you for your consult request.
--- NOTE | 2017-08-29 14:12 | Cons- Vascular Surgery ---
See Addendum General Information and HPI Consulting Request Date of Consult: 08/20/17 Requested By: Symone Marte MD Reason for Consult: left leg pain Source of Information: patient Exam Limitations: no limitations History of Present Illness: patient complains of left flank pain. Anterior quan. No pain in the foot. History of osteomyelitis. Previous revascularizations by Dr. Moreno. She states that now she is being followed by Dr. Mckeon Allergies/Medications Allergies: Coded Allergies: Sulfa (Sulfonamide Antibiotics) (HIVES 08/05/15) adhesive tape (RASH PER PT - PAPER TAPE ONLY 01/10/17) morphine (PER PT EYES ROLL BACK IN HEAD, TOTALLY OUT OF IT 01/10/17) Home Med List: Acetaminophen/Diphenhydramine (Tylenol Pm Ex-Strength Caplet) 500 MG-25 MG TABLET 2 TAB PO QPM PRN SLEEP (Reported) Aspirin (Aspirin*) 325 MG TABLET 2 TAB PO DAILY HEART HEALTH (Reported) Bimatoprost (Lumigan) 0.01 % DROPS 1 GTT OPH QPM BOTH EYES (Reported) Cholecalciferol (Vitamin D3) (Vitamin D) 2,000 UNIT TABLET 1 TAB PO DAILY SUPPLEMENT (Reported) Citalopram Hydrobromide (Citalopram HBr) 40 MG TABLET 1 TAB PO DAILY MENTAL HEALTH (Reported) Ezetimibe (Zetia) 10 MG TABLET 1 TAB PO DAILY CHOLESTEROL (Reported) Ferrous Sulfate 325 MG (65 MG IRON) TABLET 1 TAB PO BID SUPPLEMENT (Reported) Fesoterodine Fumarate (Toviaz) 8 MG TAB.ER.24H 1 TAB PO DAILY BLADDER ( Reported) Gabapentin 100 MG CAPSULE 3 CAP PO TID NEUROPATHY (Reported) Insulin Lispro (Humalog) 100 UNIT/ML VIAL 0 SC SEE SLIDING SCALE DIABETES ( Reported) Bolus Insulin: Novolog < 80 mg/dl: no coverage 80-100 mg/dl: 8 units 101-120 mg/dl: 8 units 121-150 mg/dl: 8 units 151-200 mg/dl: 10 units 201-250 mg/dl: 12 units 251-300 mg/dl: 14 units 301-350 mg/dl: 15 units 351-400 mg/dl: 16 units > 400 mg/dl: 18 units Insulin NPH Human Isophane (Humulin N Kwikpen) 100 UNIT/ML (3 ML) INSULN.PEN 40 U SC BID DIABETES (Reported) Levothyroxine Sodium 137 MCG TABLET 1 TAB PO DAILY AC THYROID (Reported) Melatonin 3 MG TABLET 1 TAB PO QPM SUPPLEMENT (Reported) Metformin HCl 1,000 MG TABLET 1 TAB PO DAILY DM (Reported) Metoprolol Succinate 25 MG TAB 1 TAB PO DAILY HEART/BP (Reported) Nitroglycerin (Nitroglycerin Patch) 0.4 MG/HOUR PATCH.TD24 1 PATCH TOP DAILY Chest pain Oxybutynin Chloride (Oxybutynin Chloride ER) (Unknown Strength) TAB.ER.24 ( Unknown Dose) UNKNOWN (Reported) Pantoprazole Sodium (Protonix) 40 MG TABLET.DR 1 TAB PO DAILY ACID REFLUX ( Reported) Torsemide 20 MG TABLET 1 TAB PO DAILY DIURETIC (Reported) Current Medications: Current Medications Sig/[place] Start time Last Medication Dose Route Stop Time Status Admin Acetaminophen 650 MG Q4P PRN 08/26 2030 AC PO Aspirin 650 MG DAILY 08/27 0900 AC 08/29 PO 0924 Citalopram 40 MG DAILY 08/27 09 AC 08/29 Hydrobromide PO 0923 Enoxaparin Sodium 40 MG DAILY 08/27 0900 AC MN Ezetimibe 10 MG DAILY 08/27 0900 AC 08/29 PO 0924 Ferrous Sulfate 325 MG BID 08/26 2100 AC 08/29 PO 0923 Gabapentin 300 MG TID 08/26 1741 AC 08/29 PO 0923 Insulin Aspart 0 TIDAC 08/29 0800 AC 08/29 SC 1228 Insulin Detemir 10 UNITS BID 08/26 2100 AC 08/29 SC 0923 Insulin Human Regular 0 Q6 08/28 0744 DC 08/28 SC 1354 Latanoprost 1 GTT QPM 08/26 2100 AC 08/28 OPH 2106 Levothyroxine Sodium 0.137 MG DAILY AC 08/27 0700 AC 08/29 PO 0623 Melatonin 3 MG AT BEDTIME 08/27 0200 AC 08/28 PO 2107 Metoprolol Succinate 25 MG DAILY 08/27 0900 AC 08/29 PO 0923 Nitroglycerin 0.4 MG DAILY 08/29 0900 AC 08/29 TOP 0924 Nitroglycerin 0.4 MG Q 5 MINUTES X 3 DO.. 08/28 0045 DC Omeprazole 40 MG DAILY AC 08/27 0700 AC 08/29 PO 0623 Past History Medical History Blood Transfusion Hx: No Neurological: CVA, peripheral neuropathy, polio EENT: diabetic retinopathy, macular degeneration Cardiovascular: AFIB (paroxysmal), CAD, hypertension, hyperlipidemia, PVD (L CEA ), PACEMAKER rheumatic fever MURMUR Respiratory: pneumonia Gastrointestinal: diverticulitis, peptic ulcer disease, upper GI bleed, gastritis Hepatic: NONE Renal: intermittent renal insuff Musculoskeletal: chronic back pain, degen joint disease, osteoarthritis, CHIPPED ELBOWS BILATERAL Psychiatric: anxiety, depression Endocrine: diabetes, hypothyroidism, obesity, vitamin D deficiency Blood Disorders: SPHEROCYTOSIS Cancer(s): NONE 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 Home Who Do You Live With? self Services at Home: None Primary Language: Romansh Smoking Status: Former Smoker ETOH Use: denies use Illicit Drug Use: denies illicit drug use Living Will? no Power of Product Support Engineer/HCP? no Functional Ability ADLs Independent: dressing, eating, toileting, bathing. Ambulation: cane IADLs Independent: shopping, housework, finances, food prep, telephone, transportation , medication admin. Exam & Diagnostic Data Vital Signs and I&O Vital Signs Date Time Temp Pulse Resp B/P B/P Pulse O2 O2 Flow FiO2 Mean Ox Delivery Rate 08/29 0923 60 122/68 08/29 0646 99.3 61 18 122/66 94 Room Air 08/28 2222 97.7 68 18 138/62 95 Room Air Intake & Output 08/29 1600 08/29 0800 08/29 0000 08/28 1600 08/28 0800 08/28 0000 Intake Total 460 800 240 50 480 Output Total Balance 460 800 240 50 480 Intake, Oral 460 800 240 50 480 Patient 210 lb 161 lb Weight Weight Bed scale Measurement Method Physical Exam General Appearance: well developed/nourished, no apparent distress Peripheral Pulses: 2+ radial (R), 2+ radial (L), 2+ femoral (R), 2+ femoral (L), 0 dorsalis pedis ( R) (adequate distal pulses left fo), 2+ dorsalis pedis (L) Extremities: normal inspection, normal capillary refill (no signs of infection. No eryt) Last 24 Hours of Labs: Laboratory Tests 08/29 0750 Chemistry Sodium (137 - 145 mmol/L) 136 L Potassium (3.5 - 5.1 mmol/L) 4.6 Chloride (98 - 107 mmol/L) 99 Carbon Dioxide (22 - 30 mmol/L) 27 Anion Gap (5 - 16) 9 BUN (7 - 17 mg/dL) 19 H Creatinine (0.5 - 1.0 mg/dL) 0.9 Estimated GFR (>60 ml/min) > 60 BUN/Creatinine Ratio (7 - 25 %) 21.1 Assessment/Plan Assessment/Plan history of peripheral vascular disease. Adequate distal circulation in the left foot. Possible phlebitis in the left leg. Recommend leg elevation and elastic stockings. Rule out deep venous thrombosis with ultrasound. Continue present medications and follow-up with her present vascular surgeon or in our office with Dr. Quintero with Dr. Shirley Consult Acknowledgment - Thank you for your consult request.
--- NOTE | 2017-08-29 14:16 | Discharge Summary ---
Visit Information Visit Dates Admission Date: 08/26/17 Hospital Course Course Attending Physician: Symone Marte MD Primary Care Physician: Pearl Horan APRN Hospital Course: The patient is a 82-year-old female with past medical history of type 2 diabetes , hypertension, hyperlipidemia, heart failure with preserved ejection fraction 45-50%,CAD status post PCI in October 2007 of LAD, sick sinus syndrome status post pacemaker placement, pulmonary hypertension with RVSP of 53 mmHg, PAD, hypothyroidism, hereditory spherocytosis status post splenectomy, multiple toe amputations, macular degeneration, history of MRSA osteomyelitis. Patient's last admission to [facility] was in 08/16/[address] Talavera for debridement on left great toe for osteomyelitis. The patient presented to [facility] ED for evaluation left lower extremity/calf pain Vital signs at presentation WN Admission labs are significant for BUN 36 creatinine 1.1 baseline 1.0-1.3, lactic acidosis, glucose 424, proBNP 1240 Patient was admitted to general medicine floor and was treated and evaluated for left lower extremity pain. We considered a DVT as cause of patient's left lower extremity pain and was ruled out by ultrasound cellulitis was also one of the differentials. Patient remained afebrile, without white count with chronic venous stasis changes and no edema noticed, however received vancomycin and ceftazidime for empirical coverage with history of MRSA. There was also consideration of embolic limb ischemia however on examination patient's feet were warm to touch and she appeared to have good capillary refill pulses are palpable. #Left lower extremity pain -Monitor fever and WBC curve -Monitor off antibiotics for now -Bilateral lower extremity arterial Doppler -Vascular surgery consult -If there is any change in clinical status or patient complains of worsening of pain we will obtain CT angiogram of leg #Lactic acidosis patient presented with lactic acid of 3 probably secondary to tissue hypoperfusion versus infection -IV hydration -Repeat lactate #Hyperglycemia Patient has history of diabetes mellitus and presented with glucose reading of greater than 400 on admission labs. 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 Baseline creatinine is 1.0-1.3 at present within normal limits -Continue to monitor creatinine graft #Chronic medical conditions Hypertension, hypothyroidism, GERD, diabetic neuropathy, hyperlipidemia, bladder , mental health Continue metoprolol, Torsemide, levothyroxine, omeprazole, gabapentin, Zetia, Toviaz, citalopram Allergies: Coded Allergies: Sulfa (Sulfonamide Antibiotics) (HIVES 08/05/15) adhesive tape (RASH PER PT - PAPER TAPE ONLY 01/10/17) morphine (PER PT EYES ROLL BACK IN HEAD, TOTALLY OUT OF IT 01/10/17) Discharge Instructions General Discharge Information Follow-Up Instructions/Appts: -Please follow-up with your primary care doctor after discharge -Please follow-up with Vascular surgeon after 1 week of discharge -Please follow-up with Dr. Ponce in 2 weeks. -Please wear Nitropatch for only 12 hours everyday -Please use compression stockings. -Please evaluate your left leg and apply warm compresses for symptomatic relief Medications at Discharge Discharge Medications: Stop taking the following medications: Oxybutynin Chloride (Oxybutynin Chloride ER) (Unknown Strength) TAB.ER.24 Qty = 30 Continue taking these medications: Levothyroxine Sodium (Levothyroxine Sodium) 137 MCG TABLET 1 Tablet ORAL DAILY BEFORE BREAKFAST Comments: Last Taken: 08/30/17 Time: 6:00 AM Acetaminophen/Diphenhydramine (Tylenol Pm Ex-Strength Caplet) 500 MG-25 MG TABLET 2 Tablet ORAL Every night as needed for SLEEP Comments: NOT GIVEN Aspirin (Aspirin*) 325 MG TABLET 2 Tablet ORAL DAILY Comments: Last Taken: 08/29/18 Time: 9:00 AM Pantoprazole Sodium (Protonix) 40 MG TABLET. 1 Tablet ORAL DAILY Comments: PRILOSEC GIVEN IN HOSPITAL Last Taken: 08/30/17 Time: 6:00 AM Ferrous Sulfate (Ferrous Sulfate) 325 MG (65 MG IRON) TABLET 1 Tablet ORAL TWICE DAILY Comments: Last Taken: 08/29/18 Time: 8:00 AM Ezetimibe (Zetia) 10 MG TABLET 1 Tablet ORAL DAILY Qty = 90 Comments: Last Taken: 08/30/17 Time: 8:00 AM Insulin Lispro (Humalog) 100 UNIT/ML VIAL 0 Inject into fatty tissue SEE SLIDING SCALE Instructions: Bolus Insulin: Novolog < 80 mg/dl: no coverage 80-100 mg/dl: 8 units 101-120 mg/dl: 8 units 121-150 mg/dl: 8 units 151-200 mg/dl: 10 units 201-250 mg/dl: 12 units 251-300 mg/dl: 14 units 301-350 mg/dl: 15 units 351-400 mg/dl: 16 units > 400 mg/dl: 18 units Comments: NOVOLOG GIVEN SUBSTITUTE Last Taken: 08/30/17 Time: 12:00 PM Insulin NPH Human Isophane (Humulin N Kwikpen) 100 UNIT/ML (3 ML) INSULN.PEN 40 Units Inject into fatty tissue TWICE DAILY Qty = 15 Comments: Last Taken: 08/30/17 Time: 6:00 AM Bimatoprost (Lumigan) 0.01 % DROPS 1 Drop In the eye Every night Qty = 75 Comments: Last Taken: 08/29/17 Time: 9:00 PM Gabapentin (Gabapentin) 100 MG CAPSULE 3 Capsule ORAL THREE TIMES DAILY Qty = 180 Comments: Last Taken: 08/30/17 Time: 1:00 PM Citalopram Hydrobromide (Citalopram HBr) 40 MG TABLET 1 Tablet ORAL DAILY Qty = 30 Comments: Last Taken: 08/30/17 Time: 8:00 AM Metoprolol Succinate (Metoprolol Succinate) 25 MG TAB 1 Tablet ORAL DAILY Qty = 90 Comments: Last Taken: 08/30/17 Time: 8:00 AM Cholecalciferol (Vitamin D3) (Vitamin D) 2,000 UNIT TABLET 1 Tablet ORAL DAILY Comments: NOT GIVEN Torsemide (Torsemide) 20 MG TABLET 1 Tablet ORAL DAILY Qty = 60 Comments: NOT GIVEN Metformin HCl (Metformin HCl) 1,000 MG TABLET 1 Tablet ORAL DAILY Qty = 180 Comments: NOT GIVEN Melatonin (Melatonin) 3 MG TABLET 1 Tablet ORAL Every night Comments: Last Taken: 08/29/17 Time: 9:00 PM Fesoterodine Fumarate (Toviaz) 8 MG TAB.ER.24H 1 Tablet ORAL DAILY Comments: NOT GIVEN Start taking the following new medications: Lisinopril (Lisinopril) 5 MG TABLET 1 Tablet ORAL DAILY Qty = 30 No Refills Instructions: . Nitroglycerin (Nitroglycerin Patch) 0.4 MG/HOUR PATCH.TD24 1 PATCH On the skin DAILY Qty = 20 No Refills Instructions: APPLY for 12 hours every day.
[2017-08-29 15:02] VITALS: BP 126/64
--- NOTE | 2017-08-29 20:12 | ULTRASOUND REPORT ---
EXAMINATION: US TRIPLEX OF LOWER EXTREMITIES, BILATERAL CLINICAL INFORMATION: Edema and pain. COMPARISON: None TECHNIQUE: Color-flow triplex imaging with spectral analysis and compression Doppler were performed on the lower extremities. FINDINGS: Respiratory variation, normal compression and augmented flow are noted throughout the lower extremities. The visualized common femoral vein, superficial femoral vein, profunda femoral vein, popliteal vein and midcalf peroneal and posterior tibial venous segments show no evidence of deep venous thrombosis. There is no Lee's cyst. There is edema in the subcutaneous tissues of the right calf. IMPRESSION: Normal triplex scan without evidence of deep venous thrombosis involving the lower extremities.
[2017-08-29 22:23] VITALS: BP 114/58
[2017-08-30 06:46] VITALS: BP 136/62
--- NOTE | 2017-08-30 07:22 | PN- Housestaff ---
See Addendum Subjective Follow-up For: Left lower extremity pain Intermittent chest pain Subjective: seen and examined. No overnight acute events. Patient has cardiac concerns. No chills fevers shortness of breath or palpitations. No episode of chest pain patient continues to be on nitroglycerin patch. She feels like the patch is like a band aid and is not addressing the real issue. Patient has been evaluated by vascular surgery who do not want any acute intervention at this time patient will be following up as an outpatient. Echocardiogram results back ejection fraction shows 40% awaiting cardiology recommendations. Review of Systems Constitutional: Reports: see HPI. Objective Last 24 Hrs of Vital Signs/I&O Vital Signs Date Time Temp Pulse Resp B/P B/P Pulse O2 O2 Flow FiO2 Mean Ox Delivery Rate 08/30 0816 68 132/68 08/30 0646 97.9 67 20 136/62 93 Room Air 08/29 2223 98.0 74 20 114/58 96 08/29 1502 98.7 63 20 126/64 95 Intake & Output 08/30 1600 08/30 0800 08/30 0000 Intake Total 200 150 Output Total Balance 200 150 Intake, IV 10 Intake, Oral 200 140 Physical Exam General Appearance: Alert, Oriented X3, Cooperative Cardiovascular: Normal S1, Normal S2 Lungs: Clear to Auscultation Neurological: Normal Speech Extremities: Left lower extremity tender to touch palpable pulses b/l Current Medications: Current Medications Sig/[place] Start time Last Medication Dose Route Stop Time Status Admin Acetaminophen 650 MG Q4P PRN 08/26 2030 AC PO Aspirin 650 MG DAILY 08/27 09 AC 08/29 PO 0924 Citalopram 40 MG DAILY 08/27 09 AC 08/30 Hydrobromide PO 0815 Enoxaparin Sodium 40 MG DAILY 08/27 0900 AC SC Ezetimibe 10 MG DAILY 08/27 0900 AC 08/30 PO 0816 Ferrous Sulfate 325 MG BID 08/26 2100 AC 08/30 PO 0816 Gabapentin 300 MG TID 08/26 1741 AC 08/30 PO 0816 Insulin Aspart 0 TIDAC 08/29 0800 AC 08/30 SC 0833 Insulin Detemir 10 UNITS BID 08/26 2100 DC 08/29 SC 0923 Insulin Human NPH 16 UNITS 0600,2200 08/29 2200 AC 08/30 SC 0600 Latanoprost 1 GTT QPM 08/26 2100 AC 08/29 OPH 2124 Levothyroxine Sodium 0.137 MG DAILY AC 08/27 0700 AC 08/30 PO 0555 Melatonin 3 MG AT BEDTIME 08/27 0200 AC 08/29 PO 2123 Metoprolol Succinate 25 MG DAILY 08/27 09 AC 08/30 PO 0816 Nitroglycerin 0.4 MG DAILY 08/29 0900 AC 08/30 TOP 0819 Omeprazole 40 MG DAILY AC 08/27 07 AC 08/30 PO 0555 Assessment/Plan Assessment: Patient is an 82-year-old female with past medical history of type 2 diabetes, hypertension, hyperlipidemia, heart failure with preserved ejection fraction 45- 50%,CAD status post PCI in October 2007 of LAD, sick sinus syndrome status post pacemaker placement, pulmonary hypertension with RVSP of 53 mmHg, PAD, hypothyroidism, hereditory spherocytosis status post splenectomy, multiple toe amputations, macular degeneration, history of MRSA osteomyelitis. Patient's last admission to [facility] was in 08/16/[address] Talavera for debridement on left great toe for osteomyelitis. The previous admission was in June 2017 when she was treated for left foot osteomyelitis. The patient is admitted to general medicine floor and is being treated and evaluated for following conditions #Intermittent chest pain Patient complains of intermittent chest pain over the past 1 week. Reports pain that radiates to neck. Relief with aspirin. Patient's EKG shows no changes from previous. Patient's troponin on admission was <0.01. - Nuclear stress test done earlier shows evidence of fixed defect with no evidence of reversible defects.She is also noted to have reduced ejection fraction and there is moderately severe diffuse left ventricular hypokinesis. A large fixed perfusion abnormality is present involving the anterolateral, inferolateral and inferior pulido -Echocardiogram showed reduced ejection fraction from 55% from past to 40%.with posterolateral wall hypokinesis and impaired LV relaxation. Moderate to severe left atrial enlargement. -Outpatient follow-up with cardiology -Pt states she doesnot take satatin because of side effects of myalgias -Continue nitroglycerin patch as per cardiology recommendations -She might benefit from NEIDA inhibitor or ARBs will discuss with cardiology #Left lower extremity pain worsening of peripheral vascular disease?. No evidence of cellulitis or DVT has been ruled out -Monitor fever and WBC curve -Monitor off antibiotics for now -Lower Extremity Arterial Doppler showed elevated velocity in the left popliteal artery which is suspicious for a hemodynamically significant stenosis.There is poor visualization of the peroneal artery suggesting hemodynamically significant stenosis and/or areas of occlusion. -Vascular surgery on board . At this point there is no acute surgical intervention patient has palpable pulses, outpt followup. They are thinkng more along the lines of phlebitis as cause of pt's pain. -If there is any change in clinical status or patient complains of worsening of pain we will obtain CT angiogram of leg #Lactic acidosis - resolved Patient presented with lactic acid of 3 probably secondary to tissue hypoperfusion versus infection. Patient received IV hydration with resolution of lactic acidosis. #Hyperglycemia, Hx oF DM Patient has history of diabetes mellitus and presented with glucose reading of greater than 400 on admission labs. 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 Leg pain Pain Ratin Pain Location: left leg Pain Goal: Pain 4 or less Pain Plan: prn Tomorrow's Labs & Rationales: none anticipated d/c today Tomorrow's Labs & Rationales: none anticipated d/c today
--- NOTE | 2017-08-30 07:50 | ECHOCARDIOGRAM REPORT ---
OLIVIASWAPNA Age: 82 : 1935 Gender: F Exam Date: 08/29/2017 16:28 Exam Location: [address] [place] [address] A Ht (in): 63 Wt (lb): 161 BSA: 1.82 BP: 122 / 66 Ordering Physician: Pilar Fraire MD Referring Physician: Gómez Ponce MD, PhD Technologist: Yahaira Osorio [facility] Room Number: [id number] Indications: CHEST PAIN Rhythm: Sinus Technical Quality: fair/technically limited FINDINGS Left Ventricle Normal left ventricular size with mild left ventricular hypertrophy. Mildly decreased systolic function with posterolateral wall hypokinesis. Diastolic filling pattern is consistent with impaired LV relaxation. The ejection fraction is visually estimated at 40%. Right Ventricle The right ventricle is normal in size and function. Right Atrium The right atrium is normal in size. Left Atrium The left atrium is moderate to severely enlarged. The interatrial septum is intact. Mitral Valve The mitral valve demonstrates moderate posterior annular calcification with normal function. There is mild mitral regurgitation. Aortic Valve Mildly thickened and sclerotic aortic valve with mild stenosis. There is no aortic regurgitation. Tricuspid Valve The tricuspid valve is normal in structure and function. There is trace tricuspid regurgitation. Pulmonary artery systolic pressure is normal. Pulmonic Valve Structurally normal pulmonic valve. There is no pulmonic regurgitation. Pericardium Normal pericardium without effusion. No pleural effusion. Great Vessels Normal aortic root dimension. The aortic arch and great vessels are not well seen. CONCLUSIONS 1. Mildly decreased EF of 40% with posterolateral wall hypokinesis and impaired LV relaxation. 2. Mild left ventricular hypertrophy. 3. Moderate to severe left atrial enlargement. 4. Mild mitral regurgitation. 5. Trace tricuspid regurgitation. 6. Mild aortic stenosis. Gómez Ponce M.D. (Electronically Signed) Final Date: 30 August 2017 07:49 MEASUREMENTS (Male / Female) Normal Values 2D ECHO LV Diastolic Diameter PLAX 6.0 cm 4.2 - 5.9 / 3.9 - 5.3 cm LV Systolic Diameter PLAX 4.4 cm 2.1 - 4.0 cm LV Fractional Shortening PLAX 26.7 % 25 - 46 % LV Ejection Fraction 2D Teich 51.3 % IVS Diastolic Thickness 1.5 cm LVPW Diastolic Thickness 1.4 cm LV Relative Wall Thickness 0.5 RV Internal Dim ED PLAX 2.6 cm 1.9 - 3.8 cm LVOT Diameter 2.2 cm Aortic Root Diameter 2.8 cm LA Systolic Diameter LX 5.8 cm 3.0 - 4.0 / 2.7 - 3.8 cm LA Volume 85.0 cm 18 - 58 / 22 - 52 cm Ascending Aorta Diameter 3.5 cm DOPPLER AV Peak Velocity 168.0 cm/s AV Peak Gradient 11.3 mmHg AV Mean Velocity 111.0 cm/s AV Mean Gradient 6.0 mmHg AV Velocity Time Integral 43.0 cm LVOT Peak Velocity 85.7 cm/s LVOT Peak Gradient 2.9 mmHg LVOT Mean Velocity 57.0 cm/s LVOT Mean Gradient 2.0 mmHg LVOT Velocity Time Integral 20.5 cm LVOT Stroke Volume 77.9 cm AV Area Cont Eq vti 1.8 cm AV Area Cont Eq pk 1.9 cm MV Peak Velocity 150.0 cm/s MV Peak Gradient 9.0 mmHg MV Mean Velocity 86.7 cm/s MV Mean Gradient 4.0 mmHg Mitral E Point Velocity 87.9 cm/s Mitral A Point Velocity 120.0 cm/s Mitral E to A Ratio 0.7 MV PHT Velocity 147.0 cm/s MV Deceleration [place] 568.0 cm/s MV Pressure Half Time 77.6 ms MV Area PHT 2.8 cm MV Deceleration Time 153.0 ms TR Peak Velocity 238.0 cm/s TR Peak Gradient 22.7 mmHg Right Atrial Pressure 10.0 mmHg Pulmonary Artery Systolic Pressu 32.7 mmHg Right Ventricular Systolic Press 32.7 mmHg PV Peak Velocity 89.6 cm/s PV Peak Gradient 3.2 mmHg PV Mean Velocity 54.4 cm/s PV Mean Gradient 1.0 mmHg PV Velocity Time Integral 21.8 cm LV E' Lateral Velocity 7.2 cm/s Mitral E to LV E' Lateral Ratio 12.2 LV E' Septal Velocity 2.5 cm/s Mitral E to LV E' Septal Ratio 34.7
[2017-08-30 08:16] VITALS: BP 132/68
[2017-08-30] MEDS ORDERED: LISINOPRIL5 M1 PO ×2 (12:04→13:34)
--- NOTE | 2017-08-30 12:52 | PN- Diabetes ---
Assessment/Plan Diabetes Assessment: The patient feels a little better. She states her leg does not hurt her unless she touches it. The patient was switched to NPH insulin yesterday along with sliding scale NovoLog. Her sugar this morning before breakfast is 213. Plan: Suggest increase the NPH insulin to 20 units twice a day. Continue the present sliding scale NovoLog. Continue to monitor sugars 4 times a day. Subjective Subjective: Feels a little better Review of Systems Constitutional: Denies: chills, fever. Cardiovascular: Denies: chest pain. Respiratory: Denies: cough, short of breath. Gastrointestinal: Denies: abdominal pain. Objective Last 24 Hrs of Vital Signs/I&O Vital Signs Date Time Temp Pulse Resp B/P B/P Pulse O2 O2 Flow FiO2 Mean Ox Delivery Rate 08/31 815 68 132/68 08/30 0646 97.9 67 20 136/62 93 Room Air 08/29 2223 98.0 74 20 114/58 96 08/29 1502 98.7 63 20 126/64 95 Intake & Output 08/30 1600 08/30 0800 08/30 0000 Intake Total 200 150 Output Total Balance 200 150 Intake, IV 10 Intake, Oral 200 140 Vital Signs Date Time Temp Pulse Resp B/P B/P Pulse O2 O2 Flow FiO2 Mean Ox Delivery Rate 08/31 815 68 132/68 08/30 0646 97.9 67 20 136/62 93 Room Air 08/29 2223 98.0 74 20 114/58 96 08/29 1502 98.7 63 20 126/64 95 Intake & Output 08/30 1600 08/30 0800 08/30 0000 Intake Total 200 150 Output Total Balance 200 150 Intake, IV 10 Intake, Oral 200 140 Physical Exam General Appearance: alert, awake, comfortable Head: normal appearance Neck: normal inspection Respiratory: normal breath sounds Cardiovascular: regular rate/rhythm Extremities: swelling Current Medications: Current Medications Sig/[place] Start time Last Medication Dose Route Stop Time Status Admin Acetaminophen 650 MG Q4P PRN 08/26 2029 AC PO Aspirin 650 MG DAILY 08/27 899 AC 08/29 PO 09 Citalopram 40 MG DAILY 08/27 899 AC 08/30 Hydrobromide PO 08 Enoxaparin Sodium 40 MG DAILY 08/27 899 AC SC Ezetimibe 10 MG DAILY 08/27 899 AC 08/30 PO 0816 Ferrous Sulfate 325 MG BID 08/26 2100 AC 08/30 PO 0816 Gabapentin 300 MG TID 08/26 1741 AC 08/30 PO 0816 Insulin Aspart 0 TIDAC 08/29 0800 AC 08/30 SC 1218 Insulin Detemir 10 UNITS BID 08/26 2100 DC 08/29 SC 0923 Insulin Human NPH 16 UNITS 0600,2200 08/29 2200 AC 08/30 SC 0600 Latanoprost 1 GTT QPM 08/26 2099 AC 08/29 OPH 2124 Levothyroxine Sodium 0.137 MG DAILY AC 08/27 0700 AC 08/30 PO 0555 Melatonin 3 MG AT BEDTIME 08/27 0200 AC 08/29 PO 2123 Metoprolol Succinate 25 MG DAILY 08/27 0900 AC 08/30 PO 0816 Nitroglycerin 0.4 MG DAILY 08/29 0900 AC 08/30 TOP 08 Omeprazole 40 MG DAILY AC 08/27 0700 AC 08/30 PO 0555 Findings Pertinent Lab/Erik Results: Laboratory Tests 08/29 0750 Chemistry Sodium (137 - 145 mmol/L) 136 L Potassium (3.5 - 5.1 mmol/L) 4.6 Chloride (98 - 107 mmol/L) 99 Carbon Dioxide (22 - 30 mmol/L) 27 Anion Gap (5 - 16) 9 BUN (7 - 17 mg/dL) 19 H Creatinine (0.5 - 1.0 mg/dL) 0.9 Estimated GFR (>60 ml/min) > 60 BUN/Creatinine Ratio (7 - 25 %) 21.1
--- NOTE | 2017-08-30 13:01 | PN- Cardiology ---
Subjective Subjective: * Latoya feels improved without chest pain. * Stress testing showed fixed defects without ischemia. * The patient's echo shows a mildly decreased EF of 40%. Objective Vital Signs and I&Os Vital Signs Date Time Temp Pulse Resp B/P B/P Pulse O2 O2 Flow FiO2 Mean Ox Delivery Rate 08/30 0816 68 132/68 08/30 0646 97.9 67 20 136/62 93 Room Air 08/29 2223 98.0 74 20 114/58 96 08/29 1502 98.7 63 20 126/64 95 Intake & Output 08/30 1600 08/30 0800 08/30 0000 08/29 1600 08/29 0800 08/29 0000 Intake Total 200 150 800 460 800 Output Total Balance 200 150 800 460 800 Intake, IV 10 Intake, Oral 200 140 800 460 800 Patient 210 lb Weight Physical Exam: General: WD/obese female in NAD; alert and oriented x 3 HEENT: NC/AT, PERRL, EOMI Neck: no JVD, no carotid bruit Heart: RRR Lungs: clear bilaterally Abdomen: soft, obese, NT, +ve bowel sounds Extremities: no edema Assessment/Plan Assessment/Plan * Chest discomfort has improved. In consideration of her fixed defects without any definite evidence of ischemia we will opt to treat her medically. Continue a NTG patch at 0.4mg/hr for 12 hours daily. Continue aspirin, Metoprolol and Zetia. Since her EF was shown to be mildly decreased on her echo I would also begin Lisinopril 5mg daily. Continue telemetry? No
[2017-08-30] MEDS ORDERED: NITROGLYCERIN1 EACH TOP ×2 (13:34→13:35)
== END 2017-08-30 14:35 | DRG 300 ==
LOC: ERH 12:15 → 2NA 16:19 → ERHI 16:19 → ENRESERV 18:12 → ENTRNSPT 19:44 → EDTRNSPT 19:46 → EDTRNSPTSTS 20:14 → 2NA 20:32 → CMPTRNSPT 20:49 → 2NA 08-27 08:01 → ENPENDDIS 08-30 13:26 → ENTRNSPT 08-30 14:21 → EDTRNSPTSTS 08-30 14:29 → EDTRNSPT 08-30 14:29 → 2NA 08-30 14:35 → CMPTRNSPT 08-30 14:49
PROVIDERS: Student in an Organized Health Care Education/Training Program
DX: E11.51 Type 2 diabetes mellitus with diabetic peripheral angiopathy without gangrene (principal); E87.2 Acidosis; E11.22 Type 2 diabetes mellitus with diabetic chronic kidney disease; E11.42 Type 2 diabetes mellitus with diabetic polyneuropathy; I49.5 Sick sinus syndrome; E11.65 Type 2 diabetes mellitus with hyperglycemia; I13.0 Hypertensive heart and chronic kidney disease with heart failure and stage 1 through stage 4 chronic kidney disease, or unspecified chronic kidney disease; I50.30 Unspecified diastolic (congestive) heart failure; E11.319 Type 2 diabetes mellitus with unspecified diabetic retinopathy without macular edema; E03.9 Hypothyroidism, unspecified; Z95.0 Presence of cardiac pacemaker; D58.0 Hereditary spherocytosis; Z79.4 Long term (current) use of insulin; I27.20 Pulmonary hypertension, unspecified; M79.662 Pain in left lower leg; I48.0 Paroxysmal atrial fibrillation; N18.2 Chronic kidney disease, stage 2 (mild); Z90.81 Acquired absence of spleen; H35.30 Unspecified macular degeneration; Z86.14 Personal history of Methicillin resistant Staphylococcus aureus infection; Z88.5 Allergy status to narcotic agent; Z88.2 Allergy status to sulfonamides; Z79.82 Long term (current) use of aspirin; I25.10 Atherosclerotic heart disease of native coronary artery without angina pectoris; Z86.73 Personal history of transient ischemic attack (TIA), and cerebral infarction without residual deficits; F32.9 Major depressive disorder, single episode, unspecified; F41.9 Anxiety disorder, unspecified; E55.9 Vitamin D deficiency, unspecified; E66.9 Obesity, unspecified; Z68.38 Body mass index [BMI] 38.0-38.9, adult; Z96.653 Presence of artificial knee joint, bilateral; Z90.49 Acquired absence of other specified parts of digestive tract; Z98.61 Coronary angioplasty status; Z89.421 Acquired absence of other right toe(s); M54.9 Dorsalgia, unspecified; Z87.891 Personal history of nicotine dependence; N18.9 Chronic kidney disease, unspecified; Z86.12 Personal history of poliomyelitis; Z66 Do not resuscitate; K21.9 Gastro-esophageal reflux disease without esophagitis
CPT/HCPCS: 2NAP; 36592; 73590-LT; 73620-LT; 78452; 82436; 93005; 93010; 93016; 93017; 93306; 93970; A9502; J0713; J1245; J1650; J1815; J3370; J7040

== ENCOUNTER 2017-09-24 12:29 | Inpatient (IN) | payer OTHER, MEDICARE ==
[~2017-09-24] VITALS: Ht 160 cm; Wt 94.8 kg
[~2017-09-24 12:29] MED LIST changes: +LISINOPRIL5 M1 PO; +MELATONIN3 M4 PO; +NITROGLYCERIN1 EACH TOP; +NITROSTAT0.4 M1 SL; +OXYBUTYNIN CHLO15 M1; +TOVIAZ8 M1 PO
--- NOTE | 2017-09-24 12:47 | ED UPPER/LOWER EXTREMITY COMPL ---
History of Present Illness General Chief Complaint: Foot or Ankle Injury Stated Complaint: SIB DR SENIOR FOR ?INFECTED LEFT FOOT Source: patient Exam Limitations: no limitations Vital Signs & Intake/Output Vital Signs & Intake/Output Vital Signs Date Time Temp Pulse Resp B/P B/P Pulse O2 O2 Flow FiO2 Mean Ox Delivery Rate 09/24 1726 97.5 75 20 130/80 97 Room Air 09/24 1604 98.0 61 18 182/78 93 Room Air Room Air 09/24 1432 98.9 64 18 122/74 98 Room Air 09/24 1321 96 Room Air 09/24 1234 97.7 67 15 113/61 97 Room Air Room Air Allergies Coded Allergies: vancomycin (Intermediate, ITCHING 09/24/17) Sulfa (Sulfonamide Antibiotics) (HIVES 09/24/17) adhesive tape (RASH PER PT - PAPER TAPE ONLY 09/24/17) morphine (PER PT EYES ROLL BACK IN HEAD, TOTALLY OUT OF IT 09/24/17) Reconcile Medications Acetaminophen/Diphenhydramine (Tylenol Pm Ex-Strength Caplet) 500 MG-25 MG TABLET 2 TAB PO QPM PRN SLEEP (Reported) Aspirin (Aspirin*) 325 MG TABLET 2 TAB PO DAILY HEART HEALTH (Reported) Bimatoprost (Lumigan) 0.01 % DROPS 1 GTT OPH QPM BOTH EYES (Reported) Cholecalciferol (Vitamin D3) (Vitamin D) 2,000 UNIT TABLET 1 TAB PO DAILY SUPPLEMENT (Reported) Citalopram Hydrobromide (Citalopram HBr) 40 MG TABLET 1 TAB PO DAILY MENTAL HEALTH (Reported) Ezetimibe (Zetia) 10 MG TABLET 1 TAB PO DAILY CHOLESTEROL (Reported) Ferrous Sulfate 325 MG (65 MG IRON) TABLET 1 TAB PO BID SUPPLEMENT (Reported) Fesoterodine Fumarate (Toviaz) 8 MG TAB.ER.24H 1 TAB PO DAILY BLADDER ( Reported) Gabapentin 100 MG CAPSULE 3 CAP PO TID NEUROPATHY (Reported) Insulin Lispro (Humalog) 100 UNIT/ML VIAL 0 SC SEE SLIDING SCALE DIABETES ( Reported) Bolus Insulin: Novolog < 80 mg/dl: no coverage 80-100 mg/dl: 8 units 101-120 mg/dl: 8 units 121-150 mg/dl: 8 units 151-200 mg/dl: 10 units 201-250 mg/dl: 12 units 251-300 mg/dl: 14 units 301-350 mg/dl: 15 units 351-400 mg/dl: 16 units > 400 mg/dl: 18 units Insulin NPH Human Isophane (Humulin N Kwikpen) 100 UNIT/ML (3 ML) INSULN.PEN 40 U SC BID DIABETES (Reported) Levothyroxine Sodium 137 MCG TABLET 1 TAB PO DAILY AC THYROID (Reported) Lisinopril 5 MG TABLET 1 TAB PO DAILY Heart . Melatonin 3 MG TABLET 1 TAB PO QPM SUPPLEMENT (Reported) Metformin HCl 1,000 MG TABLET 1 TAB PO DAILY DM (Reported) Metoprolol Succinate 25 MG TAB 1 TAB PO DAILY HEART/BP (Reported) Nitroglycerin (Nitroglycerin Patch) 0.4 MG/HOUR PATCH.TD24 1 PATCH TOP DAILY Chest pain APPLY for 12 hours every day. Pantoprazole Sodium (Protonix) 40 MG TABLET.DR 1 TAB PO DAILY ACID REFLUX ( Reported) Torsemide 20 MG TABLET 1 TAB PO DAILY DIURETIC (Reported) Triage Note: PT SENT TO ED BY DR. SENIOR FOR ADMISSION TO GET LEFT SECOND TOE AMPUTATED. PT HAS OSTEOMYELITIS PER DR. OSEGUERA. AFEBRILE IN TRIAGE. Triage Nurses Notes Reviewed? yes Onset: Gradual Duration: getting worse Timing: recent history Severity: severe Severity Numbers: 7 HPI: Patient is an 82-year-old female with a past medical history of type 2 diabetes, hypertension and hyperlipidemia CHF, CAD status post PCI, pulmonary hypertension , sick sinus syndrome status post pacemaker placement, hypothyroidism, multiple toe amputations, MRSA osteomyelitis who was recently admitted and discharged from [facility] for concerns of left lower extremity phlebitis however patient returns today being evaluated by her strategic intelligence officer yesterday for concerns of infection to the to the distal phalanx of her left middle toe where she states that over the weekend she noted discharge redness and "not looking right " Patient was evaluated by her strategic intelligence officer Dr. Senior who advised patient to be admitted for concerns of cellulitis and will receive middle toe amputations tomorrow. (Henrik Thomas) Past History Travel History Traveled to [place] past 21 day No Medical History Any Pertinent Medical History? see below for history Neurological: CVA, peripheral neuropathy, polio EENT: diabetic retinopathy, macular degeneration Cardiovascular: AFIB (paroxysmal), CAD, hypertension, hyperlipidemia, PVD (L CEA ), PACEMAKER rheumatic fever MURMUR Respiratory: pneumonia Gastrointestinal: diverticulitis, peptic ulcer disease, upper GI bleed, gastritis Hepatic: NONE Renal: intermittent renal insuff Musculoskeletal: chronic back pain, degen joint disease, osteoarthritis, CHIPPED ELBOWS BILATERAL Psychiatric: anxiety, depression Endocrine: diabetes, hypothyroidism, obesity, vitamin D deficiency Blood Disorders: SPHEROCYTOSIS Cancer(s): NONE 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 CONSULTANT/Reproductive: C-SECTIONS History of MRSA: Yes History of VRE: No History of CDIFF: No Influenza Vaccine: 03/14/17 Surgical History Surgical History: cholecystectomy, , hernia repair-inguinal, knee replacement (BILATERAL), PACEMAKER CARDIAC STENT SPLENECTOMY, CHOLECYSTECTOMY, LEFT CAROTID ENDARTERECTOMY, B/L KNEE REPLACEMENT, PACEMAKER left carotid endarterectomy status post right second and left third and fifth toe amputations multiple podiatry procedures Numerous debridements of feet bilaterally and toe amps Psychosocial History Who do you live with Patient/Self Services at Home None What is your primary language Sinhala Tobacco Use: Quit >30 days ago ETOH Use: denies use Illicit Drug Use: denies illicit drug use Family History Family History, If Any: FATHER FH: diabetes mellitus Relation not specified for: FH: pancreatic cancer Hx Contributory? No (Henrik Thomas) Review of Systems Review of Systems Constitutional: Reports: see HPI. EENTM: Reports: no symptoms. Respiratory: Reports: no symptoms. Cardiovascular: Reports: no symptoms. Gastrointestinal/Abdominal: Reports: no symptoms. Genitourinary: Reports: no symptoms. Musculoskeletal: Reports: see HPI. Skin: Reports: see HPI. Neurological/Psychological: Reports: no symptoms. Hematologic/Endocrine: Reports: no symptoms. Immunological: Reports: no symptoms. All Other Systems: Reviewed and Negative (Henrik Thomas) Physical Exam Physical Exam General Appearance: no apparent distress, obese Head: atraumatic Eyes: Bilateral: normal appearance. Ears, Nose, Throat: hearing grossly normal Neck: normal inspection Cardiovascular/Respiratory: no respiratory distress Peripheral Pulses: 2+ dorsalis pedis (L) Neurologic/Tendon: normal motor functions, normal tendon functions, responds to pain, no evidence tendon injury, no pulse deficit Diagram Legs Front/Back 1) Noted circumferential erythema warmth and tenderness 2) Noted 2 total amputations with middle toe noted malodorous purulent discharge (Henrik Thomas) Progress Differential Diagnosis: arterial insufficiency, cellulitis, CHF, compartment syndrome, contusion, DVT, fracture, septic arthritis Plan of Care: Orders Procedure Date/time Status Consistent Carbohydrate 1 09/25 D Active Nothing by Mouth 09/25 B Active PROTHROMBIN TIME 09/25 0600 Active CBC WITHOUT DIFFERENTIAL 09/25 0600 Active BASIC ELECTROLYTES PLUS BUN&CR 09/25 0600 Active Heart Healthy Diet 09/24 D Active Weight 09/24 1729 Active Vital Signs 09/24 1729 Active Teach/Educate 09/24 1729 Active Pain Treatment and Response 09/24 1729 Active Nutritional Intake, Monitor 09/24 1729 Active Isolation 09/24 1729 Active Intake & Output 09/24 1729 Active Patient Care Conference 09/24 1729 Active Activity/Ambulation 09/24 1729 Active Code Status 09/24 1650 Active Pathway - chart 09/24 1512 Active House Staff 09/24 1512 Active Patient Data 09/24 1512 Active Code Status 09/24 1512 Complete Patient Data 09/24 1438 Active ED Holding Orders 09/24 1433 Active Admit to inpatient 09/24 1433 Active Vital Signs 09/24 1433 Active Code Status 09/24 1433 Complete EKG 09/24 1327 Active URIC ACID 09/24 1310 Active BLOOD CULTURE 09/24 1301 Active PARTIAL THROMBOPLASTIN TIME 09/24 1301 Complete PROTHROMBIN TIME 09/24 1301 Complete LACTIC ACID 09/24 1301 Active COMPREHENSIVE METABOLIC PANEL 09/24 1301 Active CBC WITHOUT DIFFERENTIAL 09/24 1301 Complete TYPE & SCREEN (NOT X-MATCH) 09/24 1301 Active Intake & Output 09/24 1243 Active Lab Add-on Test 09/24 UNK Active Current Medications Sig/Wayne Start time Last Medication Dose Stop Time Status Admin Nitroglycerin 0.4 MG DAILY 09/25 0900 AC (Transderm Nitro 10MG (0.4 MG/Hr) Patch) Pantoprazole Sodium 40 MG DAILY 09/25 0900 AC (Protonix) Torsemide 20 MG DAILY 09/25 0900 AC (Demadex 20 MG) Vancomycin HCl 1,000 MG ONCE ONE 09/25 0800 AC Sodium Chloride 250 ML 09/25 0859 (Normal Saline 0.9%) Dextrose/Sodium 1,000 ML Q20H 09/25 0000 AC Chloride (D5-Normal Saline) Ferrous Sulfate 325 MG BID 09/24 2100 AC (Feosol) Insulin Detemir 40 UNITS BID 09/24 2100 AC (Levemir) Latanoprost 1 GTT AT BEDTIME 09/24 2100 AC (Xalatan) Insulin Aspart 0 TIDAC 09/24 1700 AC (NovoLOG) Citalopram 40 MG DAILY 09/24 161 AC Hydrobromide (Celexa) Levothyroxine Sodium 0.137 MG DAILY AC 09/24 161 AC (Synthroid) Metoprolol Succinate 25 MG DAILY 09/24 161 AC (Toprol XL) Cholecalciferol 2,000 IU DAILY 09/24 161 AC (Vitamin D) Ezetimibe 10 MG DAILY 09/24 160 AC (Zetia) Gabapentin 300 MG TID 09/24 160 AC (Neurontin) Aspirin 650 MG DAILY 09/24 1603 AC (Aspirin) Heparin Sodium 5,000 UNIT Q8 09/24 1512 AC (Porcine) Laboratory Tests 09/24/17 1601: Lactic Acid Cancelled 09/24/17 1310: Anion Gap 13, Estimated GFR 39 L, BUN/Creatinine Ratio 36.2 H, Glucose 111 H, Lactic Acid 1.1, Uric Acid Pending, Calcium 9.2, Total Bilirubin 0.4, AST 23, ALT 27, Alkaline Phosphatase 76, Total Protein 8.2, Albumin 3.9, Globulin 4.3 H , Albumin/Globulin Ratio 0.9 L, PT 12.4, INR 1.14, APTT 32, CBC w Diff NO MAN DIFF REQ, RBC 3.92 L, MCV 85.9, MCH 29.8, MCHC 34.7, RDW 14.7 H, MPV 8.1, Gran % 61.4, Lymphocytes % 23.8, Monocytes % 12.0 H, Eosinophils % 2.1, Basophils % 0.7, Absolute Granulocytes 7.9 H, Absolute Lymphocytes 3.1, Absolute Monocytes 1.5 H, Absolute Eosinophils 0.3, Absolute Basophils 0.1 Microbiology 09/24 1345 BLOOD: Blood Culture - RECD 09/24 1310 BLOOD: Blood Culture - RECD Patient on examination to left lower extremity was neurovascularly intact, discussed patient with Dr. Senior who advised patient to be admitted receive antibiotics in which she was aware that there was a MRSA history and receive x- ray of left foot He will perform an amputation tomorrow Discussed admission with patient who agrees and has no questions Due to past medical history of MRSA and purulent Salic discharge that patient will be treated for concerns of MRSA with vancomycin however patient did have adverse allergic itching sensation after this was administered patient shows no respiratory distress or concerns of anaphylaxis or angioedema, Benadryl was ordered patient will be substituted with clindamycin. Diagnostic Imaging: Viewed by Me: Radiology Read. Radiology Impression: SEE COMMENTS Initial ED EKG: normal sinus rhythm, 60 BPM,NSR Comments: PATIENT: SWAPNA BAKER PRESENT AGE: 82 PATIENT ACCOUNT NO: [id number] : 37 LOCATION: ER ORDERING PHYSICIAN: Henrik MOORE SERVICE DATE: 09/24/17 EXAM TYPE: RAD - XRY-CHEST XRAY, TWO VIEWS EXAMINATION: XR CHEST CLINICAL INFORMATION: Surgery. Toe amputation. COMPARISON: 05/23/2017 TECHNIQUE: 2 views of the chest were obtained. FINDINGS: Right chest wall dual-lead pacer with leads overlying the right atrium and right ventricle. The lungs are well expanded. There is no dense consolidation. No edema or effusion. No pneumothorax. The cardiomediastinal silhouette remains prominent, with a calcified aorta. Mild degenerative changes in the spine. IMPRESSION: No acute pulmonary finding. DICTATED BY: Jarrell Saul MD DATE/TIME DICTATED:09/24/171433 MACHINE ENGINEER:ZEE DATE/TIME TRANSCRIBED:09/24/17 PATIENT: SWAPNA BAKER PRESENT AGE: 82 PATIENT ACCOUNT NO: [id number] : 37 LOCATION: [facility] ORDERING PHYSICIAN: Henrik MOORE SERVICE DATE: 09/24/17 EXAM TYPE: RAD - XRY-FOOT COMPLETE, LEFT EXAMINATION: XR FOOT, LEFT CLINICAL INFORMATION: Distal third phalanx ulcer versus osteomyelitis. COMPARISON: 08/26/2017 TECHNIQUE: AP, lateral, and oblique views of the left foot. FINDINGS: Patient is status post amputation of the third and fifth digits from the metatarsal shafts. There is also a septation of the first digit at the head of the proximal phalanx. These findings are unchanged from prior. There is overall somewhat lucent appearance of the sarah of both the second and fourth digits, which is similar to prior. No definite acute erosions. Chronic deformity at the second metatarsophalangeal joint with flattening of the metatarsal head and joint space narrowing. No acute fracture. Plantar heel spur noted. Scattered vascular calcifications. Mild degenerative changes of the midfoot with osteophyte formation at the navicular. Soft tissue swelling at the first and second digits. IMPRESSION: Chronic postsurgical changes with multifocal amputation. No definite acute erosive osseous changes. There is somewhat lucent appearance of the sarah of the remaining second and fourth digits, although this is similar to prior. Given that the patient has a cardiac pacer, nuclear medicine three-phase bone scan could be performed if clinically indicated. DICTATED BY: Jarrell Saul MD DATE/TIME DICTATED:09/24/171430 MACHINE ENGINEER:ZEE DATE/TIME TRANSCRIBED:09/24/171430 (Henrik Thomas) Departure Departure Disposition: HOME OR SELF CARE Condition: Stable Clinical Impression Primary Impression: Cellulitis of foot, left Secondary Impressions: Ulcer of second toe of left foot Referrals: Pearl Horan APRN (PCP/Family) Departure Forms: Customer Survey General Discharge Information Admission Note Spoke With: Juan Jose Weber MD Documentation of Exam: Documentation of any treatments & extenuating circumstances including Concerns Regarding Discharge (functional status, medication knowledge or non-compliance, living conditions, etc.) that warrant an admission rather than observation: [ Patient requires IV antibiotics, surgery and amputation performed by strategic intelligence officer, repeat labs, case management consultation physical therapy consultation Blood cultures pending] (Henrik Thomas) PA/FLOTATION OPERATOR Co-Sign Statement Statement: ED Attending supervision documentation- [X] I saw and evaluated the patient. I have also reviewed all the pertinent lab results and diagnostic results. I agree with the findings and the plan of care as documented in the PA's/FLOTATION OPERATOR's documentation. [X] I have reviewed the ED Record and agree with the PA's/FLOTATION OPERATOR's documentation. [] Additions or exceptions (if any) to the PAs/FLOTATION OPERATOR's note and plan are summarized below: [Patient to be admitted to medicine. Patient requires amputation of her left second toe. Patient will need IV antibiotics and medical clearance for the OR.] (Natasha BOURGEOIS,Ever Huang)
[2017-09-24 13:19] LABS: ABSOLUTE BASOPHIL COUNT 0.1 /CUMM (0.0-0.2); ABSOLUTE EOSINOPHIL COUNT 0.3 /CUMM (0.0-0.7); ABSOLUTE GRANULOCYTE CT 7.9 /CUMM (1.4-6.5); ABSOLUTE LYMPH COUNT 3.1 /CUMM (1.2-3.4); ABSOLUTE MONOCYTE COUNT 1.5 /CUMM (0.10-0.60); BASOPHIL % 0.7 % (0.0-2.0); EOSINOPHIL % 2.1 % (0-5); GRANULOCYTE % 61.4 % (42.2-75.2); HEMATOCRIT 33.7 % (37-47); MEAN CORPUSCULAR HGB 29.8 PG (27.0-31.0); MEAN CORPUSCULAR HGB CONC 34.7 G/DL (33.0-37.0); MEAN CORPUSCULAR VOLUME 85.9 FL (81.0-99.0); MEAN PLATELET VOLUME 8.1 FL (7.4-10.4); PLATELET COUNT 471 /CUMM (130-400); RBC DISTRIBUTION WIDTH 14.7 % (11.5-14.5); RED BLOOD CELL CT 3.92 /CUMM (4.20-5.40); WHITE BLOOD CELL COUNT 12.9 /CUMM (4.8-10.8)
[2017-09-24 13:28] LABS: PT 12.4 SEC (9.4-12.5); PTT 32 SEC (25-37)
--- NOTE | 2017-09-24 13:40 | Cons- Podiatry ---
General Information and HPI Consulting Request Date of Consult: 09/24/17 Requested By: Hospitalist service History of Present Illness: Christina is an 82-year-old female with a history of nonhealing ulcers to both the left and right feet. Of note, the patient has undergone multiple digital amputations for underlying osteomyelitis. The patient has been treated for a nonhealing ulcer to his left second digit which was noted over the weekend to worsen, with increased drainage, swelling and redness to the dorsum of her foot. Patient denies systemic signs of infection. Patient denies nausea, vomiting, fever or chills. Allergies/Medications Allergies: Coded Allergies: Sulfa (Sulfonamide Antibiotics) (HIVES 09/24/17) adhesive tape (RASH PER PT - PAPER TAPE ONLY 09/24/17) morphine (PER PT EYES ROLL BACK IN HEAD, TOTALLY OUT OF IT 09/24/17) Home Med List: Acetaminophen/Diphenhydramine (Tylenol Pm Ex-Strength Caplet) 500 MG-25 MG TABLET 2 TAB PO QPM PRN SLEEP (Reported) Aspirin (Aspirin*) 325 MG TABLET 2 TAB PO DAILY HEART HEALTH (Reported) Bimatoprost (Lumigan) 0.01 % DROPS 1 GTT OPH QPM BOTH EYES (Reported) Cholecalciferol (Vitamin D3) (Vitamin D) 2,000 UNIT TABLET 1 TAB PO DAILY SUPPLEMENT (Reported) Citalopram Hydrobromide (Citalopram HBr) 40 MG TABLET 1 TAB PO DAILY MENTAL HEALTH (Reported) Ezetimibe (Zetia) 10 MG TABLET 1 TAB PO DAILY CHOLESTEROL (Reported) Ferrous Sulfate 325 MG (65 MG IRON) TABLET 1 TAB PO BID SUPPLEMENT (Reported) Fesoterodine Fumarate (Toviaz) 8 MG TAB.ER.24H 1 TAB PO DAILY BLADDER ( Reported) Gabapentin 100 MG CAPSULE 3 CAP PO TID NEUROPATHY (Reported) Insulin Lispro (Humalog) 100 UNIT/ML VIAL 0 SC SEE SLIDING SCALE DIABETES ( Reported) Bolus Insulin: Novolog < 80 mg/dl: no coverage 80-100 mg/dl: 8 units 101-120 mg/dl: 8 units 121-150 mg/dl: 8 units 151-200 mg/dl: 10 units 201-250 mg/dl: 12 units 251-300 mg/dl: 14 units 301-350 mg/dl: 15 units 351-400 mg/dl: 16 units > 400 mg/dl: 18 units Insulin NPH Human Isophane (Humulin N Kwikpen) 100 UNIT/ML (3 ML) INSULN.PEN 40 U SC BID DIABETES (Reported) Levothyroxine Sodium 137 MCG TABLET 1 TAB PO DAILY AC THYROID (Reported) Lisinopril 5 MG TABLET 1 TAB PO DAILY Heart . Melatonin 3 MG TABLET 1 TAB PO QPM SUPPLEMENT (Reported) Metformin HCl 1,000 MG TABLET 1 TAB PO DAILY DM (Reported) Metoprolol Succinate 25 MG TAB 1 TAB PO DAILY HEART/BP (Reported) Nitroglycerin (Nitroglycerin Patch) 0.4 MG/HOUR PATCH.TD24 1 PATCH TOP DAILY Chest pain APPLY for 12 hours every day. Pantoprazole Sodium (Protonix) 40 MG TABLET.DR 1 TAB PO DAILY ACID REFLUX ( Reported) Torsemide 20 MG TABLET 1 TAB PO DAILY DIURETIC (Reported) Past History Medical History Neurological: CVA, peripheral neuropathy, polio EENT: diabetic retinopathy, macular degeneration Cardiovascular: AFIB (paroxysmal), CAD, hypertension, hyperlipidemia, PVD (L CEA ), PACEMAKER rheumatic fever MURMUR Respiratory: pneumonia Gastrointestinal: diverticulitis, peptic ulcer disease, upper GI bleed, gastritis Hepatic: NONE Renal: intermittent renal insuff Musculoskeletal: chronic back pain, degen joint disease, osteoarthritis, CHIPPED ELBOWS BILATERAL Psychiatric: anxiety, depression Endocrine: diabetes, hypothyroidism, obesity, vitamin D deficiency Blood Disorders: SPHEROCYTOSIS Cancer(s): NONE 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/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 self Services at Home: None Primary Language: Divehi ETOH Use: denies use Illicit Drug Use: denies illicit drug use Living Will? no Power of Straddle Carrier Operator/HCP? no Functional Ability ADLs Independent: dressing, eating, toileting, bathing. Ambulation: cane IADLs Independent: shopping, housework, finances, food prep, telephone, transportation , medication admin. Review of Systems Review of Systems: Unremarkable except for the noted lesion present illness Exam & Diagnostic Data Vital Signs and I&O Vital Signs Date Time Temp Pulse Resp B/P B/P Pulse O2 O2 Flow FiO2 Mean Ox Delivery Rate 09/24 1321 96 Room Air 09/24 1234 97.7 67 15 113/61 97 Room Air Room Air Intake & Output 09/24 1600 09/24 0800 09/24 0000 09/23 1600 09/23 0800 09/23 0000 Intake Total Output Total Balance Patient 215 lb Weight Weight Reported by Patient Measurement Method Physical Exam: Necrotic ulcer identified at the distal tip left second digit. Fixed claw toe deformity identified. There is cellulitis extending to the dorsum of the foot. Additionally, cellulitis is noted at the distal leg circumferentially. There is a Henley grade 3 ulceration identified the distal tip of left second digit, with exposed bone identified. Assessment/Plan Assessment/Plan Cellulitis and ostium myelitis left foot. Patient to be admitted for IV antibiotics. We will bring the patient to the OR for I&D tomorrow. Consult Acknowledgment - Thank you for your consult request. Attending MD Review Statement Attending Statement Attending MD Statement: examined this patient
--- NOTE | 2017-09-24 14:37 | RADIOLOGY REPORT ---
EXAMINATION: XR FOOT, LEFT CLINICAL INFORMATION: Distal third phalanx ulcer versus osteomyelitis. COMPARISON: 08/26/2017 TECHNIQUE: AP, lateral, and oblique views of the left foot. FINDINGS: Patient is status post amputation of the third and fifth digits from the metatarsal shafts. There is also a septation of the first digit at the head of the proximal phalanx. These findings are unchanged from prior. There is overall somewhat lucent appearance of the sarah of both the second and fourth digits, which is similar to prior. No definite acute erosions. Chronic deformity at the second metatarsophalangeal joint with flattening of the metatarsal head and joint space narrowing. No acute fracture. Plantar heel spur noted. Scattered vascular calcifications. Mild degenerative changes of the midfoot with osteophyte formation at the navicular. Soft tissue swelling at the first and second digits. IMPRESSION: Chronic postsurgical changes with multifocal amputation. No definite acute erosive osseous changes. There is somewhat lucent appearance of the sarah of the remaining second and fourth digits, although this is similar to prior. Given that the patient has a cardiac pacer, nuclear medicine three-phase bone scan could be performed if clinically indicated.
--- NOTE | 2017-09-24 14:38 | RADIOLOGY REPORT ---
EXAMINATION: XR CHEST CLINICAL INFORMATION: Surgery. Toe amputation. COMPARISON: 05/23/2017 TECHNIQUE: 2 views of the chest were obtained. FINDINGS: Right chest wall dual-lead pacer with leads overlying the right atrium and right ventricle. The lungs are well expanded. There is no dense consolidation. No edema or effusion. No pneumothorax. The cardiomediastinal silhouette remains prominent, with a calcified aorta. Mild degenerative changes in the spine. IMPRESSION: No acute pulmonary finding.
--- NOTE | 2017-09-24 15:03 | History & Physical ---
General Information and HPI History of Present Illness: is a 82-year-old female with past medical history of type 2 diabetes, hypertension, hyperlipidemia, heart failure with preserved ejection fraction 45- 50%,CAD status post PCI in October 2007 of LAD, sick sinus syndrome status post pacemaker placement, pulmonary hypertension with RVSP of 53 mmHg, PAD, hypothyroidism, hereditory spherocytosis status post splenectomy, multiple toe amputations, macular degeneration, history of MRSA osteomyelitis. Patient's last admission to [facility] was in 08/16/[address] Talavera for debridement on left great toe for osteomyelitis. Allergies/Medications Allergies: Coded Allergies: vancomycin (Intermediate, ITCHING 09/24/17) Sulfa (Sulfonamide Antibiotics) (HIVES 09/24/17) adhesive tape (RASH PER PT - PAPER TAPE ONLY 09/24/17) morphine (PER PT EYES ROLL BACK IN HEAD, TOTALLY OUT OF IT 09/24/17) Home Med list Acetaminophen/Diphenhydramine (Tylenol Pm Ex-Strength Caplet) 500 MG-25 MG TABLET 2 TAB PO QPM PRN SLEEP (Reported) Aspirin (Aspirin*) 325 MG TABLET 2 TAB PO DAILY HEART HEALTH (Reported) Bimatoprost (Lumigan) 0.01 % DROPS 1 GTT OPH QPM BOTH EYES (Reported) Cholecalciferol (Vitamin D3) (Vitamin D) 2,000 UNIT TABLET 1 TAB PO DAILY SUPPLEMENT (Reported) Citalopram Hydrobromide (Citalopram HBr) 40 MG TABLET 1 TAB PO DAILY MENTAL HEALTH (Reported) Ezetimibe (Zetia) 10 MG TABLET 1 TAB PO DAILY CHOLESTEROL (Reported) Ferrous Sulfate 325 MG (65 MG IRON) TABLET 1 TAB PO BID SUPPLEMENT (Reported) Fesoterodine Fumarate (Toviaz) 8 MG TAB.ER.24H 1 TAB PO DAILY BLADDER ( Reported) Gabapentin 100 MG CAPSULE 3 CAP PO TID NEUROPATHY (Reported) Insulin Lispro (Humalog) 100 UNIT/ML VIAL 0 SC SEE SLIDING SCALE DIABETES ( Reported) Bolus Insulin: Novolog < 80 mg/dl: no coverage 80-100 mg/dl: 8 units 101-120 mg/dl: 8 units 121-150 mg/dl: 8 units 151-200 mg/dl: 10 units 201-250 mg/dl: 12 units 251-300 mg/dl: 14 units 301-350 mg/dl: 15 units 351-400 mg/dl: 16 units > 400 mg/dl: 18 units Insulin NPH Human Isophane (Humulin N Kwikpen) 100 UNIT/ML (3 ML) INSULN.PEN 40 U SC BID DIABETES (Reported) Levothyroxine Sodium 137 MCG TABLET 1 TAB PO DAILY AC THYROID (Reported) Lisinopril 5 MG TABLET 1 TAB PO DAILY Heart . Melatonin 3 MG TABLET 1 TAB PO QPM SUPPLEMENT (Reported) Metformin HCl 1,000 MG TABLET 1 TAB PO DAILY DM (Reported) Metoprolol Succinate 25 MG TAB 1 TAB PO DAILY HEART/BP (Reported) Nitroglycerin (Nitroglycerin Patch) 0.4 MG/HOUR PATCH.TD24 1 PATCH TOP DAILY Chest pain APPLY for 12 hours every day. Pantoprazole Sodium (Protonix) 40 MG TABLET.DR 1 TAB PO DAILY ACID REFLUX ( Reported) Torsemide 20 MG TABLET 1 TAB PO DAILY DIURETIC (Reported) Past History Travel History Traveled to [place] past 21 day No Medical History Neurological: CVA, peripheral neuropathy, polio EENT: diabetic retinopathy, macular degeneration Cardiovascular: AFIB (paroxysmal), CAD, hypertension, hyperlipidemia, PVD (L CEA ), PACEMAKER rheumatic fever MURMUR Respiratory: pneumonia Gastrointestinal: diverticulitis, peptic ulcer disease, upper GI bleed, gastritis Hepatic: NONE Renal: intermittent renal insuff Musculoskeletal: chronic back pain, degen joint disease, osteoarthritis, CHIPPED ELBOWS BILATERAL Psychiatric: anxiety, depression Endocrine: diabetes, hypothyroidism, obesity, vitamin D deficiency Blood Disorders: SPHEROCYTOSIS Cancer(s): NONE REPEAT CHIEF/Reproductive: C-SECTIONS History of MRSA: Yes History of VRE: No History of CDIFF: No Influenza Vaccine: 03/14/17 Surgical History Surgical History: cholecystectomy, , hernia repair-inguinal, knee replacement (BILATERAL), PACEMAKER CARDIAC STENT SPLENECTOMY, CHOLECYSTECTOMY, LEFT CAROTID ENDARTERECTOMY, B/L KNEE REPLACEMENT, PACEMAKER left carotid endarterectomy status post right second and left third and fifth toe amputations multiple podiatry procedures Numerous debridements of feet bilaterally and toe amps Past Family/Social History Family History Relations & Conditions if any FATHER FH: diabetes mellitus Relation not specified for: FH: pancreatic cancer Psychosocial History Who Do You Live With? self Services at Home: None Primary Language: Greenlandic ETOH Use: denies use Illicit Drug Use: denies illicit drug use Living Will? no Power of Pulley Man/HCP? no Functional Ability ADLs Independent: dressing, eating, toileting, bathing. Ambulation: cane IADLs Independent: shopping, housework, finances, food prep, telephone, transportation , medication admin. Review of Systems Review of Systems Constitutional: Reports: see HPI. Exam & Diagnostic Data Diagnostic Data CXR Results FINDINGS: Right chest wall dual-lead pacer with leads overlying the right atrium and right ventricle. The lungs are well expanded. There is no dense consolidation. No edema or effusion. No pneumothorax. The cardiomediastinal silhouette remains prominent, with a calcified aorta. Mild degenerative changes in the spine. IMPRESSION: No acute pulmonary finding. Assessment/Plan As Ranked By This Provider Problem List: 1. Cellulitis of foot, left 2. Osteomyelitis Core Measures/Misc (01/28) Acute Coronary Syndrome ACS Diagnosis: No Congestive Heart Failure Congestive Heart Failure Diagnosis No Cerebrovascular Accident CVA/TIA Diagnosis: No VTE (View Protocol) VTE Risk Factors Age>40 No Mechanical VTE Prophylaxis d/t N/A MechProphylax Ordered No VTE Pharm Prophylaxis d/t NA PharmProphylax ordered Sepsis (View protocol) Sepsis Present: No
--- NOTE | 2017-09-24 15:06 | History & Physical ---
Pilar Fraire 09/24/17 1506: General Information and HPI History of Present Illness: Ms. Hickman is a 82-year-old female with past medical history of IDDM, HTN, HLD, HFpEF (45-50%),CAD s/p stent (10/2007 of LAD), SSS s/p PM, PH, PAD, hypothyroidism, hereditary spherocytosis s/p splenectomy, multiple toe amputations, macular degeneration, history of MRSA osteomyelitis recently discharged from [facility] suspicious for LLE phlebitis with cellulitis SIB Dr. Rocha for elective toe amputation. Patient reports a few days ago she noticed that her left foot second toe had a bloody discharge and sloughing of the toe. She then wrapped her foot and went to the her operations manager/coordinator for a follow-up. She reports one week ago she had a routine visit with her vac press operator-Dr. Lloyd who instructed her to hold one of her diabetic medications due to recent bump in renal function. She reports at baseline she walks with a cane or walker. She lives in a [facility] and performs her own ADLs. In the ED patient was afebrile, normotensive and satting well in room air, she was given IV Ceftazidime, Clindamycin and Vancomycin x 1 dose. She immediately had a pruritic reaction to Vancomycin and was given Diphenhydramine. Allergies/Medications Allergies: Coded Allergies: vancomycin (Intermediate, ITCHING 09/24/17) Sulfa (Sulfonamide Antibiotics) (HIVES 09/24/17) adhesive tape (RASH PER PT - PAPER TAPE ONLY 09/24/17) morphine (PER PT EYES ROLL BACK IN HEAD, TOTALLY OUT OF IT 09/24/17) Home Med list Acetaminophen/Diphenhydramine (Tylenol Pm Ex-Strength Caplet) 500 MG-25 MG TABLET 2 TAB PO QPM PRN SLEEP (Reported) Aspirin (Aspirin*) 325 MG TABLET 2 TAB PO DAILY HEART HEALTH (Reported) Bimatoprost (Lumigan) 0.01 % DROPS 1 GTT OPH QPM BOTH EYES (Reported) Cholecalciferol (Vitamin D3) (Vitamin D) 2,000 UNIT TABLET 1 TAB PO DAILY SUPPLEMENT (Reported) Citalopram Hydrobromide (Citalopram HBr) 40 MG TABLET 1 TAB PO DAILY MENTAL HEALTH (Reported) Ezetimibe (Zetia) 10 MG TABLET 1 TAB PO DAILY CHOLESTEROL (Reported) Ferrous Sulfate 325 MG (65 MG IRON) TABLET 1 TAB PO BID SUPPLEMENT (Reported) Fesoterodine Fumarate (Toviaz) 8 MG TAB.ER.24H 1 TAB PO DAILY BLADDER ( Reported) Gabapentin 100 MG CAPSULE 3 CAP PO TID NEUROPATHY (Reported) Insulin Lispro (Humalog) 100 UNIT/ML VIAL 0 SC SEE SLIDING SCALE DIABETES ( Reported) Bolus Insulin: Novolog < 80 mg/dl: no coverage 80-100 mg/dl: 8 units 101-120 mg/dl: 8 units 121-150 mg/dl: 8 units 151-200 mg/dl: 10 units 201-250 mg/dl: 12 units 251-300 mg/dl: 14 units 301-350 mg/dl: 15 units 351-400 mg/dl: 16 units > 400 mg/dl: 18 units Insulin NPH Human Isophane (Humulin N Kwikpen) 100 UNIT/ML (3 ML) INSULN.PEN 40 U SC BID DIABETES (Reported) Levothyroxine Sodium 137 MCG TABLET 1 TAB PO DAILY AC THYROID (Reported) Lisinopril 5 MG TABLET 1 TAB PO DAILY Heart . Melatonin 3 MG TABLET 1 TAB PO QPM SUPPLEMENT (Reported) Metformin HCl 1,000 MG TABLET 1 TAB PO DAILY DM (Reported) Metoprolol Succinate 25 MG TAB 1 TAB PO DAILY HEART/BP (Reported) Nitroglycerin (Nitroglycerin Patch) 0.4 MG/HOUR PATCH.TD24 1 PATCH TOP DAILY Chest pain APPLY for 12 hours every day. Pantoprazole Sodium (Protonix) 40 MG TABLET.DR 1 TAB PO DAILY ACID REFLUX ( Reported) Torsemide 20 MG TABLET 1 TAB PO DAILY DIURETIC (Reported) Past History Travel History Traveled to [place] past 21 day No Medical History Neurological: CVA, peripheral neuropathy, polio EENT: diabetic retinopathy, macular degeneration Cardiovascular: AFIB (paroxysmal), CAD, hypertension, hyperlipidemia, PVD (L CEA ), PACEMAKER rheumatic fever MURMUR Respiratory: pneumonia Gastrointestinal: diverticulitis, peptic ulcer disease, upper GI bleed, gastritis Hepatic: NONE Renal: intermittent renal insuff Musculoskeletal: chronic back pain, degen joint disease, osteoarthritis, CHIPPED ELBOWS BILATERAL Psychiatric: anxiety, depression Endocrine: diabetes, hypothyroidism, obesity, vitamin D deficiency Blood Disorders: SPHEROCYTOSIS Cancer(s): NONE 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 OFFICER/Reproductive: C-SECTIONS History of MRSA: Yes History of VRE: No History of CDIFF: No Influenza Vaccine: 03/14/17 Surgical History Surgical History: cholecystectomy, , hernia repair-inguinal, knee replacement (BILATERAL), PACEMAKER CARDIAC STENT SPLENECTOMY, CHOLECYSTECTOMY, LEFT CAROTID ENDARTERECTOMY, B/L KNEE REPLACEMENT, PACEMAKER left carotid endarterectomy status post right second and left third and fifth toe amputations multiple podiatry procedures Numerous debridements of feet bilaterally and toe amps Past Family/Social History Family History Relations & Conditions if any FATHER FH: diabetes mellitus Relation not specified for: FH: pancreatic cancer Psychosocial History Who Do You Live With? self Services at Home: None Primary Language: Uruguayan ETOH Use: denies use Illicit Drug Use: denies illicit drug use Living Will? no Power of Stop Attacher/HCP? no Functional Ability ADLs Independent: dressing, eating, toileting, bathing. Ambulation: cane IADLs Independent: shopping, housework, finances, food prep, telephone, transportation , medication admin. Review of Systems Review of Systems Constitutional: Reports: see HPI. Exam & Diagnostic Data Last 24 Hrs of Vital Signs/I&O Vital Signs Date Time Temp Pulse Resp B/P B/P Pulse O2 O2 Flow FiO2 Mean Ox Delivery Rate 09/24 1432 98.9 64 18 122/74 98 Room Air 09/24 1321 96 Room Air 09/24 1234 97.7 67 15 113/61 97 Room Air Room Air Intake & Output 09/24 1600 09/24 0800 09/24 0000 Intake Total Output Total Balance Patient 215 lb Weight Weight Reported by Patient Measurement Method Physical Exam General Appearance Alert, Oriented X3, Cooperative, No Acute Distress, obese Skin No Rashes Cardiovascular Regular Rate, Normal S1, Normal S2, No Murmurs Lungs Clear to Auscultation, Normal Air Movement Abdomen Normal Bowel Sounds, Soft, No Tenderness Extremities 1+ BLE up to kness. LLE warmth, skin erythema without drainage. L foot 2nd toe skin discoloration and scaling Last 24 Hrs of Labs/Erik: Laboratory Tests 09/24/17 1310: Anion Gap 13, Estimated GFR 39 L, BUN/Creatinine Ratio 36.2 H, Glucose 111 H, Lactic Acid 1.1, Calcium 9.2, Total Bilirubin 0.4, AST 23, ALT 27, Alkaline Phosphatase 76, Total Protein 8.2, Albumin 3.9, Globulin 4.3 H, Albumin/ Globulin Ratio 0.9 L, PT 12.4, INR 1.14, APTT 32, CBC w Diff NO MAN DIFF REQ, RBC 3.92 L, MCV 85.9, MCH 29.8, MCHC 34.7, RDW 14.7 H, MPV 8.1, Gran % 61.4, Lymphocytes % 23.8, Monocytes % 12.0 H, Eosinophils % 2.1, Basophils % 0.7, Absolute Granulocytes 7.9 H, Absolute Lymphocytes 3.1, Absolute Monocytes 1.5 H, Absolute Eosinophils 0.3, Absolute Basophils 0.1 Microbiology 09/24 1345 BLOOD: Blood Culture - RECD 09/24 1310 BLOOD: Blood Culture - RECD Diagnostic Data EKG Results Atrial paced, HR 60, QTC 504 CXR Results FINDINGS: Right chest wall dual-lead pacer with leads overlying the right atrium and right ventricle. The lungs are well expanded. There is no dense consolidation. No edema or effusion. No pneumothorax. The cardiomediastinal silhouette remains prominent, with a calcified aorta. Mild degenerative changes in the spine. IMPRESSION: No acute pulmonary finding. Other Results XRY-FOOT COMPLETE, LEFT IMPRESSION: Chronic postsurgical changes with multifocal amputation. No definite acute erosive osseous changes. There is somewhat lucent appearance of the sarah of the remaining second and fourth digits, although this is similar to prior. Given that the patient has a cardiac pacer, nuclear medicine three-phase bone scan could be performed if clinically indicated. Assessment/Plan Assessment: Ms. Hickman is a 82-year-old female with an extensive medical history who presents to the ED with LLE cellulitis and left foot second toe nonhealing ulcer Problem list: #LLE cellulitis #Nonhealing ulcerated left toe, second digit Plan: Admit to general med for further evaluation and management D5W IVF Accu-Chek and NovoLog SS Continue home meds: ASA, Ezetimibe, Gabapentin, Levothyroxine, Lisinopril, Torsemide, Citalopram We will give 1 grm Vancomycin prior to surgery in a.m as per ID Blood cultures 2 Wound cultures ID consult Endocrinology consult Podiatry consult Diet: Nothing by mouth for toe amputation in the morning DVT ppx: sc heparin Code: DNR/I As Ranked By This Provider Problem List: 1. Cellulitis of foot, left Core Measures/Misc (01/28) Acute Coronary Syndrome ACS Diagnosis: No Congestive Heart Failure Congestive Heart Failure Diagnosis No Cerebrovascular Accident CVA/TIA Diagnosis: No VTE (View Protocol) VTE Risk Factors Age>40 No Mechanical VTE Prophylaxis d/t N/A MechProphylax Ordered No VTE Pharm Prophylaxis d/t NA PharmProphylax ordered Sepsis (View protocol) Sepsis Present: No Sandra Washington MD 09/24/17 1508: Resident Review Statement Resident Statement: examined this patient, discussed with risk intern, agreed with risk intern Other Findings: Patient is an 82-year-old female history of multiple toe amputation, MRSA osteomyelitis who was recently discharged from the [facility] presented with chief complaints of left foot skin changes and drainage. Past medical history- Hypertension, coronary artery disease status post PCI, pulmonary hypertension, sick sinus syndrome status post pacemaker placement, hyperlipidemia, iron deficiency anemia, peripheral neuropathy, type 2 diabetes, hypothyroidism, hypertension, DVT spherocytosis status post splenectomy, macular degeneration,. ED course - Vital signs-temperature 97.7, pulse 67, respiratory rate 15, blood pressure 113/ 61, SPO2 97% on room air. On physical exam -patient was conscious and cooperative, oral cavity - dry mucosa, lungs bilateral clear, heart S1-S2, abdomen distended, bowel sounds positive, bilateral lower leg amputation-and chronic skin changes. Left middle toe -having chronic changes, nontender, feeble pulses. Blood workup showed -WBC 12.9, hemoglobin 11.7, hematocrit 33.7, platelet count 471, sodium 140, potassium 4.6, carbon dioxide 24, anion gap 13, BUN 47, creatinine 1.3, glucose 111, lactic acid 1.1, uric acid 8.3, AST 23, ALT 27, alkaline phosphatase 76, PT/INR 12 point/1.14. Foot x-ray showed -Chronic postsurgical changes with multifocal amputation. No definite acute erosive osseous changes. There is somewhat lucent appearance of the sarah of the remaining second and fourth digits, although this is similar to prior.Given that the patient has a cardiac pacer, nuclear medicine three-phase bone scan could be performed if clinically indicated. Chest x-ray -no cardiopulmonary abnormality Assessment and plan - Patient is an 82-year-old female with past medical history of coronary disease, diabetes, diabetic peripheral neuropathy with history of multiple amputation was seen by Dr. Talavera, in the morning because she was having some oozing from from her left middle toe she was advised to come to the hospital for further evaluation and management. On examination she was afebrile and asymptomatic left lower leg was showing pitting edema and erythema, peripheral pulses were auscultated by Doppler, decreased sensation, there was swelling, discoloration, increase in size of left middle toe. Blood workup showed WBC of 12.9, hemoglobin 11.7, granulocyte 61.4, no band cells, BUN/creatinine 47/1.3, glucose 111, globulin 5.3, PT/INR normal. Foot x-ray showed -chronic postsurgical changes and multifocal amputation, acute erosive osseous changes, lucent appearance of the sarah of the remaining second and fourth visit of the left foot. She was given clindamycin, vancomycin, ceftazidime in the ED. She was already seen by Dr. Talavera and advised for to amputation tomorrow. Plan -workup showed * IV fluid normal saline 50 cc/h; followed by D5 half normal saline at the rate of 50 cc/h overnight. * Keep n.p.o. after midnight * Watch off antibiotics and wait for the blood cultures and wound culture. * Insulin according to the sliding scale * Consistent carbohydrate to diet * Continue on home medication as before DVT prophylaxis - heparin 8 hourly CODE STATUS - DNR/DNI
--- NOTE | 2017-09-24 16:12 | PN- Att Addend ---
Attending Addendum Attending Brief Note 82 y/o F with pmh sig for IDDM, HTN, HLD, HFpEF (45-50%),CAD s/p stent (10/2007 of LAD), SSS s/p PM, PH, PAD, hypothyroidism, hereditory spherocytosis s/p splenectomy, multiple toe amputations, macular degeneration, history of MRSA osteomyelitis with recent admission to with lle phlebitis, p/w discharge, redness swelling on left foot 2nd toe. pt claims that she has neuropathy therefore could not feel any pain but two days while taking shower she noticed that toe was not looking good. She is also legaly blind so she cannot see well at all. She denies any apin, fevers, chills. She wa seen by Dr. Ng and he recommends admission for IV abx, and needs to be taken to OR for debridement. Vital Signs Date Time Temp Pulse Resp B/P B/P Pulse O2 O2 Flow FiO2 Mean Ox Delivery Rate 09/24 1432 98.9 64 18 122/74 98 Room Air 09/24 1321 96 Room Air 09/24 1234 97.7 67 15 113/61 97 Room Air Room Air on exam; aox3, nad. cv; s1,s2, rrr resp; clear abd; soft, nt, bs+ ext; + erythema, + open wound on left 2nd toe. Laboratory Tests 09/24 09/24 1601 1310 Chemistry Sodium (137 - 145 mmol/L) 140 Potassium (3.5 - 5.1 mmol/L) 4.6 Chloride (98 - 107 mmol/L) 103 Carbon Dioxide (22 - 30 mmol/L) 24 Anion Gap (5 - 16) 13 BUN (7 - 17 mg/dL) 47 H Creatinine (0.5 - 1.0 mg/dL) 1.3 H Estimated GFR (>60 ml/min) 39 L BUN/Creatinine Ratio (7 - 25 %) 36.2 H Glucose (65 - 99 mg/dL) 111 H Lactic Acid (0.7 - 2.1 mmol/L) Cancelled 1.1 Calcium (8.4 - 10.2 mg/dL) 9.2 Total Bilirubin (0.2 - 1.3 mg/dL) 0.4 AST (14 - 36 U/L) 23 ALT (9 - 52 U/L) 27 Alkaline Phosphatase (<127 U/L) 76 Total Protein (6.3 - 8.2 g/dL) 8.2 Albumin (3.5 - 5.0 g/dL) 3.9 Globulin (1.9 - 4.2 gm/dL) 4.3 H Albumin/Globulin Ratio (1.1 - 2.2 %) 0.9 L Coagulation PT (9.4 - 12.5 SEC) 12.4 INR (0.90 - 1.19) 1.14 APTT (25 - 37 SEC) 32 Hematology CBC w Diff NO MAN DIFF REQ WBC (4.8 - 10.8 /CUMM) 12.9 H RBC (4.20 - 5.40 /CUMM) 3.92 L Hgb (12.0 - 16.0 G/DL) 11.7 L Hct (37 - 47 %) 33.7 L MCV (81.0 - 99.0 FL) 85.9 MCH (27.0 - 31.0 PG) 29.8 MCHC (33.0 - 37.0 G/DL) 34.7 RDW (11.5 - 14.5 %) 14.7 H Plt Count (130 - 400 /CUMM) 471 H MPV (7.4 - 10.4 FL) 8.1 Gran % (42.2 - 75.2 %) 61.4 Lymphocytes % (20.5 - 51.1 %) 23.8 Monocytes % (1.7 - 9.3 %) 12.0 H Eosinophils % (0 - 5 %) 2.1 Basophils % (0.0 - 2.0 %) 0.7 Absolute Granulocytes (1.4 - 6.5 /CUMM) 7.9 H Absolute Lymphocytes (1.2 - 3.4 /CUMM) 3.1 Absolute Monocytes (0.10 - 0.60 /CUMM) 1.5 H Absolute Eosinophils (0.0 - 0.7 /CUMM) 0.3 Absolute Basophils (0.0 - 0.2 /CUMM) 0.1 Left foot xray. IMPRESSION: Chronic postsurgical changes with multifocal amputation. No definite acute erosive osseous changes. There is somewhat lucent appearance of the sarah of the remaining second and fourth digits, although this is similar to prior. Given that the patient has a cardiac pacer, nuclear medicine three-phase bone scan could be performed if clinically indicated. CXR: Nothing acute. A/P; 82 y/o F with pmh sig for IDDM, HTN, HLD, HFpEF (45-50%),CAD s/p stent (2007 of LAD), SSS s/p PM, PH, PAD, hypothyroidism, hereditory spherocytosis s/p splenectomy, multiple toe amputations, macular degeneration, history of MRSA osteomyelitis with recent admission to with lle phlebitis, admitted with lle cellulitis, left 2nd toe non healing wound with possible osteomyelitis, mild SHE and dehydration. Patient was started on 3 antibiotics in the emergency room which included Vanco, ceftaz and clindamycin. She reacted to vancomycin after 5 minutes of infusion started to itch. Vanco mycin was stopped. At this point we'll obtain blood cultures. Patient to be taken operating room with Dr. Rocha tomorrow. Will check with Dr. Rocha about the use of antibiotics prior to the procedure but will also involve infectious disease. For the management of her diabetes will call Dr. Lloyd as her diabetic regimen is somewhat complicated. Patient to be kept nothing by mouth after midnight. Please confirm and continue the rest of her home medications. Pharmacologic DVT px. Patient is DNR/DNI.
[2017-09-24 17:26] VITALS: BP 130/80
--- NOTE | 2017-09-24 17:41 | Cons- Infect Disease ---
General Information and HPI Consulting Request Date of Consult: 09/24/17 Requested By: Catarina Doyle MD Reason for Consult: Infected left second toe Source of Information: patient, old records History of Present Illness: This is an 82-year-old woman with diabetes, peripheral vascular disease, status post amputations of the first and second toes of the right foot and third, fifth and part of the first toe of the left foot, status post venous closures, hypertension, status post CVA with no residual deficit, coronary artery disease, sick sinus syndrome, status post pacemaker, hypothyroidism, GI bleed, hereditary spherocytosis, status post splenectomy, osteoarthritis, status post bilateral knee replacements, hospitalized 3 months prior to admission for a partial amputation of the left great toe, with the culture positive for MRSA and with the biopsy negative for osteomyelitis but with focal features compatible with gout, discharged on Doxycycline, most recent hospitalized 1 month prior to admission with left leg pain felt to be secondary to phlebitis, admitted today after she was sent to the emergency room by Podiatry because of redness, edema and drainage of the left second toe with no pain, fevers or chills. On admission she was afebrile. Laboratory data revealed a white blood cell count of 13,000, BUN/creatinine 47 and 1.3, with normal liver enzymes, coags normal. Chest x-ray was negative. X-ray of the left foot revealed chronic postsurgical changes with no definite acute erosive osseous changes. She was begun on Vancomycin but developed pruritus, and it was discontinued. She was also given a dose of Ceftazidime and Clindamycin. At present she does not report any complaints. Allergies/Medications Allergies: Coded Allergies: vancomycin (Intermediate, ITCHING 09/24/17) Sulfa (Sulfonamide Antibiotics) (HIVES 09/24/17) adhesive tape (RASH PER PT - PAPER TAPE ONLY 09/24/17) morphine (PER PT EYES ROLL BACK IN HEAD, TOTALLY OUT OF IT 09/24/17) Home Med List: Acetaminophen/Diphenhydramine (Tylenol Pm Ex-Strength Caplet) 500 MG-25 MG TABLET 2 TAB PO QPM PRN SLEEP (Reported) Aspirin (Aspirin*) 325 MG TABLET 2 TAB PO DAILY HEART HEALTH (Reported) Bimatoprost (Lumigan) 0.01 % DROPS 1 GTT OPH QPM BOTH EYES (Reported) Cholecalciferol (Vitamin D3) (Vitamin D) 2,000 UNIT TABLET 1 TAB PO DAILY SUPPLEMENT (Reported) Citalopram Hydrobromide (Citalopram HBr) 40 MG TABLET 1 TAB PO DAILY MENTAL HEALTH (Reported) Ezetimibe (Zetia) 10 MG TABLET 1 TAB PO DAILY CHOLESTEROL (Reported) Ferrous Sulfate 325 MG (65 MG IRON) TABLET 1 TAB PO BID SUPPLEMENT (Reported) Fesoterodine Fumarate (Toviaz) 8 MG TAB.ER.24H 1 TAB PO DAILY BLADDER ( Reported) Gabapentin 100 MG CAPSULE 3 CAP PO TID NEUROPATHY (Reported) Insulin Lispro (Humalog) 100 UNIT/ML VIAL 0 SC SEE SLIDING SCALE DIABETES ( Reported) Bolus Insulin: Novolog < 80 mg/dl: no coverage 80-100 mg/dl: 8 units 101-120 mg/dl: 8 units 121-150 mg/dl: 8 units 151-200 mg/dl: 10 units 201-250 mg/dl: 12 units 251-300 mg/dl: 14 units 301-350 mg/dl: 15 units 351-400 mg/dl: 16 units > 400 mg/dl: 18 units Insulin NPH Human Isophane (Humulin N Kwikpen) 100 UNIT/ML (3 ML) INSULN.PEN 40 U SC BID DIABETES (Reported) Levothyroxine Sodium 137 MCG TABLET 1 TAB PO DAILY AC THYROID (Reported) Lisinopril 5 MG TABLET 1 TAB PO DAILY Heart . Melatonin 3 MG TABLET 1 TAB PO QPM SUPPLEMENT (Reported) Metformin HCl 1,000 MG TABLET 1 TAB PO DAILY DM (Reported) Metoprolol Succinate 25 MG TAB 1 TAB PO DAILY HEART/BP (Reported) Nitroglycerin (Nitroglycerin Patch) 0.4 MG/HOUR PATCH.TD24 1 PATCH TOP DAILY Chest pain APPLY for 12 hours every day. Pantoprazole Sodium (Protonix) 40 MG TABLET.DR 1 TAB PO DAILY ACID REFLUX ( Reported) Torsemide 20 MG TABLET 1 TAB PO DAILY DIURETIC (Reported) Past History Travel History Traveled to [place] past 21 day No Medical History Neurological: CVA, peripheral neuropathy, polio EENT: diabetic retinopathy, macular degeneration Cardiovascular: AFIB (paroxysmal), CAD, hypertension, hyperlipidemia, PVD (L CEA ), PACEMAKER rheumatic fever MURMUR Respiratory: pneumonia Gastrointestinal: diverticulitis, peptic ulcer disease, upper GI bleed, gastritis Hepatic: NONE Musculoskeletal: chronic back pain, degen joint disease, osteoarthritis, CHIPPED ELBOWS BILATERAL Psychiatric: anxiety, depression Endocrine: diabetes, hypothyroidism, obesity, vitamin D deficiency Blood Disorders: SPHEROCYTOSIS Cancer(s): NONE PIE CRUST MIXER/Reproductive: C-SECTIONS History of MRSA: Yes History of VRE: No History of CDIFF: No Isolation History: Contact Influenza Vaccine: 03/14/17 Surgical History Surgical History: cholecystectomy, , hernia repair-inguinal, knee replacement (BILATERAL), PACEMAKER SPLENECTOMY, LEFT CAROTID ENDARTERECTOMY, status post right first and second toe amputaions and left (partial first) third and fifth toe amputations Family History Relations & Conditions If Any: FATHER FH: diabetes mellitus Relation not specified for: FH: pancreatic cancer Psychosocial History Who Do You Live With? self Services at Home: None Primary Language: Malawian ETOH Use: denies use Illicit Drug Use: denies illicit drug use Living Will? no Power of Risk Intern/HCP? no Functional Ability ADLs Independent: dressing, eating, toileting, bathing. Ambulation: cane IADLs Independent: shopping, housework, finances, food prep, telephone, transportation , medication admin. Review of Systems Review of Systems All Other Systems: Reviewed and Negative Exam & Diagnostic Data Last 24 Hrs of Vital Signs/I&O Vital Signs Date Time Temp Pulse Resp B/P B/P Pulse O2 O2 Flow FiO2 Mean Ox Delivery Rate 09/24 1604 98.0 61 18 182/78 93 Room Air Room Air 09/24 1432 98.9 64 18 122/74 98 Room Air 09/24 1321 96 Room Air 09/24 1234 97.7 67 15 113/61 97 Room Air Room Air Intake & Output 09/24 1600 09/24 0800 09/24 0000 Intake Total Output Total Balance Patient 215 lb Weight Weight Reported by Patient Measurement Method Physical Exam Other Physical Findings: She is awake and alert in no acute distress. She is afebrile. Skin reveals no rash. HEENT exam legally blind. Neck is supple with no adenopathy. Lungs are clear. Heart regular rhythm with no murmur. Abdomen is obese, soft, mild tenderness in the epigastrium with no guarding or rebound, with positive bowel sounds. Back no CVA tenderness. Extremities left second toe swelling, erythema with drainage, nontender to palpation; status post left third, fifth and ( partial first) toe amputations; status post right first and second toe amputation; mild erythema, edema and warmth of the anterior tibial aspect of the left leg; pulses 1+ and equal; no cyanosis, clubbing or edema. Neuro neuropathy of both feet. Last 24 Hours of Lab Results: Laboratory Tests 09/24 09/24 1601 1310 Chemistry Sodium (137 - 145 mmol/L) 140 Potassium (3.5 - 5.1 mmol/L) 4.6 Chloride (98 - 107 mmol/L) 103 Carbon Dioxide (22 - 30 mmol/L) 24 Anion Gap (5 - 16) 13 BUN (7 - 17 mg/dL) 47 H Creatinine (0.5 - 1.0 mg/dL) 1.3 H Estimated GFR (>60 ml/min) 39 L BUN/Creatinine Ratio (7 - 25 %) 36.2 H Glucose (65 - 99 mg/dL) 111 H Lactic Acid (0.7 - 2.1 mmol/L) Cancelled 1.1 Calcium (8.4 - 10.2 mg/dL) 9.2 Total Bilirubin (0.2 - 1.3 mg/dL) 0.4 AST (14 - 36 U/L) 23 ALT (9 - 52 U/L) 27 Alkaline Phosphatase (<127 U/L) 76 Total Protein (6.3 - 8.2 g/dL) 8.2 Albumin (3.5 - 5.0 g/dL) 3.9 Globulin (1.9 - 4.2 gm/dL) 4.3 H Albumin/Globulin Ratio (1.1 - 2.2 %) 0.9 L Coagulation PT (9.4 - 12.5 SEC) 12.4 INR (0.90 - 1.19) 1.14 APTT (25 - 37 SEC) 32 Hematology CBC w Diff NO MAN DIFF REQ WBC (4.8 - 10.8 /CUMM) 12.9 H RBC (4.20 - 5.40 /CUMM) 3.92 L Hgb (12.0 - 16.0 G/DL) 11.7 L Hct (37 - 47 %) 33.7 L MCV (81.0 - 99.0 FL) 85.9 MCH (27.0 - 31.0 PG) 29.8 MCHC (33.0 - 37.0 G/DL) 34.7 RDW (11.5 - 14.5 %) 14.7 H Plt Count (130 - 400 /CUMM) 471 H MPV (7.4 - 10.4 FL) 8.1 Gran % (42.2 - 75.2 %) 61.4 Lymphocytes % (20.5 - 51.1 %) 23.8 Monocytes % (1.7 - 9.3 %) 12.0 H Eosinophils % (0 - 5 %) 2.1 Basophils % (0.0 - 2.0 %) 0.7 Absolute Granulocytes (1.4 - 6.5 /CUMM) 7.9 H Absolute Lymphocytes (1.2 - 3.4 /CUMM) 3.1 Absolute Monocytes (0.10 - 0.60 /CUMM) 1.5 H Absolute Eosinophils (0.0 - 0.7 /CUMM) 0.3 Absolute Basophils (0.0 - 0.2 /CUMM) 0.1 Last 24 Hours of Erik Results: Blood cultures 2 September 24 pending Diagnostic Data Recent Imaging Findings: Chest x-ray September 24 negative X-ray of the left foot September 24 revealed chronic postsurgical changes with no definite acute erosive osseous changes. Assessment/Plan Assessment/Plan Impression: This is an 82-year-old woman with diabetes, peripheral vascular disease, status post multiple toe amputations of both feet, admitted today because of redness, edema and drainage of the left second toe, found to be afebrile with a mild leukocytosis and with an x-ray negative for any definite acute erosive osseous changes, apparently scheduled for amputation of the left second toe in the a.m. Though osteomyelitis of the left second toe is certainly a concern, one must consider the possibility of gout, particularly given the pathology from her recent partial left great toe amputation, which was negative for osteomyelitis but revealed focal features compatible with gout. She does have mild erythema and edema of the left leg but it is not clear how acute this is. She does have a mild leukocytosis, but this could be related to her postsplenectomy state, and she is afebrile; therefore it may be reasonable to follow her off antibiotics pending further evaluation. She was given Vancomycin in the emergency room, which she has tolerated previously, but developed what appears to be red man syndrome, which is secondary to rapid infusion and does not constitute an allergy. Suggestion: 1. Would check a uric acid 2. Await possible left second toe amputation in the a.m. 3. Would give Vancomycin 1 g IV prior to her surgery in the a.m. with further antibiotics based on above Consult Acknowledgment - Thank you for your consult request.
[2017-09-24 22:15] VITALS: BP 110/70
[2017-09-25 06:22] VITALS: BP 110/82
--- NOTE | 2017-09-25 07:27 | PN- Housestaff ---
Pilar Fraire 09/25/17 0727: Subjective Follow-up For: LLE cellulitis Nonhealing ulcerated left toe, second digit Subjective: Patient offers no complaints. No acute events overnight Review of Systems Constitutional: Reports: see HPI. Objective Last 24 Hrs of Vital Signs/I&O Vital Signs Date Time Temp Pulse Resp B/P B/P Pulse O2 O2 Flow FiO2 Mean Ox Delivery Rate 09/25 0934 80 118/72 09/25 0622 98.2 78 20 110/82 94 Room Air 09/25 0000 Room Air 09/24 2215 98.1 85 20 110/70 96 Room Air 09/24 2147 110/70 09/24 1726 97.5 75 20 130/80 97 Room Air 09/24 1604 98.0 61 18 182/78 93 Room Air Room Air 09/24 1432 98.9 64 18 122/74 98 Room Air 09/24 1321 96 Room Air 09/24 1234 97.7 67 15 113/61 97 Room Air Room Air Intake & Output 09/25 1600 09/25 0800 09/25 0000 Intake Total 400 500 Output Total 450 0 Balance -50 500 Intake, IV 400 100 Intake, Oral 0 400 Number 2 Bowel Movements Output, Urine 450 0 Patient 210 lb 215 lb Weight Weight Bed scale Reported by Patient Measurement Method Physical Exam General Appearance: Alert, Oriented X3, Cooperative Cardiovascular: Regular Rate, Normal S1, Normal S2 Lungs: Clear to Auscultation, Normal Air Movement Abdomen: Normal Bowel Sounds, Soft, No Tenderness Extremities: No Edema, Minimal drainage to left foot, 2nd digit Current Medications: Current Medications Sig/[place] Start time Last Medication Dose Route Stop Time Status Admin Aspirin 650 MG DAILY 09/24 1603 AC 09/25 PO 0933 Ceftazidime 0 .STK-MED ONE 09/24 1356 DC .ROUTE Ceftazidime 1,000 MG ONCE ONE 09/24 1330 DC 09/24 IV 09/24 1331 1410 Cholecalciferol 2,000 IU DAILY 09/24 1614 AC 09/25 PO 0933 Citalopram 40 MG DAILY 09/24 1615 AC 09/25 Hydrobromide PO 0932 Clindamycin 600 MG ONCE ONE 09/24 1515 DC 09/24 Dextrose/Water 50 ML IV 09/24 1544 1611 Dextrose/Sodium 1,000 ML Q20H 09/25 0000 CAN Chloride IV Dextrose/Sodium 1,000 ML Q20H 09/24 1945 AC 09/24 Chloride IV 2123 Diphenhydramine HCl 0 .STK-MED ONE 09/24 1501 DC .ROUTE Diphenhydramine HCl 25 MG ONCE ONE 09/24 1500 DC 09/24 IV 09/24 1501 1456 Ezetimibe 10 MG DAILY 09/24 1604 AC 09/25 PO 0935 Ferrous Sulfate 325 MG BID 09/24 2100 AC 09/25 PO 0934 Gabapentin 300 MG TID 09/24 1604 AC 09/25 PO 0931 Heparin Sodium 0 .STK-MED ONE 09/24 1546 DC (Porcine) .ROUTE Heparin Sodium 5,000 UNIT Q8 09/24 1512 AC (Porcine) SC Insulin Aspart 0 Q4 09/24 2200 DC SC Insulin Aspart 0 TIDAC 09/24 1700 DC SC Insulin Detemir 40 UNITS BID 09/24 2100 DC SC Insulin Detemir 20 UNITS BID 09/24 2100 AC 09/25 SC 0936 Insulin Human Regular 0 Q6 09/25 0017 09/25 SC 0620 Latanoprost 1 GTT AT BEDTIME 09/24 2100 AC 09/24 OPH 2128 Levothyroxine Sodium 0.137 MG DAILY AC 09/24 1615 AC 09/25 PO 0620 Metoprolol Succinate 25 MG DAILY 09/24 1615 AC 09/25 PO 0934 Nitroglycerin 0.4 MG DAILY 09/25 0900 AC 09/25 TOP 1016 Pantoprazole Sodium 40 MG DAILY 09/25 0900 AC 09/25 IV 0924 Patient Medication 1 ED ONE ONE 09/25 1000 DC Teaching ED 09/25 1001 Sodium Chloride 500 ML BOLUS ONE 09/24 1330 DC 09/24 IV 09/24 1429 1410 Torsemide 20 MG DAILY 09/25 0900 AC 09/25 PO 0938 Vancomycin HCl 1,000 MG ONCE ONE 09/25 0800 DC 09/25 Sodium Chloride 250 ML IV 09/25 0859 0939 Vancomycin HCl 0 .STK-MED ONE 09/24 1356 DC .ROUTE Vancomycin HCl 1,000 MG ONCE ONE 09/24 1330 DC 09/24 Sodium Chloride 250 ML IV 09/24 1429 1435 Last 24 Hrs of Lab/Erik Results Last 24 Hrs of Labs/Mics: Laboratory Tests 09/25/17 0705: Anion Gap 11, Estimated GFR 53 L, BUN/Creatinine Ratio 34.0 H, PT 12.7 H, INR 1.16, CBC w Diff NO MAN DIFF REQ, RBC 3.70 L, MCV 86.3, MCH 29.8, MCHC 34.5, RDW 14.8 H, MPV 8.5, Gran % 60.9, Lymphocytes % 22.7, Monocytes % 11.4 H, Eosinophils % 4.2, Basophils % 0.8, Absolute Granulocytes 5.8, Absolute Lymphocytes 2.2, Absolute Monocytes 1.1 H, Absolute Eosinophils 0.4, Absolute Basophils 0.1 09/24/17 1601: Lactic Acid Cancelled 09/24/17 1310: Anion Gap 13, Estimated GFR 39 L, BUN/Creatinine Ratio 36.2 H, Glucose 111 H, Lactic Acid 1.1, Uric Acid 8.3 H, Calcium 9.2, Total Bilirubin 0.4, AST 23, ALT 27, Alkaline Phosphatase 76, Total Protein 8.2, Albumin 3.9, Globulin 4.3 H, Albumin/Globulin Ratio 0.9 L, PT 12.4, INR 1.14, APTT 32, CBC w Diff NO MAN DIFF REQ, RBC 3.92 L, MCV 85.9, MCH 29.8, MCHC 34.7, RDW 14.7 H, MPV 8.1, Gran % 61.4, Lymphocytes % 23.8, Monocytes % 12.0 H, Eosinophils % 2.1, Basophils % 0.7, Absolute Granulocytes 7.9 H, Absolute Lymphocytes 3.1, Absolute Monocytes 1.5 H, Absolute Eosinophils 0.3, Absolute Basophils 0.1 Microbiology 09/24 1345 BLOOD: Blood Culture - RECD 09/24 1310 BLOOD: Blood Culture - RECD Assessment/Plan Assessment: Ms. Hickman is a 82-year-old female with an extensive medical history who presents to the ED with LLE cellulitis and left foot second toe nonhealing ulcer Problem list: #LLE cellulitis #Nonhealing ulcerated left toe, second digit Plan: Scheduled for O.R. today for toe amputation D5W IVF Accu-Chek, Levemir and NovoLog SS Continue home meds: ASA, Ezetimibe, Gabapentin, Levothyroxine, Lisinopril, Torsemide, Citalopram We will give 1 grm Vancomycin prior to surgery as per ID We will start Vancomycin 1gm q 24h postop Await Blood cultures 2 Await Wound cultures Appreciate ID recommendations Appreciate Endocrinology recommendations Appreciate Podiatry recommendations Diet: Diabetic DVT ppx: sc heparin Code: DNR/I Problem List: 1. Ulcer of second toe of left foot Pain Ratin Pain Location: NA Pain Goal: Remain pain free Pain Plan: NA Tomorrow's Labs & Rationales: none Catarina Doyle MD 09/25/17 1212: Attending MD Review Statement Attending Statement Attending MD Statement: examined this patient, discuss w/resident/PA/SALES REPRESENTATIVE PUBLICATIONS, agreed w/resident/PA/SALES REPRESENTATIVE PUBLICATIONS, reviewed EMR data (avail), discussed with nursing, discussed with case mgmt, reviewed images, amended to note Attending Assessment/Plan: Patient seen and examined, offers no complaints. Patient is scheduled to go to operating room with Dr. Rocha today. Vital Signs Date Time Temp Pulse Resp B/P B/P Pulse O2 O2 Flow FiO2 Mean Ox Delivery Rate 09/25 1113 98.5 73 18 120/66 98 Room Air 09/25 0934 80 118/72 09/25 0622 98.2 78 20 110/82 94 Room Air 09/25 0000 Room Air 09/24 2215 98.1 85 20 110/70 96 Room Air 09/24 2147 110/70 09/24 1726 97.5 75 20 130/80 97 Room Air 09/24 1604 98.0 61 18 182/78 93 Room Air Room Air 09/24 1432 98.9 64 18 122/74 98 Room Air 09/24 1321 96 Room Air 09/24 1234 97.7 67 15 113/61 97 Room Air Room Air on exam; aox3, nad. cv; s1,s2, rrr resp; clear abd; soft, nt, bs+ ext; + erythema, + open wound on left 2nd toe. Laboratory Tests 09/25 09/24 0705 1601 Chemistry Sodium (137 - 145 mmol/L) 142 Potassium (3.5 - 5.1 mmol/L) 4.4 Chloride (98 - 107 mmol/L) 108 H Carbon Dioxide (22 - 30 mmol/L) 23 Anion Gap (5 - 16) 11 BUN (7 - 17 mg/dL) 34 H Creatinine (0.5 - 1.0 mg/dL) 1.0 Estimated GFR (>60 ml/min) 53 L BUN/Creatinine Ratio (7 - 25 %) 34.0 H Lactic Acid Cancelled Coagulation PT (9.4 - 12.5 SEC) 12.7 H INR (0.90 - 1.19) 1.16 Hematology CBC w Diff NO MAN DIFF REQ WBC (4.8 - 10.8 /CUMM) 9.6 RBC (4.20 - 5.40 /CUMM) 3.70 L Hgb (12.0 - 16.0 G/DL) 11.0 L Hct (37 - 47 %) 31.9 L MCV (81.0 - 99.0 FL) 86.3 MCH (27.0 - 31.0 PG) 29.8 MCHC (33.0 - 37.0 G/DL) 34.5 RDW (11.5 - 14.5 %) 14.8 H Plt Count (130 - 400 /CUMM) 437 H MPV (7.4 - 10.4 FL) 8.5 Gran % (42.2 - 75.2 %) 60.9 Lymphocytes % (20.5 - 51.1 %) 22.7 Monocytes % (1.7 - 9.3 %) 11.4 H Eosinophils % (0 - 5 %) 4.2 Basophils % (0.0 - 2.0 %) 0.8 Absolute Granulocytes (1.4 - 6.5 /CUMM) 5.8 Absolute Lymphocytes (1.2 - 3.4 /CUMM) 2.2 Absolute Monocytes (0.10 - 0.60 /CUMM) 1.1 H Absolute Eosinophils (0.0 - 0.7 /CUMM) 0.4 Absolute Basophils (0.0 - 0.2 /CUMM) 0.1 /14 1310 Chemistry Sodium (137 - 145 mmol/L) 140 Potassium (3.5 - 5.1 mmol/L) 4.6 Chloride (98 - 107 mmol/L) 103 Carbon Dioxide (22 - 30 mmol/L) 24 Anion Gap (5 - 16) 13 BUN (7 - 17 mg/dL) 47 H Creatinine (0.5 - 1.0 mg/dL) 1.3 H Estimated GFR (>60 ml/min) 39 L BUN/Creatinine Ratio (7 - 25 %) 36.2 H Glucose (65 - 99 mg/dL) 111 H Lactic Acid (0.7 - 2.1 mmol/L) 1.1 Uric Acid (2.5 - 6.2 mg/dL) 8.3 H Calcium (8.4 - 10.2 mg/dL) 9.2 Total Bilirubin (0.2 - 1.3 mg/dL) 0.4 AST (14 - 36 U/L) 23 ALT (9 - 52 U/L) 27 Alkaline Phosphatase (<127 U/L) 76 Total Protein (6.3 - 8.2 g/dL) 8.2 Albumin (3.5 - 5.0 g/dL) 3.9 Globulin (1.9 - 4.2 gm/dL) 4.3 H Albumin/Globulin Ratio (1.1 - 2.2 %) 0.9 L Coagulation PT (9.4 - 12.5 SEC) 12.4 INR (0.90 - 1.19) 1.14 APTT (25 - 37 SEC) 32 Hematology CBC w Diff NO MAN DIFF REQ WBC (4.8 - 10.8 /CUMM) 12.9 H RBC (4.20 - 5.40 /CUMM) 3.92 L Hgb (12.0 - 16.0 G/DL) 11.7 L Hct (37 - 47 %) 33.7 L MCV (81.0 - 99.0 FL) 85.9 MCH (27.0 - 31.0 PG) 29.8 MCHC (33.0 - 37.0 G/DL) 34.7 RDW (11.5 - 14.5 %) 14.7 H Plt Count (130 - 400 /CUMM) 471 H MPV (7.4 - 10.4 FL) 8.1 Gran % (42.2 - 75.2 %) 61.4 Lymphocytes % (20.5 - 51.1 %) 23.8 Monocytes % (1.7 - 9.3 %) 12.0 H Eosinophils % (0 - 5 %) 2.1 Basophils % (0.0 - 2.0 %) 0.7 Absolute Granulocytes (1.4 - 6.5 /CUMM) 7.9 H Absolute Lymphocytes (1.2 - 3.4 /CUMM) 3.1 Absolute Monocytes (0.10 - 0.60 /CUMM) 1.5 H Absolute Eosinophils (0.0 - 0.7 /CUMM) 0.3 Absolute Basophils (0.0 - 0.2 /CUMM) 0.1 A/P: 82 y/o F with pmh sig for IDDM, HTN, HLD, HFpEF (45-50%),CAD s/p stent (2007 of LAD), SSS s/p PM, PH, PAD, hypothyroidism, hereditory spherocytosis s/p splenectomy, multiple toe amputations, macular degeneration, history of MRSA osteomyelitis with recent admission to with lle phlebitis, admitted with lle cellulitis, left 2nd toe non healing wound with possible osteomyelitis, mild SHE and dehydration. Creatinine back to normal. Patient scheduled to go to operating room with Dr. Rocha. Discussed with Dr. Saldivar about the previous biopsy results showing possibility of gout as well as patient having high uric acid level. She does not have any acute flare up of gout at this point therefore will start the patient on maintenance allopurinol. Diabetes Mx as per Dr. Lloyd. Continue all other current mx. DVT px; Hep sq.
[2017-09-25 08:09] LABS: ABSOLUTE BASOPHIL COUNT 0.1 /CUMM (0.0-0.2); ABSOLUTE EOSINOPHIL COUNT 0.4 /CUMM (0.0-0.7); ABSOLUTE GRANULOCYTE CT 5.8 /CUMM (1.4-6.5); ABSOLUTE LYMPH COUNT 2.2 /CUMM (1.2-3.4); ABSOLUTE MONOCYTE COUNT 1.1 /CUMM (0.10-0.60); BASOPHIL % 0.8 % (0.0-2.0); EOSINOPHIL % 4.2 % (0-5); GRANULOCYTE % 60.9 % (42.2-75.2); HEMATOCRIT 31.9 % (37-47); MEAN CORPUSCULAR HGB 29.8 PG (27.0-31.0); MEAN CORPUSCULAR HGB CONC 34.5 G/DL (33.0-37.0); MEAN CORPUSCULAR VOLUME 86.3 FL (81.0-99.0); MEAN PLATELET VOLUME 8.5 FL (7.4-10.4); PLATELET COUNT 437 /CUMM (130-400); RBC DISTRIBUTION WIDTH 14.8 % (11.5-14.5); WHITE BLOOD CELL COUNT 9.6 /CUMM (4.8-10.8)
[2017-09-25 08:35] LABS: PT 12.7 SEC (9.4-12.5)
--- NOTE | 2017-09-25 10:39 | Cons- Endocrinology ---
General Information and HPI Consulting Request Date of Consult: 09/25/17 Requested By: medical team Reason for Consult: management of DM type 2. Source of Information: patient, old records Exam Limitations: no limitations History of Present Illness: Ms. Hickman is a 82-year-old female with past medical history of DM type 2 on insulin ( NPH 40 units twice a day and Humalog coverage before meals according to the scale), mild renal insufficiency HTN, HLD, HFpEF (45-50%),CAD s/p stent ( 10/2007 of LAD), s/p pacer placement, hypothyroidism, hereditary spherocytosis s /p splenectomy, multiple toe amputations, macular degeneration, history of MRSA osteomyelitis, was admitted for left 2nd toe amputation and ? cellulitis of left LE. She has been kept NPO since last night and has been on D51/2 NS at 50 ml/hour. Levemir was reduced to 20 units twice a day. Novolog coverage every 4 hours ( when FSG is > 150) was suggested. But patient is on RISS every 6 hours. Her FSGs were 141, 162 and 118. She is going to have the amputation done today. Allergies/Medications Allergies: Coded Allergies: Sulfa (Sulfonamide Antibiotics) (HIVES 09/24/17) adhesive tape (RASH PER PT - PAPER TAPE ONLY 09/24/17) morphine (PER PT EYES ROLL BACK IN HEAD, TOTALLY OUT OF IT 09/24/17) vancomycin (Mild, JACOB SYNDROME 09/25/17) Home Med List: Acetaminophen/Diphenhydramine (Tylenol Pm Ex-Strength Caplet) 500 MG-25 MG TABLET 2 TAB PO QPM PRN SLEEP (Reported) Aspirin (Aspirin*) 325 MG TABLET 2 TAB PO DAILY HEART HEALTH (Reported) Bimatoprost (Lumigan) 0.01 % DROPS 1 GTT OPH QPM BOTH EYES (Reported) Cholecalciferol (Vitamin D3) (Vitamin D) 2,000 UNIT TABLET 1 TAB PO DAILY SUPPLEMENT (Reported) Citalopram Hydrobromide (Citalopram HBr) 40 MG TABLET 1 TAB PO DAILY MENTAL HEALTH (Reported) Ezetimibe (Zetia) 10 MG TABLET 1 TAB PO DAILY CHOLESTEROL (Reported) Ferrous Sulfate 325 MG (65 MG IRON) TABLET 1 TAB PO BID SUPPLEMENT (Reported) Fesoterodine Fumarate (Toviaz) 8 MG TAB.ER.24H 1 TAB PO DAILY BLADDER ( Reported) Gabapentin 100 MG CAPSULE 3 CAP PO TID NEUROPATHY (Reported) Insulin Lispro (Humalog) 100 UNIT/ML VIAL 0 SC SEE SLIDING SCALE DIABETES ( Reported) Bolus Insulin: Novolog < 80 mg/dl: no coverage 80-100 mg/dl: 8 units 101-120 mg/dl: 8 units 121-150 mg/dl: 8 units 151-200 mg/dl: 10 units 201-250 mg/dl: 12 units 251-300 mg/dl: 14 units 301-350 mg/dl: 15 units 351-400 mg/dl: 16 units > 400 mg/dl: 18 units Insulin NPH Human Isophane (Humulin N Kwikpen) 100 UNIT/ML (3 ML) INSULN.PEN 40 U SC BID DIABETES (Reported) Levothyroxine Sodium 137 MCG TABLET 1 TAB PO DAILY AC THYROID (Reported) Lisinopril 5 MG TABLET 1 TAB PO DAILY Heart . Melatonin 3 MG TABLET 1 TAB PO QPM SUPPLEMENT (Reported) Metformin HCl 1,000 MG TABLET 1 TAB PO DAILY DM (Reported) Metoprolol Succinate 25 MG TAB 1 TAB PO DAILY HEART/BP (Reported) Nitroglycerin (Nitroglycerin Patch) 0.4 MG/HOUR PATCH.TD24 1 PATCH TOP DAILY Chest pain APPLY for 12 hours every day. Pantoprazole Sodium (Protonix) 40 MG TABLET.DR 1 TAB PO DAILY ACID REFLUX ( Reported) Torsemide 20 MG TABLET 1 TAB PO DAILY DIURETIC (Reported) Review of Systems Review of Systems Constitutional: Reports: see HPI. Cardiovascular: Denies: chest pain. Respiratory: Denies: short of breath. GI: Denies: abdominal pain. Musculoskeletal: Reports: see HPI. Skin: Reports: see HPI (left LE swelling and redness). Hematologic/Endocrine: Denies: polyuria, polydipsia. Past History Travel History Traveled to [place] past 21 day No Medical History Blood Transfusion Hx: No Neurological: CVA, peripheral neuropathy, polio EENT: diabetic retinopathy, macular degeneration Cardiovascular: AFIB (paroxysmal), CAD, hypertension, hyperlipidemia, PVD (L CEA ), PACEMAKER rheumatic fever MURMUR Respiratory: pneumonia Gastrointestinal: diverticulitis, peptic ulcer disease, upper GI bleed, gastritis Hepatic: NONE Musculoskeletal: chronic back pain, degen joint disease, osteoarthritis, CHIPPED ELBOWS BILATERAL Psychiatric: anxiety, depression Endocrine: diabetes, hypothyroidism, obesity, vitamin D deficiency Blood Disorders: SPHEROCYTOSIS Cancer(s): 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 self Services at Home: None Primary Language: Tajik Smoking Status: Former Smoker ETOH Use: denies use Illicit Drug Use: denies illicit drug use Living Will? no Power of Bilingual Receptionist/HCP? no Functional Ability ADLs Independent: dressing, eating, toileting, bathing. Ambulation: cane IADLs Independent: shopping, housework, finances, food prep, telephone, transportation , medication admin. Exam & Diagnostic Data Last 24 Hrs of Vital Signs/I&O Vital Signs Date Time Temp Pulse Resp B/P B/P Pulse O2 O2 Flow FiO2 Mean Ox Delivery Rate 09/25 0934 80 118/72 09/25 0622 98.2 78 20 110/82 94 Room Air 09/25 0000 Room Air 09/24 2215 98.1 85 20 110/70 96 Room Air 09/24 2147 110/70 09/24 1726 97.5 75 20 130/80 97 Room Air 09/24 1604 98.0 61 18 182/78 93 Room Air Room Air 09/24 1432 98.9 64 18 122/74 98 Room Air 09/24 1321 96 Room Air 09/24 1234 97.7 67 15 113/61 97 Room Air Room Air Intake & Output 09/25 1600 09/25 0800 09/25 0000 Intake Total 400 500 Output Total 450 0 Balance -50 500 Intake, IV 400 100 Intake, Oral 0 400 Number 2 Bowel Movements Output, Urine 450 0 Patient 210 lb 215 lb Weight Weight Bed scale Reported by Patient Measurement Method Physical Exam General Appearance: no apparent distress Neck: normal inspection Respiratory: lungs clear Cardiovascular: regular rate/rhythm Gastrointestinal: distention Extremities: swelling (left LE) Labs/Erik Results: Laboratory Tests 09/25 09/24 0705 1601 Chemistry Sodium (137 - 145 mmol/L) 142 Potassium (3.5 - 5.1 mmol/L) 4.4 Chloride (98 - 107 mmol/L) 108 H Carbon Dioxide (22 - 30 mmol/L) 23 Anion Gap (5 - 16) 11 BUN (7 - 17 mg/dL) 34 H Creatinine (0.5 - 1.0 mg/dL) 1.0 Estimated GFR (>60 ml/min) 53 L BUN/Creatinine Ratio (7 - 25 %) 34.0 H Lactic Acid Cancelled Coagulation PT (9.4 - 12.5 SEC) 12.7 H INR (0.90 - 1.19) 1.16 Hematology CBC w Diff NO MAN DIFF REQ WBC (4.8 - 10.8 /CUMM) 9.6 RBC (4.20 - 5.40 /CUMM) 3.70 L Hgb (12.0 - 16.0 G/DL) 11.0 L Hct (37 - 47 %) 31.9 L MCV (81.0 - 99.0 FL) 86.3 MCH (27.0 - 31.0 PG) 29.8 MCHC (33.0 - 37.0 G/DL) 34.5 RDW (11.5 - 14.5 %) 14.8 H Plt Count (130 - 400 /CUMM) 437 H MPV (7.4 - 10.4 FL) 8.5 Gran % (42.2 - 75.2 %) 60.9 Lymphocytes % (20.5 - 51.1 %) 22.7 Monocytes % (1.7 - 9.3 %) 11.4 H Eosinophils % (0 - 5 %) 4.2 Basophils % (0.0 - 2.0 %) 0.8 Absolute Granulocytes (1.4 - 6.5 /CUMM) 5.8 Absolute Lymphocytes (1.2 - 3.4 /CUMM) 2.2 Absolute Monocytes (0.10 - 0.60 /CUMM) 1.1 H Absolute Eosinophils (0.0 - 0.7 /CUMM) 0.4 Absolute Basophils (0.0 - 0.2 /CUMM) 0.1 05/14 1310 Chemistry Sodium (137 - 145 mmol/L) 140 Potassium (3.5 - 5.1 mmol/L) 4.6 Chloride (98 - 107 mmol/L) 103 Carbon Dioxide (22 - 30 mmol/L) 24 Anion Gap (5 - 16) 13 BUN (7 - 17 mg/dL) 47 H Creatinine (0.5 - 1.0 mg/dL) 1.3 H Estimated GFR (>60 ml/min) 39 L BUN/Creatinine Ratio (7 - 25 %) 36.2 H Glucose (65 - 99 mg/dL) 111 H Lactic Acid (0.7 - 2.1 mmol/L) 1.1 Uric Acid (2.5 - 6.2 mg/dL) 8.3 H Calcium (8.4 - 10.2 mg/dL) 9.2 Total Bilirubin (0.2 - 1.3 mg/dL) 0.4 AST (14 - 36 U/L) 23 ALT (9 - 52 U/L) 27 Alkaline Phosphatase (<127 U/L) 76 Total Protein (6.3 - 8.2 g/dL) 8.2 Albumin (3.5 - 5.0 g/dL) 3.9 Globulin (1.9 - 4.2 gm/dL) 4.3 H Albumin/Globulin Ratio (1.1 - 2.2 %) 0.9 L Coagulation PT (9.4 - 12.5 SEC) 12.4 INR (0.90 - 1.19) 1.14 APTT (25 - 37 SEC) 32 Hematology CBC w Diff NO MAN DIFF REQ WBC (4.8 - 10.8 /CUMM) 12.9 H RBC (4.20 - 5.40 /CUMM) 3.92 L Hgb (12.0 - 16.0 G/DL) 11.7 L Hct (37 - 47 %) 33.7 L MCV (81.0 - 99.0 FL) 85.9 MCH (27.0 - 31.0 PG) 29.8 MCHC (33.0 - 37.0 G/DL) 34.7 RDW (11.5 - 14.5 %) 14.7 H Plt Count (130 - 400 /CUMM) 471 H MPV (7.4 - 10.4 FL) 8.1 Gran % (42.2 - 75.2 %) 61.4 Lymphocytes % (20.5 - 51.1 %) 23.8 Monocytes % (1.7 - 9.3 %) 12.0 H Eosinophils % (0 - 5 %) 2.1 Basophils % (0.0 - 2.0 %) 0.7 Absolute Granulocytes (1.4 - 6.5 /CUMM) 7.9 H Absolute Lymphocytes (1.2 - 3.4 /CUMM) 3.1 Absolute Monocytes (0.10 - 0.60 /CUMM) 1.5 H Absolute Eosinophils (0.0 - 0.7 /CUMM) 0.3 Absolute Basophils (0.0 - 0.2 /CUMM) 0.1 Assessment/Plan Assessment/Plan Ms. Hickman is a 82-year-old female with past medical history of DM type 2 on insulin ( NPH 40 units twice a day and Humalog coverage before meals according to the scale), mild renal insufficiency HTN, HLD, HFpEF (45-50%),CAD s/p stent ( 10/2007 of LAD), s/p pacer placement, hypothyroidism, hereditary spherocytosis s /p splenectomy, multiple toe amputations, macular degeneration, history of MRSA osteomyelitis, was admitted for left 2nd toe amputation and ? cellulitis of left LE. Her glucose level has been stable. She will continue the current insulin regimen while she is NPO. However, after the procedure is done and she is ready to eat meals, I will recommend: 1. increasing Levemir to 30 units twice a day; 2. stop RISS every 6 hours coverage and IVF; 3. start consistent carbohydrate 1 diet; 4. start Novolog coverage before meals and novolog coverage at bedtime; detail see the inpatient DM orders; 5. monitir FSGs. will follow. Inpatient Diabetes Orders Before Each Meal: Bolus Insulin: Novolog < 80 mg/dl: no coverage 80-100 mg/dl: 8 units 101-120 mg/dl: 8 units 121-150 mg/dl: 8 units 151-200 mg/dl: 10 units 201-250 mg/dl: 12 units 251-300 mg/dl: 14 units 301-350 mg/dl: 16 units 351-400 mg/dl: 18 units > 400 mg/dl: 20 units Consult Acknowledgment - Thank you for your consult request.
--- NOTE | 2017-09-25 10:47 | PN- Infect Dx ---
Subjective Subjective: Afebrile without complaints Objective Last 24 Hrs of Vital Signs/I&O Vital Signs Date Time Temp Pulse Resp B/P B/P Pulse O2 O2 Flow FiO2 Mean Ox Delivery Rate 09/25 0934 80 118/72 09/25 0622 98.2 78 20 110/82 94 Room Air 09/25 0000 Room Air 09/24 2215 98.1 85 20 110/70 96 Room Air 09/24 2147 110/70 09/24 1726 97.5 75 20 130/80 97 Room Air 09/24 1604 98.0 61 18 182/78 93 Room Air Room Air 09/24 1432 98.9 64 18 122/74 98 Room Air 09/24 1321 96 Room Air 09/24 1234 97.7 67 15 113/61 97 Room Air Room Air Intake & Output 09/25 1600 09/25 0800 09/25 0000 Intake Total 400 500 Output Total 450 0 Balance -50 500 Intake, IV 400 100 Intake, Oral 0 400 Number 2 Bowel Movements Output, Urine 450 0 Patient 210 lb 215 lb Weight Weight Bed scale Reported by Patient Measurement Method Physical Exam Other Physical Findings: She appears comfortable in no acute distress Extremities mild erythema and edema of the left leg, with no tenderness on palpation; left second toe swelling, erythema, with mild necrosis Results Last 24 Hours of Lab Results: Laboratory Tests 09/25 09/24 0705 1601 Chemistry Sodium (137 - 145 mmol/L) 142 Potassium (3.5 - 5.1 mmol/L) 4.4 Chloride (98 - 107 mmol/L) 108 H Carbon Dioxide (22 - 30 mmol/L) 23 Anion Gap (5 - 16) 11 BUN (7 - 17 mg/dL) 34 H Creatinine (0.5 - 1.0 mg/dL) 1.0 Estimated GFR (>60 ml/min) 53 L BUN/Creatinine Ratio (7 - 25 %) 34.0 H Lactic Acid Cancelled Coagulation PT (9.4 - 12.5 SEC) 12.7 H INR (0.90 - 1.19) 1.16 Hematology CBC w Diff NO MAN DIFF REQ WBC (4.8 - 10.8 /CUMM) 9.6 RBC (4.20 - 5.40 /CUMM) 3.70 L Hgb (12.0 - 16.0 G/DL) 11.0 L Hct (37 - 47 %) 31.9 L MCV (81.0 - 99.0 FL) 86.3 MCH (27.0 - 31.0 PG) 29.8 MCHC (33.0 - 37.0 G/DL) 34.5 RDW (11.5 - 14.5 %) 14.8 H Plt Count (130 - 400 /CUMM) 437 H MPV (7.4 - 10.4 FL) 8.5 Gran % (42.2 - 75.2 %) 60.9 Lymphocytes % (20.5 - 51.1 %) 22.7 Monocytes % (1.7 - 9.3 %) 11.4 H Eosinophils % (0 - 5 %) 4.2 Basophils % (0.0 - 2.0 %) 0.8 Absolute Granulocytes (1.4 - 6.5 /CUMM) 5.8 Absolute Lymphocytes (1.2 - 3.4 /CUMM) 2.2 Absolute Monocytes (0.10 - 0.60 /CUMM) 1.1 H Absolute Eosinophils (0.0 - 0.7 /CUMM) 0.4 Absolute Basophils (0.0 - 0.2 /CUMM) 0.1 09/24 1310 Chemistry Sodium (137 - 145 mmol/L) 140 Potassium (3.5 - 5.1 mmol/L) 4.6 Chloride (98 - 107 mmol/L) 103 Carbon Dioxide (22 - 30 mmol/L) 24 Anion Gap (5 - 16) 13 BUN (7 - 17 mg/dL) 47 H Creatinine (0.5 - 1.0 mg/dL) 1.3 H Estimated GFR (>60 ml/min) 39 L BUN/Creatinine Ratio (7 - 25 %) 36.2 H Glucose (65 - 99 mg/dL) 111 H Lactic Acid (0.7 - 2.1 mmol/L) 1.1 Uric Acid (2.5 - 6.2 mg/dL) 8.3 H Calcium (8.4 - 10.2 mg/dL) 9.2 Total Bilirubin (0.2 - 1.3 mg/dL) 0.4 AST (14 - 36 U/L) 23 ALT (9 - 52 U/L) 27 Alkaline Phosphatase (<127 U/L) 76 Total Protein (6.3 - 8.2 g/dL) 8.2 Albumin (3.5 - 5.0 g/dL) 3.9 Globulin (1.9 - 4.2 gm/dL) 4.3 H Albumin/Globulin Ratio (1.1 - 2.2 %) 0.9 L Coagulation PT (9.4 - 12.5 SEC) 12.4 INR (0.90 - 1.19) 1.14 APTT (25 - 37 SEC) 32 Hematology CBC w Diff NO MAN DIFF REQ WBC (4.8 - 10.8 /CUMM) 12.9 H RBC (4.20 - 5.40 /CUMM) 3.92 L Hgb (12.0 - 16.0 G/DL) 11.7 L Hct (37 - 47 %) 33.7 L MCV (81.0 - 99.0 FL) 85.9 MCH (27.0 - 31.0 PG) 29.8 MCHC (33.0 - 37.0 G/DL) 34.7 RDW (11.5 - 14.5 %) 14.7 H Plt Count (130 - 400 /CUMM) 471 H MPV (7.4 - 10.4 FL) 8.1 Gran % (42.2 - 75.2 %) 61.4 Lymphocytes % (20.5 - 51.1 %) 23.8 Monocytes % (1.7 - 9.3 %) 12.0 H Eosinophils % (0 - 5 %) 2.1 Basophils % (0.0 - 2.0 %) 0.7 Absolute Granulocytes (1.4 - 6.5 /CUMM) 7.9 H Absolute Lymphocytes (1.2 - 3.4 /CUMM) 3.1 Absolute Monocytes (0.10 - 0.60 /CUMM) 1.5 H Absolute Eosinophils (0.0 - 0.7 /CUMM) 0.3 Absolute Basophils (0.0 - 0.2 /CUMM) 0.1 Last 24 Hours of Erik Results: Blood cultures September 24 negative Assessment/Plan ID Impression: Stable, with temperatures remaining normal and white blood cell count now normal , off antibiotics after 1 dose of Clindamycin, Ceftazidime and a small amount of Vancomycin (as she developed pruritus at the onset of the infusion, prompting its discontinuation) yesterday, for a presumed infected left second toe. Her uric acid is elevated; therefore suspect there is an element of gout, though cannot rule out bacterial superinfection. Of note the pathology from her recent partial amputation of the left great toe was negative for osteomyelitis but was felt to have features compatible with gout. The culture, however, did grow MRSA. She is currently receiving Vancomycin prophylaxis prior to her anticipated surgery this morning. Suggestion: 1. Further management of her gout per Medicine 2. Await proposed amputation of the left second toe 3. Continue Vancomycin 1.25 g IV every 24 hours pending OR cultures
[2017-09-25 11:13] VITALS: BP 120/66
--- NOTE | 2017-09-25 12:32 | Operative Report ---
Operative/Inv Procedure Report Surgery Date: 09/25/17 Name of Procedure: 1 open incision and drainage deep to the D fashion with exposure of the extensor and flexor tendon and tendon sheath multiple sites left foot 2 open, partial second ray resection left foot 3 intraoperative administration of ankle block anesthesia 4 excisional debridement Pre-Operative Diagnosis: 1 open, necrotic wound left foot 2 osteomyelitis left foot 3 diabetic peripheral neuropathy 4 peripheral arterial disease Post-Operative Diagnosis: The same Estimated Blood Loss: less than 50ml Surgeon/Electrical Design Technologist: CAPO BURNS DPM Anesthesia: moderate sedation, block Operative/Procedure Note Note: After obtaining informed consent the patient was brought to the operating room placed on the operating table in the supine position. The patient isn't securely fastened to the operating table utilizing safety belt. After administration of IV sedation, 10 mL of 0.5% Marcaine plain was infiltrated about the patient's left ankle. The left foot and ankle within scrubbed, prepped and draped in usual aseptic manner. Attention directed to the distal left foot, where a large full-thickness necrotic was identified distal second ray. A 15 blade visualized sharply revised skin margins. Dissection was then carried down deep to the deep fascia with exposure of the extensor and flexor tendon and tendon sheath multiple sites, both proximally and distally. All necrotic, nonviable infected tissue sharply evacuated from the wound bed. Dissection was then carried down to the joint where the periosteum was incised reflected. A bone cutter was utilized to free the distal second ray, which was sent for both microbiologic and pathologic inspection. The open wound was then irrigated with a liters normal sterile saline fissure 50,000 units of bacitracin. Following this, the foot was redraped and the surgeon's top was changed clean gloves. Any bleeding vessels identified were cauterized or ligated as encountered. The wound was then packed with iodoform and 3-0 nylon retention sutures were placed. Foot was dressed with fluffs, Kerlix and an Kota wrap. The patient is noted tolerate both procedure and anesthesia well and the patient was transported from the operating room to recovery with vital signs stable.
[2017-09-25 13:52] VITALS: BP 118/58
[2017-09-25 15:26] VITALS: BP 120/60
[2017-09-25 21:19] VITALS: BP 110/56
--- NOTE | 2017-09-26 07:23 | PN- Housestaff ---
See Addendum Subjective Follow-up For: LLE cellulitis Nonhealing ulcerated left toe, second digit Subjective: Patient offers no complaints. No acute events overnight Review of Systems Constitutional: Reports: see HPI. Objective Last 24 Hrs of Vital Signs/I&O Vital Signs Date Time Temp Pulse Resp B/P B/P Pulse O2 O2 Flow FiO2 Mean Ox Delivery Rate 09/26 0910 65 122/58 09/26 0739 98.2 59 20 100/54 95 Room Air 09/26 0000 Room Air 09/25 2119 97.6 65 18 110/56 96 09/25 1526 97.5 61 20 120/60 97 09/25 1352 97.9 73 18 118/58 96 Room Air Intake & Output 09/26 1600 09/26 0800 09/26 0000 Intake Total 600 460 Output Total 950 Balance -350 460 Intake, Oral 600 460 Output, Urine 950 Patient 209 lb Weight Physical Exam General Appearance: Alert, Oriented X3, Cooperative, No Acute Distress Cardiovascular: Regular Rate, Normal S1, Normal S2 Lungs: Clear to Auscultation, Normal Air Movement Abdomen: Normal Bowel Sounds, Soft, No Tenderness Extremities: Multiple toe amputations BL. Dressing intact, no drainage visualized Current Medications: Current Medications Sig/Way[place] Start time Last Medication Dose Route Stop Time Status Admin Acetaminophen 1,000 MG .STK-MED ONE 09/25 1148 DC IV 09/25 1149 Allopurinol 100 MG DAILY 09/25 1531 AC 09/26 PO 0910 Aspirin 650 MG DAILY 09/24 1603 AC 09/26 PO 0909 Cholecalciferol 2,000 IU DAILY 09/24 1614 AC 09/26 PO 0910 Citalopram 40 MG DAILY 09/24 1615 AC 09/26 Hydrobromide PO 0909 Dextrose/Sodium 1,000 ML Q20H 09/24 1945 DC 09/24 Chloride IV 2123 Ezetimibe 10 MG DAILY 09/24 1604 AC 09/26 PO 0910 Fentanyl Citrate 100 MCG .STK-MED ONE 09/25 1147 DC IM 09/25 1148 Ferrous Sulfate 325 MG BID 09/24 2100 AC 09/26 PO 0909 Gabapentin 300 MG TID 09/24 1604 AC 09/26 PO 0910 Heparin Sodium 5,000 UNIT Q8 09/24 1512 AC (Porcine) SC Insulin Aspart 0 TIDAC 09/25 1700 AC 09/26 SC 0913 Insulin Detemir 30 UNITS BID 09/25 2100 AC 09/26 SC 0920 Insulin Detemir 20 UNITS BID 09/24 2100 DC 09/25 SC 0936 Insulin Human Regular 0 Q6 09/25 0017 DC 09/25 SC 0620 Latanoprost 1 GTT AT BEDTIME 09/24 2100 AC 09/25 OPH 2116 Levothyroxine Sodium 0.137 MG DAILY AC 09/24 1615 AC 09/26 PO 0606 Metoprolol Succinate 25 MG DAILY 09/24 1615 AC 09/26 PO 0910 Midazolam HCl 2 MG .STK-MED ONE 09/25 1147 DC IM 09/25 1148 Nitroglycerin 0.4 MG DAILY 09/25 0900 AC 09/26 TOP 0911 Pantoprazole Sodium 40 MG DAILY 09/25 0900 AC 09/26 IV 0911 Ramelteon 8 MG AT BEDTIME 09/25 2330 AC 09/26 PO 0008 Torsemide 20 MG DAILY 09/25 0900 AC 09/26 PO 0914 Vancomycin HCl 1,250 MG DAILY 09/26 0900 AC 09/26 Sodium Chloride 250 ML IV 1103 Last 24 Hrs of Lab/Erik Results Last 24 Hrs of Labs/Mics: Laboratory Tests 09/26/17 0725: Anion Gap 13, Estimated GFR 48 L, BUN/Creatinine Ratio 26.4 H, CBC w Diff NO MAN DIFF REQ, RBC 3.64 L, MCV 86.8, MCH 29.8, MCHC 34.4, RDW 14.6 H, MPV 8.7, Gran % 60.1, Lymphocytes % 23.4, Monocytes % 11.8 H, Eosinophils % 4.1, Basophils % 0.6, Absolute Granulocytes 7.4 H, Absolute Lymphocytes 2.9, Absolute Monocytes 1.4 H, Absolute Eosinophils 0.5, Absolute Basophils 0.1 Microbiology 09/25 1209 EXTREMITIE: Culture & Sensitivity - CAN Cancelled: OE 09/25 1209 EXTREMITIE: Gram Stain - CAN Cancelled: OE 09/25 1209 EXTREMITIE: Gross Specimen Examination - RES STAPH AUREUS ALPHA STREP 09/25 1209 EXTREMITIE: Gram Stain - RES Assessment/Plan Assessment: Ms. Hickman is a 82-year-old female with an extensive medical history who presents to the ED with LLE cellulitis and left foot second toe nonhealing ulcer Problem list: #LLE cellulitis #Nonhealing ulcerated left toe, second digit #SHE Plan: Monitor Cr Accu-Chek, Levemir and NovoLog SS Continue home meds: ASA, Ezetimibe, Gabapentin, Levothyroxine, Lisinopril, Torsemide, Citalopram Continue Vancomycin 1gm q 24h Blood cultures showed no growth thus far Wound cultures grew Staph and alpha strep Appreciate ID recommendations Appreciate Endocrinology recommendations Appreciate Podiatry recommendations Diet: Diabetic DVT ppx: sc heparin Code: DNR/I Problem List: 1. Cellulitis of foot, left 2. Ulcer of second toe of left foot Pain Ratin Pain Location: NA Pain Goal: Remain pain free Pain Plan: NA Tomorrow's Labs & Rationales: CBC, BEP
[2017-09-26 07:39] VITALS: BP 100/54
[2017-09-26 08:58] LABS: ABSOLUTE BASOPHIL COUNT 0.1 /CUMM (0.0-0.2); ABSOLUTE EOSINOPHIL COUNT 0.5 /CUMM (0.0-0.7); ABSOLUTE GRANULOCYTE CT 7.4 /CUMM (1.4-6.5); ABSOLUTE LYMPH COUNT 2.9 /CUMM (1.2-3.4); ABSOLUTE MONOCYTE COUNT 1.4 /CUMM (0.10-0.60); BASOPHIL % 0.6 % (0.0-2.0); EOSINOPHIL % 4.1 % (0-5); GRANULOCYTE % 60.1 % (42.2-75.2); HEMATOCRIT 31.6 % (37-47); MEAN CORPUSCULAR HGB 29.8 PG (27.0-31.0); MEAN CORPUSCULAR HGB CONC 34.4 G/DL (33.0-37.0); MEAN CORPUSCULAR VOLUME 86.8 FL (81.0-99.0); MEAN PLATELET VOLUME 8.7 FL (7.4-10.4); PLATELET COUNT 441 /CUMM (130-400); RBC DISTRIBUTION WIDTH 14.6 % (11.5-14.5); RED BLOOD CELL CT 3.64 /CUMM (4.20-5.40); WHITE BLOOD CELL COUNT 12.3 /CUMM (4.8-10.8)
--- NOTE | 2017-09-26 10:23 | PN- Infect Dx ---
Subjective Subjective: Afebrile without complaints. Objective Last 24 Hrs of Vital Signs/I&O Vital Signs Date Time Temp Pulse Resp B/P B/P Pulse O2 O2 Flow FiO2 Mean Ox Delivery Rate 09/26 0910 65 122/58 09/26 0739 98.2 59 20 100/54 95 Room Air 09/26 0000 Room Air 09/25 2119 97.6 65 18 110/56 96 09/25 1526 97.5 61 20 120/60 97 09/25 1352 97.9 73 18 118/58 96 Room Air 09/25 1113 98.5 73 18 120/66 98 Room Air Intake & Output 09/26 1600 09/26 0800 09/26 0000 Intake Total 600 460 Output Total 950 Balance -350 460 Intake, Oral 600 460 Output, Urine 950 Physical Exam Other Physical Findings: She appears comfortable in no acute distress Extremities left foot dressing intact Results Last 24 Hours of Lab Results: Laboratory Tests 09/26 0725 Chemistry Sodium (137 - 145 mmol/L) 142 Potassium (3.5 - 5.1 mmol/L) 4.7 Chloride (98 - 107 mmol/L) 105 Carbon Dioxide (22 - 30 mmol/L) 24 Anion Gap (5 - 16) 13 BUN (7 - 17 mg/dL) 29 H Creatinine (0.5 - 1.0 mg/dL) 1.1 H Estimated GFR (>60 ml/min) 48 L BUN/Creatinine Ratio (7 - 25 %) 26.4 H Hematology CBC w Diff NO MAN DIFF REQ WBC (4.8 - 10.8 /CUMM) 12.3 H RBC (4.20 - 5.40 /CUMM) 3.64 L Hgb (12.0 - 16.0 G/DL) 10.9 L Hct (37 - 47 %) 31.6 L MCV (81.0 - 99.0 FL) 86.8 MCH (27.0 - 31.0 PG) 29.8 MCHC (33.0 - 37.0 G/DL) 34.4 RDW (11.5 - 14.5 %) 14.6 H Plt Count (130 - 400 /CUMM) 441 H MPV (7.4 - 10.4 FL) 8.7 Gran % (42.2 - 75.2 %) 60.1 Lymphocytes % (20.5 - 51.1 %) 23.4 Monocytes % (1.7 - 9.3 %) 11.8 H Eosinophils % (0 - 5 %) 4.1 Basophils % (0.0 - 2.0 %) 0.6 Absolute Granulocytes (1.4 - 6.5 /CUMM) 7.4 H Absolute Lymphocytes (1.2 - 3.4 /CUMM) 2.9 Absolute Monocytes (0.10 - 0.60 /CUMM) 1.4 H Absolute Eosinophils (0.0 - 0.7 /CUMM) 0.5 Absolute Basophils (0.0 - 0.2 /CUMM) 0.1 Last 24 Hours of Erik Results: OR culture September 25 labeled left second toe positive for Staph aureus Blood cultures 2 September 24 negative Assessment/Plan ID Impression: Stable, with temperatures remaining normal, on Vancomycin for a presumably infected left second toe, status post open partial second ray resection of the left foot yesterday for possible osteomyelitis, with her OR culture growing Staph aureus, likely MRSA. She is scheduled for a return to the OR later this week for wound closure, but all of the infected bone is felt to have been removed; therefore she should only require a short course of antibiotics postop for possible residual soft tissue infection. Suspect that there may be an element of gout given her elevated uric acid and recent path report from her left great toe surgery revealing "focal features compatible with gout". Suggestion: 1. Follow-up final OR culture and pathology 2. Await return to the OR later this week 3. Continue Vancomycin pending above
--- NOTE | 2017-09-26 10:35 | PN- Diabetes ---
Assessment/Plan Diabetes Assessment: Ms. Hickman is a 82-year-old female with past medical history of DM type 2 on insulin ( NPH 40 units twice a day and Humalog coverage before meals according to the scale), mild renal insufficiency HTN, HLD, HFpEF (45-50%),CAD s/p stent ( 10/2007 of LAD), s/p pacer placement, hypothyroidism, hereditary spherocytosis s /p splenectomy, multiple toe amputations, macular degeneration, history of MRSA osteomyelitis, was admitted for left 2nd toe amputation and ? cellulitis of left LE. She underwent the procedure on 09/25. Now she is on Levemir 30 units twice a day and Novolog coverage before meals. Her FSGs were 178, 205 and 136. Before Each Meal: Bolus Insulin: Novolog < 80 mg/dl: no coverage 80-100 mg/dl: 8 units 101-120 mg/dl: 8 units 121-150 mg/dl: 8 units 151-200 mg/dl: 10 units 201-250 mg/dl: 12 units 251-300 mg/dl: 14 units 301-350 mg/dl: 16 units 351-400 mg/dl: 18 units > 400 mg/dl: 20 units Plan: continue the current insulin regimen for now. monitor FSGs. will follow. Subjective Subjective: She feels ok. Objective Last 24 Hrs of Vital Signs/I&O Vital Signs Date Time Temp Pulse Resp B/P B/P Pulse O2 O2 Flow FiO2 Mean Ox Delivery Rate 09/26 0910 65 122/58 09/26 0739 98.2 59 20 100/54 95 Room Air 09/26 0000 Room Air 09/25 2119 97.6 65 18 110/56 96 09/25 1526 97.5 61 20 120/60 97 09/25 1352 97.9 73 18 118/58 96 Room Air 09/25 1113 98.5 73 18 120/66 98 Room Air Intake & Output 09/26 1600 09/26 0800 09/26 0000 Intake Total 600 460 Output Total 950 Balance -350 460 Intake, Oral 600 460 Output, Urine 950 Patient 209 lb Weight Findings Pertinent Lab/Erik Results: Laboratory Tests 09/26 0725 Chemistry Sodium (137 - 145 mmol/L) 142 Potassium (3.5 - 5.1 mmol/L) 4.7 Chloride (98 - 107 mmol/L) 105 Carbon Dioxide (22 - 30 mmol/L) 24 Anion Gap (5 - 16) 13 BUN (7 - 17 mg/dL) 29 H Creatinine (0.5 - 1.0 mg/dL) 1.1 H Estimated GFR (>60 ml/min) 48 L BUN/Creatinine Ratio (7 - 25 %) 26.4 H Hematology CBC w Diff NO MAN DIFF REQ WBC (4.8 - 10.8 /CUMM) 12.3 H RBC (4.20 - 5.40 /CUMM) 3.64 L Hgb (12.0 - 16.0 G/DL) 10.9 L Hct (37 - 47 %) 31.6 L MCV (81.0 - 99.0 FL) 86.8 MCH (27.0 - 31.0 PG) 29.8 MCHC (33.0 - 37.0 G/DL) 34.4 RDW (11.5 - 14.5 %) 14.6 H Plt Count (130 - 400 /CUMM) 441 H MPV (7.4 - 10.4 FL) 8.7 Gran % (42.2 - 75.2 %) 60.1 Lymphocytes % (20.5 - 51.1 %) 23.4 Monocytes % (1.7 - 9.3 %) 11.8 H Eosinophils % (0 - 5 %) 4.1 Basophils % (0.0 - 2.0 %) 0.6 Absolute Granulocytes (1.4 - 6.5 /CUMM) 7.4 H Absolute Lymphocytes (1.2 - 3.4 /CUMM) 2.9 Absolute Monocytes (0.10 - 0.60 /CUMM) 1.4 H Absolute Eosinophils (0.0 - 0.7 /CUMM) 0.5 Absolute Basophils (0.0 - 0.2 /CUMM) 0.1
[2017-09-26 14:06] VITALS: BP 120/60
[2017-09-26 22:51] VITALS: BP 120/60
[2017-09-27 07:09] VITALS: BP 118/64
--- NOTE | 2017-09-27 07:09 | PN- Housestaff ---
See Addendum Subjective Follow-up For: LLE cellulitis Nonhealing ulcerated left toe, second digit Subjective: Patient offers no complaints. Denies fever, chills, nausea, vomiting, diarrhea, or LE pain Review of Systems Constitutional: Reports: see HPI. Objective Last 24 Hrs of Vital Signs/I&O Vital Signs Date Time Temp Pulse Resp B/P B/P Pulse O2 O2 Flow FiO2 Mean Ox Delivery Rate 09/27 0832 98.6 87 20 118/64 09/27 0709 98.6 87 20 118/64 96 Room Air 09/26 2251 98.6 74 20 120/60 96 Room Air 09/26 1406 98.4 62 20 120/60 95 09/26 0910 65 122/58 Intake & Output 09/27 1600 09/27 0800 09/27 0000 Intake Total 150 500 Output Total Balance 150 500 Intake, Oral 150 500 Physical Exam General Appearance: Alert, Oriented X3, Cooperative, No Acute Distress Cardiovascular: Regular Rate, Normal S1, Normal S2 Lungs: Clear to Auscultation, Normal Air Movement Abdomen: Normal Bowel Sounds, Soft, No Tenderness Extremities: LLE dressing intact with minimal drainage, chronic skin discoloration seen on BLE Current Medications: Current Medications Sig/[place] Start time Last Medication Dose Route Stop Time Status Admin Allopurinol 100 MG DAILY 09/25 1531 09/27 PO 0832 Aspirin 650 MG DAILY 09/24 1603 09/27 PO 0831 Cholecalciferol 2,000 IU DAILY 09/24 161 09/27 PO 0832 Citalopram 40 MG DAILY 09/24 161 09/27 Hydrobromide PO 0832 Ezetimibe 10 MG DAILY 09/24 1604 09/27 PO 0832 Ferrous Sulfate 325 MG BID 09/24 2100 09/27 PO 0832 Gabapentin 300 MG TID 09/24 1604 09/27 PO 0832 Heparin Sodium 5,000 UNIT Q8 09/24 1512 (Porcine) SC Insulin Aspart 0 TIDAC 09/25 1700 AC 09/27 SC 0830 Insulin Detemir 30 UNITS BID 09/25 2100 09/27 SC 0831 Latanoprost 1 GTT AT BEDTIME 09/24 2100 09/26 OPH 2042 Levothyroxine Sodium 0.137 MG DAILY AC 09/24 1615 09/27 PO 0610 Melatonin 5 MG AT BEDTIME 09/26 2100 AC 09/26 PO 2041 Metoprolol Succinate 25 MG DAILY 09/24 1615 AC 09/27 PO 0832 Nitroglycerin 0.4 MG DAILY 09/25 0900 AC 09/27 TOP 0831 Pantoprazole Sodium 40 MG DAILY 09/25 0900 AC 09/27 IV 0831 Ramelteon 8 MG AT BEDTIME 09/25 2330 AC 09/26 PO 204 Torsemide 20 MG DAILY 09/25 0900 AC 09/27 PO 0832 Vancomycin HCl 1,250 MG DAILY 09/26 0900 AC 09/26 Sodium Chloride 250 ML IV 1103 Last 24 Hrs of Lab/Erik Results Last 24 Hrs of Labs/Mics: Laboratory Tests 09/27/17 0700: Anion Gap 11, Estimated GFR 43 L, BUN/Creatinine Ratio 22.5, CBC w Diff Pending , WBC Pending, RBC Pending, Hgb Pending, Hct Pending, MCV Pending, MCH Pending, MCHC Pending, RDW Pending, Plt Count Pending, MPV Pending Assessment/Plan Assessment: Ms. Hickman is a 82-year-old female with an extensive medical history who presents to the ED with LLE cellulitis and left foot second toe nonhealing ulcer Problem list: #LLE cellulitis #Nonhealing ulcerated left toe, second digit #SHE Plan: Monitor Cr Accu-Chek, Levemir and NovoLog SS Continue home meds: ASA, Ezetimibe, Gabapentin, Levothyroxine, Lisinopril, Torsemide, Citalopram Continue Vancomycin 1gm q 24h Blood cultures showed no growth thus far Wound cultures grew Staph and alpha strep Appreciate ID recommendations Appreciate Endocrinology recommendations Appreciate Podiatry recommendations Diet: NPO for further debridement as per Podiatry DVT ppx: sc heparin Code: DNR/I Problem List: 1. Ulcer of second toe of left foot 2. Cellulitis of foot, left Pain Ratin Pain Location: NA Pain Goal: Remain pain free Pain Plan: NA Tomorrow's Labs & Rationales: CBC, BEP
[2017-09-27 08:19] LABS: ABSOLUTE BASOPHIL COUNT 0.1 /CUMM (0.0-0.2); ABSOLUTE EOSINOPHIL COUNT 0.4 /CUMM (0.0-0.7); ABSOLUTE MONOCYTE COUNT 1.4 /CUMM (0.10-0.60); BASOPHIL % 0.5 % (0.0-2.0); EOSINOPHIL % 3.7 % (0-5); HEMATOCRIT 33.9 % (37-47); MEAN CORPUSCULAR HGB 29.6 PG (27.0-31.0); MEAN CORPUSCULAR HGB CONC 34.3 G/DL (33.0-37.0); MEAN CORPUSCULAR VOLUME 86.2 FL (81.0-99.0); MEAN PLATELET VOLUME 8.2 FL (7.4-10.4); PLATELET COUNT 471 /CUMM (130-400); RBC DISTRIBUTION WIDTH 14.8 % (11.5-14.5); RED BLOOD CELL CT 3.94 /CUMM (4.20-5.40); WHITE BLOOD CELL COUNT 10.9 /CUMM (4.8-10.8)
--- NOTE | 2017-09-27 09:01 | PN- Diabetes ---
Assessment/Plan Diabetes Assessment: Ms. Hickman is a 82-year-old female with past medical history of DM type 2 on insulin ( NPH 40 units twice a day and Humalog coverage before meals according to the scale), mild renal insufficiency HTN, HLD, HFpEF (45-50%),CAD s/p stent ( 10/2007 of LAD), s/p pacer placement, hypothyroidism, hereditary spherocytosis s /p splenectomy, multiple toe amputations, macular degeneration, history of MRSA osteomyelitis, was admitted for left 2nd toe amputation and ? cellulitis of left LE. She underwent the procedure on 09/25. Now she is on Levemir 30 units twice a day and Novolog coverage before meals. Her FSGs were 151, 252, 274 and 134 Before Each Meal: Bolus Insulin: Novolog < 80 mg/dl: no coverage 80-100 mg/dl: 8 units 101-120 mg/dl: 8 units 121-150 mg/dl: 8 units 151-200 mg/dl: 10 units 201-250 mg/dl: 12 units 251-300 mg/dl: 14 units 301-350 mg/dl: 16 units 351-400 mg/dl: 18 units > 400 mg/dl: 20 units Plan: 1. continue Levemir 30 units twice a day; 2. adjust Novolog coverage before meals; Bolus Insulin: Novolog < 80 mg/dl: no coverage 80-100 mg/dl: 10 units 101-120 mg/dl: 10 units 121-150 mg/dl: 10 units 151-200 mg/dl: 12 units 201-250 mg/dl: 14 units 251-300 mg/dl: 16 units 301-350 mg/dl: 18 units 351-400 mg/dl: 20 units > 400 mg/dl: 22 units 3. continue the current Novolog coverage at bedtime; 4. monitor FSGs. will follow. Subjective Subjective: She feels okay this morning. Objective Last 24 Hrs of Vital Signs/I&O Vital Signs Date Time Temp Pulse Resp B/P B/P Pulse O2 O2 Flow FiO2 Mean Ox Delivery Rate 09/27 0832 98.6 87 20 118/64 09/27 0709 98.6 87 20 118/64 96 Room Air 09/26 2251 98.6 74 20 120/60 96 Room Air 09/26 1406 98.4 62 20 120/60 95 09/26 0910 65 122/58 Intake & Output 09/27 1600 09/27 0800 09/27 0000 Intake Total 150 500 Output Total Balance 150 500 Intake, Oral 150 500 Findings Pertinent Lab/Erik Results: Laboratory Tests 09/27 0700 Chemistry Sodium (137 - 145 mmol/L) 140 Potassium (3.5 - 5.1 mmol/L) 4.6 Chloride (98 - 107 mmol/L) 102 Carbon Dioxide (22 - 30 mmol/L) 27 Anion Gap (5 - 16) 11 BUN (7 - 17 mg/dL) 27 H Creatinine (0.5 - 1.0 mg/dL) 1.2 H Estimated GFR (>60 ml/min) 43 L BUN/Creatinine Ratio (7 - 25 %) 22.5 Hematology CBC w Diff NO MAN DIFF REQ WBC (4.8 - 10.8 /CUMM) 10.9 H RBC (4.20 - 5.40 /CUMM) 3.94 L Hgb (12.0 - 16.0 G/DL) 11.6 L Hct (37 - 47 %) 33.9 L MCV (81.0 - 99.0 FL) 86.2 MCH (27.0 - 31.0 PG) 29.6 MCHC (33.0 - 37.0 G/DL) 34.3 RDW (11.5 - 14.5 %) 14.8 H Plt Count (130 - 400 /CUMM) 471 H MPV (7.4 - 10.4 FL) 8.2 Gran % (42.2 - 75.2 %) 55.0 Lymphocytes % (20.5 - 51.1 %) 27.8 Monocytes % (1.7 - 9.3 %) 13.0 H Eosinophils % (0 - 5 %) 3.7 Basophils % (0.0 - 2.0 %) 0.5 Absolute Granulocytes (1.4 - 6.5 /CUMM) 6.0 Absolute Lymphocytes (1.2 - 3.4 /CUMM) 3.0 Absolute Monocytes (0.10 - 0.60 /CUMM) 1.4 H Absolute Eosinophils (0.0 - 0.7 /CUMM) 0.4 Absolute Basophils (0.0 - 0.2 /CUMM) 0.1
--- NOTE | 2017-09-27 11:03 | Discharge Summary ---
Visit Information Visit Dates Admission Date: 09/24/17 Discharge Date: 09/29/17 Hospital Course Course Attending Physician: Vivek BOURGEOIS,Catarina Primary Care Physician: Pearl Horan APRN Hospital Course: Ms. Hickman is a 82-year-old female with an extensive medical history who presents to the ED with LLE cellulitis and left foot second toe nonhealing ulcer. She was admitted to the general medical floor for further evaluation and management #L foot osteomyelitis with Left lower extremity cellulitis Podiatry and Infectious diseases were consulted. Blood cultures reported no growth. Wound cultures grew MRSA. She was administered Vancomycin and transitioned to Doxycycline due to Bactrim allergy. She underwent a left 2nd digit amputation and further debridement. #SHE Her acute kidney injury, creatinine 1.3, it was suspected to be due to dehydration. She received adequate normal saline IV fluids #Gout Her uric acid was 8.3. She was administered Allopurinol 100 mg for underlying gout of the left foot #Chronic medical conditions We performed Accu-Chek, administered Levemir and NovoLog on a sliding scale We continued her home meds DVT ppx: sc heparin Allergies: Coded Allergies: Sulfa (Sulfonamide Antibiotics) (HIVES 09/24/17) adhesive tape (RASH PER PT - PAPER TAPE ONLY 09/24/17) morphine (PER PT EYES ROLL BACK IN HEAD, TOTALLY OUT OF IT 09/24/17) vancomycin (Mild, JACOB SYNDROME 09/25/17) Pertinent Lab Results: 09/24/17-1326 EXAM TYPE: RAD - XRY-CHEST XRAY, TWO VIEWS IMPRESSION: No acute pulmonary finding. 09/24/17 EXAM TYPE: RAD - XRY-FOOT COMPLETE, LEFT IMPRESSION: Chronic postsurgical changes with multifocal amputation. No definite acute erosive osseous changes. There is somewhat lucent appearance of the sarah of the remaining second and fourth digits, although this is similar to prior. Given that the patient has a cardiac pacer, nuclear medicine three-phase bone scan could be performed if clinically indicated. 09/28/17-163 EXAM TYPE: RAD - XRY-FOOT COMPLETE, LEFT IMPRESSION: Status post amputation of the second toe at the level of the metatarsal head. Disposition Summary Disposition Principal Diagnosis: L foot osteomyelitis Left lower extremity cellulitis SHE Gout Additional Diagnosis: as above Discharge Disposition: home or self care Discharge Instructions General Discharge Information Code Status: Do Not Resucitate/Intubat Patient's Diet: Diabetic Patient's Activity: As toelrated Follow-Up Instructions/Appts: Follow up with Podiatry-Dr. Rocha within 1 week of discharge Follow up with your PCP-Dr. Horan within 1-2 weeks of discharge Follow up with your activities aide-Dr. Lloyd within 1 week of discharge Medications at Discharge Discharge Medications: Continue taking these medications: Levothyroxine Sodium (Levothyroxine Sodium) 137 MCG TABLET 1 Tablet ORAL DAILY BEFORE BREAKFAST Comments: Last Taken: 09/29/17 Time: 6:00 AM Acetaminophen/Diphenhydramine (Tylenol Pm Ex-Strength Caplet) 500 MG-25 MG TABLET 2 Tablet ORAL Every night as needed for SLEEP Comments: NOT GIVEN Aspirin (Aspirin*) 325 MG TABLET 2 Tablet ORAL DAILY Comments: Last Taken: 09/29/17 Time: 9:00 AM Pantoprazole Sodium (Protonix) 40 MG TABLET.DR 1 Tablet ORAL DAILY Comments: NOT GIVEN TODAY Ferrous Sulfate (Ferrous Sulfate) 325 MG (65 MG IRON) TABLET 1 Tablet ORAL TWICE DAILY Comments: Last Taken: 09/29/17 Time: 8:00 AM Ezetimibe (Zetia) 10 MG TABLET 1 Tablet ORAL DAILY Qty = 90 Comments: Last Taken: 09/29/17 Time: 8:00 AM Insulin Lispro (Humalog) 100 UNIT/ML VIAL 0 Inject into fatty tissue SEE SLIDING SCALE Instructions: Bolus Insulin: Novolog < 80 mg/dl: no coverage 80-100 mg/dl: 8 units 101-120 mg/dl: 8 units 121-150 mg/dl: 8 units 151-200 mg/dl: 10 units 201-250 mg/dl: 12 units 251-300 mg/dl: 14 units 301-350 mg/dl: 15 units 351-400 mg/dl: 16 units > 400 mg/dl: 18 units Comments: NOVOLOG GIVEN SUBSTITUTE Last Taken: Time: 12:00 PM Insulin NPH Human Isophane (Humulin N Kwikpen) 100 UNIT/ML (3 ML) INSULN.PEN 40 Units Inject into fatty tissue TWICE DAILY Qty = 15 Comments: NOT GIVEN Bimatoprost (Lumigan) 0.01 % DROPS 1 Drop In the eye Every night Qty = 75 Comments: DID NOT ADMINISTER Gabapentin (Gabapentin) 100 MG CAPSULE 3 Capsule ORAL THREE TIMES DAILY Qty = 180 Comments: Last Taken: 09/29/17 Time: 1:30 PM Citalopram Hydrobromide (Citalopram HBr) 40 MG TABLET 1 Tablet ORAL DAILY Qty = 30 Comments: Last Taken: 09/29/17 Time: 9:00 AM Metoprolol Succinate (Metoprolol Succinate) 25 MG TAB 1 Tablet ORAL DAILY Qty = 90 Comments: Last Taken: 09/29/17 Time: 8:00 AM Cholecalciferol (Vitamin D3) (Vitamin D) 2,000 UNIT TABLET 1 Tablet ORAL DAILY Comments: Last Taken:09/29/17 Time:0900 AM Torsemide (Torsemide) 20 MG TABLET 1 Tablet ORAL DAILY Qty = 60 Comments: NOT GIVEN Metformin HCl (Metformin HCl) 1,000 MG TABLET 1 Tablet ORAL DAILY Qty = 180 Comments: NOT GIVEN Melatonin (Melatonin) 3 MG TABLET 1 Tablet ORAL Every night Comments: Last Taken: 09/29/17 Time: 9:00 PM Fesoterodine Fumarate (Toviaz) 8 MG TAB.ER.24H 1 Tablet ORAL DAILY Comments: NOT GIVEN Lisinopril (Lisinopril) 5 MG TABLET 1 Tablet ORAL DAILY Qty = 30 Instructions: . Comments: DID NOT ADMINISTER Nitroglycerin (Nitroglycerin Patch) 0.4 MG/HOUR PATCH.TD24 1 PATCH On the skin DAILY Qty = 20 Instructions: APPLY for 12 hours every day. Comments: Last Taken:09/29/17 Time:0800 AM Start taking the following new medications: Doxycycline Hyclate (Doxycycline Hyclate) 100 MG CAPSULE 1 Capsule ORAL TWICE DAILY Qty = 10 No Refills Instructions: . Comments: Last Taken:09/29/17 Time:1:30 PM Allopurinol (Allopurinol) 100 MG TABLET 100 Milligram ORAL DAILY Qty = 30 No Refills Instructions: . Comments: Last Taken:09/29/17 Time:0800 AM Copies To: Pearl Horan APRN; Reza Rocha DPM; Kat BOURGEOIS,Paulino [place]; Gabino BOURGEOIS,[place]
[2017-09-27 14:26] VITALS: BP 120/70
[2017-09-27 22:30] VITALS: BP 120/62
--- NOTE | 2017-09-28 08:21 | PN- Housestaff ---
Pilar Fraire 09/28/17 0821: Subjective Follow-up For: L foot OM Subjective: Patient offers no complaints Review of Systems Constitutional: Reports: see HPI. Objective Last 24 Hrs of Vital Signs/I&O Vital Signs Date Time Temp Pulse Resp B/P B/P Pulse O2 O2 Flow FiO2 Mean Ox Delivery Rate 09/28 0958 98.1 63 18 110/60 97 Room Air 09/28 0901 98.5 78 20 120/62 09/27 2230 98.5 78 20 120/62 96 Room Air 09/27 1426 98.5 80 20 120/70 95 Room Air Intake & Output 09/28 1600 09/28 0800 09/28 0000 Intake Total 950 600 360 Output Total 900 900 Balance 50 600 -540 Intake, IV 950 600 Intake, Oral 0 360 Output, Urine 900 900 Physical Exam General Appearance: Alert, Oriented X3, Cooperative, No Acute Distress Cardiovascular: Regular Rate, Normal S1, Normal S2 Lungs: Clear to Auscultation, Normal Air Movement Abdomen: Normal Bowel Sounds, Soft, No Tenderness Extremities: L foot dressing intact without drainage Assessment/Plan Assessment: Ms. Hickman is a 82-year-old female with an extensive medical history who presents to the ED with LLE cellulitis and left foot second toe nonhealing ulcer Problem list: #LLE cellulitis #Nonhealing ulcerated left toe, second digit #SHE Plan: Patient scheduled for further debridement today as per Podiatry Monitor Cr Accu-Chek, Levemir and NovoLog SS Continue home meds: ASA, Ezetimibe, Gabapentin, Levothyroxine, Lisinopril, Torsemide, Citalopram Continue Vancomycin 1gm q 24h Blood cultures showed no growth thus far Wound cultures grew Staph and alpha strep Appreciate ID recommendations Appreciate Endocrinology recommendations Appreciate Podiatry recommendations Diet: NPO for further debridement as per Podiatry DVT ppx: sc heparin Code: DNR/I Problem List: 1. Ulcer of second toe of left foot Pain Ratin Pain Location: NA Pain Goal: Remain pain free Pain Plan: NA Tomorrow's Labs & Rationales: CBC, BEP Vivek BOURGEOIS,Catarina 09/28/17 1101: Attending MD Review Statement Attending Statement Attending MD Statement: examined this patient, discuss w/resident/PA/RN SURGICAL, agreed w/resident/PA/RN SURGICAL, reviewed EMR data (avail), discussed with nursing, discussed with case mgmt, reviewed images, amended to note Attending Assessment/Plan: Patient seen and examined, awaiting to go back to operating room today. Otherwise denies any complaints. Slight increase in creatinine to 1.3 today. Vital Signs Date Time Temp Pulse Resp B/P B/P Pulse O2 O2 Flow FiO2 Mean Ox Delivery Rate 09/28 0958 98.1 63 18 110/60 97 Room Air 09/28 0901 98.5 78 20 120/62 09/27 2230 98.5 78 20 120/62 96 Room Air 09/27 1426 98.5 80 20 120/70 95 Room Air on exam; aox3, nad. cv; s1, s2, soft systolic murmur. resp; clear abd; soft, nt, bs+ ext; left foot wrapped in yaneli warp. Laboratory Tests 09/28 0722 Chemistry Sodium (137 - 145 mmol/L) 139 Potassium (3.5 - 5.1 mmol/L) 4.5 Chloride (98 - 107 mmol/L) 102 Carbon Dioxide (22 - 30 mmol/L) 26 Anion Gap (5 - 16) 11 BUN (7 - 17 mg/dL) 28 H Creatinine (0.5 - 1.0 mg/dL) 1.3 H Estimated GFR (>60 ml/min) 39 L BUN/Creatinine Ratio (7 - 25 %) 21.5 Hematology CBC w Diff NO MAN DIFF REQ WBC (4.8 - 10.8 /CUMM) 10.9 H RBC (4.20 - 5.40 /CUMM) 3.82 L Hgb (12.0 - 16.0 G/DL) 11.3 L Hct (37 - 47 %) 32.9 L MCV (81.0 - 99.0 FL) 86.1 MCH (27.0 - 31.0 PG) 29.6 MCHC (33.0 - 37.0 G/DL) 34.4 RDW (11.5 - 14.5 %) 14.9 H Plt Count (130 - 400 /CUMM) 462 H MPV (7.4 - 10.4 FL) 8.2 Gran % (42.2 - 75.2 %) 55.6 Lymphocytes % (20.5 - 51.1 %) 27.1 Monocytes % (1.7 - 9.3 %) 12.9 H Eosinophils % (0 - 5 %) 3.8 Basophils % (0.0 - 2.0 %) 0.6 Absolute Granulocytes (1.4 - 6.5 /CUMM) 6.0 Absolute Lymphocytes (1.2 - 3.4 /CUMM) 2.9 Absolute Monocytes (0.10 - 0.60 /CUMM) 1.4 H Absolute Eosinophils (0.0 - 0.7 /CUMM) 0.4 Absolute Basophils (0.0 - 0.2 /CUMM) 0.1 A/P; 82 y/o F with pmh sig for IDDM, HTN, HLD, HFpEF (45-50%),CAD s/p stent (2007 of LAD), SSS s/p PM, PH, PAD, hypothyroidism, hereditory spherocytosis s/p splenectomy, multiple toe amputations, macular degeneration, history of MRSA osteomyelitis with recent admission to with lle phlebitis, admitted with lle cellulitis, left 2nd toe non healing wound with possible osteomyelitis, mild SHE and dehydration. Underwent operating room on September 25. Going back again for further debridement. She also has high uric acid levels therefore started her on maintenance allopurinol. Patient continued on Vanco mycin. She has a slight bump in her creatinine today. Would recommend continuing IV fluids and monitor kidney function. Please discuss with infectious disease about Vanco mycin dosing and further antibiotics. Also for the dose of antibiotics should be discussed for discharge planning. Blood sugars are running in acceptable range and patient has been followed by Dr. Lloyd. Continue the rest of the management. Patient on heparin subcutaneous for DVT prophylaxis. Possible discharge tomorrow once we clarify about antibiotics.
[2017-09-28 09:29] LABS: ABSOLUTE BASOPHIL COUNT 0.1 /CUMM (0.0-0.2); ABSOLUTE EOSINOPHIL COUNT 0.4 /CUMM (0.0-0.7); ABSOLUTE LYMPH COUNT 2.9 /CUMM (1.2-3.4); ABSOLUTE MONOCYTE COUNT 1.4 /CUMM (0.10-0.60); BASOPHIL % 0.6 % (0.0-2.0); EOSINOPHIL % 3.8 % (0-5); GRANULOCYTE % 55.6 % (42.2-75.2); HEMATOCRIT 32.9 % (37-47); MEAN CORPUSCULAR HGB 29.6 PG (27.0-31.0); MEAN CORPUSCULAR HGB CONC 34.4 G/DL (33.0-37.0); MEAN CORPUSCULAR VOLUME 86.1 FL (81.0-99.0); MEAN PLATELET VOLUME 8.2 FL (7.4-10.4); PLATELET COUNT 462 /CUMM (130-400); RBC DISTRIBUTION WIDTH 14.9 % (11.5-14.5); RED BLOOD CELL CT 3.82 /CUMM (4.20-5.40); WHITE BLOOD CELL COUNT 10.9 /CUMM (4.8-10.8)
--- NOTE | 2017-09-28 09:40 | PN- Diabetes ---
Assessment/Plan Diabetes Assessment: Ms. Hickman is a 82-year-old female with past medical history of DM type 2 on insulin ( NPH 40 units twice a day and Humalog coverage before meals according to the scale), mild renal insufficiency HTN, HLD, HFpEF (45-50%),CAD s/p stent ( 10/2007 of LAD), s/p pacer placement, hypothyroidism, hereditary spherocytosis s /p splenectomy, multiple toe amputations, macular degeneration, history of MRSA osteomyelitis, was admitted for left 2nd toe amputation and ? cellulitis of left LE. She underwent the procedure on 09/25. she is going to ahve another procedure done on her foot today. She was on Levemir 30 units twice a day; Novolog coverage before meals was adjusted on 09/27. after midnight, she has been kept NPO and she is currently receiving D5 1/2 NS at 75 ml/hour. Her FSGs were 134, 186, 136, 105, 84 and 112. Plan: after she is back from OR and when she is ready to eat regular meals, please restart her previous Novolog coverage before meals and Novolog coverage at bedtime; monitor FSGs. will follow. Subjective Subjective: She has no special complaints this morning. Objective Last 24 Hrs of Vital Signs/I&O Vital Signs Date Time Temp Pulse Resp B/P B/P Pulse O2 O2 Flow FiO2 Mean Ox Delivery Rate 09/28 0901 98.5 78 20 120/62 09/27 2230 98.5 78 20 120/62 96 Room Air 09/27 1426 98.5 80 20 120/70 95 Room Air Intake & Output 09/28 1600 09/28 0800 09/28 0000 Intake Total 600 360 Output Total 900 Balance 600 -540 Intake, IV 600 Intake, Oral 0 360 Output, Urine 900 Findings Pertinent Lab/Erik Results: Laboratory Tests 09/28 0722 Chemistry Sodium (137 - 145 mmol/L) 139 Potassium (3.5 - 5.1 mmol/L) 4.5 Chloride (98 - 107 mmol/L) 102 Carbon Dioxide (22 - 30 mmol/L) 26 Anion Gap (5 - 16) 11 BUN (7 - 17 mg/dL) 28 H Creatinine (0.5 - 1.0 mg/dL) 1.3 H Estimated GFR (>60 ml/min) 39 L BUN/Creatinine Ratio (7 - 25 %) 21.5 Hematology CBC w Diff Pending WBC Pending RBC Pending Hgb Pending Hct Pending MCV Pending MCH Pending MCHC Pending RDW Pending Plt Count Pending MPV Pending
[2017-09-28 09:58] VITALS: BP 110/60
--- NOTE | 2017-09-28 11:02 | Patient Discharge Instructions ---
Discharge Instructions General Discharge Information You were seen/treated for: Left foot osteomyelitis You had these procedures: Amputation and debridement Special Instructions: Follow up with Podiatry-Dr. Rocha within 1 week of discharge Follow up with your PCP-Dr. Horan within 1-2 weeks of discharge Follow up with your phlebotomy technologist-Dr. Lloyd within 1 week of discharge Diet Recommended Diet: Diabetic Activity Other activity limits: As tolerated Acute Coronary Syndrome Inclusion Criteria At DC or during hospital stay patient has or had the following: ACS DIAGNOSIS No Discharge Core Measures Meds if any: Prescribed or Continued at Discharge Meds if any: NOT Prescribed or Continued at Discharge Congestive Heart Failure Inclusion Criteria At DC or during hospital stay patient has or had the following: CHF DIAGNOSIS No Discharge Core Measures Meds if any: Prescribed or Continued at Discharge Meds if any: NOT Prescribed or Continued at Discharge Cerebrovascular accident Inclusion Criteria At DC or during hospital stay patient has or had the following: CVA/TIA Diagnosis No Discharge Core Measures Meds if any: Prescribed or Continued at Discharge Meds if any: NOT Prescribed or Continued at Discharge Venous thromboembolism Inclusion Criteria VTE Diagnosis No VTE Type NONE VTE Confirmed by (Test) NONE Discharge Core Measures - Per Current guidelines, there needs to be overlap - treatment for the first 5 days of Warfarin therapy. - If discharged on Warfarin prior to 5 days of - overlap therapy, the patient will need to be - assessed for post discharge needs including - *Post discharge parental anticoagulation - *Warfarin and/or parental anticoagulation education - *Follow up date to check INR post discharge At least 5 days overlap therapy as Inpatient No Meds if any: Prescribed or Continued at Discharge Note: Overlap Therapy is Warfarin and Anticoagulant Meds if any: NOT Prescribed or Continued at Discharge
[2017-09-28] MEDS ORDERED: BACTRIM DS TAB1 EACH PO (14:36)
[2017-09-28] MEDS ORDERED: ALLOPURINOL100 M1 PO (14:42)
--- NOTE | 2017-09-28 15:32 | Operative Report ---
Operative/Inv Procedure Report Surgery Date: 09/28/17 Name of Procedure: 1 open incision and drainage deep to the D fashion with exposure of the extensor and flexor tendon and tendon sheath multiple sites left foot 2 delayed primary closure of open surgical wound with local random advancement flap 3 revisional, partial second ray resection left foot 4 intraoperative Mr.'s of ankle block anesthesia 5 excisional debridement Pre-Operative Diagnosis: 1 open, necrotic wound left foot 2 osteomyelitis left foot 3 diabetic peripheral neuropathy Post-Operative Diagnosis: The same Estimated Blood Loss: less than 50ml Surgeon/Home Appliance Technician: FIDENCIO SENIOR DPM Anesthesia: moderate sedation, block Operative/Procedure Note Note: After obtaining informed consent the patient was brought to the operating room and placed on the operating table in the supine position. The patient isn't securely fastened to the operating table utilizing safety belt. After administration of IV sedation, 10 mL of 0.5% Marcaine plain was infiltrated about the patient's left ankle. The left foot and ankle within scrubbed, prepped and draped in usual aseptic manner. Attention directed distal left foot , where a large full-thickness necrotic was identified. A 15 blade visualized sharply revised skin margins. The dissection was then carried down deep to the deep fascia with exposure of the extensor and flexor tendon and tendon sheath multiple sites, both proximally and distally. All necrotic, nonviable infected tissue sharply evacuated from the wound bed. Dissection was then continued proximally to the capture structures the metatarsophalangeal joint. These were incised reflected and the distal osseous segment was freed and passed from the operative field. He was sent for pathologic inspection. The open wound was then irrigated with 3 L of normal sterile saline infusion 50,000 units of bacitracin. Following this, the foot was redraped and the surgeon's top was changed clean gloves. Any bleeding vessels identified were cauterized or ligated as encountered. A dorsal lateral and dorsal medial flap was then developed with undermining, mobilization and advancement of the adjacent tissues centrally. The deep side of the flap was held with 3-0 Vicryl and the skin edges reapproximated 3-0 nylon. Incision was dressed with Xeroform, 4 x 4's, Kerlix and an Kota wrap. The patient was noted to tolerate both procedure and anesthesia well and the patient was transported from the operating room to recovery with vital signs stable best assess intact to both the dorsal medial dorsal lateral flaps.
[2017-09-28 16:08] VITALS: BP 132/70
[2017-09-28] MEDS ORDERED: DOXYCYCLINE HY100 M2 PO (16:22)
--- NOTE | 2017-09-28 16:36 | PN- Infect Dx ---
Subjective Subjective: Afebrile without complaints Objective Last 24 Hrs of Vital Signs/I&O Vital Signs Date Time Temp Pulse Resp B/P B/P Pulse O2 O2 Flow FiO2 Mean Ox Delivery Rate 09/28 1608 97.9 68 20 132/70 97 Room Air 09/28 0958 98.1 63 18 110/60 97 Room Air 09/28 0901 98.5 78 20 120/62 09/27 2230 98.5 78 20 120/62 96 Room Air Intake & Output 09/28 1600 09/28 0800 09/28 0000 Intake Total 950 600 360 Output Total 900 900 Balance 50 600 -540 Intake, IV 950 600 Intake, Oral 0 360 Output, Urine 900 900 Physical Exam Other Physical Findings: She appears comfortable in no acute distress Extremities left foot dressing intact Results Last 24 Hours of Lab Results: Laboratory Tests 09/28 0722 Chemistry Sodium (137 - 145 mmol/L) 139 Potassium (3.5 - 5.1 mmol/L) 4.5 Chloride (98 - 107 mmol/L) 102 Carbon Dioxide (22 - 30 mmol/L) 26 Anion Gap (5 - 16) 11 BUN (7 - 17 mg/dL) 28 H Creatinine (0.5 - 1.0 mg/dL) 1.3 H Estimated GFR (>60 ml/min) 39 L BUN/Creatinine Ratio (7 - 25 %) 21.5 Hematology CBC w Diff NO MAN DIFF REQ WBC (4.8 - 10.8 /CUMM) 10.9 H RBC (4.20 - 5.40 /CUMM) 3.82 L Hgb (12.0 - 16.0 G/DL) 11.3 L Hct (37 - 47 %) 32.9 L MCV (81.0 - 99.0 FL) 86.1 MCH (27.0 - 31.0 PG) 29.6 MCHC (33.0 - 37.0 G/DL) 34.4 RDW (11.5 - 14.5 %) 14.9 H Plt Count (130 - 400 /CUMM) 462 H MPV (7.4 - 10.4 FL) 8.2 Gran % (42.2 - 75.2 %) 55.6 Lymphocytes % (20.5 - 51.1 %) 27.1 Monocytes % (1.7 - 9.3 %) 12.9 H Eosinophils % (0 - 5 %) 3.8 Basophils % (0.0 - 2.0 %) 0.6 Absolute Granulocytes (1.4 - 6.5 /CUMM) 6.0 Absolute Lymphocytes (1.2 - 3.4 /CUMM) 2.9 Absolute Monocytes (0.10 - 0.60 /CUMM) 1.4 H Absolute Eosinophils (0.0 - 0.7 /CUMM) 0.4 Absolute Basophils (0.0 - 0.2 /CUMM) 0.1 Bone pathology September 25 positive for chronic osteomyelitis Last 24 Hours of Erik Results: OR culture September 25 labeled left second toe bone positive for MRSA and alpha strep Blood cultures 2 September 24 negative Assessment/Plan ID Impression: Stable, with temperatures normal and white blood cell count minimally elevated, on Vancomycin for left second toe osteomyelitis, status post revisional surgery with delayed primary closure earlier today, now 3 days status post amputation of the toe. Have discussed with Podiatry, who feels that all of the infected bone has been removed; therefore she should only require a short course of oral antibiotics for residual soft tissue infection. Of note her pathology was interpreted as chronic osteomyelitis, with no mention of gout. Her creatinine is slowly increasing, possibly secondary to medications or dehydration and will need to continue to monitor. Suggestion: 1. Would obtain a baseline postop x-ray of the left foot 2. Reevaluate all of her medications in view of her increasing creatinine 3. Repeat BUN/creatinine in the a.m. 4. Discontinue Vancomycin 5. Begin Doxycycline 100 mg p.o. every 12 hours for 5 days
--- NOTE | 2017-09-28 21:20 | RADIOLOGY REPORT ---
EXAMINATION: XR FOOT, LEFT CLINICAL INFORMATION: Debridement amputation COMPARISON: Left foot 09/24/2017 TECHNIQUE: AP, lateral, and oblique views of the left foot. FINDINGS: Patient has had resection of the second toe at the MTP joint. There is a bandage over this area. There are stable findings from prior surgery. There is prior amputations of the fourth and third toe at the proximal metatarsal shaft. There is also been amputation/loss of bone at the distal tuft of the distal phalange of the great toe. IMPRESSION: Status post amputation of the second toe at the level of the metatarsal head.
[2017-09-28 22:03] VITALS: BP 110/60
[2017-09-29 06:31] VITALS: BP 130/64
--- NOTE | 2017-09-29 07:38 | PN- Housestaff ---
Padmini BOURGEOIS,Sandra 09/29/17 0737: Subjective Follow-up For: Left foot osteomyelitis status post debridement Complaints: no complaints Subjective: Patient is seen and examined at the bedside. She does not have any active complaints. According to the she was having some oozing from the left foot, and they discussed with Dr. Talavera who advised to overwrap the wound. Review of Systems Constitutional: Denies: no symptoms. Objective Last 24 Hrs of Vital Signs/I&O Vital Signs Date Time Temp Pulse Resp B/P B/P Pulse O2 O2 Flow FiO2 Mean Ox Delivery Rate 09/29 0631 99.4 64 18 130/64 97 Room Air 09/29 0000 Room Air 09/28 2203 99.0 62 20 110/60 96 09/28 1608 97.9 68 20 132/70 97 Room Air 09/28 0958 98.1 63 18 110/60 97 Room Air Intake & Output 09/29 1600 09/29 0800 09/29 0000 Intake Total 120 240 Output Total 200 900 Balance -80 -660 Intake, Oral 120 240 Output, Urine 200 900 Physical Exam General Appearance: Alert, Oriented X3, Cooperative Cardiovascular: Normal S1, Normal S2 Lungs: Clear to Auscultation, Normal Air Movement Abdomen: Soft, No Tenderness Extremities: No Clubbing, No Cyanosis, No Edema, left foot is wrapped in dressing Current Medications: Current Medications Sig/Wayne Start time Last Medication Dose Route Stop Time Status Admin Allopurinol 100 MG DAILY 09/25 1531 AC 09/28 PO 0902 Aspirin 650 MG DAILY 09/24 1603 AC 09/28 PO 0900 Cholecalciferol 2,000 IU DAILY 09/24 1614 AC 09/28 PO 0901 Citalopram 40 MG DAILY 09/24 1615 AC 09/28 Hydrobromide PO 0900 Dextrose/Sodium 1,000 ML Q13H 09/27 2345 DC 09/28 Chloride IV 09/28 1244 0025 Doxycycline Hyclate 100 MG BID 09/29 0915 AC PO Ezetimibe 10 MG DAILY 09/24 1604 AC 09/28 PO 0901 Fentanyl Citrate 100 MCG .STK-MED ONE 09/28 1354 DC IM 09/28 1355 Ferrous Sulfate 325 MG BID 09/24 2100 AC 09/28 PO 203 Gabapentin 300 MG TID 09/24 1604 AC 09/28 PO 203 Heparin Sodium 5,000 UNIT Q8 09/24 1512 AC 09/27 (Porcine) SC 1303 Insulin Aspart 0 TIDAC 09/28 1700 AC 09/28 SC 1718 Insulin Detemir 30 UNITS BID 09/25 2100 AC 09/28 SC 2043 Insulin Human Regular 2 UNITS .STK-MED ONE 09/28 1144 DC IV 09/28 1145 Insulin Human Regular 0 Q6 09/27 2359 DC 09/28 SC 1145 Latanoprost 1 GTT AT BEDTIME 09/24 2100 AC 09/28 OPH 2038 Levothyroxine Sodium 0.137 MG DAILY AC 09/24 1615 AC 09/29 PO 0554 Melatonin 5 MG AT BEDTIME 09/26 2100 AC 09/28 PO 203 Metoprolol Succinate 25 MG DAILY 09/24 1615 AC 09/28 PO 0901 Midazolam HCl 2 MG .STK-MED ONE 09/28 1354 DC IM 09/28 1355 Nitroglycerin 0.4 MG DAILY 09/25 0900 AC 09/28 TOP 0900 Pantoprazole Sodium 40 MG DAILY 09/25 0900 AC 09/28 IV 0900 Ramelteon 8 MG AT BEDTIME 09/25 2330 AC 09/28 PO 203 Torsemide 10 MG ONCE ONE 09/29 0900 DC PO 09/29 0901 Torsemide 20 MG DAILY 09/25 0900 DC 09/28 PO 0901 Vancomycin HCl 1,250 MG DAILY 09/26 0900 DC 09/28 Sodium Chloride 250 ML IV 1039 Last 24 Hrs of Lab/Erik Results Last 24 Hrs of Labs/Mics: Laboratory Tests 09/29/17 0752: Anion Gap 15, Estimated GFR 43 L, BUN/Creatinine Ratio 20.8, CBC w Diff Pending , WBC Pending, RBC Pending, Hgb Pending, Hct Pending, MCV Pending, MCH Pending, MCHC Pending, RDW Pending, Plt Count Pending, MPV Pending Assessment/Plan Assessment: Patient is an 82-year-old female with past medical history ofIDDM, HTN, HLD, HFpEF (45-50%),CAD s/p stent (10/2007 of LAD), SSS s/p PM, PH, PAD, hypothyroidism, hereditary spherocytosis s/p splenectomy, multiple toe amputations, macular degeneration, history of MRSA osteomyelitis recently discharged from [facility] suspicious for LLE phlebitis with cellulitis SIB Dr. Rocha for elective toe amputation. She had 2 serial debridement on and 09/28/2017. She was given injection vancomycin. As doing the surgery of infected bone has been removed it was decided that patient will need on a very short course of antibiotic. Her blood count has been improved, she is afebrile. Postop x-ray of the left foot showed status post amputation of the second toe at the level of the metatarsal head. Her creatinine today is 1.2. Discussed with infectious disease she can be discharged on doxycycline 100 mg p.o. 12 hourly for 5 days. Assessment and plan - * We will discharge the patient today * We will give her tablet doxycycline 100 mg p.o. twice daily for 5 days * She may need BEP, in a week to monitor kidney function. * Advised to follow-up with Dr. Talavera within a week of discharge * Continue rest of the medication as before * Code status - DNR/DNI Problem List: 1. Cellulitis of foot, left Pain Ratin Pain Location: n/a Pain Goal: n/a Pain Plan: n/a Tomorrow's Labs & Rationales: n/a Renee BOURGEOIS,Amir 09/29/17 1400: Attending MD Review Statement Attending Statement Attending MD Statement: examined this patient, discuss w/resident/PA/MEAL GRINDER TENDER, agreed w/resident/PA/MEAL GRINDER TENDER, reviewed EMR data (avail), discussed with nursing Attending Assessment/Plan: Pt was seen and evaluated. s/p debridement, was also seen by ID. Being d/c on abx rest of the plan as per resident's note
[2017-09-29 08:39] LABS: ABSOLUTE BASOPHIL COUNT 0.1 /CUMM (0.0-0.2); ABSOLUTE EOSINOPHIL COUNT 0.4 /CUMM (0.0-0.7); ABSOLUTE GRANULOCYTE CT 7.6 /CUMM (1.4-6.5); ABSOLUTE LYMPH COUNT 3.1 /CUMM (1.2-3.4); ABSOLUTE MONOCYTE COUNT 1.5 /CUMM (0.10-0.60); BASOPHIL % 0.7 % (0.0-2.0); EOSINOPHIL % 3.3 % (0-5); HEMATOCRIT 36.7 % (37-47); MEAN CORPUSCULAR HGB 29.7 PG (27.0-31.0); MEAN CORPUSCULAR HGB CONC 34.5 G/DL (33.0-37.0); MEAN CORPUSCULAR VOLUME 86.3 FL (81.0-99.0); MEAN PLATELET VOLUME 8.1 FL (7.4-10.4); PLATELET COUNT 520 /CUMM (130-400); RBC DISTRIBUTION WIDTH 14.7 % (11.5-14.5); RED BLOOD CELL CT 4.25 /CUMM (4.20-5.40); WHITE BLOOD CELL COUNT 12.6 /CUMM (4.8-10.8)
[2017-09-29] MEDS ORDERED: DOXYCYCLINE HY100 M2 PO (12:05)
[2017-09-29] MEDS ORDERED: ALLOPURINOL100 M1 PO (12:05)
[2017-09-29 14:38] VITALS: BP 120/60
--- NOTE | 2017-09-29 18:28 | PN- Diabetes ---
Assessment/Plan Diabetes Assessment: Ms. Hickman is a 82-year-old female with past medical history of DM type 2 on insulin ( NPH 40 units twice a day and Humalog coverage before meals according to the scale), mild renal insufficiency HTN, HLD, HFpEF (45-50%),CAD s/p stent ( 10/2007 of LAD), s/p pacer placement, hypothyroidism, hereditary spherocytosis s /p splenectomy, multiple toe amputations, macular degeneration, history of MRSA osteomyelitis, was admitted for left 2nd toe amputation and cellulitis of left LE. She underwent the procedure on 09/25 and 09/28. She is going home today. She was put on Levemir 30 units twice a day, Novolog coverage at bedtime and Novolog coverage at bedtime. Her FSGs were 101, 156, 74, 236, 253. Plan: continue the current insuin regimen for now as inpatient. When she is discharged, she will be on her previous DM regimen-- NPH 40 units twice a day and Humalog coverage before meals. monitor FSGs x 4 times a day; f/u in office after discharge. Subjective Subjective: She feels ok. Objective Last 24 Hrs of Vital Signs/I&O Vital Signs Date Time Temp Pulse Resp B/P B/P Pulse O2 O2 Flow FiO2 Mean Ox Delivery Rate 09/29 1438 98.0 62 18 120/60 95 09/29 0955 64 130/64 09/29 0631 99.4 64 18 130/64 97 Room Air 09/29 0000 Room Air 09/28 2203 99.0 62 20 110/60 96 Intake & Output 09/29 1600 09/29 0800 09/29 0000 Intake Total 1300 120 240 Output Total 1400 200 900 Balance -100 -80 -660 Intake, Oral 1300 120 240 Output, Urine 1400 200 900 Findings Pertinent Lab/Erik Results: Laboratory Tests 09/29 0752 Chemistry Sodium (137 - 145 mmol/L) 142 Potassium (3.5 - 5.1 mmol/L) 4.3 Chloride (98 - 107 mmol/L) 100 Carbon Dioxide (22 - 30 mmol/L) 28 Anion Gap (5 - 16) 15 BUN (7 - 17 mg/dL) 25 H Creatinine (0.5 - 1.0 mg/dL) 1.2 H Estimated GFR (>60 ml/min) 43 L BUN/Creatinine Ratio (7 - 25 %) 20.8 Hematology CBC w Diff NO MAN DIFF REQ WBC (4.8 - 10.8 /CUMM) 12.6 H RBC (4.20 - 5.40 /CUMM) 4.25 Hgb (12.0 - 16.0 G/DL) 12.6 Hct (37 - 47 %) 36.7 L MCV (81.0 - 99.0 FL) 86.3 MCH (27.0 - 31.0 PG) 29.7 MCHC (33.0 - 37.0 G/DL) 34.5 RDW (11.5 - 14.5 %) 14.7 H Plt Count (130 - 400 /CUMM) 520 H MPV (7.4 - 10.4 FL) 8.1 Gran % (42.2 - 75.2 %) 60.0 Lymphocytes % (20.5 - 51.1 %) 24.3 Monocytes % (1.7 - 9.3 %) 11.7 H Eosinophils % (0 - 5 %) 3.3 Basophils % (0.0 - 2.0 %) 0.7 Absolute Granulocytes (1.4 - 6.5 /CUMM) 7.6 H Absolute Lymphocytes (1.2 - 3.4 /CUMM) 3.1 Absolute Monocytes (0.10 - 0.60 /CUMM) 1.5 H Absolute Eosinophils (0.0 - 0.7 /CUMM) 0.4 Absolute Basophils (0.0 - 0.2 /CUMM) 0.1
== END 2017-09-29 11:54 | DRG 464 ==
LOC: ERH 12:29 → ERHI 14:33 → 2NA 14:33 → ENRESERV 14:59 → ENTRNSPT 16:12 → EDTRNSPTSTS 16:29 → 2NA 16:34 → CMPTRNSPT 17:06 → ENTRNSPT 09-25 13:29 → EDTRNSPTSTS 09-25 13:32 → CMPTRNSPT 09-25 13:47 → ENTRNSPT 09-28 15:44 → EDTRNSPTSTS 09-28 15:50 → EDTRNSPT 09-28 15:50 → CMPTRNSPT 09-28 16:08 → 2NA 09-29 11:54 → ENPENDDIS 09-29 14:13 → DELTRNSPT 09-29 15:27
PROVIDERS: Internal Medicine Adolescent Medicine; Physician Assistant; Student in an Organized Health Care Education/Training Program
PROC: 0JBR0ZZ Excision of Left Foot Subcutaneous Tissue and Fascia, Open Approach (ICD-10-PCS; principal; 2017-09-25)
PROC: 0Y6N0ZB Detachment at Left Foot, Partial 2nd Ray, Open Approach (ICD-10-PCS; principal; 2017-09-25)
PROC: 0Y6N0ZB Detachment at Left Foot, Partial 2nd Ray, Open Approach (ICD-10-PCS; 2017-09-28)
PROC: 0JXR0ZB Transfer Left Foot Subcutaneous Tissue and Fascia with Skin and Subcutaneous Tissue, Open Approach (ICD-10-PCS; 2017-09-28)
PROC: 0JBR0ZZ Excision of Left Foot Subcutaneous Tissue and Fascia, Open Approach (ICD-10-PCS; 2017-09-28)
DX: M86.672 Other chronic osteomyelitis, left ankle and foot (principal); L03.116 Cellulitis of left lower limb; N17.9 Acute kidney failure, unspecified; E11.42 Type 2 diabetes mellitus with diabetic polyneuropathy; E11.319 Type 2 diabetes mellitus with unspecified diabetic retinopathy without macular edema; E11.621 Type 2 diabetes mellitus with foot ulcer; I27.20 Pulmonary hypertension, unspecified; E86.0 Dehydration; I48.0 Paroxysmal atrial fibrillation; E11.51 Type 2 diabetes mellitus with diabetic peripheral angiopathy without gangrene; I11.0 Hypertensive heart disease with heart failure; I50.32 Chronic diastolic (congestive) heart failure; L97.529 Non-pressure chronic ulcer of other part of left foot with unspecified severity; D50.9 Iron deficiency anemia, unspecified; E55.9 Vitamin D deficiency, unspecified; E66.9 Obesity, unspecified; Z79.4 Long term (current) use of insulin; Z86.73 Personal history of transient ischemic attack (TIA), and cerebral infarction without residual deficits; Z79.84 Long term (current) use of oral hypoglycemic drugs; H35.30 Unspecified macular degeneration; Z79.82 Long term (current) use of aspirin; I25.10 Atherosclerotic heart disease of native coronary artery without angina pectoris; K27.9 Peptic ulcer, site unspecified, unspecified as acute or chronic, without hemorrhage or perforation; F41.9 Anxiety disorder, unspecified; F32.9 Major depressive disorder, single episode, unspecified; Z95.5 Presence of coronary angioplasty implant and graft; Z95.0 Presence of cardiac pacemaker; E03.9 Hypothyroidism, unspecified; D58.0 Hereditary spherocytosis; Z86.14 Personal history of Methicillin resistant Staphylococcus aureus infection; H54.8 Legal blindness, as defined in USA; E78.5 Hyperlipidemia, unspecified; Z86.12 Personal history of poliomyelitis; M10.9 Gout, unspecified; Z88.1 Allergy status to other antibiotic agents; Z88.5 Allergy status to narcotic agent; Z88.2 Allergy status to sulfonamides; Z66 Do not resuscitate; B95.61 Methicillin susceptible Staphylococcus aureus infection as the cause of diseases classified elsewhere
CPT/HCPCS: 2NAP; 87070; 87075; 87184; 36592; 71046; 73630-LT; 82436; 86902; 86920; 86922; 87040; 87071; 87147; 93005; 93010; 96374; 96375; J0131; J0713; J1200; J1644; J1815; J2001; J3370; J3490; J7040; J7042